=== PATIENT | female | born 1950 | race Caucasian/White ===

== ENCOUNTER 2017-06-04 00:02 | Emergency (ER) | payer BC ==
[~2017-06-04] VITALS: Ht 157.5 cm; Wt 60.6 kg
[~2017-06-04 00:02] MED LIST: CLL250 PO; CLTP PO; ESCI1TAB10 PO; FENT100D10 TD; INSU100I2 SQ; INSUINJ12 SC; PRLSR20 PO; TACR1CAP7 PO; ZOLE5INJ IV
[2017-06-04 00:09] VITALS: TEMP 37.6; Ht 157.5 cm; Wt 60.6 kg
[2017-06-04] MEDS ORDERED: MoRPHine SULFATE 10 MG/ML CARP/VIAL IV STA (00:09)
[2017-06-04] MEDS ORDERED: ONDANSETRON INJ 2 MG/ML 2 ML VIAL IV STA (00:09)
[2017-06-04] MEDS ORDERED: SODIUM CHLORIDE 0.9% 500ML 500 ML IV STA (00:09)
[2017-06-04] MEDS ORDERED: HYDROmorphone INJ 0.5 MG/0.5 ML SYR IV STA (00:14)
[2017-06-04] MEDS ORDERED: MoRPHine SULFATE 10 MG/ML CARP/VIAL IV PRN (00:15)
--- NOTE | 2017-06-04 00:27 | EMERGENCY ROOM VISIT NOTE ---
History Report prepared by Darling: Polina Gatica Under the Supervision of: Dr. Juan Francisco Nuñez M.D. First contact with patient: 00:05 Chief Complaint: FALL Stated Complaint: FALL/HIP PAIN History of Present Illness The patient is a 66 year old female who presents to the Emergency Room with complaints of an episode of a fall occurring prior to arrival. The patient states that she experiences these episodes where she feels like she is walking 90 miles an hour and then falls. She states this happened tonight when walking out of her bedroom. She states tonight she hurt her right hip. She currently rates her pain as a 10/10 in severity. The patient denies abdominal pain, dizziness, and lightheadedness. She notes she fractured her left hip recently. Source of History: patient Onset: prior to arrival Position: other (global) Symptom Intensity: 10/10 Timing: other (episode) Associated Symptoms: No abdominal pain Note: The patient complains of right hip pain. The patient denies dizziness and lightheadedness. Review of Systems See HPI for pertinent positives & negatives. A total of 10 systems reviewed and were otherwise negative. Past Medical & Surgical Medical Problems: (1) Chronic kidney disease stage 3 (2) Compression fracture of lumbar spine (3) Depression (4) DIAB KATHLEEN WO COMPL, TYPE II OR UNSPEC TYPE, NOT UNCNTRLD (5) Diabetes (6) Gastroparesis (7) Hyponatremia (8) Idiopathic osteoporosis (9) s/p cardiac catheterization (10) s/p cholecystectomy (11) s/p EGD (12) s/p hysterectomy (13) s/p liver transplantation (14) s/p lumbar vertebroplasties (15) Transplantation of liver Family History No pertinent family history Social History Smoking Status: Never Smoker Drug Use: none Housing Status: lives with family Current/Historical Medications Scheduled Calcium Carbonate-Cholecalcife (Calcium 600 + D 600-200 mg-Unit), 1 TAB PO BID Denosumab (Prolia), 1 ML INJ Q6MO Escitalopram Oxalate (Lexapro), 20 MG PO DAILY Fentanyl (Duragesic), 1 PATCH TOP [id number] Mycophenolate Mofetil (Cellcept), 2 CAP PO BID Omeprazole (Prilosec), 20 MG PO BID Potassium Chloride Microencaps (Potassium Chloride Cr), 20 MEQ PO BID Tacrolimus (Prograf), 1 MG PO Q12 Scheduled PRN Insulin Lispro (Human) (Humalog Kwikpen), 4 UNITS SQ BID PRN for sliding scale Oxycodone Ir (Roxicodone Ir), 5 MG PO Q12 PRN for Severe Pain Miscellaneous Medications Insulin Detemir (Levemir Flextouch), SQ Allergies Coded Allergies: Celecoxib (Verified Adverse Reaction, Mild, NAUSEA, VOMITING, 06/04/17) Codeine (Verified Adverse Reaction, Mild, ANXIETY, 06/04/17) Rofecoxib (Verified Adverse Reaction, Mild, LEGS GO NUMB, 06/04/17) Hydromorphone (Verified Adverse Reaction, Unknown, RESTLESS, INSOMNIA, ) Physical Exam Vital Signs Date Time Temp Pulse Resp B/P (MAP) Pulse Ox O2 Delivery O2 Flow Rate FiO2 06/04/17 03:32 121 24 95 06/04/17 03:27 122 25 96 06/04/17 03:16 150/84 06/04/17 02:57 120 19 97 06/04/17 02:42 112 18 100 06/04/17 02:30 151/84 06/04/17 02:27 107 20 98 06/04/17 02:25 Nasal Cannula 2.0 06/04/17 02:22 109 17 92 06/04/17 02:07 105 20 91 06/04/17 02:00 138/81 06/04/17 01:52 101 21 91 06/04/17 01:37 101 15 94 06/04/17 01:33 154/82 06/04/17 01:17 101 14 93 06/04/17 01:14 136/76 06/04/17 00:32 101 21 95 06/04/17 00:31 135/81 06/04/17 00:17 94 15 98 Room Air 06/04/17 00:12 95 06/04/17 00:09 37.6 95 18 119/84 97 Room Air 06/04/17 00:08 119/84 Physical Exam GENERAL: Patient is a healthy-appearing well-nourished HEAD: Normocephalic atraumatic EYES: Ocular movements intact pupils equal and react to light OROPHARYNX mucous membranes are moist no exudates present no erythema or edema present NECK: Supple no nuchal rigidity CHEST: Good equal expansion LUNGS: Clear and equal to auscultation CARDIAC: Normal S1 and S2 ABDOMEN: Soft nontender no guarding BACK: No CVA tenderness EXTREMITIES: No pain upon palpation normal muscle strength in all groups no clubbing cyanosis or edema. Right leg is shortened and rotated inward. NEURO: Patient is following commands and answering questions appropriately. Alert and oriented x3 Cranial Nerves 2-12 grossly intact Medical Decision & Procedures ER Provider Diagnostic Interpretation: A 1 view of the chest was observed by me shows no evidence of pneumonia congestion and pneumothorax or acute fractures A two-view of the pelvis was interpreted by me and is concerning for multiple pelvic fractures on the right along with what appears to be a right femoral neck fracture A two-view of the right femur was interpreted by me and is again concerning for a right femoral neck fracture. CT the pelvis shows an irregularly right femoral neck fracture. Fracture the right acetabulum and superior inferior pubic rami. Irregularity of the right sacrum adjacent to the S1 joint probably fracture. There is associated soft tissue swelling and probable hemorrhage along the right pelvic sidewall. No evidence of hip dislocation. Left hip arthroplasty and L4 and L5 vertebral plasty. Card catheter in the bladder. Stool-filled colon. CERVICAL SPINE CT CT DOSE: HISTORY: Pt c/o fall TECHNIQUE: Multiaxial CT images of the cervical spine were performed and reformatted in the sagittal and coronal plane without the use of contrast. A dose lowering technique was utilized adhering to the principles of ALARA. COMPARISON: None. FINDINGS: No fractures. No subluxation. Prevertebral soft tissues and the C1-C2 interval are intact. No pneumothorax. IMPRESSION: No fractures within the cervical spine. Electronically signed by: Laurent Modi M.D. 06/04/2017 7:08 AM Dictated Date/Time: 06/04/2017 7:06 AM (CHEST) THORAX WITHOUT CLINICAL HISTORY: 66 years-old Female presenting with Pt c/o fall. TECHNIQUE: Multidetector CT imaging of the chest was performed without the use of intravenous contrast. IV contrast: None. A dose lowering technique was used consistent with the principles of ALARA (as low as reasonably achievable). COMPARISON: 02/06/2013. CT DOSE (mGy.cm): The estimated cumulative dose is 2410.[address] spine. 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 On soft tissue windows, normal thyroid and thoracic inlet. No axillary, supraclavicular, hilar, or mediastinal lymphadenopathy. Atherosclerosis of aortic arch. Normal heart size. Aortic valve and coronary artery calcification. No pericardial or pleural effusion. Surgical material in the region of the intrahepatic IVC as well as overlying right upper quadrant abdominal surgical incision may suggest changes of prior liver transplant. The spleen is enlarged. Splenic arterial atherosclerosis. Well-defined hypodensity in the right kidney indeterminate but likely simple cyst. On lung windows, curvilinear hyperdensity in the lingula along the course of a subsegmental pulmonary artery (series 8 image 143) is new from prior exam and indeterminate. Minimal dependent changes likely atelectasis. No other focal infiltrate. Airways patent. On bone windows, vertebroplasty of L1. Compression deformities of T11, new from prior exam. Stable compression deformity of T12. Possible old fractures of several lower right posterior lateral ribs. Osteopenia. IMPRESSION: 1. Curvilinear radiodensity in the lingula appears to be within a subsegmental pulmonary artery and is indeterminate in etiology. Given that kyphoplasty changes of L1 were present on prior exam when this finding was not apparent suggests against embolization of kyphoplasty material. 2. No convincing evidence of acute intrathoracic pathology. 3. Compression deformities of lower thoracic vertebral bodies. Please see separately dictated CT of the thoracic spine for additional findings. 4. Postsurgical changes suggestive of a liver transplant. 5. Splenomegaly. Electronically signed by: Rahul Casper M.D. 06/04/2017 7:45 AM Dictated Date/Time: 06/04/2017 7:[address] HEAD WITHOUT CONTRAST (CT) CLINICAL HISTORY: Head trauma. Head pain. COMPARISON STUDY: 07/28/2008 TECHNIQUE: Axial CT of the brain is performed from the vertex to the skull base. IV contrast was not administered for this examination. A dose lowering technique was utilized adhering to the principles of ALARA. CT DOSE: FINDINGS: No intra or extra-axial mass lesions are visualized. There is no CT evidence of acute cortical infarction. There is no evidence of midline shift. There is no acute hemorrhage. No calvarial fractures are visualized. There are patchy white matter hypodensities likely on a small vessel basis. There is no evidence of pathologic ventricular dilatation. There is no evidence of acute sinusitis IMPRESSION: No acute intracranial findings Electronically signed by: David Gottlieb M.D. 06/04/2017 6:32 AM Dictated Date/Time: 06/04/2017 6:[address] DOSE: HISTORY: Low back pain. Pt c/o fall TECHNIQUE: Multiaxial CT images of the lumbar spine were performed and reformatted in the sagittal and coronal plane without the use of contrast. A dose lowering technique was utilized adhering to the principles of ALARA. COMPARISON: Lumbar spine CT 07/21/2014. FINDINGS: Multiple old compression deformity with vertebroplasty at L1, L3, L4, and L5. These remain unchanged. No acute fracture or subluxation within the lumbar spine. Nondisplaced fracture within the right sacral ala with a small amount of adjacent presacral hemorrhage. IMPRESSION: 1. No acute fracture or subluxation within the lumbar spine. Multiple old compression deformities with vertebroplasty are again noted. 2. An acute nondisplaced fracture within the right sacral ala with a small amount of adjacent presacral hemorrhage. Electronically signed by: Laurent Modi M.D. 06/04/2017 7:13 AM Dictated Date/Time: 06/04/2017 7:08 AM THORACIC SPINE WITHOUT CLINICAL HISTORY: 66 years-old Female presenting with Pt c/o fall. TECHNIQUE: Multidetector CT of the thoracic spine was performed without the use of intravenous contrast. IV contrast: None. A dose lowering technique was used consistent with the principles of ALARA (as low as reasonably achievable). COMPARISON: CTA chest from 02/06/2013. CT DOSE (mGy.cm): The estimated cumulative dose is 2410.68 mGy.cm. 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 Slight the vertebral scoliotic curvature of the lower thoracic spine. Exaggerated thoracic kyphosis centered in the thoracolumbar junction secondary to multiple compression deformities. Evidence of L1 compression deformity with vertebroplasty, unchanged from prior exam. The T11 vertebral body demonstrates significant anterior vertebral body height loss of nearly 50% relative to the posterior vertebral body height. This is new from prior exam. Less severe anterior vertebral body height loss of T12 is noted with the anterior height measuring 12 mm versus the posterior height measuring 21 mm. This is unchanged from prior exam. Minimal retropulsion of the superior aspect of the T11 and T12 vertebral bodies noted not significantly effacing the spinal canal. Subtle anterior vertebral body height loss also noted at T6, unchanged since prior exam. Remainder of the vertebral bodies demonstrate normal height. Osteopenia is present with a lower thoracic vertebral body with a density measuring 87 HU. No subluxation. Mild osseous neural foraminal narrowing noted on the right at T11-12. No other osseous neural foraminal narrowing is noted. Subtle sclerosis across the posterior lateral aspects of the right eighth through 10th ribs may suggest old fracture. No displaced acute fracture is evident. Visualized portion of the lungs are clear. No pericardial or pleural effusion. Aortic valve and coronary artery calcification. Surgical material in the region of the intrahepatic inferior vena cava could suggest liver transplant. The spleen may be enlarged but is incompletely visualized. IMPRESSION: 1. Interval development of compression fracture of T11, new since 2012. Correlate for point tenderness to assess for acute fracture. 2. Persistent anterior vertebral body height loss, consistent with compression deformity of T12 and vertebroplasty changes of L1. 3. Osteopenia. 4. Mild osseous neural foraminal narrowing on the right at T11-12. 5. No significant osseous spinal canal narrowing. Electronically signed by: Rahul Casper M.D. 06/04/2017 7:39 AM Dictated Date/Time: 06/04/2017 7:28 AM Laboratory Results 06/04/17 00:31 Red Blood Count 3.67, Mean Corpuscular Volume 84.2, Mean Corpuscular Hemoglobin 29.2, Mean Corpuscular Hemoglobin Concent 34.6, Mean Platelet Volume 10.8, Neutrophils (%) (Auto) 85.0, Lymphocytes (%) (Auto) 9.9, Monocytes (%) (Auto) 4.3, Eosinophils (%) (Auto) 0.2, Basophils (%) (Auto) 0.0, Neutrophils # (Auto) 4.20, Lymphocytes # (Auto) 0.49, Monocytes # (Auto) 0.21, Eosinophils # (Auto) 0.01, Basophils # (Auto) 0.00 06/04/17 00:31 Test 06/04/17 00:31 06/04/17 00:45 White Blood Count 4.94 K/uL (4.8-10.8) Red Blood Count 3.67 M/uL (4.2-5.4) Hemoglobin 10.7 g/dL (12.0-16.0) Hematocrit 30.9 % (37-47) Mean Corpuscular Volume 84.2 fL (80-100) Mean Corpuscular Hemoglobin 29.2 pg (25-34) Mean Corpuscular Hemoglobin Concent 34.6 g/dl (32-36) Platelet Count 88 K/uL (130-400) Mean Platelet Volume 10.8 fL (7.4-10.4) Neutrophils (%) (Auto) 85.0 % Lymphocytes (%) (Auto) 9.9 % Monocytes (%) (Auto) 4.3 % Eosinophils (%) (Auto) 0.2 % Basophils (%) (Auto) 0.0 % Neutrophils # (Auto) 4.20 K/uL (1.4-6.5) Lymphocytes # (Auto) 0.49 K/uL (1.2-3.4) Monocytes # (Auto) 0.21 K/uL (0.11-0.59) Eosinophils # (Auto) 0.01 K/uL (0-0.5) Basophils # (Auto) 0.00 K/uL (0-0.2) RDW Standard Deviation 40.8 fL (36.4-46.3) RDW Coefficient of Variation 13.4 % (11.5-14.5) Immature Granulocyte % (Auto) 0.6 % Immature Granulocyte # (Auto) 0.03 K/uL (0.00-0.02) Platelet Estimate DECREASED Red Blood Cell Morphology Unremarkable Prothrombin Time 11.5 SECONDS (9.0-12.0) Prothromb Time International Ratio 1.1 (0.9-1.1) Activated Partial Thromboplast Time 27.9 SECONDS (21.0-31.0) Partial Thromboplastin Ratio 1.1 Anion Gap 8.0 mmol/L (3-11) Est Creatinine Clear Calc Drug Dose 48.8 ml/min Estimated GFR () 70.9 Estimated GFR (Non- 61.2 BUN/Creatinine Ratio 13.9 (10-20) Calcium Level 7.3 mg/dl (8.5-10.1) Urine Color DK YELLOW Urine Appearance CLEAR (CLEAR) Urine pH 5.5 (4.5-7.5) Urine Specific [place] 1.016 (1.000-1.030) Urine Protein NEG (NEG) Urine Glucose (UA) TRACE (NEG) Urine Ketones NEG (NEG) Urine Occult Blood 1+ (NEG) Urine Nitrite NEG (NEG) Urine Bilirubin NEG (NEG) Urine Urobilinogen NEG (NEG) Urine Leukocyte Esterase SMALL (NEG) Urine WBC (Auto) 1-5 /hpf (0-5) Urine RBC (Auto) 0-4 /hpf (0-4) Urine Hyaline Casts (Auto) 1-5 /lpf (0-5) Urine Epithelial Cells (Auto) 10-20 /lpf (0-5) Urine Bacteria (Auto) NEG (NEG) Labs reviewed by ED physician. Medications Administered Medications (Trade) Dose Ordered Sig/Sandra Route Start Time Stop Time Status Last Admin Dose Admin Ondansetron HCl (Zofran Inj) 4 mg NOW STAT IV 06/04/17 00:09 06/04/17 00:13 DC 06/04/17 00:23 4 MG Sodium Chloride 500 ml @ 999 mls/hr Q31M STAT IV 06/04/17 00:09 06/04/17 00:39 DC 06/04/17 00:16 999 MLS/HR Hydromorphone HCl (Dilaudid Inj) 0.5 mg NOW STAT IV 06/04/17 00:14 06/04/17 00:16 DC 06/04/17 00:26 0.5 MG Hydromorphone HCl (Dilaudid Inj) 0.5 mg Q20M PRN IV 06/04/17 00:15 06/04/17 04:28 DC 06/04/17 03:24 0.5 MG Metoclopramide HCl (Reglan Inj) 10 mg NOW STAT IV 06/04/17 00:41 06/04/17 00:42 DC 06/04/17 00:43 10 MG ED Course 0006: Past medical records reviewed. The patient was evaluated in room A10. A complete history and physical examination was performed. 0009: Ordered NSS 500 ml @ 999 mls/hr IV, Zofran Inj 4 mg IV, Morphine Sulfate 6 mg IV. 0014: Ordered Dilaudid Inj 0.5 mg IV. 0015: Ordered Dilaudid Inj 0.5 mg PRN IV Severe Pain (pain scale 7-10), Morphine Sulfate 6 mg PRN IV Anxiety/Agitation. Medical Decision Etiologies such as fracture, dislocation, intra-abdominal, pneumothorax, intrathoracic , intracranial, neurologic, as well as other traumatic pathologies were entertained. This is a 66-year-old female with a history of liver transplant who presents to the emergency department with right hip pain after a fall at home. An IV was established, the patient was given Dilaudid multiple doses along with Zofran. The patient was sent for x-rays as above. I was concerned with the number fractures that appear to be present on the pelvic x-ray that the patient should have a CT of the pelvis. Based on this finding including the acetabular fracture felt that the patient should be transferred to a trauma center. The patient and family wish to go to [place] however based on the patient's insurance it was recommended that the patient be transferred to [place]. I discussed this with the patient and family who then agreed to go to [place]. I discussed the case with the trauma surgeon at [place] who asked that the patient be vee scanned. The patient will be transferred via [facility]. Head Trauma GCS Score: 15 Medication Reconcilliation Current Medication List: was personally reviewed by me Blood Pressure Screening Patient's blood pressure: Elevated blood pressure Impression Primary Impression: Fall Additional Impressions: Right acetabular fracture Right femoral fracture Pelvic fracture Critical Care I have personally spent greater than 90 minutes of critical care time in the direct management of this patient. This includes bedside care, interpretation of diagnostic studies, and testing, discussion with consultants, patient, and family members, and other required patient management activities. This 90 minutes is in excess of all separately billable procedures. Scribe Attestation The scribe's documentation has been prepared under my direction and personally reviewed by me in its entirety. I confirm that the note above accurately reflects all work, treatment, procedures, and medical decision making performed by me. Departure Information Dispostion Transfer Acute Care Facility Referrals Ivette Ragland M.D. (PCP) Patient Instructions My [facility] Problem Qualifiers Primary Impression: Fall Encounter type: initial encounter Qualified Codes: W19.XXXA - Unspecified fall, initial encounter Additional Impressions: Right acetabular fracture Encounter type: initial encounter Sublocation of acetabulum: unspecified portion of acetabulum Fracture type: closed Fracture alignment: nondisplaced Qualified Codes: S32.401A - Unspecified fracture of right acetabulum, initial encounter for closed fracture Right femoral fracture Encounter type: initial encounter Femur location: neck Fracture type: closed Qualified Codes: S72.001A - Fracture of unspecified part of neck of right femur, initial encounter for closed fracture Pelvic fracture Encounter type: initial encounter Pelvic bone location: unspecified part of pelvis Fracture type: closed Fracture alignment: nondisplaced Qualified Codes: S32.9XXA - Fracture of unspecified parts of lumbosacral spine and pelvis , initial encounter for closed fracture
[2017-06-04] MEDS ORDERED: METOCLOPRAMIDE HCL INJ 5 MG/ML 2 ML VIAL ONE (00:38)
[2017-06-04] MEDS ORDERED: METOCLOPRAMIDE HCL INJ 5 MG/ML 2 ML VIAL IV STA (00:41)
[2017-06-04 00:56] LABS: INR 1.1 (0.9-1.1); PARTIAL THROMBOPLASTIN RATIO 1.1; PROTHROMBIN TIME (PATIENT) 11.5 SECONDS (9.0-12.0)
[2017-06-04 01:00] LABS: URINE APPEARANCE CLEAR (CLEAR); URINE BILIRUBIN NEG (NEG); URINE COLOR DK YELLOW; URINE NITRITE NEG (NEG); URINE PH 5.5 (4.5-7.5); URINE SPECIFIC GRAVITY 1.016 (1.000-1.030); UROBILINOGEN NEG (NEG); ZZURINE CULT IF INDIC CATH NO
[2017-06-04 01:01] LABS: BUN/CREATININE RATIO 13.9 (10-20); CALCIUM 7.3 mg/dl (8.5-10.1); CREATININE 0.96 mg/dl (0.60-1.20); POTASSIUM 3.8 mmol/L (3.5-5.1)
[2017-06-04] MEDS: HYDROmorphone INJ 0.5 MG/0.5 ML SYR IV PRN ×5 (01:15→03:24)
[2017-06-04] MEDS ORDERED: FENT100D10 TOP (01:15)
[2017-06-04] MEDS ORDERED: FNTTP50 TD (01:15)
[2017-06-04] MEDS ORDERED: TACR1CAP PO (01:15)
[2017-06-04] MEDS ORDERED: MYCO250C26 PO (01:17)
[2017-06-04 01:18] LABS: COMPLETE YES; EOS % 0.2 %; HEMATOCRIT 30.9 % (37-47); IG% 0.6 %; LYMPH % 9.9 %; LYMPH ABS # 0.49 K/uL (1.2-3.4); MEAN CELL VOLUME 84.2 fL (80-100); MEAN CORPUSCULAR HEMOGLOBIN 29.2 pg (25-34); MEAN CORPUSCULAR HGB CONC 34.6 g/dl (32-36); MEAN PLATELET VOLUME 10.8 fL (7.4-10.4); MONO % 4.3 %; PLATELET COUNT 88 K/uL (130-400); PLT ESTIMATE DECREASED; RED BLOOD COUNT 3.67 M/uL (4.2-5.4); WHITE BLOOD COUNT 4.94 K/uL (4.8-10.8)
[2017-06-04] MEDS ORDERED: DENO60SO INJ (01:18)
[2017-06-04 01:19] LABS: MANUAL MICROSCOPIC REQUIRED? NO; REVIEW REQ? NO
[2017-06-04] MEDS ORDERED: CALC-452 PO (01:19)
[2017-06-04] MEDS ORDERED: OXYC1TAB3 PO (01:20)
[2017-06-04] MEDS ORDERED: POTA20TA11 PO (01:20)
[2017-06-04] MEDS ORDERED: INSU100I2 SQ (01:21)
[2017-06-04] MEDS ORDERED: LVMIPEN SQ (01:22)
[2017-06-04 03:16] VITALS: BP 150/84
[2017-06-04 03:32] VITALS: PULSE 121; O2SAT 95
--- NOTE | 2017-06-04 06:33 | DIAGNOSTIC IMAGING REPORT ---
CT HEAD WITHOUT CONTRAST (CT) CLINICAL HISTORY: Head trauma. Head pain. COMPARISON STUDY: 07/28/2008 TECHNIQUE: Axial CT of the brain is performed from the vertex to the skull base. IV contrast was not administered for this examination. A dose lowering technique was utilized adhering to the principles of ALARA. CT DOSE: FINDINGS: No intra or extra-axial mass lesions are visualized. There is no CT evidence of acute cortical infarction. There is no evidence of midline shift. There is no acute hemorrhage. No calvarial fractures are visualized. There are patchy white matter hypodensities likely on a small vessel basis. There is no evidence of pathologic ventricular dilatation. There is no evidence of acute sinusitis IMPRESSION: No acute intracranial findings Electronically signed by: David Gottlieb M.D. 06/04/2017 6:32 AM Dictated Date/Time: 06/04/2017 6:31 AM
--- NOTE | 2017-06-04 06:42 | DIAGNOSTIC IMAGING REPORT ---
RIGHT FEMUR 4 VIEWS ROUTINE CLINICAL HISTORY: Right hip and leg pain. Trauma. COMPARISON: None. DISCUSSION: There is a subcapital right hip fracture. There is an age-indeterminate fracture the right superior pubic ramus/acetabulum. There is no dislocation. No additional fractures are evident. IMPRESSION: 1. Acute subcapital right hip fracture 2. Age-indeterminate fracture the right superior pubic ramus/acetabulum Electronically signed by: David Gottlieb M.D. 06/04/2017 6:41 AM Dictated Date/Time: 06/04/2017 6:38 AM
--- NOTE | 2017-06-04 06:45 | DIAGNOSTIC IMAGING REPORT ---
AP PELVIS 3 VIEWS CLINICAL HISTORY: Right hip pain status post trauma COMPARISON STUDY: No previous studies for comparison. FINDINGS: There is acute fracture the right superior pubic ramus/acetabulum. There is acute fracture the right inferior pubic ramus. There is an acute subcapital right hip fracture. There is a total left hip prosthesis. There is no dislocation. There is evidence for prior vertebroplasty's at the L3-L4 and L5 levels. IMPRESSION: 1. Acute subcapital right hip fracture 2. Right ischio pubic ring fracture with possible extension to the right acetabulum Electronically signed by: David Gottlieb M.D. 06/04/2017 6:44 AM Dictated Date/Time: 06/04/2017 6:42 AM
--- NOTE | 2017-06-04 06:46 | DIAGNOSTIC IMAGING REPORT ---
CHEST ONE VIEW PORTABLE CLINICAL HISTORY: Trauma. Right hip pain. COMPARISON STUDY: 09/08/2013 FINDINGS: The cardiac and mediastinal contours are normal. There is no evidence of focal pulmonary consolidation. There is no evidence of failure. No pleural effusions are visualized.[ The study is performed in a supine fashion. No pneumothorax is visualized on the supine study. Surgical clips are visualized in the right upper abdomen. IMPRESSION: Portable supine study. No acute findings. Electronically signed by: David Gottlieb M.D. 06/04/2017 6:45 AM Dictated Date/Time: 06/04/2017 6:44 AM
--- NOTE | 2017-06-04 07:09 | DIAGNOSTIC IMAGING REPORT ---
CERVICAL SPINE CT CT DOSE: HISTORY: Pt c/o fall TECHNIQUE: Multiaxial CT images of the cervical spine were performed and reformatted in the sagittal and coronal plane without the use of contrast. A dose lowering technique was utilized adhering to the principles of ALARA. COMPARISON: None. FINDINGS: No fractures. No subluxation. Prevertebral soft tissues and the C1-C2 interval are intact. No pneumothorax. IMPRESSION: No fractures within the cervical spine. Electronically signed by: Laurent Modi M.D. 06/04/2017 7:08 AM Dictated Date/Time: 06/04/2017 7:06 AM
--- NOTE | 2017-06-04 07:15 | DIAGNOSTIC IMAGING REPORT ---
LUMBAR SPINE CT CT DOSE: HISTORY: Low back pain. Pt c/o fall TECHNIQUE: Multiaxial CT images of the lumbar spine were performed and reformatted in the sagittal and coronal plane without the use of contrast. A dose lowering technique was utilized adhering to the principles of ALARA. COMPARISON: Lumbar spine CT 07/21/2014. FINDINGS: Multiple old compression deformity with vertebroplasty at L1, L3, L4, and L5. These remain unchanged. No acute fracture or subluxation within the lumbar spine. Nondisplaced fracture within the right sacral ala with a small amount of adjacent presacral hemorrhage. IMPRESSION: 1. No acute fracture or subluxation within the lumbar spine. Multiple old compression deformities with vertebroplasty are again noted. 2. An acute nondisplaced fracture within the right sacral ala with a small amount of adjacent presacral hemorrhage. Electronically signed by: Laurent Modi M.D. 06/04/2017 7:13 AM Dictated Date/Time: 06/04/2017 7:08 AM
--- NOTE | 2017-06-04 07:21 | DIAGNOSTIC IMAGING REPORT ---
PELVIS CT CT DOSE: 447.86 mGy.cm HISTORY: Fall. Pt c/o Rt hip pain TECHNIQUE: Multiaxial CT images of the pelvis were performed and reformatted in the sagittal and coronal plane without the use of contrast. A dose lowering technique was utilized adhering to the principles of ALARA. COMPARISON: None. FINDINGS: Old compression fractures at L4 and L5 with associated vertebroplasty. Nondisplaced fracture within the right sacral with a small amount of right presacral/right pelvic sidewall hemorrhage. Angular right femoral neck fracture. No dislocation. Right superior and inferior pubic rami fractures. There is a left hip prosthesis. Card catheter within the bladder. Moderate stool within the colon. The right superior pubic ramus fracture may extend into the anterior column of the right acetabulum. IMPRESSION: 1. Fractures involving the right femoral neck, right pubic ring, anterior column of the right acetabulum, and right sacrum. 2. Small amount of right presacral/pelvic sidewall hemorrhage. Electronically signed by: Laurent Modi M.D. 06/04/2017 7:20 AM Dictated Date/Time: 06/04/2017 7:16 AM
--- NOTE | 2017-06-04 07:41 | DIAGNOSTIC IMAGING REPORT ---
THORACIC SPINE WITHOUT CLINICAL HISTORY: 66 years-old Female presenting with Pt c/o fall. TECHNIQUE: Multidetector CT of the thoracic spine was performed without the use of intravenous contrast. IV contrast: None. A dose lowering technique was used consistent with the principles of ALARA (as low as reasonably achievable). COMPARISON: CTA chest from 02/06/2013. CT DOSE (mGy.cm): The estimated cumulative dose is 2410.68 mGy.cm. 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 Slight the vertebral scoliotic curvature of the lower thoracic spine. Exaggerated thoracic kyphosis centered in the thoracolumbar junction secondary to multiple compression deformities. Evidence of L1 compression deformity with vertebroplasty, unchanged from prior exam. The T11 vertebral body demonstrates significant anterior vertebral body height loss of nearly 50% relative to the posterior vertebral body height. This is new from prior exam. Less severe anterior vertebral body height loss of T12 is noted with the anterior height measuring 12 mm versus the posterior height measuring 21 mm. This is unchanged from prior exam. Minimal retropulsion of the superior aspect of the T11 and T12 vertebral bodies noted not significantly effacing the spinal canal. Subtle anterior vertebral body height loss also noted at T6, unchanged since prior exam. Remainder of the vertebral bodies demonstrate normal height. Osteopenia is present with a lower thoracic vertebral body with a density measuring 87 HU. No subluxation. Mild osseous neural foraminal narrowing noted on the right at T11-12. No other osseous neural foraminal narrowing is noted. Subtle sclerosis across the posterior lateral aspects of the right eighth through 10th ribs may suggest old fracture. No displaced acute fracture is evident. Visualized portion of the lungs are clear. No pericardial or pleural effusion. Aortic valve and coronary artery calcification. Surgical material in the region of the intrahepatic inferior vena cava could suggest liver transplant. The spleen may be enlarged but is incompletely visualized. IMPRESSION: 1. Interval development of compression fracture of T11, new since 2012. Correlate for point tenderness to assess for acute fracture. 2. Persistent anterior vertebral body height loss, consistent with compression deformity of T12 and vertebroplasty changes of L1. 3. Osteopenia. 4. Mild osseous neural foraminal narrowing on the right at T11-12. 5. No significant osseous spinal canal narrowing. Electronically signed by: Rahul Casper M.D. 06/04/2017 7:39 AM Dictated Date/Time: 06/04/2017 7:28 AM
--- NOTE | 2017-06-04 07:46 | DIAGNOSTIC IMAGING REPORT ---
(CHEST) THORAX WITHOUT CLINICAL HISTORY: 66 years-old Female presenting with Pt c/o fall. TECHNIQUE: Multidetector CT imaging of the chest was performed without the use of intravenous contrast. IV contrast: None. A dose lowering technique was used consistent with the principles of ALARA (as low as reasonably achievable). COMPARISON: 02/06/2013. CT DOSE (mGy.cm): The estimated cumulative dose is 2410.[address] spine. 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 On soft tissue windows, normal thyroid and thoracic inlet. No axillary, supraclavicular, hilar, or mediastinal lymphadenopathy. Atherosclerosis of aortic arch. Normal heart size. Aortic valve and coronary artery calcification. No pericardial or pleural effusion. Surgical material in the region of the intrahepatic IVC as well as overlying right upper quadrant abdominal surgical incision may suggest changes of prior liver transplant. The spleen is enlarged. Splenic arterial atherosclerosis. Well-defined hypodensity in the right kidney indeterminate but likely simple cyst. On lung windows, curvilinear hyperdensity in the lingula along the course of a subsegmental pulmonary artery (series 8 image 143) is new from prior exam and indeterminate. Minimal dependent changes likely atelectasis. No other focal infiltrate. Airways patent. On bone windows, vertebroplasty of L1. Compression deformities of T11, new from prior exam. Stable compression deformity of T12. Possible old fractures of several lower right posterior lateral ribs. Osteopenia. IMPRESSION: 1. Curvilinear radiodensity in the lingula appears to be within a subsegmental pulmonary artery and is indeterminate in etiology. Given that kyphoplasty changes of L1 were present on prior exam when this finding was not apparent suggests against embolization of kyphoplasty material. 2. No convincing evidence of acute intrathoracic pathology. 3. Compression deformities of lower thoracic vertebral bodies. Please see separately dictated CT of the thoracic spine for additional findings. 4. Postsurgical changes suggestive of a liver transplant. 5. Splenomegaly. Electronically signed by: Rahul Casper M.D. 06/04/2017 7:45 AM Dictated Date/Time: 06/04/2017 7:39 AM
== END 2017-06-04 03:52 | disposition short-term general hospital (02) ==
LOC: EDBD 00:02 → C.EDA 00:03
DX: S32.401A Unspecified fracture of right acetabulum, initial encounter for closed fracture (principal); S72.91XA Unspecified fracture of right femur, initial encounter for closed fracture; W19.XXXA Unspecified fall, initial encounter; Y92.019 Unspecified place in single-family (private) house as the place of occurrence of the external cause; N18.3 Chronic kidney disease, stage 3 (moderate); E11.9 Type 2 diabetes mellitus without complications; K31.84 Gastroparesis; M81.8 Other osteoporosis without current pathological fracture; Z87.81 Personal history of (healed) traumatic fracture; Z90.710 Acquired absence of both cervix and uterus; Z90.49 Acquired absence of other specified parts of digestive tract; Z94.4 Liver transplant status; Z79.899 Other long term (current) drug therapy; Z88.5 Allergy status to narcotic agent; Z88.8 Allergy status to other drugs, medicaments and biological substances

== ENCOUNTER 2021-08-22 16:12 | Inpatient (IN) ==
--- NOTE | 2021-08-22 17:06 | XRay Report ---
XR chest 1V portable CLINICAL HISTORY: fall. Pain COMPARISON STUDY: 06/04/2017 TECHNIQUE: 1 view of the chest FINDINGS: Single frontal view of the chest demonstrates the cardiomediastinal silhouette to be within normal li mits. The lungs are clear of alveolar opacities. There is no evidence for pleural effusion. There is no evidence for vascular congestion. There is no acute osseous pathology. IMPRESSION: No acute cardiopulmonary disease. ACT 112: Negative or not required by law. Electronically signed by: Jovanni Perales M.D. 08/22/2021 5:05 PM
--- NOTE | 2021-08-22 17:10 | XRay Report ---
XR shoulder LT min 2V routine, XR humerus LT 2V CLINICAL HISTORY: fall. Left shoulder and humerus pain COMPARISON STUDY: No previous studies for comparison. TECHNIQUE: 2 left shoulder and 2 left humerus views FINDINGS: Bones: There is a transverse, displaced fracture through the anatomic neck of the humerus. Humeral sh aft is medially and anteriorly displaced in relation to the humeral head. There may also be a second vertically oriented fracture through the bases of the tuberosities of the humerus. The distal humeral shaft is intact. There is no lytic or blastic lesion. Joints: Humeral head does maintain its anatomic position within the glenoid fossa. The elbow joint sp srini is maintained. Soft tissues: There is no focal soft tissue abnormality. There is no radiopaque foreign body. IMPRESSION: 1. Displaced fracture through the anatomic neck of the humerus. 2. There also appears to be a second vertically oriented fracture through the base of the tuberositie s of the humeral head. ACT 112: Negative or not required by law. Electronically signed by: Jovanni Perales M.D. 08/22/2021 5:09 PM
--- NOTE | 2021-08-22 17:12 | XRay Report ---
XR pelvis 1-2V routine CLINICAL HISTORY: fall. Pain. COMPARISON STUDY: 06/04/2017 TECHNIQUE: [A single AP radiograph was obtained. FINDINGS: There is no evidence for an acute fracture. Old, healed fractures of the superior and inferior ischia l pubic rami on the right are seen. The patient is status post bilateral hip replacement on the curre nt study. The prosthetic components are in anatomic alignment. The SI joints are intact bilaterally. The remaining visualized bones of the pelvis are intact. The patient is status post vertebroplasty of the lower lumbar spine. No focal soft tissue abnormalities identified. IMPRESSION: No acute abnormality. Stable bilateral total hip replacements. ACT 112: Negative or not required by law. Electronically signed by: Jovanni Perales M.D. 08/22/2021 5:10 PM
--- NOTE | 2021-08-22 17:20 | CT Scan Report ---
CT head/brain wo con CLINICAL HISTORY: fall with pain COMPARISON STUDY: 06/04/2017 TECHNIQUE: Standard CT of the Brain was performed without IV contrast. A dose lowering technique was utilized adhering to the principles of ALARA. FINDINGS: Extraaxial space: There is no evidence for subdural hematoma. There are no extra-axial fluid collecti ons. Ventricles and cisterns: The ventricles are mildly to moderately dilated bilaterally. There is no ev idence for midline shift or mass effect. Parenchyma: There is no subarachnoid or intraparenchymal hemorrhage. There is no evidence for an acu te infarct or cerebral edema. There is mild cerebral cortical atrophy and decreased attenuation in th e periventricular white matter representing remote small vessel disease. There are no gross mass lesi ons. Osseous structures: There is no evidence for an acute fracture. The visualized paranasal sinuses are clear. The mastoid air cells are clear bilaterally. Soft tissues: There is no evidence for focal soft tissue swelling. IMPRESSION: No acute intracerebral pathology. Cerebral cortical atrophy and remote small vessel disea se are seen. ACT 112: Negative or not required by law. Electronically signed by: Jovanni Perales M.D. 08/22/2021 5:18 PM
[2021-08-22] MEDS ORDERED: MoRPHine SULFATE 4 MG/ML 1 ML CARP\\VIAL IV STA (17:21)
--- NOTE | 2021-08-22 17:22 | CT Scan Report ---
CT cervical spine wo con CLINICAL HISTORY: fall with neck pain COMPARISON STUDY: 06/04/2017 CT DOSE: 922.59 mGy.cm TECHNIQUE: Standard CT of the Cervical Spine was performed without IV contrast. A dose lowering te chnique was utilized adhering to the principles of ALARA. FINDINGS: Bones: Bones are osteopenic. There is no evidence for an acute fracture or malalignment. The heights of the vertebral bodies are maintained. The vertebral bodies are in anatomic alignment. The odontoid is intact and the atlantoaxial articulation is within normal limits. Disc spaces:There is mild disc space narrowing at C5-6. Apophyseal joints:There is degenerative apophyseal joint disease seen bilaterally. Soft tissues:The prevertebral soft tissues are within normal limits. IMPRESSION: Osteopenia with no acute abnormality. Degenerative disc and degenerative joint disease. ACT 112: Negative or not required by law. Electronically signed by: Jovanni Perales M.D. 08/22/2021 5:21 PM
--- NOTE | 2021-08-22 17:35 | Emergency Department Note ---
History of Present Illness General Chief complaint: Fall Time Seen by Provider: 08/22/21 16:37 History of Present Illness Provider complaint: Fall Onset (ago): hour(s) (1.5) Location: chest, upper extremity and left Radiation: non-radiation Severity: moderate Maximum Pain Intensity: 7 Current Pain Intensity: 7 Quality: + stabbing and + sharp Relieved By: + immobilization Exacerbated By: + movement Associated symptoms: no cough, no headaches, no nausea/vomiting or no shortness of breath 30-year-old female presents emergency department status post fall. Patient states approximately 90 minutes ago she tried to get up to walk to the restroom without her walker and she fell forward landing on her left arm. Patient reporting pain in her left shoulder and chest. She denies hitting her head. She denies any blood thinners denies any abdominal pain or difficulty ambulating. Home Medications Medication Instructions Recorded Confirmed Type duloxetine 60 mg capsule,delayed 60 mg PO DAILY 08/22/21 08/22/21 History release insulin detemir U-100 100 unit/mL 13 unit SUBCUT Q12 08/22/21 08/22/21 History (3 mL) subcutaneous pen (Levemir FlexTouch U-100 Insulin) insulin lispro 100 unit/mL 0 unit SUBCUT AMPM 08/22/21 08/22/21 History subcutaneous pen (Humalog KwikPen (U-100) Insulin) mycophenolate mofetil 250 mg 500 mg PO BID 08/22/21 08/22/21 History capsule omeprazole 20 mg capsule,delayed 20 mg PO DAILY 08/22/21 08/22/21 History release tacrolimus 1 mg capsule, 1 mg PO Q12 08/22/21 08/22/21 History immediate-release Allergies Allergy/AdvReac Type Severity Reaction Status Date / Time celecoxib AdvReac Mild NAUSEA, Verified 08/22/21 16:46 VOMITING codeine AdvReac Mild ANXIETY Verified 08/22/21 16:46 rofecoxib AdvReac Mild LEGS GO Verified 08/22/21 16:46 NUMB hydromorphone AdvReac Unknown RESTLESS, Verified 08/22/21 16:46 INSOMNIA Past Med/Surg History Medical History (Updated 08/22/21 @ 19:00 by Daniel Retana) CKD (chronic kidney disease) Diabetes Surgical History (Updated 08/22/21 @ 18:46 by Daniel Retana) Liver transplanted Family History (Updated 08/22/21 @ 18:47 by Daniel Retana) Other Diabetes Social History Smoking Status: Never smoker Feels Safe at Home: Yes Review of Systems A total of 10 systems reviewed and were otherwise negative Physical Exam Vital Signs Vital Signs - 24 hr 08/22/21 16:17 08/22/21 18:20 Temperature 36.5 C Temperature Source Oral Pulse Rate 98 H Pulse Rate [Right Finger] 88 Respiratory Rate 18 18 Blood Pressure 126/65 Blood Pressure [Right Arm] 126/72 Blood Pressure Mean 85 Blood Pressure Mean [Right Arm] 90 Pulse Oximetry 99 96 Oxygen Delivery Method Room Air Room Air Sepsis Recent Fever Within 48 Hours No Sepsis New/Unexplained Change in Mental Status No Sepsis Action Taken by Nursing No Action Required Physical Exam HENT: Exam performed. -Head: Normocephalic and atraumatic. -Right Ear: External ear normal. No mastoid tenderness. -Left Ear: External ear normal. No mastoid tenderness. -Mouth/Throat: The oropharynx is clear and moist. No trismus in the jaw. No dental abscesses or uvula swelling. No oropharyngeal exudate or tonsillar abscesses. EYES: Conjunctivae and EOM are normal. Pupils are equal, round, and reactive to light. Right eye exhibits no discharge. Left eye exhibits no discharge. No scleral icterus. NECK: Normal range of motion. Neck supple. No JVD present. No spinous process tenderness present. CV: Normal rate, regular rhythm, normal heart sounds and intact distal pulses. There is no peripheral edema. Palpable radial pulses bue. PULM/CHEST: Effort normal and breath sounds normal. No respiratory distress. No stridor. She has no wheezes. She has no rales. -Chest Wall: Hematoma over the left clavicle pain on palpation of the left clavicle. ABD: The abdomen is soft and non tender NEURO: She is alert and oriented to person, place, and time. GCS eye subscore is 4. GCS verbal subscore is 5. GCS motor subscore is 6. Cerebellar tests wnl. PSYCH: She has a normal mood and affect. Behavior is normal. Judgment and thought content normal. Course Course 1637: The patient was evaluated in room B11. A complete history and physical exam was performed Cardiac monitoring: An order was placed for continuous cardiac monitoring. The monitor shows a rate of 90 with sinus rhythm 173: Patient has a humerus fracture. Patient states she has no orthopedist that she follows up with regularly. Discussed with on-call orthopedics Dr. Barlow who states to order CT scan of the shoulder. I did discuss my concerns with him about the patient being discharged home and be unable to ambulate given that she is supposed to use walker and now her arm is broken. He states that if we can control her pain she can follow-up with him outpatient otherwise the pain is unable to control there is is concerned about her safety at home the patient can be admitted to medicine he will be on consult. 1853: CT confirms humerus fracture. Multiple attempts have been made to contact the family that is listed as the patient's primary contact at her request to see if they can come and help her get home and take care of her at home. We have been unable to touch base with the family. Patient required increased analgesia we will [facility] and for orthopedic evaluation tomorrow. Administered Medications Promethazine HCl 6.25 mg/ (Sodium Chloride) 50.25 mls @ 201 mls/hr IV Q6H PRN PRN Reason: Nausea And Vomiting Stop: 09/21/21 22:30 Last Infusion: 08/22/21 23:14 Dose: 0 mls/hr Documented by: [id number] Admin: 08/22/21 22:57 Dose: 201 mls/hr Documented by: [id number] Sodium Chloride (Nss 1000ml) 1,000 mls @ 80 mls/hr IV .[id number] ALYSSA Stop: 09/22/21 00:00 Last Admin: 08/22/21 23:23 Dose: 80 mls/hr Documented by: [id number] Mycophenolate Mofetil (Mycophenolate Mofetil 250 Mg Cap) 500 mg PO BID ALYSSA Stop: 09/21/21 22:59 Last Admin: 08/22/21 22:58 Dose: 500 mg Documented by: [id number] Tacrolimus (Tacrolimus 1 Mg Cap) 1 mg PO Q12 ALYSSA Stop: 09/21/21 22:59 Last Admin: 08/22/21 22:57 Dose: 1 mg Documented by: [id number] Discontinued Medications Sodium Chloride (Nss 1000ml) 1,000 mls @ 500 mls/hr IV .Q2H ONE Stop: 08/22/21 21:15 Last Infusion: 08/22/21 22:33 Dose: 0 mls/hr Documented by: [id number] Admin: 08/22/21 19:36 Dose: 500 mls/hr Documented by: [id number] Insulin Glargine (Insulin Glargine Solostar 100 Units/Ml 3 Ml Pen) 20 units SC NOW STA Stop: 08/22/21 19:43 Last Admin: 08/22/21 20:50 Dose: 20 units Documented by: [id number] Cosigned by: [id number] Morphine Sulfate (Morphine Sulfate 4 Mg/Ml 1 Ml Carp\Vial) 2 mg IV NOW STA Stop: 08/22/21 17:22 Last Admin: 08/22/21 17:57 Dose: 2 mg Documented by: [id number] Morphine Sulfate (Morphine Sulfate 2 Mg/Ml Carp) 2 mg IV NOW STA Stop: 08/22/21 18:22 Last Admin: 08/22/21 18:40 Dose: 2 mg Documented by: [id number] Morphine Sulfate (Morphine Sulfate 2 Mg/Ml Carp) 2 mg IV NOW STA Stop: 08/22/21 18:59 Last Admin: 08/22/21 19:36 Dose: 2 mg Documented by: [id number] Medical Decision Making Laboratory Data Result diagrams: 08/22/21 17:50 08/22/21 17:50 Lab Results 08/22/21 08/22/21 08/22/21 Range/Units 17:50 17:50 17:50 WBC 6.90 (4.8-10.8) K/uL RBC 4.17 L (4.2-5.4) M/uL Hgb 12.1 (12.0-16.0) g/dL Hct 36.2 L (37-47) % MCV 86.8 (80-100) fL MCH 29.0 (25-34) pg MCHC 33.4 (32-36) g/dL RDW Std Deviation 44.8 (36.4-46.3) fL RDW Coeff of Francisco 14.3 (11.5-14.5) % Plt Count 141 (130-400) K/uL MPV 10.3 (7.4-10.4) fL Immature Gran % (Auto) 0.6 % Neut % (Auto) 86.7 % Lymph % (Auto) 8.0 % [place] % (Auto) 4.5 % Eos % (Auto) 0.1 % Baso % (Auto) 0.1 % Neut # (Auto) 5.98 (1.4-6.5) K/uL Lymph # (Auto) 0.55 L (1.2-3.4) K/uL [place] # (Auto) 0.31 (0.11-0.59) K/uL Eos # (Auto) 0.01 (0-0.5) K/uL Baso # (Auto) 0.01 (0-0.2) K/uL Immature Gran # (Auto) 0.04 H (0.00-0.02) K/uL PT 10.3 (9.0-12.0) Seconds INR 1.0 (0.9-1.1) APTT 21.8 (21.0-31.0) Seconds PTT Ratio 0.8 Sodium 135 L (136-145) mmol/L Potassium 4.5 (3.5-5.1) mmol/L Chloride 101 (98-107) mmol/L Carbon Dioxide 24 (21-32) mmol/L Anion Gap 9.0 (3-11) BUN 18 (7-18) mg/dl Creatinine 1.21 H (0.6-1.2) mg/dl Est Cr Clr Drug Dosing Not Reportable Est GFR ( Amer) 52.1 ml/min Est GFR (Non-Af Amer) 45.0 ml/min BUN/Creatinine Ratio 15.2 (10-20) Glucose 415 H* (70-99) mg/dl Calcium 8.4 L (8.5-10.1) mg/dl Magnesium (1.8-2.4) mg/dl Total Bilirubin (0.2-1) mg/dl Direct Bilirubin (0-0.2) mg/dl AST (15-37) U/L ALT (12-78) U/L Alkaline Phosphatase (45-117) U/L Total Protein (6.4-8.2) gm/dl Albumin (3.4-5.0) gm/dl Beta-Hydroxybutyric Acd 3.17 H (0.2-2.81) mg/dl SARS-CoV-2, RNA, NAAT (NEGATIVE) 08/22/21 08/22/21 Range/Units 17:50 18:38 WBC (4.8-10.8) K/uL RBC (4.2-5.4) M/uL Hgb (12.0-16.0) g/dL Hct (37-47) % MCV (80-100) fL MCH (25-34) pg MCHC (32-36) g/dL RDW Std Deviation (36.4-46.3) fL RDW Coeff of Francisco (11.5-14.5) % Plt Count (130-400) K/uL MPV (7.4-10.4) fL Immature Gran % (Auto) % Neut % (Auto) % Lymph % (Auto) % [place] % (Auto) % Eos % (Auto) % Baso % (Auto) % Neut # (Auto) (1.4-6.5) K/uL Lymph # (Auto) (1.2-3.4) K/uL [place] # (Auto) (0.11-0.59) K/uL Eos # (Auto) (0-0.5) K/uL Baso # (Auto) (0-0.2) K/uL Immature Gran # (Auto) (0.00-0.02) K/uL PT (9.0-12.0) Seconds INR (0.9-1.1) APTT (21.0-31.0) Seconds PTT Ratio Sodium (136-145) mmol/L Potassium (3.5-5.1) mmol/L Chloride (98-107) mmol/L Carbon Dioxide (21-32) mmol/L Anion Gap (3-11) BUN (7-18) mg/dl Creatinine (0.6-1.2) mg/dl Est Cr Clr Drug Dosing Est GFR ( Amer) ml/min Est GFR (Non-Af Amer) ml/min BUN/Creatinine Ratio (10-20) Glucose (70-99) mg/dl Calcium (8.5-10.1) mg/dl Magnesium 1.8 (1.8-2.4) mg/dl Total Bilirubin 1.2 H (0.2-1) mg/dl Direct Bilirubin 0.3 H (0-0.2) mg/dl AST 15 (15-37) U/L ALT 17 (12-78) U/L Alkaline Phosphatase 76 (45-117) U/L Total Protein 6.8 (6.4-8.2) gm/dl Albumin 3.4 (3.4-5.0) gm/dl Beta-Hydroxybutyric Acd (0.2-2.81) mg/dl SARS-CoV-2, RNA, NAAT NEGATIVE (NEGATIVE) Imaging Data Radiologist's Impression: Cervical Spine CT 08/22/21 16:45 CT cervical spine wo con CLINICAL HISTORY: fall with neck pain COMPARISON STUDY: 06/04/2017 CT DOSE: 922.59 mGy.cm TECHNIQUE: Standard CT of the Cervical Spine was performed without IV contrast. A dose lowering technique was utilized adhering to the principles of ALARA. FINDINGS: Bones: Bones are osteopenic. There is no evidence for an acute fracture or malalignment. The heights of the vertebral bodies are maintained. The vertebral bodies are in anatomic alignment. The odontoid is intact and the atlantoaxial articulation is within normal limits. Disc spaces:There is mild disc space narrowing at C5-6. Apophyseal joints:There is degenerative apophyseal joint disease seen bilat erally. Soft tissues:The prevertebral soft tissues are within normal limits. IMPRESSION: Osteopenia with no acute abnormality. Degenerative disc and degenerative joint disease. ACT 112: Negative or not required by law. Electronically signed by: Jovanni Perales M.D. 08/22/2021 5:21 PM Chest X-Ray 08/22/21 16:45 XR chest 1V portable CLINICAL HISTORY: fall. Pain COMPARISON STUDY: 06/04/2017 TECHNIQUE: 1 view of the chest FINDINGS: Single frontal view of the chest demonstrates the cardiomediastinal silhouette to be within normal limits. The lungs are clear of alveolar opacities. There is no evidence for pleural effusion. There is no evidence for vascular congestion. There is no acute osseous pathology. IMPRESSION: No acute cardiopulmonary disease. ACT 112: Negative or not required by law. Electronically signed by: Jovanni Perales M.D. 08/22/2021 5:[address] 08/22/21 16:45 CT head/brain wo con CLINICAL HISTORY: fall with pain COMPARISON STUDY: 06/04/2017 TECHNIQUE: Standard CT of the Brain was performed without IV contrast. A dose lowering technique was utilized adhering to the principles of ALARA. FINDINGS: Extraaxial space: There is no evidence for subdural hematoma. There are no extra-axial fluid collections. Ventricles and cisterns: The ventricles are mildly to moderately dilated bilaterally. There is no evidence for midline shift or mass effect. Parenchyma: There is no subarachnoid or intraparenchymal hemorrhage. There is no evidence for an acute infarct or cerebral edema. There is mild cerebral cortical atrophy and decreased attenuation in the periventricular white matter representing remote small vessel disease. There are no gross mass lesions. Osseous structures: There is no evidence for an acute fracture. The visualized paranasal sinuses are clear. The mastoid air cells are clear bilaterally. Soft tissues: There is no evidence for focal soft tissue swelling. IMPRESSION: No acute intracerebral pathology. Cerebral cortical atrophy and remote small vessel disease are seen. ACT 112: Negative or not required by law. Electronically signed by: Jovanni Perales M.D. 08/22/2021 5:18 PM Humerus X-Ray 08/22/21 16:46 XR shoulder LT min 2V routine, XR humerus LT 2V CLINICAL HISTORY: fall. Left shoulder and humerus pain COMPARISON STUDY: No previous studies for comparison. TECHNIQUE: 2 left shoulder and 2 left humerus views FINDINGS: Bones: There is a transverse, displaced fracture through the anatomic neck of the humerus. Humeral shaft is medially and anteriorly displaced in relation to the humeral head. There may also be a second vertically oriented fracture through the bases of the tuberosities of the humerus. The distal humeral shaft is intact. There is no lytic or blastic lesion. Joints: Humeral head does maintain its anatomic position within the glenoid fossa. The elbow joint space is maintained. Soft tissues: There is no focal soft tissue abnormality. There is no radiopaque foreign body. IMPRESSION: 1. Displaced fracture through the anatomic neck of the humerus. 2. There also appears to be a second vertically oriented fracture through the base of the tuberosities of the humeral head. ACT 112: Negative or not required by law. Electronically signed by: Jovanni Perales M.D. 08/22/2021 5:09 PM Pelvis X-Ray 08/22/21 16:46 XR pelvis 1-2V routine CLINICAL HISTORY: fall. Pain. COMPARISON STUDY: 06/04/2017 TECHNIQUE: [A single AP radiograph was obtained. FINDINGS: There is no evidence for an acute fracture. Old, healed fractures of the superior and inferior ischial pubic rami on the right are seen. The patient is status post bilateral hip replacement on the current study. The prosthetic components are in anatomic alignment. The SI joints are intact bilaterally. The remaining visualized bones of the pelvis are intact. The patient is status post vertebroplasty of the lower lumbar spine. No focal soft tissue abnormalities identified. IMPRESSION: No acute abnormality. Stable bilateral total hip replacements. ACT 112: Negative or not required by law. Electronically signed by: Jovanni Perales M.D. 08/22/2021 5:10 PM Shoulder X-Ray 08/22/21 16:46 XR shoulder LT min 2V routine, XR humerus LT 2V CLINICAL HISTORY: fall. Left shoulder and humerus pain COMPARISON STUDY: No previous studies for comparison. TECHNIQUE: 2 left shoulder and 2 left humerus views FINDINGS: Bones: There is a transverse, displaced fracture through the anatomic neck of the humerus. Humeral shaft is medially and anteriorly displaced in relation to the humeral head. There may also be a second vertically oriented fracture through the bases of the tuberosities of the humerus. The distal humeral shaft is intact. There is no lytic or blastic lesion. Joints: Humeral head does maintain its anatomic position within the glenoid fossa. The elbow joint space is maintained. Soft tissues: There is no focal soft tissue abnormality. There is no radiopaque foreign body. IMPRESSION: 1. Displaced fracture through the anatomic neck of the humerus. 2. There also appears to be a second vertically oriented fracture through the base of the tuberosities of the humeral head. ACT 112: Negative or not required by law. Electronically signed by: Jovanni Perales M.D. 08/22/2021 5:[address] 08/22/21 17:39 CT shoulder LT wo con CLINICAL HISTORY: Status post fall with shoulder fracture. CT to further evaluate COMPARISON STUDY: Standard radiographs from 08/22/2021 CT DOSE: 397.72 mGy.cm TECHNIQUE: Standard CT of the is performed without IV contrast. Multiplanar reconstruction is performed. A dose lowering technique was utilized adhering to the principles of ALARA. FINDINGS: Bones: As seen radiographically, there is displaced fracture of the anatomic neck of the humerus with the humeral shaft intramedullary displaced wrist humeral head. A second vertically oriented fracture through the base of the tuberosities of the humeral head is also again seen. There are no lytic or blastic lesions. Joints: The humeral head maintains its anatomic position within the glenoid fossa. Soft tissues: There is soft tissue swelling surrounding the shoulder joint. There are no focal fluid collections. IMPRESSION: CT confirms a displaced fracture of the humeral neck and vertically oriented fracture through the tuberosities of the humeral head. ACT 112: Negative or not required by law. Electronically signed by: Jovanni Perales M.D. 08/22/2021 6:42 PM [facility] Narrative 1637: The patient was evaluated in room B11. A complete history and physical exam was performed Cardiac monitoring: An order was placed for continuous cardiac monitoring. The monitor shows a rate of 90 with sinus rhythm 1737: Patient has a humerus fracture. Patient states she has no orthopedist that she follows up with regularly. Discussed with on-call orthopedics Dr. Barlow who states to order CT scan of the shoulder. I did discuss my concerns with him about the patient being discharged home and be unable to ambulate given that she is supposed to use walker and now her arm is broken. He states that if we can control her pain she can follow-up with him outpatient otherwise the pain is unable to control there is is concerned about her safety at home the patient can be admitted to medicine he will be on consult. 1854: CT confirms humerus fracture. Multiple attempts have been made to contact the family that is listed as the patient's primary contact at her request to see if they can come and help her get home and take care of her at home. We have been unable to touch base with the family. Patient required increased analgesia we will plan [facility] for [facility] and for orthopedic evaluation tomorrow. Impression & Plan Fracture, humerus Discharge Plan Visit Data Chief Complaint: Fall ED Provider: Daniel Retana Discharge Problem: Fracture, humerus Patient Disposition: Admitted As Inpatient Discharge Instructions Interventions: ED Discharge Assessment Last Done: 08/22/21 21:58 Discharge Problem: Fracture, humerus Qualifiers: Encounter type: initial encounter Humerus Location: surgical neck Fracture type: closed Fracture morphology: unspecified fracture morphology Fracture alignment: nondisplaced Laterality: left Qualified Code(s): S42.215A - Unspecified nondisplaced fracture of surgical neck of left humerus, initial encounter for closed fracture
[2021-08-22 18:03] LABS: Basophils # (auto) 0.01 K/uL (0-0.2); Basophils % (auto) 0.1 %; Eosinophils # (auto) 0.01 K/uL (0-0.5); Eosinophils % (auto) 0.1 %; Hematocrit (blood only) 36.2 % (37-47); Hemoglobin 12.1 g/dL (12.0-16.0); Immature Granulocytes # (auto) 0.04 K/uL (0.00-0.02); Immature Granulocytes % (auto) 0.6 %; Lymphocytes # (auto) 0.55 K/uL (1.2-3.4); Mean Corpuscular Hgb Conc 33.4 g/dL (32-36); Mean Corpuscular Volume 86.8 fL (80-100); Mean Platelet Volume 10.3 fL (7.4-10.4); Monocytes # (auto) 0.31 K/uL (0.11-0.59); Monocytes % (auto) 4.5 %; Neutrophils # (auto) 5.98 K/uL (1.4-6.5); Neutrophils % (auto) 86.7 %; Platelet Count 141 K/uL (130-400); RDW Coefficient of Variation 14.3 % (11.5-14.5); RDW Standard Deviation 44.8 fL (36.4-46.3); Red Blood Count 4.17 M/uL (4.2-5.4)
[2021-08-22 18:19] LABS: Partial Thromboplastin Ratio 0.8; Partial Thromboplastin Time 21.8 Seconds (21.0-31.0); Prothrombin Time 10.3 Seconds (9.0-12.0)
[2021-08-22] MEDS ORDERED: MoRPHine SULFATE 2 MG/ML CARP IV STA ×2 (18:21→18:58)
--- NOTE | 2021-08-22 18:44 | CT Scan Report ---
CT shoulder LT wo con CLINICAL HISTORY: Status post fall with shoulder fracture. CT to further evaluate COMPARISON STUDY: Standard radiographs from 08/22/2021 CT DOSE: 397.72 mGy.cm TECHNIQUE: Standard CT of the is performed without IV contrast. Multiplanar reconstruction is perform ed. A dose lowering technique was utilized adhering to the principles of ALARA. FINDINGS: Bones: As seen radiographically, there is displaced fracture of the anatomic neck of the humerus with the humeral shaft intramedullary displaced wrist humeral head. A second vertically oriented fracture through the base of the tuberosities of the humeral head is also again seen. There are no lytic or b lastic lesions. Joints: The humeral head maintains its anatomic position within the glenoid fossa. Soft tissues: There is soft tissue swelling surrounding the shoulder joint. There are no focal fluid collections. IMPRESSION: CT confirms a displaced fracture of the humeral neck and vertically oriented fracture thr ough the tuberosities of the humeral head. ACT 112: Negative or not required by law. Electronically signed by: Jovanni Perales M.D. 08/22/2021 6:42 PM
[2021-08-22 18:45] LABS: BUN Creatinine Ratio 15.2 (10-20); Blood Urea Nitrogen 18 mg/dl (7-18); Calcium 8.4 mg/dl (8.5-10.1); Carbon Dioxide 24 mmol/L (21-32); Chloride 101 mmol/L (98-107); Est GFR (African American) 52.1 ml/min; Glucose 415 mg/dl (70-99); Potassium 4.5 mmol/L (3.5-5.1); Sodium 135 mmol/L (136-145)
[2021-08-22 19:13] LABS: Beta-Hydroxybutyrate 3.17 mg/dl (0.2-2.81)
[2021-08-22] MEDS ORDERED: SODIUM CHLORIDE 0.9% 1000ML 1,000 ML IV ONE (19:16)
[2021-08-22] MEDS ORDERED: INSULIN GLARGINE SOLOSTAR 100 UNITS/ML 3 ML PEN SC STA (19:42)
--- NOTE | 2021-08-22 19:45 | History & Physical Report ---
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 Barlow. Possible surgery in a.m.) Revised Cardiac Risk Index (RCRI): 1. High-risk type of surgery (examples include vascular and any open intraperitoneal or intrathoracic procedures). No 2. History of ischemic heart disease (history of myocardial infarction or positive exercise test, current compliant of chest pain considered to be secondary to myocardial ischemia, use of nitrate therapy, or ECG with pathological Q waves; do not count prior coronary revascularization procedure unless one of the other criteria for ischemic heart disease is present). No 3. History of heart failure. No 4. History of cerebrovascular disease. No 5. Diabetes mellitus requiring treatment with insulin.Yes 6. Preoperative serum creatinine >2.0. No Pt has revised cardiac index score of 1 point. (Class II Risk.) 6 % 30-day risk of , SC, or cardiac arrest Acceptable risk for cardiac complications resulting from prospective procedure. Baseline UA, monitor creatinine response to IVF Basal insulin adjusted for n.p.o. status, ISS BG goal 1 10-1 40, update hemoglobin A1c DVT prophylaxis with SCDs Re: Possible surgery Recommend pharmacologic anticoagulation with heparin 5000 units subcutaneous every 8 hours once bleeding risk is deemed to be minimal and negligible pending Orthopedics evaluation. Full code Patient daughter requesting updates from providers. Ms. Pauline Foreman, contact #[phone]. Text document was generated using [employer] voice recognition software. It may contain grammatical or spelling errors. Kindly contact undersigned for clarification of any documentation item in question. History of Present Illness Chief Complaint: Fall, left shoulder pain Primary Care Provider: Ivette Ragland MD History obtained from patient, family, and records. 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 Patient tried to walk to the bathroom at her home today without her walker. Patient fell forward landing on her left arm. Achy left shoulder pain going to the chest. No head trauma. Denies syncope, S OB. Patient brought to the ER for evaluation. MEDICAL HISTORY: As above. SURGICAL HISTORY: back surgery, Hip surgery, Liver transplantation, Hysterectomy, bone biopsy, cholecystectomy FAMILY HISTORY : DM, uterine cancer PERSONAL SOCIAL HISTORY: Nonsmoker. No EtOH intake, lives with daughter, d isabled Allergies Allergy/AdvReac Type Severity Reaction Status Date / Time celecoxib AdvReac Mild NAUSEA, Verified 08/22/21 16:46 VOMITING codeine AdvReac Mild ANXIETY Verified 08/22/21 16:46 rofecoxib AdvReac Mild LEGS GO Verified 08/22/21 16:46 NUMB hydromorphone AdvReac Unknown RESTLESS, Verified 08/22/21 16:46 INSOMNIA Home Medications Medication Instructions Recorded Confirmed Type duloxetine 60 mg capsule,delayed 60 mg PO DAILY 08/22/21 08/22/21 History release insulin detemir U-100 100 unit/mL 13 unit SUBCUT Q12 08/22/21 08/22/21 History (3 mL) subcutaneous pen (Levemir FlexTouch U-100 Insulin) insulin lispro 100 unit/mL 0 unit SUBCUT AMPM 08/22/21 08/22/21 History subcutaneous pen (Humalog KwikPen (U-100) Insulin) mycophenolate mofetil 250 mg 500 mg PO BID 08/22/21 08/22/21 History capsule omeprazole 20 mg capsule,delayed 20 mg PO DAILY 08/22/21 08/22/21 History release tacrolimus 1 mg capsule, 1 mg PO Q12 08/22/21 08/22/21 History immediate-release Past Med/Surg History Medical History (Updated 08/22/21 @ 19:00 by Daniel Retana) CKD (chronic kidney disease) Diabetes Surgical History (Updated 08/22/21 @ 18:46 by Daniel Retana) Liver transplanted Family History (Updated 08/22/21 @ 18:47 by Daniel Retana) Other Diabetes Social History Smoking Status: Never smoker Second Hand Exposure: No; Do You Dip or Chew Tobacco: No; Tobacco Cessation Education Requested by Patient: No Hx Alcohol Use: No Hx Substance Use: No Preferred Language: [place] Communication Ability: Effective Barback Required: No Beliefs That Will Affect Care: None Current Living Situation: Family Current Living Situation Comment: Lives with Daughter Ariella according to patient report. Other Information That Helps Us Care for You: No Feels Safe at Home: Yes Safety Concerns: Feels Safe At This Time Assistive Devices: Denture - Upper, Denture - Lower and Glasses Review of Systems Review of Systems: As per HPI, all 10 systems reviewed, all other ROS negative Physical Exam Physical Exam: GENERAL: Slightly uncomfortable, no respiratory distress SKIN: Normal color, warm HEENT: [place] palpebral conjunctivae, no ptosis, dry buccal mucosa NECK : Supple, no tenderness CHEST : CTA, no tenderness HEART : RRR, no obvious murmurs ABDOMEN: Some distention, nontender EXTREMITIES : No LE swelling/tenderness, sling over left upper extremity NEUROLOGIC : Coherent, no facial asymmetry, no other gross focality Results & Data Results & Data ([facility]) Vital Signs (Past 12 Hours) Vital Signs Temp Pulse Pulse Resp BP BP Pulse Ox 08/22/21 18:20 88 18 126/72 96 08/22/21 16:17 36.5 C 98 H 18 126/65 99 Laboratory Results Laboratory Results WBC 6.90 K/uL (4.8-10.8) 08/22/21 17:50 RBC 4.17 M/uL (4.2-5.4) L 08/22/21 17:50 Hgb 12.1 g/dL (12.0-16.0) 08/22/21 17:50 Hct 36.2 % (37-47) L 08/22/21 17:50 MCV 86.8 fL (80-100) 08/22/21 17:50 MCH 29.0 pg (25-34) 08/22/21 17:50 MCHC 33.4 g/dL (32-36) 08/22/21 17:50 RDW Std Deviation 44.8 fL (36.4-46.3) 08/22/21 17:50 RDW Coeff of [place] 14.3 % (11.5-14.5) 08/22/21 17:50 Plt Count 141 K/uL (130-400) 08/22/21 17:50 MPV 10.3 fL (7.4-10.4) 08/22/21 17:50 Immature Gran % (Auto) 0.6 % 08/22/21 17:50 Neut % (Auto) 86.7 % 08/22/21 17:50 Lymph % (Auto) 8.0 % 08/22/21 17:50 [place] % (Auto) 4.5 % 08/22/21 17:50 Eos % (Auto) 0.1 % 08/22/21 17:50 Baso % (Auto) 0.1 % 08/22/21 17:50 Neut # (Auto) 5.98 K/uL (1.4-6.5) 08/22/21 17:50 Lymph # (Auto) 0.55 K/uL (1.2-3.4) L 08/22/21 17:50 [place] # (Auto) 0.31 K/uL (0.11-0.59) 08/22/21 17:50 Eos # (Auto) 0.01 K/uL (0-0.5) 08/22/21 17:50 Baso # (Auto) 0.01 K/uL (0-0.2) 08/22/21 17:50 Immature Gran # (Auto) 0.04 K/uL (0.00-0.02) H 08/22/21 17:50 PT 10.3 Seconds (9.0-12.0) 08/22/21 17:50 INR 1.0 (0.9-1.1) 08/22/21 17:50 APTT 21.8 Seconds (21.0-31.0) 08/22/21 17:50 PTT Ratio 0.8 08/22/21 17:50 Sodium 135 mmol/L (136-145) L 08/22/21 17:50 Potassium 4.5 mmol/L (3.5-5.1) 08/22/21 17:50 Chloride 101 mmol/L (98-107) 08/22/21 17:50 Carbon Dioxide 24 mmol/L (21-32) 08/22/21 17:50 Anion Gap 9.0 (3-11) 08/22/21 17:50 BUN 18 mg/dl (7-18) 08/22/21 17:50 Creatinine 1.21 mg/dl (0.6-1.2) H 08/22/21 17:50 Est Cr Clr Drug Dosing Not Reportable 08/22/21 17:50 Est GFR ( Amer) 52.1 ml/min 08/22/21 17:50 Est GFR (Non-Af Amer) 45.0 ml/min 08/22/21 17:50 BUN/Creatinine Ratio 15.2 (10-20) 08/22/21 17:50 Glucose 415 mg/dl (70-99) H* 08/22/21 17:50 Calcium 8.4 mg/dl (8.5-10.1) L 08/22/21 17:50 Beta-Hydroxybutyric Acd 3.17 mg/dl (0.2-2.81) H 08/22/21 17:50 SARS-CoV-2, RNA, NAAT NEGATIVE (NEGATIVE) 08/22/21 18:[address] 08/22/21 16:45 CT cervical spine wo con CLINICAL HISTORY: fall with neck pain COMPARISON STUDY: 06/04/2017 CT DOSE: 922.59 mGy.cm TECHNIQUE: Standard CT of the Cervical Spine was performed without IV contrast. A dose lowering technique was utilized adhering to the principles of ALARA. FINDINGS: Bones: Bones are osteopenic. There is no evidence for an acute fracture or malalignment. The heights of the vertebral bodies are maintained. The vertebral bodies are in anatomic alignment. The odontoid is intact and the atlantoaxial articulation is within normal limits. Disc spaces:There is mild disc space narrowing at C5-6. Apophyseal joints:There is degenerative apophyseal joint disease seen bilaterally. Soft tissues:The prevertebral soft tissues are within normal limits. IMPRESSION: Osteopenia with no acute abnormality. Degenerative disc and degenerative joint disease. ACT 112: Negative or not required by law. Electronically signed by: Jovanni Perales M.D. 08/22/2021 5:21 PM Chest X-Ray 08/22/21 16:45 XR chest 1V portable CLINICAL HISTORY: fall. Pain COMPARISON STUDY: 06/04/2017 TECHNIQUE: 1 view of the chest FINDINGS: Single frontal view of the chest demonstrates the cardiomediastinal silhouette to be within normal limits. The lungs are clear of alveolar opacities. There is no evidence for pleural effusion. There is no evidence for vascular congestion. There is no acute osseous pathology. IMPRESSION: No acute cardiopulmonary disease. ACT 112: Negative or not required by law. Electronically signed by: Jovanni Preales M.D. 08/22/2021 5:[address] 08/22/21 16:45 CT head/brain wo con CLINICAL HISTORY: fall with pain COMPARISON STUDY: 06/04/2017 TECHNIQUE: Standard CT of the Brain was performed without IV contrast. A dose lowering technique was utilized adhering to the principles of ALARA. FINDINGS: Extraaxial space: There is no evidence for subdural hematoma. There are no extra-axial fluid collections. Ventricles and cisterns: The ventricles are mildly to moderately dilated bilaterally. There is no evidence for midline shift or mass effect. Parenchyma: There is no subarachnoid or intraparenchymal hemorrhage. There is no evidence for an acute infarct or cerebral edema. There is mild cerebral cortical atrophy and decreased attenuation in the periventricular white matter representing remote small vessel disease. There are no gross mass lesions. Osseous structures: There is no evidence for an acute fracture. The visualized paranasal sinuses are clear. The mastoid air cells are clear bilaterally. Soft tissues: There is no evidence for focal soft tissue swelling. IMPRESSION: No acute intracerebral pathology. Cerebral cortical atrophy and remote small vessel disease are seen. ACT 112: Negative or not required by law. Electronically signed by: Jovanni Perales M.D. 08/22/2021 5:18 PM Humerus X-Ray 08/22/21 16:46 XR shoulder LT min 2V routine, XR humerus LT 2V CLINICAL HISTORY: fall. Left shoulder and humerus pain COMPARISON STUDY: No previous studies for comparison. TECHNIQUE: 2 left shoulder and 2 left humerus views FINDINGS: Bones: There is a transverse, displaced fracture through the anatomic neck of the humerus. Humeral shaft is medially and anteriorly displaced in relation to the humeral head. There may also be a second vertically oriented fracture through the bases of the tuberosities of the humerus. The distal humeral shaft is intact. There is no lytic or blastic lesion. Joints: Humeral head does maintain its anatomic position within the glenoid fossa. The elbow joint space is maintained. Soft tissues: There is no focal soft tissue abnormality. There is no radiopaque foreign body. IMPRESSION: 1. Displaced fracture through the anatomic neck of the humerus. 2. There also appears to be a second vertically oriented fracture through the base of the tuberosities of the humeral head. ACT 112: Negative or not required by law. Electronically signed by: Jovanni Perales M.D. 08/22/2021 5:09 PM Pelvis X-Ray 08/22/21 16:46 XR pelvis 1-2V routine CLINICAL HISTORY: fall. Pain. COMPARISON STUDY: 06/04/2017 TECHNIQUE: [A single AP radiograph was obtained. FINDINGS: There is no evidence for an acute fracture. Old, healed fractures of the superior and inferior ischial pubic rami on the right are seen. The patient is status post bilateral hip replacement on the current study. The prosthetic components are in anatomic alignment. The SI joints are intact bilaterally. The remaining visualized bones of the pelvis are intact. The patient is status post vertebroplasty of the lower lumbar spine. No focal soft tissue abnormalities identified. IMPRESSION: No acute abnormality. Stable bilateral total hip replacements. ACT 112: Negative or not required by law. Electronically signed by: Jovanni Perales M.D. 08/22/2021 5:10 PM Shoulder X-Ray 08/22/21 16:46 XR shoulder LT min 2V routine, XR humerus LT 2V CLINICAL HISTORY: fall. Left shoulder and humerus pain COMPARISON STUDY: No previous studies for comparison. TECHNIQUE: 2 left shoulder and 2 left humerus views FINDINGS: Bones: There is a transverse, displaced fracture through the anatomic neck of the humerus. Humeral shaft is medially and anteriorly displaced in relation to the humeral head. There may also be a second vertically oriented fracture through the bases of the tuberosities of the humerus. The distal humeral shaft is intact. There is no lytic or blastic lesion. Joints: Humeral head does maintain its anatomic position within the glenoid fossa. The elbow joint space is maintained. Soft tissues: There is no focal soft tissue abnormality. There is no radiopaque foreign body. IMPRESSION: 1. Displaced fracture through the anatomic neck of the humerus. 2. There also appears to be a second vertically oriented fracture through the base of the tuberosities of the humeral head. ACT 112: Negative or not required by law. Electronically signed by: Jovanni Perales M.D. 08/22/2021 5:[address] 08/22/21 17:39 CT shoulder LT wo con CLINICAL HISTORY: Status post fall with shoulder fracture. CT to further evaluate COMPARISON STUDY: Standard radiographs from 08/22/2021 CT DOSE: 397.72 mGy.cm TECHNIQUE: Standard CT of the is performed without IV contrast. Multiplanar reconstruction is performed. A dose lowering technique was utilized adhering to the principles of ALARA. FINDINGS: Bones: As seen radiographically, there is displaced fracture of the anatomic neck of the humerus with the humeral shaft intramedullary displaced wrist humeral head. A second vertically oriented fracture through the base of the tuberosities of the humeral head is also again seen. There are no lytic or blastic lesions. Joints: The humeral head maintains its anatomic position within the glenoid fossa. Soft tissues: There is soft tissue swelling surrounding the shoulder joint. There are no focal fluid collections. IMPRESSION: CT confirms a displaced fracture of the humeral neck and vertically oriented fracture through the tuberosities of the humeral head. ACT 112: Negative or not required by law. Electronically signed by: Jovanni Perales M.D. 08/22/2021 6:42 PM Diagnostic Findings EKG pending (1) Fracture, humerus Encounter type: initial encounter Fracture alignment: nondisplaced Fracture morphology: unspecified fracture morphology Fracture type: closed Humerus Location: surgical neck Laterality: left Qualified Code(s): S42.215A - Unspecified nondisplaced fracture of surgical neck of left humerus, initial encounter for closed fracture
[2021-08-22 19:54] LABS: Albumin Level 3.4 gm/dl (3.4-5.0); Bilirubin Direct 0.3 mg/dl (0-0.2); Bilirubin,Total 1.2 mg/dl (0.2-1); Magnesium 1.8 mg/dl (1.8-2.4); Total Protein 6.8 gm/dl (6.4-8.2)
[2021-08-22] MEDS ORDERED: INSULIN ASPART 100 UNITS/ML 3 ML PEN SC SCH ×2 (21:46→23:15)
[2021-08-22] MEDS ORDERED: ACETAMINOPHEN 325 MG TAB PO PRN (22:31)
[2021-08-22] MEDS ORDERED: GLUCAGON FOR INJ 1 MG VIAL SQ PRN ×2 (22:31→23:12)
[2021-08-22] MEDS ORDERED: PROMETHAZINE HCL 6.25 MG in SODIUM CHLORIDE 0.9% 50 ML IV PRN (22:31)
[2021-08-22] MEDS ORDERED: DEXTROSE 50% 50 ML SYRINGE IV PRN ×2 (22:31→23:12)
[2021-08-22] MEDS ORDERED: GLUCOSE 10 TABS/TUBE PO PRN ×2 (22:31→23:12)
[2021-08-22] MEDS ORDERED: GLUCOSE 40% GEL 15 GM TUBE PO PRN ×2 (22:31→23:12)
[2021-08-22] MEDS ORDERED: MoRPHine SULFATE 4 MG/ML 1 ML CARP\\VIAL IV PRN (22:31)
[2021-08-22] MEDS: TACROLIMUS 1 MG CAP PO SCH (22:57)
[2021-08-22] MEDS: MYCOPHENOLATE MOFETIL 250 MG CAP PO SCH (22:58)
[2021-08-22] MEDS ORDERED: CARBOHYDRATES FOR HYPOGLYCEMIA PO PRN (23:12)
[2021-08-22] MEDS: SODIUM CHLORIDE 0.9% 1000ML 1,000 ML IV SCH (23:23)
[2021-08-23] MEDS ORDERED: ACETAMINOPHEN 325 MG TAB PO PRN (00:53)
[2021-08-23] MEDS ORDERED: INSULIN GLARGINE SOLOSTAR 100 UNITS/ML 3 ML PEN SC STA (03:57)
[2021-08-23] MEDS: INSULIN ASPART 100 UNITS/ML 3 ML PEN SC SCH ×5 (04:45→20:36)
[2021-08-23] MEDS: traMADol HCL 50 MG TABLET PO PRN ×3 (05:01→17:08)
[2021-08-23 05:10] LABS: Appearance Urine Cloudy (Clear); Bacteria Urine Automated 4+ (Negative); Bilirubin Urine Negative (Negative); Blood Urine 1+ (Negative); Color Urine Dark Yellow; Epithelial Cell Urine Auto >30 /lpf (0-5); Glucose Urine UA 3+ (Negative); Ketones Urine Trace (Negative); Leukocyte Esterase Urine 1+ (Negative); Nitrite Urine Positive (Negative); Protein Urine Trace (Negative); RBC Urine Automated 0-4 /hpf (0-4); Specific Gravity Urine 1.031 (1.000-1.030); Urobilinogen Urine Negative (Negative); WBC Urine Automated >30 /hpf (0-5)
[2021-08-23 05:53] LABS: Basophils # (auto) 0.01 K/uL (0-0.2); Basophils % (auto) 0.1 %; Eosinophils # (auto) 0.01 K/uL (0-0.5); Eosinophils % (auto) 0.1 %; Hemoglobin 11.1 g/dL (12.0-16.0); Immature Granulocytes # (auto) 0.03 K/uL (0.00-0.02); Immature Granulocytes % (auto) 0.4 %; Lymphocytes # (auto) 0.71 K/uL (1.2-3.4); Lymphocytes % (auto) 9.6 %; Mean Corpuscular Hemoglobin 29.1 pg (25-34); Mean Corpuscular Hgb Conc 33.6 g/dL (32-36); Mean Corpuscular Volume 86.4 fL (80-100); Mean Platelet Volume 10.6 fL (7.4-10.4); Monocytes # (auto) 0.41 K/uL (0.11-0.59); Monocytes % (auto) 5.5 %; Neutrophils # (auto) 6.26 K/uL (1.4-6.5); Neutrophils % (auto) 84.3 %; Platelet Count 184 K/uL (130-400); RDW Coefficient of Variation 14.5 % (11.5-14.5); RDW Standard Deviation 44.8 fL (36.4-46.3); Red Blood Count 3.82 M/uL (4.2-5.4); White Blood Count 7.43 K/uL (4.8-10.8)
[2021-08-23] MEDS ORDERED: INSULIN ASPART 100 UNITS/ML 3 ML PEN SC SCH (06:00)
[2021-08-23 06:33] LABS: BUN Creatinine Ratio 20.5 (10-20); Calcium 8.6 mg/dl (8.5-10.1); Creatinine Clr Calc Pharmacy 36.2 ml/min; Est GFR (African American) 53.7 ml/min; Est GFR (Non-African American) 46.4 ml/min; Potassium 4.5 mmol/L (3.5-5.1)
[2021-08-23 07:18] LABS: Beta-Hydroxybutyrate 0.76 mg/dl (0.2-2.81)
[2021-08-23 07:29] LABS: Estimated Average Glucose 103 mg/dl; Hemoglobin A1C 5.2 % (4.5-5.6)
[2021-08-23] MEDS: MYCOPHENOLATE MOFETIL 250 MG CAP PO SCH ×2 (07:42→20:38)
[2021-08-23] MEDS: PANTOprazole 40 MG TAB PO SCH (07:42)
[2021-08-23] MEDS: TACROLIMUS 1 MG CAP PO SCH ×2 (07:43→20:38)
[2021-08-23] MEDS: DULoxetine HCL 60 MG CAP PO SCH ×2 (07:45→11:39)
[2021-08-23] MEDS ORDERED: PHARMACY GLYCEMIC MGMT CONSULT PRN (08:34)
[2021-08-23] MEDS ORDERED: INSULIN HUMAN REGULAR PER UNIT 5 UNITS in SYRINGE 4.95 ML IV ONE (09:00)
[2021-08-23] MEDS: cefTRIAXone SODIUM 1,000 MG in DEXTROSE 5% 50 ML IV SCH (09:14)
--- NOTE | 2021-08-23 11:10 | Orthopedic Consultation ---
Date of Consultation August 23, 2021 Assessment & Plan (1) Closed fracture of left proximal humerus: She has a moderately comminuted and moderately displaced left proximal humerus fracture in the setting of severe osteoporosis, minimal baseline activity, and a high risk surgical candidate on immunosuppressive medications after a liver transplant. We discussed nonoperative versus surgical treatment for this fracture. Surgical treatment would involve a reverse total shoulder arthroplasty. I think this would be a very big surgery for her. With her activity level and other medical issues, I would recommend nonoperative treatment for now. I think she will regain acceptable, although not normal, shoulder function after the fracture heals. I advised her that we could always do a shoulder replacement surgery later on an elective basis if she is unhappy with her functional outcome. She voiced understanding and agreement with this plan. For now, we will keep her in the sling. She may remove the sling 5-6 times daily for elbow range of motion exercises. She may do some very gentle pendulum exercises for the shoulder, but no active or passive abduction. She may not weight-bear on this left arm. She may be discharged when stable from a medical perspective. Follow-up with Dr. Valdez in orthopedic surgery clinic in 1 week. Please call [facility] [place] at [phone] to make an appointment. Orthopedics will sign off at this point. Please call with qu estions. History of Present Illness Reason for Consultation: Left shoulder injury Attending Physician: Adelita Messina MD History of Present Illness Ms. Rios is a 70-year-old female who injured her left shoulder during a ground-level fall at home. She normally uses a walker for ambulation due to balance issues. She was not using her walker at the time, but was trying to get to it when she lost her balance and fell onto her left side. She denies other significant extremity injury other than the left shoulder. She was able to get up and walk after the fall. She states that overall she is minimally active. She does not do any type of heavy activity. She normally just watches TV all day. She lives with her daughter. She reports that she has been diagnosed with osteoporosis in the past, but currently is not on any treatment for this; she says she was on medication but stopped it several years ago. Of note, she also has renal failure had a liver transplantation for fatty liver disease, and is on immun osuppressive medications for this. Allergies Allergy/AdvReac Type Severity Reaction Status Date / Time celecoxib AdvReac Mild NAUSEA, Verified 08/22/21 16:46 VOMITING codeine AdvReac Mild ANXIETY Verified 08/22/21 16:46 rofecoxib AdvReac Mild LEGS GO Verified 08/22/21 16:46 NUMB hydromorphone AdvReac Unknown RESTLESS, Verified 08/22/21 16:46 INSOMNIA Home Medications Medication Instructions Recorded Confirmed Type duloxetine 60 mg capsule,delayed 60 mg PO DAILY 08/22/21 08/22/21 History release insulin detemir U-100 100 unit/mL 13 unit SUBCUT Q12 08/22/21 08/22/21 History (3 mL) subcutaneous pen (Levemir FlexTouch U-100 Insulin) insulin lispro 100 unit/mL 0 unit SUBCUT AMPM 08/22/21 08/22/21 History subcutaneous pen (Humalog KwikPen (U-100) Insulin) mycophenolate mofetil 250 mg 500 mg PO BID 08/22/21 08/22/21 History capsule omeprazole 20 mg capsule,delayed 20 mg PO DAILY 08/22/21 08/22/21 History release tacrolimus 1 mg capsule, 1 mg PO Q12 08/22/21 08/22/21 History immediate-release Patient History Medical History (Updated 08/23/21 @ 11:16 by Mirza Valdez M.D.) CKD (chronic kidney disease) Diabetes Surgical History (Updated 08/22/21 @ 18:46 by Daniel Retana) Liver transplanted Family History (Updated 08/22/21 @ 18:47 by Daniel Retana) Other Diabetes Social History Smoking Status: Never smoker Second Hand Exposure: No; Do You Dip or Chew Tobacco: No; Tobacco Cessation Education Requested by Patient: No Hx Alcohol Use: No Hx Substance Use: No Preferred Language: Yi Communication Ability: Effective Dial Lathe Operator Required: No Beliefs That Will Affect Care: None Current Living Situation: Family Current Living Situation Comment: Lives with Daughter Ariella according to patient report. Other Information That Helps Us Care for You: No Feels Safe at Home: Yes Safety Concerns: Feels Safe At This Time Assistive Devices: Denture - Upper, Denture - Lower and Glasses Physical Exam Physical Exam: Examination of the left shoulder reveals no gross deformity. She has mild to moderate diffuse swelling and ecchymosis. Motor and sensory function is intact in the median, ulnar, radial, and axillary nerve distribut ions. Results & Data ([facility]) Vital Signs (Past 12 Hours) Vital Signs Temp Pulse Resp BP Pulse Ox 08/23/21 07:25 36.6 C 101 H 20 126/83 96 Diagnostic Findings X-rays and CT scan of the left shoulder reviewed. They show a moderately comminuted and moderately displaced proximal humerus fracture. Severe osteoporosis is noted. No obvious head splitting fracture.
[2021-08-23] MEDS: SODIUM CHLORIDE 0.9% 1000ML 1,000 ML IV SCH ×2 (11:29→23:38)
--- NOTE | 2021-08-23 11:32 | Pharmacy Report ---
Pharmacy Glycemic Short Note 2 - Date of Service August 23, 2021 - Glycemic Short BSG Results (Last 24 hours): 08/22/21 08/22/21 08/22/21 17:50 23:01 23:03 Glucose 415 H* POC Glucose 375 H* 379 H* 08/23/21 08/23/21 08/23/21 03:38 03:42 05:23 Glucose 355 H* POC Glucose 379 H* 355 H* 08/23/21 08/23/21 06:07 08:57 Glucose POC Glucose 304 H* 189 H OUTPATIENT ANTIDIABETIC REGIMEN: * Levemir 13 units SQ BID * Humalog sliding scale for BSG > 200mg/dl ASSESSMENT: * 70 year old admitted with left humeral fracture, type 2 diabetic on insulins as above, A1c 5.2%, possible hypoglycemia at home? * Patient hyperglycemic over past 12 hours, patient has had 40 units of Lantus and 27 units of correctional Novolog, blood sugar improving from 379 -- > 187mg/dl * Will hold Lantus at this time and resume tomorrow, give tonight only for BSG > 180mg/dl * Tighten CF/CR after ensuring lunch BSG at goal * Patient currently NPO, ortho eval states non-operative treatment at this time, likely resume diet soon PLAN FOR INPATIENT GLYCEMIC CONTROL: * Basal insulin * Lantus 20 units SQ BID last night and this morning, holding now until tomorrow AM, unless BSG > 180 * Lantus 20 units HS for BSG > 180mg/dl x 1 * Bolus insulin * NovoLog per scale ACHS or Q6hrs while NPO * Goal Range: Low 110 mg/dL - High 140 mg/dL * Correction Factor: 20 mg/dL/unit * Nutritional / Prandial insulin per carb ratio of 1 unit per 8 grams CHO consumed PLAN FOR DISCHARGE: * to be determined
[2021-08-23] MEDS ORDERED: Nursing to Pharmacy Communication SCH (13:30)
--- NOTE | 2021-08-23 13:37 | Hospitalist Progress Note ---
Date of Service August 23, 2021 Assessment & Plan (1) Fracture, humerus: Plan: Left humeral fracture Secondary to to mechanical fall CT confirms a displaced fracture of the humeral neck and vertically oriented fracture through the tuberosities of the humeral head Ortho evaluated today - feel that nonoperative treatment is preferable due to comorbidities. Surgical treatment would involve a reverse total shoulder arthroplasty and can be considered later on if patient unhappy with functional outcome Left arm non weight bearing at this time. Follow up with Dr. Valdez in ortho clinic in 1 week. Please call [facility] [place] at [phone] to make an appointment. UTI UA abnormal, started on empiric rocephin. Follow urine culture DM2 insulin requiring BSG markedly elevated in 300s this morning Recent hemoglobin A1c of 5.29 October 2020 Glycemic mgmt consulted for IP mgmt CKD Renal function at baseline. 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 Messina. Please see addendum. Patient daughter requesting updates from providers. Ms. Pauline Foreman, contact #[phone]. Admission and Anticipated Discharge Date Admission Date: August 22, 2021 Supervising Physician Co-Signing Physician Notes Pt was seen an examined for follow up. Agree with Galilea GOMEZ exam assessment and plan. Continue to have left shoulder pain. Denies any chest pain, palpitation, dizziness, shortness of breath. CT showed displaced fracture of the humeral neck and vertically oriented fracture through the tuberosities of the humeral head. Ortho on board- no surgical intervention. Continue conservative management. Continue to wear the sling Follow-up with Ortho clinic in 1 week. MD Siddharth Subjective Patient seen and examined in 387-2. Feeling better today. Minimal pain in L arm. Interested in repositioning in bed. No fever, chills, CP, SOB, N/V/D, abdominal pain or dysuria. Review of Systems Review of Systems: At least ten systems reviewed and negative except as noted in the HPI. Physical Exam Physical Exam: Gen: WD/WN, NAD, lying in bed, A&Ox3 HEENT: Normocephalic, atraumatic, conjunctivae moist, sclerae anicteric, mucous membranes moist Lung: Clear to Auscultation bilaterally, no wheezes/rales/rhonchi Heart: Regular rate, regular rhythm, no murmurs, rubs, or gallops Abdomen: Soft, NT, ND +BS x 4 Extremities: L arm in sling, surrounding ecchymosis, mild edema Skin: Warm, no rash Results & Data Results & Data ([facility]) Vital Signs (Past 12 Hours) Vital Signs Temp Pulse Resp BP Pulse Ox 08/23/21 07:25 36.6 C 101 H 20 126/83 96 Laboratory Results Short CBC 08/22/21 08/23/21 Range/Units 17:50 05:23 WBC 6.90 7.43 (4.8-10.8) K/uL Hgb 12.1 11.1 L (12.0-16.0) g/dL Hct 36.2 L 33.0 L (37-47) % Plt Count 141 184 (130-400) K/uL BMP 08/22/21 08/23/21 17:50 05:23 Sodium 135 L 135 L Potassium 4.5 4.5 Chloride 101 104 Carbon Dioxide 24 26 BUN 18 24 H Creatinine 1.21 H 1.18 Glucose 415 H* 355 H* Calcium 8.4 L 8.6 Liver Function 08/22/21 Range/Units 17:50 Total Bilirubin 1.2 H (0.2-1) mg/dl Direct Bilirubin 0.3 H (0-0.2) mg/dl AST 15 (15-37) U/L ALT 17 (12-78) U/L Alkaline Phosphatase 76 (45-117) U/L Albumin 3.4 (3.4-5.0) gm/dl Urine 08/23/21 Range/Units 04:56 Urine Color Dark Yellow Urine Appearance Cloudy A (Clear) Urine pH 5.0 (4.5-7.5) Ur Specific [place] 1.031 H (1.000-1.030) Urine Protein Trace H (Negative) Urine Glucose (UA) 3+ H (Negative) Diagnostic Findings Cervical Spine CT 08/22/21 16:45 CT cervical spine wo con CLINICAL HISTORY: fall with neck pain COMPARISON STUDY: 06/04/2017 CT DOSE: 922.59 mGy.cm TECHNIQUE: Standard CT of the Cervical Spine was performed without IV contrast. A dose lowering technique was utilized adhering to the principles of ALARA. FINDINGS: Bones: Bones are osteopenic. There is no evidence for an acute fracture or malalignment. The heights of the vertebral bodies are maintained. The vertebral bodies are in anatomic alignment. The odontoid is intact and the atlantoaxial articulation is within normal limits. Disc spaces:There is mild disc space narrowing at C5-6. Apophyseal joints:There is degenerative apophyseal joint disease seen bilaterally. Soft tissues:The prevertebral soft tissues are within normal limits. IMPRESSION: Osteopenia with no acute abnormality. Degenerative disc and degenerative joint disease. ACT 112: Negative or not required by law. Electronically signed by: Jovanni Perales M.D. 08/22/2021 5:21 PM Chest X-Ray 08/22/21 16:45 XR chest 1V portable CLINICAL HISTORY: fall. Pain COMPARISON STUDY: 06/04/2017 TECHNIQUE: 1 view of the chest FINDINGS: Single frontal view of the chest demonstrates the cardiomediastinal silhouette to be within normal limits. The lungs are clear of alveolar opacities. There is no evidence for pleural effusion. There is no evidence for vascular congestion. There is no acute osseous pathology. IMPRESSION: No acute cardiopulmonary disease. ACT 112: Negative or not required by law. Electronically signed by: Jovanni Perales M.D. 08/22/2021 5:[address] 08/22/21 16:45 CT head/brain wo con CLINICAL HISTORY: fall with pain COMPARISON STUDY: 06/04/2017 TECHNIQUE: Standard CT of the Brain was performed without IV contrast. A dose lowering technique was utilized adhering to the principles of ALARA. FINDINGS: Extraaxial space: There is no evidence for subdural hematoma. There are no extra-axial fluid collections. Ventricles and cisterns: The ventricles are mildly to moderately dilated bilaterally. There is no evidence for midline shift or mass effect. Parenchyma: There is no subarachnoid or intraparenchymal hemorrhage. There is no evidence for an acute infarct or cerebral edema. There is mild cerebral cortical atrophy and decreased attenuation in the periventricular white matter representing remote small vessel disease. There are no gross mass lesions. Osseous structures: There is no evidence for an acute fracture. The visualized paranasal sinuses are clear. The mastoid air cells are clear bilaterally. Soft tissues: There is no evidence for focal soft tissue swelling. IMPRESSION: No acute intracerebral pathology. Cerebral cortical atrophy and remote small vessel disease are seen. ACT 112: Negative or not required by law. Electronically signed by: Jovanni Perales M.D. 08/22/2021 5:18 PM Humerus X-Ray 08/22/21 16:46 XR shoulder LT min 2V routine, XR humerus LT 2V CLINICAL HISTORY: fall. Left shoulder and humerus pain COMPARISON STUDY: No previous studies for comparison. TECHNIQUE: 2 left shoulder and 2 left humerus views FINDINGS: Bones: There is a transverse, displaced fracture through the anatomic neck of the humerus. Humeral shaft is medially and anteriorly displaced in relation to the humeral head. There may also be a second vertically oriented fracture through the bases of the tuberosities of the humerus. The distal humeral shaft is intact. There is no lytic or blastic lesion. Joints: Humeral head does maintain its anatomic position within the glenoid fossa. The elbow joint space is maintained. Soft tissues: There is no focal soft tissue abnormality. There is no radiopaque foreign body. IMPRESSION: 1. Displaced fracture through the anatomic neck of the humerus. 2. There also appears to be a second vertically oriented fracture through the base of the tuberosities of the humeral head. ACT 112: Negative or not required by law. Electronically signed by: Jovanni Perales M.D. 08/22/2021 5:09 PM Pelvis X-Ray 08/22/21 16:46 XR pelvis 1-2V routine CLINICAL HISTORY: fall. Pain. COMPARISON STUDY: 06/04/2017 TECHNIQUE: [A single AP radiograph was obtained. FINDINGS: There is no evidence for an acute fracture. Old, healed fractures of the superior and inferior ischial pubic rami on the right are seen. The patient is status post bilateral hip replacement on the current study. The prosthetic components are in anatomic alignment. The SI joints are intact bilaterally. The remaining visualized bones of the pelvis are intact. The patient is status post vertebroplasty of the lower lumbar spine. No focal soft tissue abnormalities identified. IMPRESSION: No acute abnormality. Stable bilateral total hip replacements. ACT 112: Negative or not required by law. Electronically signed by: Jovanni Perales M.D. 08/22/2021 5:10 PM Shoulder X-Ray 08/22/21 16:46 XR shoulder LT min 2V routine, XR humerus LT 2V CLINICAL HISTORY: fall. Left shoulder and humerus pain COMPARISON STUDY: No previous studies for comparison. TECHNIQUE: 2 left shoulder and 2 left humerus views FINDINGS: Bones: There is a transverse, displaced fracture through the anatomic neck of the humerus. Humeral shaft is medially and anteriorly displaced in relation to the humeral head. There may also be a second vertically oriented fracture thro ugh the bases of the tuberosities of the humerus. The distal humeral shaft is intact. There is no lytic or blastic lesion. Joints: Humeral head does maintain its anatomic position within the glenoid fossa. The elbow joint space is maintained. Soft tissues: There is no focal soft tissue abnormality. There is no radiopaque foreign body. IMPRESSION: 1. Displaced fracture through the anatomic neck of the humerus. 2. There also appears to be a second vertically oriented fracture through the base of the tuberosities of the humeral head. ACT 112: Negative or not required by law. Electronically signed by: Jovanni Perales M.D. 08/22/2021 5:[address] 08/22/21 17:39 CT shoulder LT wo con CLINICAL HISTORY: Status post fall with shoulder fracture. CT to further evaluate COMPARISON STUDY: Standard radiographs from 08/22/2021 CT DOSE: 397.72 mGy.cm TECHNIQUE: Standard CT of the is performed without IV contrast. Multiplanar reconstruction is performed. A dose lowering technique was utilized adhering to the principles of ALARA. FINDINGS: Bones: As seen radiographically, there is displaced fracture of the anatomic neck of the humerus with the humeral shaft intramedullary displaced wrist humeral head. A second vertically oriented fracture through the base of the tuberosities of the humeral head is also again seen. There are no lytic or blastic lesions. Joints: The humeral head maintains its anatomic position within the glenoid fossa. Soft tissues: There is soft tissue swelling surrounding the shoulder joint. There are no focal fluid collections. IMPRESSION: CT confirms a displaced fracture of the humeral neck and vertically oriented fracture through the tuberosities of the humeral head. ACT 112: Negative or not required by law. Electronically signed by: Jovanni Perales M.D. 08/22/2021 6:42 PM (1) Fracture, humerus Encounter type: initial encounter Fracture alignment: nondisplaced Fracture morphology: unspecified fracture morphology Fracture type: closed Humerus Location: surgical neck Laterality: left Qualified Code(s): S42.215A - Unspecified nondisplaced fracture of surgical neck of left humerus, initial encounter for closed fracture
--- NOTE | 2021-08-23 14:27 | Electrocardiogram Report ---
Test Reason : Blood Pressure : / mmHG Vent. Rate : 102 BPM Atrial Rate : 102 BPM P-R Int : 140 ms QRS Dur : 070 ms QT Int : 364 ms P-R-T Axes : 020 010 052 degrees QTc Int : 474 ms Sinus tachycardia Low voltage QRS Borderline ECG When compared with ECG of 04-JUN-2017 00:25, QRS duration has decreased Nonspecific T wave abnormality no longer evident in Anterolateral leads Confirmed by Darvin Combs ([id number]) on 08/23/2021 2:26:47 PM Referred By: REFERRED SELF Confirmed By:Michael Combs
[2021-08-23] MEDS ORDERED: traMADol HCL 50 MG TABLET PO PRN (18:48)
[2021-08-23] MEDS: ACETAMINOPHEN 325 MG TAB PO SCH (19:26)
[2021-08-23] MEDS: HEPARIN SOD 5,000 UNIT/0.5 ML VIAL SQ SCH (20:37)
[2021-08-23] MEDS ORDERED: INSULIN GLARGINE SOLOSTAR 100 UNITS/ML 3 ML PEN SC ONE (21:00)
[2021-08-23] MEDS ORDERED: INSULIN GLARGINE SOLOSTAR 100 UNITS/ML 3 ML PEN SC SCH ×2 (21:00)
[2021-08-24] MEDS: ACETAMINOPHEN 325 MG TAB PO SCH ×4 (01:08→18:11)
[2021-08-24] MEDS: CARBOHYDRATES FOR HYPOGLYCEMIA PO PRN ×3 (01:39→02:18)
[2021-08-24] MEDS ORDERED: INSULIN ASPART 100 UNITS/ML 3 ML PEN SC ONE (02:00)
[2021-08-24 06:38] LABS: BUN Creatinine Ratio 22.8 (10-20); Calcium 8.2 mg/dl (8.5-10.1); Creatinine Clr Calc Pharmacy 44.9 ml/min; Est GFR (African American) 69.8 ml/min; Est GFR (Non-African American) 60.3 ml/min; Potassium 4.2 mmol/L (3.5-5.1)
[2021-08-24 06:50] LABS: Hematocrit (blood only) 23.7 % (37-47); Mean Corpuscular Hemoglobin 29.2 pg (25-34); Mean Corpuscular Hgb Conc 33.8 g/dL (32-36); Mean Corpuscular Volume 86.5 fL (80-100); Mean Platelet Volume 9.9 fL (7.4-10.4); Platelet Count 149 K/uL (130-400); RDW Coefficient of Variation 15.1 % (11.5-14.5); RDW Standard Deviation 46.9 fL (36.4-46.3); Red Blood Count 2.74 M/uL (4.2-5.4); White Blood Count 7.08 K/uL (4.8-10.8)
[2021-08-24] MEDS: cefTRIAXone SODIUM 1,000 MG in DEXTROSE 5% 50 ML IV SCH (08:39)
[2021-08-24] MEDS: MYCOPHENOLATE MOFETIL 250 MG CAP PO SCH ×2 (08:40→21:41)
[2021-08-24] MEDS: HEPARIN SOD 5,000 UNIT/0.5 ML VIAL SQ SCH (08:40)
[2021-08-24] MEDS: PANTOprazole 40 MG TAB PO SCH (08:40)
[2021-08-24] MEDS: DULoxetine HCL 60 MG CAP PO SCH (08:41)
[2021-08-24] MEDS: TACROLIMUS 1 MG CAP PO SCH ×2 (08:41→21:42)
[2021-08-24] MEDS: INSULIN ASPART 100 UNITS/ML 3 ML PEN SC SCH ×4 (10:07→21:45)
[2021-08-24] MEDS: SODIUM CHLORIDE 0.9% 1000ML 1,000 ML IV SCH (14:40)
--- NOTE | 2021-08-24 14:43 | Hospitalist Progress Note ---
Date of Service August 24, 2021 Assessment & Plan (1) Fracture, humerus: Plan: Left humeral fracture Secondary to to mechanical fall CT confirms a displaced fracture of the humeral neck and vertically oriented fracture through the tuberosities of the humeral head Ortho evaluated today - feel that nonoperative treatment is preferable due to comorbidities. Surgical treatment would involve a reverse total shoulder arthroplasty and can be considered later on Left arm non weight bearing at this time. Follow up with Dr. Valdez in ortho clinic in 1 week. Please call [facility] [place] at [phone] to make an appointment PT and OT evaluated - recommending inpatient rehab/SNF at time of discharge Acute delirium In hospital setting, likely 2/2 narcotics mentation change since yesterday after receiving IV morphine, tramadol Will add lidocaine patch, schedule tylenol. PRN toradol x 1. Discontinued morphine and tramadol for now No evidence of infection, CT head on admission wnl. Reorient when possible, monitor closely R side pain In setting of fall. Will obtain Rib XR Anemia Hgb decreased from 11 to 8 since yesterday. Likely in part dilutional with fluids No overt evidence of bleeding or evidence on diagnostic testing at time of admission. Will repeat UA, obtain CT abd/pelvis, hold SQ heparin Abnormal UA UA abnormal, started on empiric rocephin. Urine culture with mixed hung - will discontinue abx DM2 insulin requiring BSG markedly elevated in 300s this morning Recent hemoglobin A1c of 5.29 October 2020 Glycemic mgmt consulted for IP mgmt CKD Renal function at baseline. 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 Messina. Please see addendum. Patient daughter requesting updates from providers. Ms. Pauline Foreman, contact #[phone]. Admission and Anticipated Discharge Date Admission Date: August 22, 2021 Supervising Physician Co-Signing Physician Notes Pt was seen an examined for follow up. Agree with Galilea GOMEZ exam assessment and plan. Continue to have left shoulder pain. Denies any chest pain, palpitation, dizziness, shortness of breath. CT showed displaced fracture of the humeral neck and vertically oriented fracture through the tuberosities of the humeral head. Ortho on board- no surgical intervention. Continue conservative management. Continue to wear the sling in L arm. Follow-up with Ortho clinic in 1 week. MD Siddharth Subjective Patient seen and examined in 387-2. Confused and agitated today, thinking she is in arm chair at home. Pain in LUE and R side, worse with movement. Oriented to self and time, not to place. No fever, chills, CP, SOB, N/V/D, dysuria. Feels uncomfortable but refusing to be repositioned in bed. Review of Systems Review of Systems: At least ten systems reviewed and negative except as noted in the HPI. Physical Exam Physical Exam: Gen: WD/WN, NAD, lying in bed, disoriented to place, agitated HEENT: Normocephalic, atraumatic, conjunctivae moist, sclerae anicteric, mucous membranes moist Lung: Clear to Auscultation bilaterally, no wheezes/rales/rhonchi Heart: Regular rate, regular rhythm, no murmurs, rubs, or gallops Abdomen: Soft, NT, ND +BS x 4 Extremities: L arm in sling, surrounding ecchymosis, mild edema. TTP lateral R ribs Skin: Warm, no rash Results & Data Results & Data ([facility]) Vital Signs (Past 12 Hours) Vital Signs Temp Pulse Resp BP Pulse Ox 08/24/21 08:12 37 C 101 H 16 127/75 99 Laboratory Results Short CBC 08/24/21 Range/Units 05:37 WBC 7.08 (4.8-10.8) K/uL Hgb 8.0 L D (12.0-16.0) g/dL Hct 23.7 L (37-47) % Plt Count 149 (130-400) K/uL BMP 08/24/21 05:37 Sodium 133 L Potassium 4.2 Chloride 105 Carbon Dioxide 23 BUN 22 H Creatinine 0.95 Glucose 122 H Calcium 8.2 L Diagnostic Findings Cervical Spine CT 08/22/21 16:45 CT cervical spine wo con CLINICAL HISTORY: fall with neck pain COMPARISON STUDY: 06/04/2017 CT DOSE: 922.59 mGy.cm TECHNIQUE: Standard CT of the Cervical Spine was performed without IV contrast. A dose lowering technique was utilized adhering to the principles of ALARA. FINDINGS: Bones: Bones are osteopenic. There is no evidence for an acute fracture or malalignment. The heights of the vertebral bodies are maintained. The vertebral bodies are in anatomic alignment. The odontoid is intact and the atlantoaxial articulation is within normal limits. Disc spaces:There is mild disc space narrowing at C5-6. Apophyseal joints:There is degenerative apophyseal joint disease seen b ilaterally. Soft tissues:The prevertebral soft tissues are within normal limits. IMPRESSION: Osteopenia with no acute abnormality. Degenerative disc and degenerative joint disease. ACT 112: Negative or not required by law. Electronically signed by: Jovanni Perales M.D. 08/22/2021 5:21 PM Chest X-Ray 08/22/21 16:45 XR chest 1V portable CLINICAL HISTORY: fall. Pain COMPARISON STUDY: 06/04/2017 TECHNIQUE: 1 view of the chest FINDINGS: Single frontal view of the chest demonstrates the cardiomediastinal silhouette to be within normal limits. The lungs are clear of alveolar opacities. There is no evidence for pleural effusion. There is no evidence for vascular congestion. There is no acute osseous pathology. IMPRESSION: No acute cardiopulmonary disease. ACT 112: Negative or not required by law. Electronically signed by: Jovanni Perales M.D. 08/22/2021 5:[address] 08/22/21 16:45 CT head/brain wo con CLINICAL HISTORY: fall with pain COMPARISON STUDY: 06/04/2017 TECHNIQUE: Standard CT of the Brain was performed without IV contrast. A dose lowering technique was utilized adhering to the principles of ALARA. FINDINGS: Extraaxial space: There is no evidence for subdural hematoma. There are no extra-axial fluid collections. Ventricles and cisterns: The ventricles are mildly to moderately dilated bilaterally. There is no evidence for midline shift or mass effect. Parenchyma: There is no subarachnoid or intraparenchymal hemorrhage. There is no evidence for an acute infarct or cerebral edema. There is mild cerebral cortical atrophy and decreased attenuation in the periventricular white matter representing remote small vessel disease. There are no gross mass lesions. Osseous structures: There is no evidence for an acute fracture. The visualized paranasal sinuses are clear. The mastoid air cells are clear bilaterally. Soft tissues: There is no evidence for focal soft tissue swelling. IMPRESSION: No acute intracerebral pathology. Cerebral cortical atrophy and remote small vessel disease are seen. ACT 112: Negative or not required by law. Electronically signed by: Jovanni Perales M.D. 08/22/2021 5:18 PM Humerus X-Ray 08/22/21 16:46 XR shoulder LT min 2V routine, XR humerus LT 2V CLINICAL HISTORY: fall. Left shoulder and humerus pain COMPARISON STUDY: No previous studies for comparison. TECHNIQUE: 2 left shoulder and 2 left humerus views FINDINGS: Bones: There is a transverse, displaced fracture through the anatomic neck of the humerus. Humeral shaft is medially and anteriorly displaced in relation to the humeral head. There may also be a second vertically oriented fracture through the bases of the tuberosities of the humerus. The distal humeral shaft is intact. There is no lytic or blastic lesion. Joints: Humeral head does maintain its anatomic position within the glenoid fossa. The elbow joint space is maintained. Soft tissues: There is no focal soft tissue abnormality. There is no radiopaque foreign body. IMPRESSION: 1. Displaced fracture through the anatomic neck of the humerus. 2. There also appears to be a second vertically oriented fracture through the base of the tuberosities of the humeral head. ACT 112: Negative or not required by law. Electronically signed by: Jovanni Perales M.D. 08/22/2021 5:09 PM Pelvis X-Ray 08/22/21 16:46 XR pelvis 1-2V routine CLINICAL HISTORY: fall. Pain. COMPARISON STUDY: 06/04/2017 TECHNIQUE: [A single AP radiograph was obtained. FINDINGS: There is no evidence for an acute fracture. Old, healed fractures of the superior and inferior ischial pubic rami on the right are seen. The patient is status post bilateral hip replacement on the current study. The prosthetic components are in anatomic alignment. The SI joints are intact bilaterally. The remaining visualized bones of the pelvis are intact. The patient is status post vertebroplasty of the lower lumbar spine. No focal soft tissue abnormalities identified. IMPRESSION: No acute abnormality. Stable bilateral total hip replacements. ACT 112: Negative or not required by law. Electronically signed by: Jovanni Perales M.D. 08/22/2021 5:10 PM Shoulder X-Ray 08/22/21 16:46 XR shoulder LT min 2V routine, XR humerus LT 2V CLINICAL HISTORY: fall. Left shoulder and humerus pain COMPARISON STUDY: No previous studies for comparison. TECHNIQUE: 2 left shoulder and 2 left humerus views FINDINGS: Bones: There is a transverse, displaced fracture through the anatomic neck of the humerus. Humeral shaft is medially and anteriorly displaced in relation to the humeral head. There may also be a second vertically oriented fracture through the bases of the tuberosities of the humerus. The distal humeral shaft is intact. There is no lytic or blastic lesion. Joints: Humeral head does maintain its anatomic position within the glenoid fossa. The elbow joint space is maintained. Soft tissues: There is no focal soft tissue abnormality. There is no radiopaque foreign body. IMPRESSION: 1. Displaced fracture through the anatomic neck of the humerus. 2. There also appears to be a second vertically oriented fracture through the base of the tuberosities of the humeral head. ACT 112: Negative or not required by law. Electronically signed by: Jovanni Perales M.D. 08/22/2021 5:[address] 08/22/21 17:39 CT shoulder LT wo con CLINICAL HISTORY: Status post fall with shoulder fracture. CT to further evaluate COMPARISON STUDY: Standard radiographs from 08/22/2021 CT DOSE: 397.72 mGy.cm TECHNIQUE: Standard CT of the is performed without IV contrast. Multiplanar reconstruction is performed. A dose lowering technique was utilized adhering to the principles of ALARA. FINDINGS: Bones: As seen radiographically, there is displaced fracture of the anatomic neck of the humerus with the humeral shaft intramedullary displaced wrist humeral head. A second vertically oriented fracture through the base of the tuberosities of the humeral head is also again seen. There are no lytic or blastic lesions. Joints: The humeral head maintains its anatomic position within the glenoid fossa. Soft tissues: There is soft tissue swelling surrounding the shoulder joint. There are no focal fluid collections. IMPRESSION: CT confirms a displaced fracture of the humeral neck and vertically oriented fracture through the tuberosities of the humeral head. ACT 112: Negative or not required by law. Electronically signed by: Jovanni Perales M.D. 08/22/2021 6:42 PM (1) Fracture, humerus Encounter type: initial encounter Fracture alignment: nondisplaced Fracture morphology: unspecified fracture morphology Fracture type: closed Humerus Location: surgical neck Laterality: left Qualified Code(s): S42.215A - Unspecified nondisplaced fracture of surgical neck of left humerus, initial encounter for closed fracture
--- NOTE | 2021-08-24 15:05 | Pharmacy Report ---
Pharmacy Glycemic Short Note 2 - Date of Service August 24, 2021 - Glycemic Short BSG Results (Last 24 hours): 08/23/21 08/23/21 08/24/21 17:19 20:35 01:37 Glucose POC Glucose 113 H 106 H 54 L* 08/24/21 08/24/21 08/24/21 01:39 01:56 01:58 Glucose POC Glucose 52 L* 50 L* 55 L* 08/24/21 08/24/21 08/24/21 02:13 02:32 05:37 Glucose 122 H POC Glucose 60 L* 86 08/24/21 08/24/21 08:40 13:03 Glucose POC Glucose 124 H 155 H OUTPATIENT ANTIDIABETIC REGIMEN: * Levemir 13 units SQ BID * Humalog sliding scale for BSG > 200mg/dl ASSESSMENT: 08/24 * Patient received total of 37 units of insulin yesterday, of which 20 units were basal. * BSGs trending down overnight last evening. Patient had got an additional 20 units the night prior. Home insulin regimen heavily basal weighted. Plan to split insulin more 50/50 split while inpatient * Will resume basal insulin this evening with scale 08/23 * 70 year old admitted with left humeral fracture, type 2 diabetic on insulins as above, A1c 5.2%, possible hypoglycemia at home? * Patient hyperglycemic over past 12 hours, patient has had 40 units of Lantus and 27 units of correctional Novolog, blood sugar improving from 379 -- > 187mg/dl * Will hold Lantus at this time and resume tomorrow, give tonight only for BSG > 180mg/dl * Tighten CF/CR after ensuring lunch BSG at goal * Patient currently NPO, ortho eval states non-operative treatment at this time, likely resume diet soon PLAN FOR INPATIENT GLYCEMIC CONTROL: * Basal insulin * Lantus 8-12 units HS * Bolus insulin * NovoLog per scale ACHS or Q6hrs while NPO * Goal Range: Low 110 mg/dL - High 140 mg/dL * Correction Factor: 35 mg/dL/unit * Nutritional / Prandial insulin per carb ratio of 1 unit per 12 grams CHO consumed PLAN FOR DISCHARGE: * to be determined
[2021-08-24] MEDS: LIDOCAINE 5% 1 PATCH TD SCH (18:10)
[2021-08-24 20:44] LABS: Hemoglobin 5.8 g/dL (12.0-16.0)
[2021-08-24] MEDS ORDERED: INSULIN GLARGINE SOLOSTAR 100 UNITS/ML 3 ML PEN SC ONE (21:00)
[2021-08-24] MEDS ORDERED: SODIUM CHLORIDE 0.9% 250 ML IV PRN (21:20)
[2021-08-24 21:29] LABS: Basophils # (auto) 0.02 K/uL (0-0.2); Basophils % (auto) 0.4 %; Eosinophils # (auto) 0.02 K/uL (0-0.5); Eosinophils % (auto) 0.4 %; Hematocrit (blood only) 21.7 % (37-47); Hemoglobin 7.4 g/dL (12.0-16.0); Lymphocytes % (auto) 14.1 %; Mean Corpuscular Hemoglobin 29.2 pg (25-34); Mean Corpuscular Hgb Conc 34.1 g/dL (32-36); Mean Corpuscular Volume 85.8 fL (80-100); Mean Platelet Volume 9.4 fL (7.4-10.4); Monocytes # (auto) 0.47 K/uL (0.11-0.59); Monocytes % (auto) 9.5 %; Neutrophils # (auto) 3.75 K/uL (1.4-6.5); Neutrophils % (auto) 75.6 %; Platelet Count 139 K/uL (130-400); RDW Coefficient of Variation 14.9 % (11.5-14.5); RDW Standard Deviation 46.1 fL (36.4-46.3); Red Blood Count 2.53 M/uL (4.2-5.4); White Blood Count 4.96 K/uL (4.8-10.8)
[2021-08-24 21:42] LABS: Prothrombin Time 10.3 Seconds (9.0-12.0)
[2021-08-24 21:51] LABS: Albumin Level 2.7 gm/dl (3.4-5.0); BUN Creatinine Ratio 17.4 (10-20); Calcium 8.1 mg/dl (8.5-10.1); Est GFR (African American) 75.6 ml/min; Est GFR (Non-African American) 65.2 ml/min; Magnesium 1.5 mg/dl (1.8-2.4); Potassium 4.2 mmol/L (3.5-5.1)
[2021-08-24 22:08] LABS: Albumin Globulin Ratio 0.9 (0.9-2); Bilirubin,Total 0.9 mg/dl (0.2-1); Thyroid Stimulating Hormone 2.6 uIu/ml (0.300-4.500); Total Protein 5.7 gm/dl (6.4-8.2)
[2021-08-24 22:12] LABS: RBC Morphology Unremarkable
[2021-08-24] MEDS: MAGNESIUM SULFATE / D5W 1 GM/100 ML BAG IV SCH (22:19)
[2021-08-25] MEDS: MAGNESIUM SULFATE / D5W 1 GM/100 ML BAG IV SCH (00:37)
[2021-08-25] MEDS ORDERED: OLANZAPINE 2.5 MG TAB PO STA (02:27)
[2021-08-25] MEDS ORDERED: OLANZapine 10 MG/2.1 ML SDV IM STA (02:32)
[2021-08-25] MEDS: ACETAMINOPHEN 325 MG TAB PO SCH ×4 (02:44→18:24)
--- NOTE | 2021-08-25 05:04 | Communication Note ---
Date of Service: August 25, 2021 Patient noted to be disoriented since yesterday. No abdominal pain complaints. Last BM was 6 days ago as per RN. CT HEAD: No acute intracranial hemorrhage, mass-effect, or midline shift. Age- related parenchymal volume loss. No skull fracture. Debris in the right external auditorycanal. Comparison made with 08/22/[address] ABDOMEN & PELVIS Without Contrast: Mild contiguous thickening of the descending and sigmoid colon and rectumwith fattystranding about the rectumsuggests an infectious or inflammatoryproctocolitis. Cecal bascule with mild dilation of the cecumup to approximately6.4 cm. Colonic diverticulosis. Mild splenomegaly. Right basilar atelectasis. Postsurgical changes of the liver. Multiple compression deformities of the thoracolumbar spine. Multiple vertebroplasties in the lumbar spine. AP Delirium Possible proctocolitis on CT initial read Constipation since admission Zyprexa as needed agitation Follow official CT abdomen pelvis read Clear liquids for now, IVF, bowel regimen, Zosyn Will relay to AM provider.
[2021-08-25] MEDS ORDERED: POLYETHYLENE (MIRALAX) 17 GM PACK PO STA (05:08)
[2021-08-25] MEDS ORDERED: POLYETHYLENE (MIRALAX) 17 GM PACK PO PRN (05:09)
[2021-08-25] MEDS ORDERED: PIPERACILL/TAZOBAC CONSULT ACTIVE PRN (05:09)
[2021-08-25] MEDS ORDERED: SODIUM CHLORIDE 0.9% 1000ML 1,000 ML IV ONE (05:11)
[2021-08-25] MEDS ORDERED: PIPERACILLIN/TAZOBACTAM 4.5 GM in DEXTROSE 5% 100 ML IV ONE (05:30)
[2021-08-25] MEDS: DOCUSATE SODIUM/SENNA 50/8.6MG TAB PO SCH (05:59)
[2021-08-25 06:06] LABS: Hematocrit (blood only) 22.3 % (37-47); Hemoglobin 7.7 g/dL (12.0-16.0); Mean Corpuscular Hemoglobin 29.5 pg (25-34); Mean Corpuscular Hgb Conc 34.5 g/dL (32-36); Mean Corpuscular Volume 85.4 fL (80-100); Mean Platelet Volume 9.7 fL (7.4-10.4); Platelet Count 135 K/uL (130-400); RDW Coefficient of Variation 14.8 % (11.5-14.5); RDW Standard Deviation 45.9 fL (36.4-46.3); Red Blood Count 2.61 M/uL (4.2-5.4); White Blood Count 4.29 K/uL (4.8-10.8)
[2021-08-25] MEDS ORDERED: SODIUM CHLORIDE 0.9% 1000ML 1,000 ML IV SCH (06:30)
[2021-08-25 06:43] LABS: BUN Creatinine Ratio 14.4 (10-20); Calcium 8.6 mg/dl (8.5-10.1); Creatinine Clr Calc Pharmacy 50.2 ml/min; Est GFR (African American) 79.9 ml/min; Est GFR (Non-African American) 68.9 ml/min; Potassium 3.8 mmol/L (3.5-5.1)
--- NOTE | 2021-08-25 09:13 | CT Scan Report ---
CT OF THE HEAD WITHOUT CONTRAST CLINICAL HISTORY: Altered mental status. COMPARISON STUDY: Head CT August 22, 2021. TECHNIQUE: Helical axial images of the head were obtained without IV contrast. Automated exposure con trol was utilized for the study. A dose lowering technique was utilized adhering to the principles o f ALARA. FINDINGS: No acute intracranial hemorrhage, midline shift or mass effect is present. Ventricular syst em is unremarkable. Basal cisterns are patent. There are no extra axial collections. There are no fin dings to suggest acute dural sinus thrombosis or acute territorial infarct. White matter hypodensitie s are unchanged and suggest small vessel disease. There is no acute calvarial fracture. There is no e vidence for sinusitis. IMPRESSION: No acute intracranial findings. No change in appearance of the brain. ACT 112: Negative or not required by law. Electronically signed by: El Salas M.D. 08/25/2021 9:11 AM
[2021-08-25] MEDS: LIDOCAINE 5% 1 PATCH TD SCH (09:27)
[2021-08-25] MEDS: TACROLIMUS 1 MG CAP PO SCH ×2 (09:28→22:28)
[2021-08-25] MEDS: MYCOPHENOLATE MOFETIL 250 MG CAP PO SCH ×2 (09:29→22:28)
[2021-08-25] MEDS: DULoxetine HCL 60 MG CAP PO SCH (09:29)
[2021-08-25] MEDS: PANTOprazole 40 MG TAB PO SCH (09:29)
--- NOTE | 2021-08-25 09:30 | CT Scan Report ---
CT OF THE ABDOMEN AND PELVIS WITHOUT CONTRAST CLINICAL HISTORY: fall, eval for bleeding, also R lateral ribs COMPARISON STUDY: CT of the abdomen March 10, 2009. CT of the abdomen and pelvis August 01, 2008. CT of the pelvis June 04, 2017.] PET/CT June 04, 2017. TECHNIQUE: Axial images of the abdomen and pelvis were obtained without IV contrast. Images were revi ewed in the axial, sagittal, and coronal planes. Automated exposure control was utilized for the kamari dy. A dose lowering technique was utilized adhering to the principles of ALARA. FINDINGS: There are trace bilateral pleural effusions. Evaluation of the abdomen and pelvis is subopt imal on this unenhanced examination. No pneumatosis, free air or portal venous gas is present. Transp lanted liver is suboptimally assessed on this unenhanced exam but appears unremarkable. Splenomegaly is noted. The cecum is moderately distended. There is no convincing evidence for a bowel obstruction. Large amount stool within the right colon is noted. There is colonic diverticulosis. Note is made of wall thickening at the rectosigmoid junction. There is adjacent pericolonic/presacral stranding. No abscess is present. There is no associated free air. No lymphadenopathy is present. Water attenuation right renal lesion measures 3.3 cm. This favors a cyst although suboptimally assessed on this unenha nced exam. There is no hydronephrosis. Several old right lower rib fractures are noted. Multilevel ve rtebral plasties are noted. Multiple lower thoracic and lumbar spine compression fractures are noted. The majority, if not all, these are likely old. The right sacral ala fracture is noted. There are no bilateral pubic ring fractures. Bilateral hip arthroplasties are partially imaged. No acute fracture s within the pelvis or hips are identified. IMPRESSION: 1. No acute traumatic findings within the abdomen or pelvis on unenhanced exam. 2. Wall thickening at the rectosigmoid junction with mild adjacent stranding. This suggests a nonspec ific proctocolitis. 3. Moderately distended cecum without convincing evidence for a bowel obstruction. Large amount stool within the right colon. ACT 112: Negative or not required by law. Electronically signed by: El Salas M.D. 08/25/2021 9:28 AM
[2021-08-25] MEDS: INSULIN GLARGINE SOLOSTAR 100 UNITS/ML 3 ML PEN SC SCH (09:32)
[2021-08-25] MEDS: INSULIN ASPART 100 UNITS/ML 3 ML PEN SC SCH ×4 (09:37→22:26)
[2021-08-25] MEDS: PIPERACILLIN/TAZOBACTAM 3.375 GM in DEXTROSE 5% 100 ML IV SCH ×2 (12:00→18:23)
[2021-08-25] MEDS ORDERED: INSULIN GLARGINE SOLOSTAR 100 UNITS/ML 3 ML PEN SC ONE (21:00)
[2021-08-25] MEDS ORDERED: INSULIN GLARGINE SOLOSTAR 100 UNITS/ML 3 ML PEN SC SCH (21:00)
--- NOTE | 2021-08-25 23:26 | Hospitalist Progress Note ---
Date of Service August 25, 2021 Assessment & Plan (1) Fracture, humerus: Plan: Left humeral fracture Secondary to to mechanical fall CT confirms a displaced fracture of the humeral neck and vertically oriented fracture through the tuberosities of the humeral head Ortho evaluated today - feel that nonoperative treatment is preferable due to comorbidities. Surgical treatment would involve a reverse total shoulder arthroplasty and can be considered later on Left arm non weight bearing at this time. Follow up with Dr. Valdez in ortho clinic in 1 week. Please call [facility] [place] at [phone] to make an appointment PT and OT evaluated - recommending inpatient rehab/SNF at time of discharge Acute delirium In hospital setting, likely 2/2 narcotics mentation change since yesterday after receiving IV morphine, tramadol Will add lidocaine patch, schedule tylenol. PRN toradol x 1. Discontinued morphine and tramadol for now No evidence of infection, CT head on admission wnl. Reorient when possible, monitor closely CT head showed no acute intracranial abnormality Clinically improved R side pain In setting of fall. CT abd/pelvis showed several old right lower rib fractures are noted. Multiple lower thoracic and lumbar spine compression fractures incentive spirometry Anemia Hgb decreased from 11 to 8 since yesterday. Likely in part dilutional with fluids CT abd pelvis showed no acute traumatic findings within the abdomen or pelvis on unenhanced exam. Hgb 7.7 today, continue cbc Abnormal UA Urine cx positive for more than 3 organisms (mostly contamination ) will d/c rocephin after 3rd dose DM2 insulin requiring BSG markedly elevated in 300s this morning Recent hemoglobin A1c of 5.29 October 2020 Pharmacy on [facility] for glycemic management CKD Renal function at baseline. 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 Ms. Pauline Foreman, contact #[phone]. Admission and Anticipated Discharge Date Admission Date: August 24, 2021 Subjective Pt was seen and examined for follow up of L shoulder pain Lying in bed with no acute distress Pt said that she continues to have L shoulder pain whenever moving her left arm Denies any chest pain, palpitation, dizziness and SOB Review of Systems Review of Systems: All systems reviewed & are unremarkable except as noted in Subjective Physical Exam Physical Exam: General- No acute distress Head- atraumatic Eyes- PERRL, EOMI, ENT- oropharynx clear Neck- supple, no JVD Lungs- clear to auscultation Heart- regular rhythm; no murmur Abdomen- normal bowel sounds, soft, nontender Extremities- no calf tenderness, +Left shoulder pain, L arm in sling, surrounding ecchymosis, mild edema. TTP lateral R ribs Neuro- alert, oriented x 3; PERRL, EOMI; no facial palsy; no dysarthria Skin- warm & dry Results & Data Results & Data ([facility]) Vital Signs (Past 12 Hours) Vital Signs Temp Pulse Resp BP Pulse Ox 08/25/21 23:00 36.9 C 88 18 144/79 H 99 08/25/21 15:32 36.5 C 117 H 18 94/62 L 95 (1) Fracture, humerus Encounter type: initial encounter Fracture alignment: nondisplaced Fracture morphology: unspecified fracture morphology Fracture type: closed Humerus Location: surgical neck Laterality: left Qualified Code(s): S42.215A - Unspecified nondisplaced fracture of surgical neck of left humerus, initial encounter for closed fracture
[2021-08-26] MEDS: PIPERACILLIN/TAZOBACTAM 3.375 GM in DEXTROSE 5% 100 ML IV SCH ×3 (02:26→18:04)
[2021-08-26] MEDS: ACETAMINOPHEN 325 MG TAB PO SCH ×5 (02:29→18:00)
[2021-08-26] MEDS: MYCOPHENOLATE MOFETIL 250 MG CAP PO SCH ×2 (08:22→21:08)
[2021-08-26] MEDS: PANTOprazole 40 MG TAB PO SCH (08:22)
[2021-08-26] MEDS: LIDOCAINE 5% 1 PATCH TD SCH (08:23)
[2021-08-26] MEDS: DULoxetine HCL 60 MG CAP PO SCH (08:24)
[2021-08-26] MEDS: TACROLIMUS 1 MG CAP PO SCH ×2 (08:24→21:09)
[2021-08-26] MEDS: DOCUSATE SODIUM/SENNA 50/8.6MG TAB PO SCH (08:24)
[2021-08-26] MEDS: INSULIN GLARGINE SOLOSTAR 100 UNITS/ML 3 ML PEN SC SCH (08:25)
[2021-08-26] MEDS: INSULIN ASPART 100 UNITS/ML 3 ML PEN SC SCH ×4 (10:09→21:10)
[2021-08-26 12:45] LABS: Hematocrit (blood only) 20.9 % (37-47); Mean Corpuscular Hemoglobin 28.7 pg (25-34); Mean Corpuscular Hgb Conc 33.5 g/dL (32-36); Mean Corpuscular Volume 85.7 fL (80-100); Mean Platelet Volume 9.2 fL (7.4-10.4); Platelet Count 134 K/uL (130-400); RDW Coefficient of Variation 14.7 % (11.5-14.5); RDW Standard Deviation 45.6 fL (36.4-46.3); Red Blood Count 2.44 M/uL (4.2-5.4); White Blood Count 3.28 K/uL (4.8-10.8)
[2021-08-26] MEDS ORDERED: SODIUM CHLORIDE 0.9% 250 ML IV PRN (12:52)
[2021-08-26 12:55] LABS: BUN Creatinine Ratio 11.2 (10-20); Calcium 8.4 mg/dl (8.5-10.1); Creatinine Clr Calc Pharmacy 46.4 ml/min; Est GFR (African American) 72.6 ml/min; Est GFR (Non-African American) 62.6 ml/min; Potassium 3.3 mmol/L (3.5-5.1)
[2021-08-26] MEDS ORDERED: INSULIN GLARGINE SOLOSTAR 100 UNITS/ML 3 ML PEN SC SCH (21:00)
[2021-08-26 21:47] LABS: Hematocrit (blood only) 26.7 % (37-47); Hemoglobin 9.2 g/dL (12.0-16.0)
[2021-08-26] MEDS ORDERED: ACETAMINOPHEN 1,000 MG/100 ML VIAL IV ONE (22:30)
--- NOTE | 2021-08-26 23:59 | Hospitalist Progress Note ---
Date of Service August 26, 2021 Assessment & Plan (1) Fracture, humerus: Plan: Left humeral fracture Secondary to to mechanical fall CT confirms a displaced fracture of the humeral neck and vertically oriented fracture through the tuberosities of the humeral head Ortho evaluated today - feel that nonoperative treatment is preferable due to comorbidities. Surgical treatment would involve a reverse total shoulder arthroplasty and can be considered later on Left arm non weight bearing at this time. Follow up with Dr. Valdez in ortho clinic in 1 week. Please call [facility] [place] at [phone] to make an appointment PT and OT evaluated - recommending inpatient rehab/SNF at time of discharge Acute delirium In hospital setting, likely 2/2 narcotics mentation change since yesterday after receiving IV morphine, tramadol Will add lidocaine patch, schedule tylenol. PRN toradol x 1. Discontinued morphine and tramadol for now No evidence of infection, CT head on admission wnl. Reorient when possible, monitor closely CT head showed no acute intracranial abnormality Clinically improved R side pain In setting of fall. CT abd/pelvis showed several old right lower rib fractures are noted. Multiple lower thoracic and lumbar spine compression fractures incentive spirometry Anemia Hgb decreased from 11 to 8 since yesterday. Likely in part dilutional with fluids CT abd pelvis showed no acute traumatic findings within the abdomen or pelvis on unenhanced exam. Hgb hemoglobin dropped to 7 today Type and cross and transfuse 1 unit PRBC today Continue monitor CBC Abnormal UA Urine cx positive for more than 3 organisms (mostly contamination ) will d/c rocephin after 3rd dose DM2 insulin requiring BSG markedly elevated in 300s this morning Recent hemoglobin A1c of 5.29 October 2020 Pharmacy on [place] for glycemic management CKD Renal function at baseline. 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 Ms. Pauline Foreman, contact #[phone]. Admission and Anticipated Discharge Date Admission Date: August 24, 2021 Subjective Pt was seen and examined for follow up of L shoulder pain Lying in bed with no acute distress Pt said that she continues to have pain in the left shoulder Denies any chest pain, palpitation, dizziness and SOB Review of Systems Review of Systems: All systems reviewed & are unremarkable except as noted in Subjective Physical Exam Physical Exam: General- No acute distress Head- atraumatic Eyes- PERRL, EOMI, ENT- oropharynx clear Neck- supple, no JVD Lungs- clear to auscultation Heart- regular rhythm; no murmur Abdomen- normal bowel sounds, soft, nontender Extremities- no calf tenderness, +Left shoulder pain, L arm in sling, surrounding ecchymosis, mild edema. TTP lateral R ribs Neuro- alert, oriented x 3; PERRL, EOMI; no facial palsy; no dysarthria Skin- warm & dry Results & Data Results & Data ([facility]) Vital Signs (Past 12 Hours) Vital Signs Temp Pulse Resp BP Pulse Ox 08/26/21 16:50 36.8 C 92 H 16 142/84 H 99 08/26/21 15:30 36.4 C L 90 16 134/83 99 08/26/21 15:00 88 14 128/68 100 08/26/21 14:30 36.3 C L 87 16 127/73 99 08/26/21 14:10 36.4 C L 86 18 125/78 96 08/26/21 13:52 36.5 C 92 H 18 122/74 98 (1) Fracture, humerus Encounter type: initial encounter Fracture alignment: nondisplaced Fracture morphology: unspecified fracture morphology Fracture type: closed Humerus Location: surgical neck Laterality: left Qualified Code(s): S42.215A - Unspecified nondisplaced fracture of surgical neck of left humerus, initial encounter for closed fracture
[2021-08-27] MEDS: ACETAMINOPHEN 325 MG TAB PO SCH ×5 (01:59→20:21)
[2021-08-27] MEDS ORDERED: POTASSIUM CHLORIDE CRTAB 20 MEQ TABCR PO STA (02:28)
[2021-08-27] MEDS: PIPERACILLIN/TAZOBACTAM 3.375 GM in DEXTROSE 5% 100 ML IV SCH ×2 (03:52→11:17)
[2021-08-27] MEDS: INSULIN ASPART 100 UNITS/ML 3 ML PEN SC SCH ×4 (08:18→21:09)
[2021-08-27] MEDS: TACROLIMUS 1 MG CAP PO SCH ×2 (08:21→20:21)
[2021-08-27] MEDS: MYCOPHENOLATE MOFETIL 250 MG CAP PO SCH ×2 (08:21→20:21)
[2021-08-27] MEDS: PANTOprazole 40 MG TAB PO SCH (08:22)
[2021-08-27] MEDS: DOCUSATE SODIUM/SENNA 50/8.6MG TAB PO SCH (08:22)
[2021-08-27] MEDS: LIDOCAINE 5% 1 PATCH TD SCH (08:22)
[2021-08-27] MEDS: DULoxetine HCL 60 MG CAP PO SCH (08:23)
[2021-08-27] MEDS: INSULIN GLARGINE SOLOSTAR 100 UNITS/ML 3 ML PEN SC SCH (08:24)
--- NOTE | 2021-08-27 09:46 | Pharmacy Report ---
Pharmacy Glycemic Short Note 2 - Date of Service August 27, 2021 - Glycemic Short BSG Results (Last 24 hours): 08/26/21 08/26/21 08/26/21 12:14 12:36 16:52 Glucose 83 POC Glucose 77 126 H 08/26/21 08/27/21 20:32 08:14 Glucose POC Glucose 115 H 108 H OUTPATIENT ANTIDIABETIC REGIMEN: * Levemir 13 units SQ BID * Humalog sliding scale for BSG > 200mg/dl ASSESSMENT: 08/27 * Patient's BSGs yesterday were 755-18-132-115 mg/dL. Fasting today is 108 mg/dL. * Patient received 16 units of insulin yesterday (15 units of basal and 1 unit of bolus). * Fasting continues to trend downwards by almost 100 points (260 --> 166 --> 108 mg/dL). Patient has no PO intake. * Hold this morning's dose. Scale Lantus for tonight with a 30 and 50% reduction based upon BSG. * Continue Novolog with higher goal range. 08/24 * Patient received total of 37 units of insulin yesterday, of which 20 units were basal. * BSGs trending down overnight last evening. Patient had got an additional 20 units the night prior. Home insulin regimen heavily basal weighted. Plan to split insulin more 50/50 split while inpatient * Will resume basal insulin this evening with scale 08/23 * 70 year old admitted with left humeral fracture, type 2 diabetic on insulins as above, A1c 5.2%, possible hypoglycemia at home? * Patient hyperglycemic over past 12 hours, patient has had 40 units of Lantus and 27 units of correctional Novolog, blood sugar improving from 379 -- > 187mg/dl * Will hold Lantus at this time and resume tomorrow, give tonight only for BSG > 180mg/dl * Tighten CF/CR after ensuring lunch BSG at goal * Patient currently NPO, ortho eval states non-operative treatment at this time, likely resume diet soon PLAN FOR INPATIENT GLYCEMIC CONTROL: * Basal insulin * Lantus 8-10 units SQ HS (hold if BSG < 150 mg/dL; 8 units if BSG 150-200 mg/dL; 10 units if BSG > 200 mg/dL) * Bolus insulin * NovoLog per scale ACHS or Q6hrs while NPO * Goal Range: Low 120 mg/dL - High 160 mg/dL * Correction Factor: 30 mg/dL/unit * Nutritional / Prandial insulin per carb ratio of 1 unit per 10 grams CHO consumed PLAN FOR DISCHARGE: * to be determined
[2021-08-27 11:47] LABS: Hematocrit (blood only) 29.9 % (37-47); Hemoglobin 10.2 g/dL (12.0-16.0); Mean Corpuscular Hemoglobin 30.3 pg (25-34); Mean Corpuscular Hgb Conc 34.1 g/dL (32-36); Mean Corpuscular Volume 88.7 fL (80-100); Mean Platelet Volume 9.6 fL (7.4-10.4); Platelet Count 165 K/uL (130-400); RDW Coefficient of Variation 15.5 % (11.5-14.5); RDW Standard Deviation 48.8 fL (36.4-46.3); Red Blood Count 3.37 M/uL (4.2-5.4); White Blood Count 5.07 K/uL (4.8-10.8)
--- NOTE | 2021-08-27 11:53 | Hospitalist Progress Note ---
Date of Service August 27, 2021 Assessment & Plan (1) Fracture, humerus: Plan: Left humeral fracture Secondary to to mechanical fall CT confirms a displaced fracture of the humeral neck and vertically oriented fracture through the tuberosities of the humeral head Ortho evaluated- feel that nonoperative treatment is preferable due to comorbidities. Surgical treatment would involve a reverse total shoulder arthroplasty and can be considered later on Left arm non weight bearing at this time. Follow up with Dr. Valdez in ortho clinic in 1 week. Please call [facility] at [phone] to make an appointment, will need follow up around 08/30 PT and OT evaluated - recommending inpatient rehab/SNF at time of discharge Acute delirium In hospital setting, likely 2/2 narcotics mentation change since yesterday after receiving IV morphine, tramadol Will add lidocaine patch, schedule tylenol. PRN toradol x 1. Discontinued morphine and tramadol for now No evidence of infection, CT head on admission wnl. Reorient when possible, monitor closely CT head showed no acute intracranial abnormality Clinically improved R side pain In setting of fall. CT abd/pelvis showed several old right lower rib fractures are noted. Multiple lower thoracic and lumbar spine compression fractures incentive spirometry, lidocaine patch Anemia Hgb decreased from 11 to 8 since yesterday. Likely in part dilutional with fluids CT abd pelvis showed no acute traumatic findings within the abdomen or pelvis on unenhanced exam. Hgb hemoglobin dropped to 7 12/5 s/p 1 unit prbc 12/5 hbg today 10.2 Continue monitor CBC no s/sx of bleeding Abnormal UA Urine cx positive for more than 3 organisms (mostly contamination ) will d/c rocephin after 3rd dose Proctocolitis 2 Large BM today, pt with constipation on senna S daily d/c antibiotic as no clinical evidence of infection no diarrhea or bloody stool, will monitor DM2 insulin requiring a1c 5.2, to tight of control given age and insulin concern for hypoglycemia at home Pharmacy on board for glycemic management CKD-3 Renal function at baseline. 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 Ms. Pauline Foreman, contact #[phone]. Admission and Anticipated Discharge Date Admission Date: August 24, 2021 Supervising Physician Co-Signing Physician Notes Pt was seen an examined for follow up. Agree with Kenna GMOEZ exam assessment and plan. Patient said left shoulder pain improved significantly. Denies any chest pain, palpitation, dizziness, shortness of breath. CT showed displaced fracture of the humeral neck and vertically oriented fracture through the tuberosities of the humeral head. Ortho on board- no surgical intervention. Continue conservative management. Continue to wear the sling in L arm. Family not interested for placement to rehab . follow-up with Ortho clinic in 1 week. Fall precaution. MD Siddharth Subjective Pt was seen and examined in room 387-2. Follow up L humeral fx, constipation, anemia. She is sitting up in bed w/o acute complaint. +L shoulder pain. Denies f/c/s, chest pain, sob, n/v/d. Per nurse she had 2 Large soft BM todays. Review of Systems Review of Systems: All systems reviewed & are unremarkable except as noted in HPI & below Physical Exam Physical Exam: Gen: Elderly, Petite, F, sitting up in bed, NAD, A&O x3 to basics HEENT: Normocephalic, atraumatic, conjunctivae moist, sclerae anicteric, mucous membranes moist. Lung: Clear to Auscultation bilaterally, no wheezes/rales/rhonchi Heart: Regular rate, regular rhythm, no murmurs, rubs, or gallops Abdomen: Soft, NT, ND +BS x 4 Extremities: No edema, + L should ecchymosis, sling in place, nvi distally Skin: Warm, no rash, negative turgor. Results & Data Results & Data ([facility]) Vital Signs (Past 12 Hours) Vital Signs Temp Pulse Resp BP Pulse Ox 08/27/21 07:10 36.9 C 87 18 137/78 100 08/27/21 00:21 36.9 C 93 H 14 136/82 100 Laboratory Results Short CBC 08/26/21 08/26/21 Range/Units 12:14 21:36 WBC 3.28 L (4.8-10.8) K/uL Hgb 7.0 L 9.2 L (12.0-16.0) g/dL Hct 20.9 L* 26.7 L (37-47) % Plt Count 134 (130-400) K/uL BMP 08/26/21 12:14 Sodium 142 Potassium 3.3 L Chloride 108 H Carbon Dioxide 27 BUN 10 Creatinine 0.92 Glucose 83 Calcium 8.4 L Medications Administered Current Inpatient Medications Acetaminophen (Acetaminophen 325 Mg Tab) 325 mg PO Q6H ALYSSA Stop: 09/22/21 18:59 Last Admin: 08/27/21 06:35 Dose: Not Given Documented by: Dextrose (Dextrose 50% 50 Ml Syringe) 25 - 50 ml IV UD PRN; Protocol PRN Reason: Hypoglycemia Protocol Stop: 09/21/21 22:30 Duloxetine HCl (Duloxetine Hcl 60 Mg Cap) 60 mg PO DAILY ALYSSA Stop: 09/22/21 08:59 Last Admin: 08/27/21 08:23 Dose: 60 mg Documented by: Glucagon (Glucagon For Inj 1 Mg Vial) 1 mg SQ UD PRN; Protocol PRN Reason: Hypoglycemia Protocol Stop: 09/21/21 22:30 Glucose (Glucose 10 Tabs/Tube) 4 - 8 tabs PO UD PRN; Protocol PRN Reason: Hypoglycemia Protocol Stop: 09/21/21 22:30 Glucose (Glucose 40% Gel 15 Gm Tube) 15 - 30 gm PO UD PRN; Protocol PRN Reason: Hypoglycemia Protocol Stop: 09/21/21 22:30 Heparin Sodium (Porcine) (Heparin Sod 5,000 Unit/0.5 Ml Vial) 5,000 units SQ Q12 ALYSSA Stop: 09/22/21 20:59 Last Admin: 08/24/21 08:40 Dose: 5,000 units Documented by: Promethazine HCl 6.25 mg/ (Sodium Chloride) 50.25 mls @ 201 mls/hr IV Q6H PRN PRN Reason: Nausea And Vomiting Stop: 09/21/21 22:30 Last Infusion: 08/22/21 23:14 Dose: Infused Documented by: Insulin Aspart (Insulin Aspart 100 Units/Ml 3 Ml Pen) 0 units SC ACHS ALYSSA Stop: 09/22/21 16:29 Last Admin: 08/27/21 08:18 Dose: Not Given Documented by: Insulin Glargine (Insulin Glargine Solostar 100 Units/Ml 3 Ml Pen) 0 units SC HS [facility]; Protocol Stop: 09/26/21 20:59 Lidocaine (Lidocaine 5% 1 Patch) 1 patch TD QAM [facility] Stop: 09/23/21 15:59 Last Admin: 08/27/21 08:22 Dose: 1 patch Documented by: Miscellaneous (Carbohydrates For Hypoglycemia ) 15 - 30 gm PO UD PRN PRN Reason: Hypoglycemia Protocol Stop: 09/21/21 22:30 Last Admin: 08/24/21 02:18 Dose: 15 gm Documented by: Miscellaneous (Remove Lidoderm Patch) 1 ea N/A DAILY@2100 [facility] Stop: 09/23/21 22:59 Last Admin: 08/26/21 21:10 Dose: 1 ea Documented by: Mashacellaneous Information (Pharmacy Glycemic Mgmt Consult) 1 ea N/A UD PRN PRN Reason: Consult Stop: 09/22/21 08:33 Morphine Sulfate (Morphine Sulfate 4 Mg/Ml 1 Ml Carp\Vial) 4 mg IV Q4H PRN PRN Reason: Pain Stop: 09/05/21 22:30 Last Admin: 08/23/21 00:33 Dose: 4 mg Documented by: Mycophenolate Mofetil (Mycophenolate Mofetil 250 Mg Cap) 500 mg PO BID [facility] Stop: 09/21/21 22:59 Last Admin: 08/27/21 08:21 Dose: 500 mg Documented by: Pantoprazole Sodium (Pantoprazole 40 Mg Tab) 40 mg PO DAILY [facility]; Protocol Stop: 09/22/21 08:59 Last Admin: 08/27/21 08:22 Dose: 40 mg Documented by: Polyethylene Glycol (Polyethylene (Miralax) 17 Gm Pack) 17 gm PO DAILY PRN PRN Reason: Constipation Stop: 09/24/21 05:08 Senna/Docusate Sodium (Docusate Sodium/Senna 50/8.6mg Tab) [facility] [place] Stop: 09/24/21 05:29 Last Admin: 08/27/21 08:22 Dose: 1 tab Documented by: Tacrolimus (Tacrolimus 1 Mg Cap) 1 mg PO Q12 [facility] Stop: 09/21/21 22:59 Last Admin: 08/27/21 08:21 Dose: 1 mg Documented by: Tramadol HCl (Tramadol Hcl 50 Mg Tablet) 25 mg PO Q4H PRN PRN Reason: Pain Stop: 09/21/21 22:30 (1) Fracture, humerus Encounter type: initial encounter Fracture alignment: nondisplaced Fracture morphology: unspecified fracture morphology Fracture type: closed Humerus Location: surgical neck Laterality: left Qualified Code(s): S42.215A - Unspecified nondisplaced fracture of surgical neck of left humerus, initial encounter for closed fracture
[2021-08-27 12:06] LABS: Calcium 8.7 mg/dl (8.5-10.1); Creatinine Clr Calc Pharmacy 41.8 ml/min; Est GFR (African American) 64.1 ml/min; Est GFR (Non-African American) 55.3 ml/min
[2021-08-27] MEDS: POTASSIUM CHLORIDE CRTAB 20 MEQ TABCR PO STA ×4 (14:05→14:13)
[2021-08-27] MEDS: POTASSIUM CHLORIDE / WTR 10 MEQ/100 ML PLCT IV SCH ×4 (15:33→22:20)
[2021-08-27] MEDS ORDERED: INSULIN GLARGINE SOLOSTAR 100 UNITS/ML 3 ML PEN SC SCH (21:00)
[2021-08-28] MEDS: ACETAMINOPHEN 325 MG TAB PO SCH ×3 (01:26→13:15)
[2021-08-28 06:16] LABS: Basophils # (auto) 0.01 K/uL (0-0.2); Basophils % (auto) 0.3 %; Eosinophils # (auto) 0.13 K/uL (0-0.5); Eosinophils % (auto) 3.4 %; Hematocrit (blood only) 28.6 % (37-47); Hemoglobin 9.5 g/dL (12.0-16.0); Immature Granulocytes # (auto) 0.02 K/uL (0.00-0.02); Immature Granulocytes % (auto) 0.5 %; Lymphocytes # (auto) 0.98 K/uL (1.2-3.4); Lymphocytes % (auto) 25.5 %; Mean Corpuscular Hemoglobin 29.8 pg (25-34); Mean Corpuscular Hgb Conc 33.2 g/dL (32-36); Mean Corpuscular Volume 89.7 fL (80-100); Mean Platelet Volume 10.5 fL (7.4-10.4); Monocytes # (auto) 0.44 K/uL (0.11-0.59); Monocytes % (auto) 11.5 %; Neutrophils # (auto) 2.26 K/uL (1.4-6.5); Neutrophils % (auto) 58.8 %; Platelet Count 129 K/uL (130-400); RDW Coefficient of Variation 15.8 % (11.5-14.5); RDW Standard Deviation 49.6 fL (36.4-46.3); Red Blood Count 3.19 M/uL (4.2-5.4); White Blood Count 3.84 K/uL (4.8-10.8)
[2021-08-28 07:28] LABS: BUN Creatinine Ratio 16.8 (10-20); Calcium 8.3 mg/dl (8.5-10.1); Creatinine Clr Calc Pharmacy 56.9 ml/min; Est GFR (African American) 92.9 ml/min; Est GFR (Non-African American) 80.2 ml/min
[2021-08-28] MEDS: LIDOCAINE 5% 1 PATCH TD SCH (08:55)
[2021-08-28] MEDS: PANTOprazole 40 MG TAB PO SCH (08:56)
[2021-08-28] MEDS: DOCUSATE SODIUM/SENNA 50/8.6MG TAB PO SCH ×2 (08:56→09:21)
[2021-08-28] MEDS: TACROLIMUS 1 MG CAP PO SCH (08:56)
[2021-08-28] MEDS: DULoxetine HCL 60 MG CAP PO SCH (08:56)
[2021-08-28] MEDS: MYCOPHENOLATE MOFETIL 250 MG CAP PO SCH (08:56)
[2021-08-28] MEDS: INSULIN ASPART 100 UNITS/ML 3 ML PEN SC SCH ×2 (08:57→13:12)
--- NOTE | 2021-08-28 09:25 | Discharge Summary ---
Date of Service August 28, 2021 Admission HPI Per Admitting Provider History obtained from patient, family, and records. 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 Patient tried to walk to the bathroom at her home today without her walker. Patient fell forward landing on her left arm. Achy left shoulder pain going to the chest. No head trauma. Denies syncope, S OB. Patient brought to the ER for evaluation. MEDICAL HISTORY: As above. SURGICAL HISTORY: back surgery, Hip surgery, Liver transplantation, Hysterectomy, bone biopsy, cholecystectomy FAMILY HISTORY : DM, uterine cancer PERSONAL SOCIAL HISTORY: Nonsmoker. No EtOH intake, lives with daughter, disabled Admission Exam Per Admitting Provider GENERAL: Slightly uncomfortable, no respiratory distress SKIN: Normal color, warm HEENT: [place] palpebral conjunctivae, no ptosis, dry buccal mucosa NECK : Supple, no tenderness CHEST : CTA, no tenderness HEART : RRR, no obvious murmurs ABDOMEN: Some distention, nontender EXTREMITIES : No LE swelling/tenderness, sling over left upper extremity NEUROLOGIC : Coherent, no facial asymmetry, no other gross focality Principal Diagnosis L Humeral Fx Old R lower rib fractures Thoracic and Lumbar spine compression fractures Acute Delirium Anemia s/p 1 unit PRBC Constipation T2DM with hyperglycemia Discharge Exam Gen: Elderly, Petite, F, sitting up in bed, NAD, A&O x3 pleasant HEENT: Normocephalic, atraumatic, conjunctivae moist, sclerae anicteric, mucous membranes moist. Lung: Clear to Auscultation bilaterally, no wheezes/rales/rhonchi Heart: Regular rate, regular rhythm, no murmurs, rubs, or gallops Abdomen: Soft, NT, ND +BS x 4 Extremities: No edema, + L shoulder ecchymosis, sling in place, nvi distally, L forearm and finger edema Skin: Warm, no rash, negative turgor. Discharge Data Allergies Allergy/AdvReac Type Severity Reaction Status Date / Time celecoxib AdvReac Mild NAUSEA, Verified 08/22/21 16:46 VOMITING codeine AdvReac Mild ANXIETY Verified 08/22/21 16:46 rofecoxib AdvReac Mild LEGS GO Verified 08/22/21 16:46 NUMB hydromorphone AdvReac Unknown RESTLESS, Verified 08/22/21 16:46 INSOMNIA Consultations 08/22/21 18:44 ED Decision to Admit Stat 08/22/21 19:52 Consult Orthopedic Surgery Routine (1) Closed fracture of left proximal humerus: She has a moderately comminuted and moderately displaced left proximal humerus fracture in the setting of severe osteoporosis, minimal baseline activity, and a high risk surgical candidate on immunosuppressive medications after a liver transplant. We discussed nonoperative versus surgical treatment for this fracture. Surgical treatment would involve a reverse total shoulder arthroplasty. I think this would be a very big surgery for her. With her activity level and other medical issues, I would recommend nonoperative treatment for now. I think she will regain acceptable, although not normal, shoulder function after the fracture heals. I advised her that we could always do a shoulder replacement surgery later on an elective basis if she is unhappy with her functional outcome. She voiced understanding and agreement with this plan. For now, we will keep her in the sling. She may remove the sling 5-6 times daily for elbow range of motion exercises. She may do some very gentle pendulum exercises for the shoulder, but no active or passive abduction. She may not weight-bear on this left arm. She may be discharged when stable from a medical perspective. Follow-up with Dr. Valdez in orthopedic surgery clinic in 1 week. Please call [facility] at [phone] to make an appointment. Orthopedics will sign off at this point. Please call with questions. Ordered Studies Cervical Spine CT 08/22/21 16:45 CT cervical spine wo con CLINICAL HISTORY: fall with neck pain COMPARISON STUDY: 06/04/2017 CT DOSE: 922.59 mGy.cm TECHNIQUE: Standard CT of the Cervical Spine was performed without IV contrast. A dose lowering technique was utilized adhering to the principles of ALARA. FINDINGS: Bones: Bones are osteopenic. There is no evidence for an acute fracture or malalignment. The heights of the vertebral bodies are maintained. The vertebral bodies are in anatomic alignment. The odontoid is intact and the atlantoaxial articulation is within normal limits. Disc spaces:There is mild disc space narrowing at C5-6. Apophyseal joints:There is degenerative apophyseal joint disease seen bilaterally. Soft tissues:The prevertebral soft tissues are within normal limits. IMPRESSION: Osteopenia with no acute abnormality. Degenerative disc and degenerative joint disease. ACT 112: Negative or not required by law. Electronically signed by: Jovanni Perales M.D. 08/22/2021 5:21 PM Chest X-Ray 08/22/21 16:45 XR chest 1V portable CLINICAL HISTORY: fall. Pain COMPARISON STUDY: 06/04/2017 TECHNIQUE: 1 view of the chest FINDINGS: Single frontal view of the chest demonstrates the cardiomediastinal silhouette to be within normal limits. The lungs are clear of alveolar opacities. There is no evidence for pleural effusion. There is no evidence for vascular congestion. There is no acute osseous pathology. IMPRESSION: No acute cardiopulmonary disease. ACT 112: Negative or not required by law. Electronically signed by: Jovanni Perales M.D. 08/22/2021 5:[address] 08/22/21 16:45 CT head/brain wo con CLINICAL HISTORY: fall with pain COMPARISON STUDY: 06/04/2017 TECHNIQUE: Standard CT of the Brain was performed without IV contrast. A dose lowering technique was utilized adhering to the principles of ALARA. FINDINGS: Extraaxial space: There is no evidence for subdural hematoma. There are no extra-axial fluid collections. Ventricles and cisterns: The ventricles are mildly to moderately dilated bilaterally. There is no evidence for midline shift or mass effect. Parenchyma: There is no subarachnoid or intraparenchymal hemorrhage. There is no evidence for an acute infarct or cerebral edema. There is mild cerebral cortical atrophy and decreased attenuation in the periventricular white matter representing remote small vessel disease. There are no gross mass lesions. Osseous structures: There is no evidence for an acute fracture. The visualized paranasal sinuses are clear. The mastoid air cells are clear bilaterally. Soft tissues: There is no evidence for focal soft tissue swelling. IMPRESSION: No acute intracerebral pathology. Cerebral cortical atrophy and remote small vessel disease are seen. ACT 112: Negative or not required by law. Electronically signed by: Jovanni Perales M.D. 08/22/2021 5:18 PM Humerus X-Ray 08/22/21 16:46 XR shoulder LT min 2V routine, XR humerus LT 2V CLINICAL HISTORY: fall. Left shoulder and humerus pain COMPARISON STUDY: No previous studies for comparison. TECHNIQUE: 2 left shoulder and 2 left humerus views FINDINGS: Bones: There is a transverse, displaced fracture through the anatomic neck of the humerus. Humeral shaft is medially and anteriorly displaced in relation to the humeral head. There may also be a second vertically oriented fracture through the bases of the tuberosities of the humerus. The distal humeral shaft is intact. There is no lytic or blastic lesion. Joints: Humeral head does maintain its anatomic position within the glenoid fossa. The elbow joint space is maintained. Soft tissues: There is no focal soft tissue abnormality. There is no radiopaque foreign body. IMPRESSION: 1. Displaced fracture through the anatomic neck of the humerus. 2. There also appears to be a second vertically oriented fracture through the base of the tuberosities of the humeral head. ACT 112: Negative or not required by law. Electronically signed by: Jovanni Perales M.D. 08/22/2021 5:09 PM Pelvis X-Ray 08/22/21 16:46 XR pelvis 1-2V routine CLINICAL HISTORY: fall. Pain. COMPARISON STUDY: 06/04/2017 TECHNIQUE: [A single AP radiograph was obtained. FINDINGS: There is no evidence for an acute fracture. Old, healed fractures of the superior and inferior ischial pubic rami on the right are seen. The patient is status post bilateral hip replacement on the current study. The prosthetic components are in anatomic alignment. The SI joints are intact bilaterally. The remaining visualized bones of the pelvis are intact. The patient is status post vertebroplasty of the lower lumbar spine. No focal soft tissue abnormalities identified. IMPRESSION: No acute abnormality. Stable bilateral total hip replacements. ACT 112: Negative or not required by law. Electronically signed by: Jovanni Perales M.D. 08/22/2021 5:10 PM Shoulder X-Ray 08/22/21 16:46 XR shoulder LT min 2V routine, XR humerus LT 2V CLINICAL HISTORY: fall. Left shoulder and humerus pain COMPARISON STUDY: No previous studies for comparison. TECHNIQUE: 2 left shoulder and 2 left humerus views FINDINGS: Bones: There is a transverse, displaced fracture through the anatomic neck of the humerus. Humeral shaft is medially and anteriorly displaced in relation to the humeral head. There may also be a second vertically oriented fracture through the bases of the tuberosities of the humerus. The distal humeral shaft is intact. There is no lytic or blastic lesion. Joints: Humeral head does maintain its anatomic position within the glenoid fossa. The elbow joint space is maintained. Soft tissues: There is no focal soft tissue abnormality. There is no radiopaque foreign body. IMPRESSION: 1. Displaced fracture through the anatomic neck of the humerus. 2. There also appears to be a second vertically oriented fracture through the base of the tuberosities of the humeral head. ACT 112: Negative or not required by law. Electronically signed by: Jovanni Perales M.D. 08/22/2021 5:[address] 08/22/21 17:39 CT shoulder LT wo con CLINICAL HISTORY: Status post fall with shoulder fracture. CT to further evaluate COMPARISON STUDY: Standard radiographs from 08/22/2021 CT DOSE: 397.72 mGy.cm TECHNIQUE: Standard CT of the is performed without IV contrast. Multiplanar reconstruction is performed. A dose lowering technique was utilized adhering to the principles of ALARA. FINDINGS: Bones: As seen radiographically, there is displaced fracture of the anatomic neck of the humerus with the humeral shaft intramedullary displaced wrist humeral head. A second vertically oriented fracture through the base of the tuberosities of the humeral head is also again seen. There are no lytic or blastic lesions. Joints: The humeral head maintains its anatomic position within the glenoid fossa. Soft tissues: There is soft tissue swelling surrounding the shoulder joint. There are no focal fluid collections. IMPRESSION: CT confirms a displaced fracture of the humeral neck and vertically oriented fracture through the tuberosities of the humeral head. ACT 112: Negative or not required by law. Electronically signed by: Jovanni Perales M.D. 08/22/2021 6:42 PM Abdomen/Pelvis CT 08/24/21 16:22 CT OF THE ABDOMEN AND PELVIS WITHOUT CONTRAST CLINICAL HISTORY: fall, eval for bleeding, also R lateral ribs COMPARISON STUDY: CT of the abdomen March 10, 2009. CT of the abdomen and pelvis August 01, 2008. CT of the pelvis June 04, 2017.] PET/CT June 04, 2017. TECHNIQUE: Axial images of the abdomen and pelvis were obtained without IV contrast. Images were reviewed in the axial, sagittal, and coronal planes. Automated exposure control was utilized for the study. A dose lowering technique was utilized adhering to the principles of ALARA. FINDINGS: There are trace bilateral pleural effusions. Evaluation of the abdomen and pelvis is suboptimal on this unenhanced examination. No pneumatosis, free air or portal venous gas is present. Transplanted liver is suboptimally assessed on this unenhanced exam but appears unremarkable. Splenomegaly is noted. The cecum is moderately distended. There is no convincing evidence for a bowel obstruction. Large amount stool within the right colon is noted. There is colonic diverticulosis. Note is made of wall thickening at the rectosigmoid junction. There is adjacent pericolonic/presacral stranding. No abscess is present. There is no associated free air. No lymphadenopathy is present. Water attenuation right renal lesion measures 3.3 cm. This favors a cyst although suboptimally assessed on this unenhanced exam. There is no hydronephrosis. Several old right lower rib fractures are noted. Multilevel vertebral plasties are noted. Multiple lower thoracic and lumbar spine compression fractures are noted. The majority, if not all, these are likely old. The right sacral ala fracture is noted. There are no bilateral pubic ring fractures. Bilateral hip arthroplasties are partially imaged. No acute fractures within the pelvis or hips are identified. IMPRESSION: 1. No acute traumatic findings within the abdomen or pelvis on unenhanced exam. 2. Wall thickening at the rectosigmoid junction with mild adjacent stranding. This suggests a nonspecific proctocolitis. 3. Moderately distended cecum without convincing evidence for a bowel obstruction. Large amount stool within the right colon. ACT 112: Negative or not required by law. Electronically signed by: El Salas M.D. 08/25/2021 9:[address] 08/24/21 21:25 CT OF THE HEAD WITHOUT CONTRAST CLINICAL HISTORY: Altered mental status. COMPARISON STUDY: Head CT August 22, 2021. TECHNIQUE: Helical axial images of the head were obtained without IV contrast. Automated exposure control was utilized for the study. A dose lowering technique was utilized adhering to the principles of ALARA. FINDINGS: No acute intracranial hemorrhage, midline shift or mass effect is present. Ventricular system is unremarkable. Basal cisterns are patent. There are no extra axial collections. There are no findings to suggest acute dural sinus thrombosis or acute territorial infarct. White matter hypodensities are unchanged and suggest small vessel disease. There is no acute calvarial fracture. There is no evidence for sinusitis. IMPRESSION: No acute intracranial findings. No change in appearance of the brain. ACT 112: Negative or not required by law. Electronically signed by: El Salas M.D. 08/25/2021 9:11 AM Diabetes Follow up A1C 5.2 Hospital Course (1) Fracture, humerus: This is a 70-year-old female who has significant past medical history of insulin-dependent T2DM, history of cirrhosis status post liver transplantation on chronic immunosuppressive therapy, CKD stage III who presented to ED on 08/22/2021 secondary to fall. She complained of left shoulder pain and was found to have a left displaced fracture of the humeral neck and vertically oriented fracture through the tuberosities of the humeral head. She was seen and evaluated by orthopedics and felt that her current fracture require nonoperative treatment due to comorbidities. Surgical treatment would involve a reverse total shoulder arthroplasty and can be considered later on. She was also incidentally found to have old right lower rib fractures and multiple lower thoracic and lumbar spine compression fractures. She is to be nonweightbearing of left upper extremity and wear sling at all times. During her hospitalization she did have acute blood loss anemia secondary to severe ecchymoses to left upper extremity. Her hemoglobin dropped to 7.2 and she did require transfusion of 1 unit PRBC. On day of discharge her hemoglobin was 9.5. Initially there was concern about possible UTI due to patient developing acute confusion. It was felt confusion was secondary to delirium due to narcotics. Infectious etiology was ruled out and urine culture was positive for more than 3 organisms likely consistent with contamination. She did receive 3 days of IV Rocephin. She was also started on IV Zosyn due to possible concern for proctocolitis. Patient was moving her bowels regularly without bloody diarrhea. Her IV Zosyn was discontinued as again there is no source of infection. On day of discharge her CBC did reveal a mild pancytopenia which was felt to be secondary to IV antibiotics. Patient did have episodes of hypokalemia which was repleted. Her A1c during hospitalization was 5.2 and her blood sugar was well controlled. Her blood sugar was almost too tightly controlled and is recommended to follow-up with PCP just to discuss current insulin regimen. On day of discharge patient was in good spirits, alert and oriented x3 and pain was well controlled with Tylenol. She remains in sling to left upper extremity and will be nonweightbearing. She will need to follow-up with orthopedics in 1 week. She is ambulating with a hemiwalker. Patient was seen and evaluated by PT who did recommend SNF at discharge; however patient and daughter declined. She will be discharged to home with home health services and follow-up with PCP. The chart was completed utilizing [employer] Speech voice recognition software. Grammatical errors, random word insertions, pronoun errors, and incomplete sentences are an occasional consequence of this system due to software limitations, ambient noise, and hardware issues. Any formal questions or concerns about the content, text, or information contained within the body of this dictation should be directly addressed to the provider for clarification. Total Time Total Time Spent Total Time Spent (In Minutes): 35 minutes Discharge Plan Discharge Items Patient Disposition: Home - Home Health Services Reason For Visit: L HUMERAL FX Discharge Diagnosis: L Humeral Fx Old R lower rib fractures Thoracic and Lumbar spine compression fractures Acute Delirium Anemia s/p 1 unit PRBC Constipation T2DM with hyperglycemia Activity: As commented below Activity Comment: Non weight bearing to L arm, Sling at all times Lifting: None Driving/Machine Use: No Driving until cleared by Orthopedics and PCP Weightbearing: Left non-weightbearing Weightbearing Comment: L arm non weight bearing Non-emergency contact: Primary Care Provider Call non-emergency contact if: you have any medication questions, your symptoms worsen, your pain is not controlled, your pain is worsening, your pain is unusual for you, your pain is concerning for you, you have a fever and your temperature is above 101 Follow-up/Referrals: Ivette Ragland MD [Primary Care Provider] - 08/30/21 2:20 pm (Date & Time 08/30/2021 2:20 PM Provider Ivette Ragland MD Department General [facility] ) Diet: Carb Consistent or DM2 Diet Texture: Easy to Chew Addtl Attending Provider Instructions: MEDICATION CHANGES: Continue your current home medication regimen Recommend Tylenol 500mg every 6 hours for pain You may use Over the Counter Lidoderm patch 4%, apply to area of pain and leave on for 12 hours; take off for 12 hours RECOMMENDATIONS FOR FOLLOW-UP: Please follow up with PCP as scheduled. Recommend a CBC & BMP in 3 days of discharge to monitor hemoglobin, potassium and kidney function. Please call [facility] [phone] arrange follow up regarding L shoulder in 1 week. Wear Sling to L shoulder at all times. You may remove the sling 5-6 times daily for elbow range of motion exercises. You may also do some very gentle pendulum exercises for the shoulder, but no active or passive abduction.This should be done with home health and physical therapy. Take all medications as prescribed. If pain is uncontrolled with Tylenol please discuss with PCP. You may use ICE to L shoulder every 4 hours as needed for pain. Recommend discussing insulin regimen with your PCP. Your A1C is 5.2 which is very good; however, I feel your blood sugar may be too tightly controlled and puts you at risk for low blood sugar. Continue PT/OT per home health. OTHER INSTRUCTIONS: Seek medical attention if you have: * temperature above 101 * chest pain or trouble breathing * abdominal pain, nausea, vomiting * diarrhea, dark stools or bloody stools * any unanswered questions or concerns Call 911 if symptoms are severe. Please take good care of yourself. It has been a pleasure taking care of you. Please take care of yourself. If you have any questions regarding your recent hospitalization please contact [facility] and request Arely Swainist @ [phone]. Kenna Marshall PA-C Pending Studies at Discharge: No Stand-Alone Forms: My [facility], Smoking Cessation Medications and DC Order Prescriptions: Continued mycophenolate mofetil 250 mg capsule 500 mg PO BID RF: 0 omeprazole 20 mg capsule,delayed release(DR/EC) 20 mg PO DAILY RF: 0 tacrolimus 1 mg capsule 1 mg PO Q12 RF: 0 duloxetine 60 mg capsule,delayed release(DR/EC) 60 mg PO DAILY RF: 0 insulin lispro [Humalog KwikPen Insulin] 100 unit/mL insulin pen 0 unit SUBCUT AMPM RF: 0 Levemir FlexTouch U-100 Insuln 100 unit/mL (3 mL) insulin pen 13 unit SUBCUT Q12 RF: 0 Discharge Orders: Discharge Order (Routine); Ordered 08/28/21 Ordered By: Kenna Garvin/Other Patient Handouts: ED Fracture, Upper Extremity Admission Data Admit Date/Time: 08/24/21 15:58 Attending Provider: Adelita Messina Admit Provider: Nate White Primary Care Provider: Ivette Ragland Other Providers: Nate White ; Will Barlow ; [facility] ; Kenna Marshall Other Interventions: Discharge Summary Assessment (RN) Last Done: 08/28/21 13:06 Home Health Attestation I certify that this patient is under my care and that I, or a physicians assistant produce manager working with me, had a face to-face encounter that meets the home health [id number] encounter requirements with this patient. The encounter with the patient was in whole, or in part, for the following medical condition, which is the primary reason for home health care (list medical condition): Left humeral fracture I certify that, based on my findings, the following services are medically necessary home health services: My clinical findings support the need for the above services because: OT Assess ADL Status and Restore Function w ADLs PT Assessment for Endurance / Balance / Strength PT Eval for Safety, Gait Training, Assistive Devices PT Gait and Balance Training, Strengthening and Safety Further, I certify that my clinical findings support that this patient is homebound (i.e. absences from home require considerable and taxing effort and are for medical reasons or adventist services or infrequently or of short duration when for other reasons) because: Supportive Aid - Walker Transportation Assistance/Unable to Leave Home Unassisted Certification for Home Health Services: Based on the above findings, I certify that this patient is confined to the home and needs intermittent shelter care, physical therapy and/or speech therapy or continues to need occupational therapy. The patient is under my care, and I have initiated the establishment of the plan of care. This patient will be followed by a physician who will periodically review the plan of care.
[2021-08-28] MEDS ORDERED: POTASSIUM CHLORIDE / WTR 10 MEQ/100 ML PLCT IV SCH (09:26)
[2021-08-28] MEDS ORDERED: POTASSIUM CHLORIDE CRTAB 20 MEQ TABCR PO STA (09:37)
--- NOTE | 2021-08-28 11:46 | Pharmacy Report ---
Pharmacy Glycemic Short Note 2 - Date of Service August 28, 2021 - Glycemic Short BSG Results (Last 24 hours): 08/27/21 08/27/21 08/27/21 11:30 12:29 17:05 Glucose 235 H POC Glucose 259 H 108 H 08/27/21 08/28/21 08/28/21 20:46 05:42 08:27 Glucose 67 L POC Glucose 151 H 72 OUTPATIENT ANTIDIABETIC REGIMEN: * Levemir 13 units SQ BID * Humalog sliding scale for BSG > 200mg/dl ASSESSMENT: 08/27 * Patient's BSGs yesterday were [phone] mg/dL. Fasting today is 72 mg/dL. * Patient received 15 units of insulin yesterday (8 units of basal and 7 unit of bolus). * Fasting continues to trend downwards (260 --> 166 --> 108 --> 72 mg/dL). Patient has no PO intake. * Hold Lantus * Loosen Novolog slightly. 08/27 * Patient's BSGs yesterday were [phone] mg/dL. Fasting today is 108 mg/dL. * Patient received 16 units of insulin yesterday (15 units of basal and 1 unit of bolus). * Fasting continues to trend downwards by almost 100 points (260 --> 166 --> 108 mg/dL). Patient has no PO intake. * Hold this morning's dose. Scale Lantus for tonight with a 30 and 50% reduction based upon BSG. * Continue Novolog with higher goal range. 08/24 * Patient received total of 37 units of insulin yesterday, of which 20 units were basal. * BSGs trending down overnight last evening. Patient had got an additional 20 units the night prior. Home insulin regimen heavily basal weighted. Plan to split insulin more 50/50 split while inpatient * Will resume basal insulin this evening with scale 08/23 * 70 year old admitted with left humeral fracture, type 2 diabetic on insulins as above, A1c 5.2%, possible hypoglycemia at home? * Patient hyperglycemic over past 12 hours, patient has had 40 units of Lantus and 27 units of correctional Novolog, blood sugar improving from 379 -- > 187mg/dl * Will hold Lantus at this time and resume tomorrow, give tonight only for BSG > 180mg/dl * Tighten CF/CR after ensuring lunch BSG at goal * Patient currently NPO, ortho eval states non-operative treatment at this time, likely resume diet soon PLAN FOR INPATIENT GLYCEMIC CONTROL: * Basal insulin * Lantus -- hold * Bolus insulin * NovoLog per scale ACHS or Q6hrs while NPO * Goal Range: Low 120 mg/dL - High 160 mg/dL * Correction Factor: 45 mg/dL/unit * Nutritional / Prandial insulin per carb ratio of 1 unit per 10 grams CHO consumed PLAN FOR DISCHARGE: * Patient's HbA1C indicates excellent control if not too tight control. * Recommend continuing regimen as long as patient does not have hypoglycemia at home. * If she does, it is reasonable to reduce home regimen by half and follow-up closely with provider.
== END 2021-08-28 14:58 | disposition home health service (06) | DRG 542 ==
LOC: ED 16:12 → 3N 16:12

== ENCOUNTER 2023-04-09 14:36 | Inpatient (IN) ==
--- NOTE | 2023-04-09 14:46 | Emergency Department Note ---
Impression & Plan Acute UTI, History of liver transplant, Confusion ED Provider Note Provider: Josh Krishnamurthy MD DATE OF SERVICE: 04/09/2023 CHIEF COMPLAINT: Abnormal labs HISTORY OF PRESENT ILLNESS: Patient is a 72-year-old female presenting here via ambulance from her home today reportedly for abnormal blood work. Patient states that home nursing came and got blood work this morning around 10 AM and she was called and told she had to come to the emergency department for abnormal blood work. Patient states that she is bedbound due to problems with her hips. Denies recent falls. Patient states that other than her hips hurting her she is feeling okay. States has been eating and drinking okay. Daughter later arrives and states that the patient has been a little bit off for the last several days. She thinks the patient has a UTI and was septic from UTI last April when she was in [place] requiring hospitalization. Has been trying to get home health and outpatient doctors order a straight cath urine as the patient cannot ambulate to the toilet and the patient is not in a position to be taken by the daughter to the doctor given her immobility issues. Given some ongoing confusion and that she has been using for Azo for several days without improvement came here for evaluation. Now on day 3 of Azo. PAST MEDICAL HISTORY: As noted above MEDICATIONS: Reviewed home medication list SOCIAL HISTORY: Resides at home with daughter PHYSICAL EXAM: GENERAL: alert and oriented in no acute distress on stretcher fatigued appearing but not a great historian Head: normocephalic and atraumatic EYES: No injection, discharge or icterus. PERRL, EOMI. NECK: Trachea midline. ENT: Mucous membranes pink and moist. LUNGS: Airway patent. No retractions. Breath sounds clear HEART: Regular rate and rhythm. No chest wall tenderness ABDOMEN: Soft and non-tender, without guarding or rebound. SKIN: Acyanotic, warm, dry, without rashes EXTREMITIES: Without swelling, tenderness or deformity NEUROLOGICAL: No focal deficits without facial droop or slurred speech. Moves arms freely. Minimal movement of the hips due to pain in the hips. Reports this has been chronic. EK bpm sinus tachycardia. No PVC or PAC. No acute ST segment elevation or press with a QTc of 443 CONTINUOUS CARDIAC MONITORING: was ordered and showed a heart rate of 100s -110s bpm in sinus tachycardia Patient's laboratory studies and imaging reviewed. Differential includes Infection, dehydration, metabolic abnormality, hypo/hyperglycemia, electrolyte disturbance, anemia, hypoxia, cardiac sources, intracerebral event, toxicologic, neurologic, as well as other pathologies. IMPRESSION/MEDICAL DECISION MAKING: Reports of some increased confusion and she is not quite herself. History of liver transplant. Afebrile. Concerns for UTI voiced by daughter. Given some mild fluid hydration and basic labs checked. Ammonia sent as well as lactate and blood cultures given her immune process status. Does not appear meningitic. CT head to be completed to exclude intercranial bleed but not having focal deficits. Unfortunately mainly bedbound due to bad hips by her report. Chest x-ray and EKG obtained. Reviewed epic medical records and notes over the last week regarding blood work and findings. Blood work today in the outpatient setting seems shows improvement of electrolytes but low general blood counts. Chest x-ray is reassuring. Not hypoxic here. Not hypotensive. Blood work urine with mild leukopenia and anemia. Normal platelet count. Lactate normal. Negative COVID. CT head reviewed and report without evidence of acute intracranial bleed. No significant acute renal dysfunction or severe electrolyte abnormality other than a low magnesium of 1.2. Supplementation ordered. Normal troponin. Ammonia within normal limits. UA somewhat contaminated by Azo, but significant white blood cells and will cover with cefepime given immunosuppression status. Discussed with patient and daughter. Will bring in the hospital further evaluation. DIAGNOSIS: Confusion, UTI, hypomagnesemia DISPOSITION: Hospitalist will evaluate Patient was agreeable with this plan. Past Med/Surg History Medical History (Updated 04/09/23 @ 17:10 by Josh Krishnamurthy M.D.) CKD (chronic kidney disease) Diabetes Surgical History (Updated 04/09/23 @ 17:10 by Josh Krishnamurthy M.D.) Liver transplanted Family History (Updated 08/22/21 @ 18:47 by Daniel Retana MD) Other Diabetes Social History Smoking Status: Never smoker Second Hand Exposure: No; Do You Dip or Chew Tobacco: No; Hx Alcohol Use: No Hx Substance Use: No Preferred Language: Urdu Communication Ability: Effective Cafe Helper Required: No Beliefs That Will Affect Care: None marital status: / Current Living Situation: Family Current Living Situation Comment: Lives with Daughter Ariella according to patient report. Feels Safe at Home: Yes Assistive Devices: Brace/Splint/Immobilizer Allergies Allergies Allergy/AdvReac Type Severity Reaction Status Date / Time celecoxib AdvReac Mild NAUSEA, Verified 04/09/23 16:15 VOMITING codeine AdvReac Mild ANXIETY Verified 04/09/23 16:15 rofecoxib AdvReac Mild LEGS GO Verified 04/09/23 16:15 NUMB hydromorphone AdvReac Unknown RESTLESS, Verified 04/09/23 16:15 INSOMNIA Home Meds Home Medications Medication Instructions Recorded Confirmed duloxetine 60 mg capsule,delayed 60 mg PO DAILY 08/22/21 04/09/23 release insulin detemir U-100 100 unit/mL 13 unit subcut Q12 08/22/21 04/09/23 (3 mL) subcutaneous pen (Levemir FlexTouch U-100 Insulin) insulin lispro 100 unit/mL 0 unit subcut AMPM 08/22/21 04/09/23 subcutaneous pen (Humalog KwikPen (U-100) Insulin) mycophenolate mofetil 250 mg 500 mg PO BID 08/22/21 04/09/23 capsule omeprazole 20 mg capsule,delayed 20 mg PO DAILY 08/22/21 04/09/23 release tacrolimus 1 mg capsule, 1 mg PO Q12 08/22/21 04/09/23 immediate-release acetaminophen 500 mg tablet 500 mg PO Q6H PRN Pain 04/09/23 04/09/23 (Tylenol Extra Strength) cyanocobalamin (vitamin B-12) 1,000 mcg PO DAILY 04/09/23 04/09/23 1,000 mcg tablet (Vitamin B-12) potassium chloride 20 mEq 20 meq PO AMHS 04/09/23 04/09/23 tablet,extended release(part/cryst) Results & Data (ED) Vital Signs Vital Signs - 24 hr 04/09/23 14:44 04/09/23 14:44 04/09/23 16:03 Temperature 36.6 C Temperature Source Oral Pulse Rate 104 H 104 H 103 H Respiratory Rate 20 20 Blood Pressure 163/90 H Blood Pressure Mean 114 Blood Pressure Position Lying Pulse Oximetry 96 96 Oxygen Delivery Method Room Air Room Air Sepsis Recent Fever Within 48 Hours No Sepsis New/Unexplained Change in Mental Status No Sepsis Action Taken by Nursing No Action Required 04/09/23 16:30 Temperature Temperature Source Pulse Rate 101 H Respiratory Rate 20 Blood Pressure 167/89 H Blood Pressure Mean 115 Blood Pressure Position Pulse Oximetry 95 Oxygen Delivery Method Room Air Sepsis Recent Fever Within 48 Hours Sepsis New/Unexplained Change in Mental Status Sepsis Action Taken by Nursing Laboratory Data 04/09/23 15:17 04/09/23 15:17 Lab Results 04/09/23 04/09/23 04/09/23 Range/Units 15:05 15:17 15:17 WBC 2.04 L (4.8-10.8) K/ul RBC 3.49 L (4.20-5.40) M/uL Hgb 10.2 L (12.0-16.0) g/dl Hct 30.9 L (37.0-47.0) % MCV 88.5 (80.0-100.0) fL MCH 29.2 (25.0-34.0) pg MCHC 33.0 (32.0-36.0) g/dL RDW Std Deviation 46.7 H (36.4-46.3) fL RDW Coeff of Francisco 14.6 H (11.5-14.5) % Plt Count 144 (130-400) K/uL MPV 10.2 (9.4-12.4) fL Immature Gran % (Auto) 0.0 % Neut % (Auto) 66.6 % Lymph % (Auto) 22.1 % [place] % (Auto) 8.8 % Eos % (Auto) 2.0 % Baso % (Auto) 0.5 % Neut # (Auto) 1.36 L (1.40-6.50) K/uL Lymph # (Auto) 0.45 L (1.2-3.4) K/uL [place] # (Auto) 0.18 (0.11-0.59) K/uL Eos # (Auto) 0.04 (0-0.50) K/uL Baso # (Auto) 0.01 (0-0.2) K/uL Immature Gran # (Auto) 0.00 L (0.01-0.20) K/uL PT 11.0 (9.0-12.0) Seconds INR 1.0 (0.9-1.1) Methemoglobin (0.0-1.5) % Sodium (136-145) mmol/L Potassium (3.5-5.1) mmol/L Chloride (98-107) mmol/L Carbon Dioxide (21-32) mmol/L Anion Gap (3-11) BUN (6-23) mg/dl Creatinine (0.6-1.2) mg/dl Est Cr Clr Drug Dosing ml/min Est GFR ( Amer) ml/min Est GFR (Non-Af Amer) ml/min BUN/Creatinine Ratio (10-20) Glucose (70-99(Fasting)) mg/dl Lactate (0.4-2.0) mmol/L Calcium (8.6-10.3) mg/dl Magnesium (1.7-2.4) mg/dl Total Bilirubin (0.2-1.0) mg/dl AST (13-39) U/L ALT (7-52) U/L Alkaline Phosphatase (34-104) U/L Ammonia (18-72) umol/L Troponin I High Sens (0-14) pg/ml Total Protein (6.0-8.3) gm/dl Albumin (3.4-5.0) gm/dl Globulin (2.5-4.0) gm/dl Albumin/Globulin Ratio (0.9-2) TSH (0.300-4.500) uIu/ml Urine Color Urine Appearance (Clear) Urine pH (4.5-7.5) Ur Specific [place] (1.000-1.030) Urine Protein (Negative) Urine Glucose (UA) (Negative) Urine Ketones (Negative) Urine Blood (Negative) Urine Nitrite (Negative) Urine Bilirubin (Negative) Urine Urobilinogen (Negative) Ur Leukocyte Esterase (Negative) Urine RBC (0-4) /hpf Urine WBC (0-5) /hpf Ur Epithelial Cells (0-5) /lpf Urine Bacteria (Negative) SARS-CoV-2, RNA, NAAT NEGATIVE (NEGATIVE) 04/09/23 04/09/23 04/09/23 Range/Units 15:17 15:17 15:17 WBC (4.8-10.8) K/ul RBC (4.20-5.40) M/uL Hgb (12.0-16.0) g/dl Hct (37.0-47.0) % MCV (80.0-100.0) fL MCH (25.0-34.0) pg MCHC (32.0-36.0) g/dL RDW Std Deviation (36.4-46.3) fL RDW Coeff of Francisco (11.5-14.5) % Plt Count (130-400) K/uL MPV (9.4-12.4) fL Immature Gran % (Auto) % Neut % (Auto) % Lymph % (Auto) % [place] % (Auto) % Eos % (Auto) % Baso % (Auto) % Neut # (Auto) (1.40-6.50) K/uL Lymph # (Auto) (1.2-3.4) K/uL [place] # (Auto) (0.11-0.59) K/uL Eos # (Auto) (0-0.50) K/uL Baso # (Auto) (0-0.2) K/uL Immature Gran # (Auto) (0.01-0.20) K/uL PT (9.0-12.0) Seconds INR (0.9-1.1) Methemoglobin (0.0-1.5) % Sodium 138 (136-145) mmol/L Potassium 4.5 (3.5-5.1) mmol/L Chloride 107 (98-107) mmol/L Carbon Dioxide 26 (21-32) mmol/L Anion Gap 5 (3-11) BUN 19 (6-23) mg/dl Creatinine 0.78 (0.6-1.2) mg/dl Est Cr Clr Drug Dosing 46.1 ml/min Est GFR ( Amer) 87.4 ml/min Est GFR (Non-Af Amer) 75.4 ml/min BUN/Creatinine Ratio 24.4 H (10-20) Glucose 200 H (70-99(Fasting)) mg/dl Lactate 0.9 (0.4-2.0) mmol/L Calcium 8.8 (8.6-10.3) mg/dl Magnesium 1.2 L (1.7-2.4) mg/dl Total Bilirubin 0.7 (0.2-1.0) mg/dl AST 12 L (13-39) U/L ALT 6 L (7-52) U/L Alkaline Phosphatase 50 (34-104) U/L Ammonia (18-72) umol/L Troponin I High Sens 4.4 (0-14) pg/ml Total Protein 5.9 L (6.0-8.3) gm/dl Albumin 3.6 (3.4-5.0) gm/dl Globulin 2.3 L (2.5-4.0) gm/dl Albumin/Globulin Ratio 1.6 (0.9-2) TSH 2.666 (0.300-4.500) uIu/ml Urine Color Urine Appearance (Clear) Urine pH (4.5-7.5) Ur Specific [place] (1.000-1.030) Urine Protein (Negative) Urine Glucose (UA) (Negative) Urine Ketones (Negative) Urine Blood (Negative) Urine Nitrite (Negative) Urine Bilirubin (Negative) Urine Urobilinogen (Negative) Ur Leukocyte Esterase (Negative) Urine RBC (0-4) /hpf Urine WBC (0-5) /hpf Ur Epithelial Cells (0-5) /lpf Urine Bacteria (Negative) SARS-CoV-2, RNA, NAAT (NEGATIVE) 04/09/23 04/09/23 04/09/23 Range/Units 16:00 16:30 16:30 WBC (4.8-10.8) K/ul RBC (4.20-5.40) M/uL Hgb (12.0-16.0) g/dl Hct (37.0-47.0) % MCV (80.0-100.0) fL MCH (25.0-34.0) pg MCHC (32.0-36.0) g/dL RDW Std Deviation (36.4-46.3) fL RDW Coeff of [place] (11.5-14.5) % Plt Count (130-400) K/uL MPV (9.4-12.4) fL Immature Gran % (Auto) % Neut % (Auto) % Lymph % (Auto) % [place] % (Auto) % Eos % (Auto) % Baso % (Auto) % Neut # (Auto) (1.40-6.50) K/uL Lymph # (Auto) (1.2-3.4) K/uL [place] # (Auto) (0.11-0.59) K/uL Eos # (Auto) (0-0.50) K/uL Baso # (Auto) (0-0.2) K/uL Immature Gran # (Auto) (0.01-0.20) K/uL PT (9.0-12.0) Seconds INR (0.9-1.1) Methemoglobin 4.4 H (0.0-1.5) % Sodium (136-145) mmol/L Potassium (3.5-5.1) mmol/L Chloride (98-107) mmol/L Carbon Dioxide (21-32) mmol/L Anion Gap (3-11) BUN (6-23) mg/dl Creatinine (0.6-1.2) mg/dl Est Cr Clr Drug Dosing ml/min Est GFR ( Amer) ml/min Est GFR (Non-Af Amer) ml/min BUN/Creatinine Ratio (10-20) Glucose (70-99(Fasting)) mg/dl Lactate (0.4-2.0) mmol/L Calcium (8.6-10.3) mg/dl Magnesium (1.7-2.4) mg/dl Total Bilirubin (0.2-1.0) mg/dl AST (13-39) U/L ALT (7-52) U/L Alkaline Phosphatase (34-104) U/L Ammonia 13.0 L (18-72) umol/L Troponin I High Sens (0-14) pg/ml Total Protein (6.0-8.3) gm/dl Albumin (3.4-5.0) gm/dl Globulin (2.5-4.0) gm/dl Albumin/Globulin Ratio (0.9-2) TSH (0.300-4.500) uIu/ml Urine Color [place] Urine Appearance Cloudy A (Clear) Urine pH (4.5-7.5) Ur Specific [place] 1.015 (1.000-1.030) Urine Protein (Negative) Urine Glucose (UA) (Negative) Urine Ketones (Negative) Urine Blood (Negative) Urine Nitrite (Negative) Urine Bilirubin (Negative) Urine Urobilinogen (Negative) Ur Leukocyte Esterase (Negative) Urine RBC 0-4 (0-4) /hpf Urine WBC >30 H (0-5) /hpf Ur Epithelial Cells 5-10 H (0-5) /lpf Urine Bacteria 3+ H (Negative) SARS-CoV-2, RNA, NAAT (NEGATIVE) Administered Medications Magnesium Sulfate/Dextrose (Magnesium Sulfate / D5w) 1 gm in 100 mls @ 200 mls/hr IV Q30M ALYSSA Stop: 04/09/23 17:29 Last Admin: 04/09/23 16:34 Dose: 200 mls/hr Documented By: MINDA Discontinued Medications Sodium Chloride (Nss 1000ml) 1,000 mls @ 999 mls/hr IV .Q1H1M ONE Stop: 04/09/23 16:25 Last Admin: 04/09/23 16:04 Dose: 999 mls/hr Documented By: MINDA Imaging Data Radiologist's Impression: Chest X-Ray 04/09/23 14:54 SINGLE VIEW CHEST CLINICAL HISTORY: Generalized weakness. Change in mental status. FINDINGS: An AP, portable, upright chest radiograph is compared to study dated 08/22/2021. The examination is degraded by portable technique, apical lordotic positioning, and patient rotation. The cardiomediastinal silhouette is unremarkable noting atherosclerotic calcification of the thoracic aorta. Chronic interstitial thickening is similar to previous. The lungs and pleural spaces are clear. No pneumothorax is seen. The skeletal structures are osteopenic. There is chronic deformity of the left proximal humerus. There are compression deformities with evidence of previous vertebroplasty in the upper lumbar spine. Surgical clips are seen in the upper abdomen. IMPRESSION: No active disease in the chest. ACT 112: Negative or not required by law. Electronically signed by: Maxx Zhou M.D. 04/09/2023 3:[address] 04/09/23 14:54 CT SCAN OF THE BRAIN WITHOUT IV CONTRAST CLINICAL HISTORY: Change in mental status. COMPARISON STUDY: CT of the brain dated 08/25/2021 TECHNIQUE: Unenhanced axial CT scan of the brain is performed from the vertex to the skull base. A dose lowering technique was utilized adhering to the principles of ALARA. CT DOSE: 625.80 mGy.cm FINDINGS: Brain parenchyma: There is age-related involutional change noting moderately advanced confluent subcortical and periventricular microangiopathic disease. There is no hemorrhage, mass effect, or evidence of acute territorial ischemia by CT criteria. Sharma-white matter differentiation is preserved. No extra-axial fluid collection is seen. Ventricles, sulci, cisterns: Prominent secondary to involutional change. Intracranial vasculature: There is atherosclerotic calcification of the cavernous carotid arteries. Calvarium: Unremarkable. Sinuses and mastoids: There is mild mucosal thickening within the left ethmoid sinuses. The remaining paranasal sinuses are clear. The mastoid air cells are well pneumatized. Cerumen is noted in the external auditory canals. Orbits: The bony orbits are grossly intact. There are bilateral ocular lens implants. IMPRESSION: There is no hemorrhage, mass effect, or evidence of acute territorial ischemia by CT criteria. ACT 112: Negative or not required by law. Electronically signed by: Maxx Zhou M.D. 04/09/2023 4:03 PM Discharge Plan Visit Data Chief Complaint: Abnormal Labs/Diagnostic Testing Stated Complaint: ABNORMAL LAB, REFERRED BY PCP ED Provider: Josh Krishnamurthy Discharge Problem: Acute UTI, History of liver transplant, Confusion Patient Disposition: Being Evaluated by Hospitalist Forms Stand Alone Forms: My [facility] Prescriptions Prescriptions: No Action mycophenolate mofetil 250 mg capsule 500 mg PO BID omeprazole 20 mg capsule,delayed release(DR/EC) 20 mg PO DAILY tacrolimus 1 mg capsule 1 mg PO Q12 duloxetine 60 mg capsule,delayed release(DR/EC) 60 mg PO DAILY insulin lispro [Humalog KwikPen Insulin] 100 unit/mL insulin pen 0 unit SUBCUT AMPM Rx Instructions: as directed per sliding scale Levemir FlexTouch U100 Insulin 100 unit/mL (3 mL) insulin pen 13 unit SUBCUT Q12 cyanocobalamin (vitamin B-12) [Vitamin B-12] 1,000 mcg Tablet 1,000 mcg PO DAILY acetaminophen [Tylenol Extra Strength] 500 mg Tablet 500 mg PO Q6H PRN (Reason: Pain) potassium chloride 20 mEq tablet,ER particles/crystals 20 meq PO AMHS Referrals Referrals: Ivette Ragland MD [Primary Care Provider] -
--- NOTE | 2023-04-09 15:18 | Electrocardiogram Report ---
Test Reason : Blood Pressure : / mmHG Vent. Rate : 101 BPM Atrial Rate : 101 BPM P-R Int : 148 ms QRS Dur : 072 ms QT Int : 342 ms P-R-T Axes : 046 011 072 degrees QTc Int : 443 ms Sinus tachycardia Low voltage QRS Borderline ECG When compared with ECG of 23-AUG-2021 07:38, No significant change was found Confirmed by Marc Caraballo ([id number]) on 04/09/2023 3:17:38 PM Referred By: Confirmed By:Marc Caraballo
[2023-04-09] MEDS ORDERED: SODIUM CHLORIDE 0.9% 1000ML 1,000 ML IV ONE (15:25)
--- NOTE | 2023-04-09 15:32 | XRay Report ---
SINGLE VIEW CHEST CLINICAL HISTORY: Generalized weakness. Change in mental status. FINDINGS: An AP, portable, upright chest radiograph is compared to study dated 08/22/2021. The examina tion is degraded by portable technique, apical lordotic positioning, and patient rotation. The cardio mediastinal silhouette is unremarkable noting atherosclerotic calcification of the thoracic aorta. Ch ronic interstitial thickening is similar to previous. The lungs and pleural spaces are clear. No pneu mothorax is seen. The skeletal structures are osteopenic. There is chronic deformity of the left prox imal humerus. There are compression deformities with evidence of previous vertebroplasty in the upper lumbar spine. Surgical clips are seen in the upper abdomen. IMPRESSION: No active disease in the chest. ACT 112: Negative or not required by law. Electronically signed by: Maxx Zhou M.D. 04/09/2023 3:31 PM
[2023-04-09 15:55] LABS: Basophils # (auto) 0.01 K/uL (0-0.2); Basophils % (auto) 0.5 %; Eosinophils # (auto) 0.04 K/uL (0-0.50); Hematocrit (blood only) 30.9 % (37.0-47.0); Hemoglobin 10.2 g/dl (12.0-16.0); Lymphocytes # (auto) 0.45 K/uL (1.2-3.4); Lymphocytes % (auto) 22.1 %; Mean Corpuscular Hemoglobin 29.2 pg (25.0-34.0); Mean Corpuscular Volume 88.5 fL (80.0-100.0); Mean Platelet Volume 10.2 fL (9.4-12.4); Monocytes # (auto) 0.18 K/uL (0.11-0.59); Monocytes % (auto) 8.8 %; Neutrophils # (auto) 1.36 K/uL (1.40-6.50); Neutrophils % (auto) 66.6 %; Platelet Count 144 K/uL (130-400); RDW Coefficient of Variation 14.6 % (11.5-14.5); RDW Standard Deviation 46.7 fL (36.4-46.3); Red Blood Count 3.49 M/uL (4.20-5.40); White Blood Count 2.04 K/ul (4.8-10.8)
--- NOTE | 2023-04-09 16:05 | CT Scan Report ---
CT SCAN OF THE BRAIN WITHOUT IV CONTRAST CLINICAL HISTORY: Change in mental status. COMPARISON STUDY: CT of the brain dated 08/25/2021 TECHNIQUE: Unenhanced axial CT scan of the brain is performed from the vertex to the skull base. A do se lowering technique was utilized adhering to the principles of ALARA. CT DOSE: 625.80 mGy.cm FINDINGS: Brain parenchyma: There is age-related involutional change noting moderately advanced confluent subco rtical and periventricular microangiopathic disease. There is no hemorrhage, mass effect, or evidence of acute territorial ischemia by CT criteria. Sharma-white matter differentiation is preserved. No ext ra-axial fluid collection is seen. Ventricles, sulci, cisterns: Prominent secondary to involutional change. Intracranial vasculature: There is atherosclerotic calcification of the cavernous carotid arteries. Calvarium: Unremarkable. Sinuses and mastoids: There is mild mucosal thickening within the left ethmoid sinuses. The remaining paranasal sinuses are clear. The mastoid air cells are well pneumatized. Cerumen is noted in the ext ernal auditory canals. Orbits: The bony orbits are grossly intact. There are bilateral ocular lens implants. IMPRESSION: There is no hemorrhage, mass effect, or evidence of acute territorial ischemia by CT [place]. ACT 112: Negative or not required by law. Electronically signed by: Maxx Zhou M.D. 04/09/2023 4:03 PM
[2023-04-09 16:10] LABS: Albumin Globulin Ratio 1.6 (0.9-2); Albumin Level 3.6 gm/dl (3.4-5.0); BUN Creatinine Ratio 24.4 (10-20); Bilirubin,Total 0.7 mg/dl (0.2-1.0); Calcium 8.8 mg/dl (8.6-10.3); Creatinine Clr Calc Pharmacy 46.1 ml/min; Est GFR (African American) 87.4 ml/min; Est GFR (Non-African American) 75.4 ml/min; Globulin 2.3 gm/dl (2.5-4.0); Magnesium 1.2 mg/dl (1.7-2.4); Potassium 4.5 mmol/L (3.5-5.1); Total Protein 5.9 gm/dl (6.0-8.3)
[2023-04-09 16:16] LABS: Troponin I High Sensitivity 4.4 pg/ml (0-14)
[2023-04-09] MEDS: MAGNESIUM SULFATE / D5W 1 GM/100 ML BAG IV SCH ×2 (16:34→17:27)
[2023-04-09 16:49] LABS: Color Urine Orange
[2023-04-09 16:50] LABS: Appearance Urine Cloudy (Clear); Specific Gravity Urine 1.015 (1.000-1.030)
[2023-04-09 16:55] LABS: WBC Urine >30 /hpf (0-5)
[2023-04-09 16:56] LABS: RBC Urine 0-4 /hpf (0-4)
[2023-04-09 16:57] LABS: Bacteria Urine 3+ (Negative)
[2023-04-09] MEDS ORDERED: cefTRIAXone SODIUM 2,000 MG/70 ML BAG IV STA (17:03)
--- NOTE | 2023-04-09 17:26 | History & Physical Report ---
Date of Service April 09, 2023 Assessment & Plan (1) Acute UTI: (2) Metabolic encephalopathy: Plan: Patient is 72-year-old female with PMH cirrhosis s/p liver transplant 2007, insulin-dependent DM II, dyslipidemia, anxiety, depression, chronic pancytopenia, hypokalemia presented to ER for increased confusion and dysuria x 3 days. In ER afebrile, vitals stable. WBC: 2.0 (baseline 1.8-3). Lactate: WNL, UA: >30 WBC, 3+bacteria, 5-10 epithelial Urine culture and blood culture pending In ER given Rocephin, 1L NSS Suspect metabolic encephalopathy secondary to UTI Continue Rocephin CBC in am Elevated methemoglobin: Patient on day 3 of OTC AZO (phenazopyridine) Methemoglobin: 4.4%. Patient does not have hypoxia, cyanosis, headache, increased lethargy. Spoke with poison control about methemoglobinemia and phenazopyridine toxicity and reports if methemoglobin >20% and patient symptomatic to treat with methylene blue No need to treat with methylene blue at this time. Will hold on any further phenazopyridine (3) Hypomagnesemia: Plan: Magnesium: 1.2 In ER given 2 g magnesium sulfate Magnesium lab in a.m. (4) Hypokalemia: Plan: History hypokalemia. Currently on oral potassium supplement K:4.5 Continue oral potassium, BMP in a.m. (5) Diabetes mellitus, type II: Plan: On insulin A1c: 4.6 on 03/26/2023 Daughter currently doing sliding scale with Levemir and patient receiving very small doses BS Basal insulin, NovoLog correction sliding scale only at this time (6) Cirrhosis: (7) History of liver transplant: Plan: History cirrhosis s/p liver transplant 2007 On tacrolimus, mycophenolate Not seen by transplant team or hepatology for years. Has appointment with Dr Hill in June (8) Pancytopenia: Plan: Chronic pancytopenia WBC: 2.0. Was 1.8 on 04/02/23 and 3.2 on 09/26/21 Hgb: 9.4, was 9.4 on 04/02/23, 9.5 on 09/26/21 Plt: 144, was 125 on 04/02/23 and 126 on 09/26/21 Monitor CBC (9) Anxiety and depression: Plan: Continue duloxetine DVT Prophylaxis Heparin SQ DNR/DNI as per discussion with pt Follows with Dr Ivette Ragland for routine care Pt was seen and care coordinated with Dr Landis. See addendum I spent a total of 82 minutes reviewing notes, outpatient records, labs, medication, coordinating, documenting and providing care for this patient excluding time spent in the performance of separately billed services. History of Present Illness Chief Complaint: Increased confusion, dysuria Primary Care Provider: Ivette Ragland MD Patient is 72-year-old female with PMH cirrhosis s/p liver transplant 2007, insulin-dependent DM II, dyslipidemia, anxiety, depression, chronic pancytopenia, hypokalemia presented to ER for increased confusion and dysuria x 3 days. History obtained from patient, patient's daughter and outpatient medical record. Daughter reports 3 days ago patient started with increased confusion. She reports in past when she has been having increasing confusion she has had a UTI. Patient reports dysuria. Daughter states started taking OTC AZO (phenazopyridine) and this is day 3 of taking. Reports patient is bedbound at baseline with chronic diffuse weakness. Does not ambulate, does not assist with transfers. Chronic incontinence of urine. Uses adult diaper. Daughter states that patient does not have any will to want to get stronger. Daughter provides all care for patient. Has to give patient sponge bath. Denies fever/chills, diaphoresis, N/V/D/C, CRONIN, dizziness, syncope, neck pain, CP, SOB, orthopnea, palpitations, cough, rhinorrhea, abdominal pain, paresthesias, extremity edema, rashes, hematuria. Outpatient chart reviewed: Labs from 04/02/2023: K: 2.8, Ca: 8.1. Patient was started on potassium supplement. Patient and daughter reports patient has been eating and drinking normally. Has not started any multivitamin, Tums or calcium supplement. Repeat outpatient labs today with potassium of 4.7 and calcium of 8.9. Allergies Allergy/AdvReac Type Severity Reaction Status Date / Time celecoxib AdvReac Mild NAUSEA, Verified 04/09/23 16:15 VOMITING codeine AdvReac Mild ANXIETY Verified 04/09/23 16:15 rofecoxib AdvReac Mild LEGS GO Verified 04/09/23 16:15 NUMB hydromorphone AdvReac Unknown RESTLESS, Verified 04/09/23 16:15 INSOMNIA Home Medications Medication Instructions Recorded Confirmed Type duloxetine 60 mg capsule,delayed 60 mg PO DAILY 08/22/21 04/09/23 History release insulin detemir U-100 100 unit/mL 0 - 11 unit subcut Q12 08/22/21 04/09/23 History (3 mL) subcutaneous pen (Levemir FlexTouch U-100 Insulin) mycophenolate mofetil 250 mg 500 mg PO BID 08/22/21 04/09/23 History capsule omeprazole 20 mg capsule,delayed 20 mg PO DAILY 08/22/21 04/09/23 History release tacrolimus 1 mg capsule, 1 mg PO Q12 08/22/21 04/09/23 History immediate-release acetaminophen 500 mg tablet 500 mg PO Q6H PRN Pain 04/09/23 04/09/23 History (Tylenol Extra Strength) potassium chloride 20 mEq 20 meq PO AMHS 04/09/23 04/09/23 History tablet,extended release(part/cryst) Past Med/Surg History Medical History Anxiety and depression Back pain Cirrhosis CKD (chronic kidney disease) Closed fracture of left proximal humerus Diabetes Diabetes mellitus, type II Hypokalemia Left hip pain (10/07/13) Pancytopenia Surgical History History of cholecystectomy History of hysterectomy History of liver transplant History of right hip hemiarthroplasty Liver transplanted Family History Other Cancer Diabetes Social History Smoking Status: Never smoker Second Hand Exposure: No; Do You Dip or Chew Tobacco: No; Hx Alcohol Use: No Hx Substance Use: No Preferred Language: [place]ian Communication Ability: Effective 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 Feels Safe at Home: Yes Assistive Devices: Brace/Splint/Immobilizer Review of Systems Review of Systems: All systems reviewed & are unremarkable except as noted in HPI & below Physical Exam Physical Exam: General: no acute distress, chronic ill appearing, thin elderly female Head: normocephalic, atraumatic Eyes: PERRL, EOM's intact, conjunctiva non-injected, anicteric ENT: normal inspection external ears, nose, mucous membranes moist Neck: supple, trachea midline Lungs: clear, no respiratory distress, no wheezing/rhonchi/rales CV: RRR, no murmur, no pretibial edema Abd: normal BS, soft, non-tender Ext: no cyanosis, no calf tenderness; +genu valgum Neuro: Alert to person, knows its summer and year is 2022, unsure of month or day. Knows in ER, unsure of what hospital, Diffuse weakness throughout, no other focal deficits noted, flat affect Skin: warm, dry Results & Data Results & Data Vital Signs (Past 12 Hours) Vital Signs Temp Pulse Resp BP Pulse Ox O2 Del Method 04/09/23 16:30 101 H 20 167/89 H 95 Room Air 04/09/23 16:03 103 H 04/09/23 14:44 104 H 20 96 Room Air 04/09/23 14:44 36.6 C 104 H 20 163/90 H 96 Room Air Laboratory Results Short CBC 04/09/23 Range/Units 15:17 WBC 2.04 L (4.8-10.8) K/ul Hgb 10.2 L (12.0-16.0) g/dl Hct 30.9 L (37.0-47.0) % Plt Count 144 (130-400) K/uL BMP 04/09/23 15:17 Sodium 138 Potassium 4.5 Chloride 107 Carbon Dioxide 26 BUN 19 Creatinine 0.78 Glucose 200 H Calcium 8.8 Liver Function 04/09/23 Range/Units 15:17 Total Bilirubin 0.7 (0.2-1.0) mg/dl AST 12 L (13-39) U/L ALT 6 L (7-52) U/L Alkaline Phosphatase 50 (34-104) U/L Albumin 3.6 (3.4-5.0) gm/dl Urine 04/09/23 Range/Units 16:00 Urine Color [place] Urine Appearance Cloudy A (Clear) Urine pH (4.5-7.5) Ur Specific [place] 1.015 (1.000-1.030) Urine Protein (Negative) Urine Glucose (UA) (Negative) Diagnostic Findings Chest X-Ray 04/09/23 14:54 SINGLE VIEW CHEST CLINICAL HISTORY: Generalized weakness. Change in mental status. FINDINGS: An AP, portable, upright chest radiograph is compared to study dated 08/22/2021. The examination is degraded by portable technique, apical lordotic positioning, and patient rotation. The cardiomediastinal silhouette is unremarkable noting atherosclerotic calcification of the thoracic aorta. Chronic interstitial thickening is similar to previous. The lungs and pleural spaces are clear. No pneumothorax is seen. The skeletal structures are osteopenic. There is chronic deformity of the left proximal humerus. There are compression deformities with evidence of previous vertebroplasty in the upper lumbar spine. Surgical clips are seen in the upper abdomen. IMPRESSION: No active disease in the chest. ACT 112: Negative or not required by law. Electronically signed by: Maxx Zhou M.D. 04/09/2023 3:[address] 04/09/23 14:54 CT SCAN OF THE BRAIN WITHOUT IV CONTRAST CLINICAL HISTORY: Change in mental status. COMPARISON STUDY: CT of the brain dated 08/25/2021 TECHNIQUE: Unenhanced axial CT scan of the brain is performed from the vertex to the skull base. A dose lowering technique was utilized adhering to the principles of ALARA. CT DOSE: 625.80 mGy.cm FINDINGS: Brain parenchyma: There is age-related involutional change noting moderately advanced confluent subcortical and periventricular microangiopathic disease. There is no hemorrhage, mass effect, or evidence of acute territorial ischemia by CT criteria. Sharma-white matter differentiation is preserved. No extra-axial fluid collection is seen. Ventricles, sulci, cisterns: Prominent secondary to involutional change. Intracranial vasculature: There is atherosclerotic calcification of the cavernous carotid arteries. Calvarium: Unremarkable. Sinuses and mastoids: There is mild mucosal thickening within the left ethmoid sinuses. The remaining paranasal sinuses are clear. The mastoid air cells are well pneumatized. Cerumen is noted in the external auditory canals. Orbits: The bony orbits are grossly intact. There are bilateral ocular lens implants. IMPRESSION: There is no hemorrhage, mass effect, or evidence of acute territorial ischemia by CT criteria. ACT 112: Negative or not required by law. Electronically signed by: Maxx Zhou M.D. 04/09/2023 4:03 PM Supervising Physician Co-Signing Physician Notes I have seen and examined the patient and have discussed the case with the provider above. I agree with the assessment and plan as stated. Patient is a 72-year-old female with cirrhosis status post liver transplant presenting with increased confusion and dysuria x1 week. She is currently clear and mentating normally. She is generally weak and reports ambulating with a walker at baseline. She is cared for by her daughter who lives with her. She feels better since being admitted and having initial treatment which includes Rocephin, magnesium and normal saline. Chest x-ray is normal and head CT reveals no acute changes. Agree with care plan including Rocephin pending clinical improvement and culture results. Avoid phenazopyridine for symptoms given elevated methemoglobin level. Repeat magnesium level in a.m. and consider stopping PPE or providing continual magnesium replacement on discharge as PPI may be contributing to this. Otherwise continue plan as mentioned above. DO Boby
[2023-04-09] MEDS ORDERED: GLUCAGON FOR INJ 1 MG VIAL SQ PRN (20:39)
[2023-04-09] MEDS ORDERED: POLYETHYLENE (MIRALAX) 17 GM PACK PO PRN (20:39)
[2023-04-09] MEDS ORDERED: DEXTROSE 50% 50 ML SYRINGE IV PRN (20:39)
[2023-04-09] MEDS ORDERED: CARBOHYDRATES FOR HYPOGLYCEMIA PO PRN (20:39)
[2023-04-09] MEDS ORDERED: ACETAMINOPHEN 325 MG TAB PO PRN (20:39)
[2023-04-09] MEDS ORDERED: GLUCOSE 40% GEL 15 GM TUBE PO PRN (20:39)
[2023-04-09] MEDS ORDERED: ONDANSETRON INJ 2 MG/ML 2 ML VIAL IV PRN (20:39)
[2023-04-09] MEDS ORDERED: GLUCOSE 10 TAB/TUBE PO PRN (20:39)
[2023-04-09] MEDS: HEPARIN SOD 5,000 UNIT/0.5 ML VIAL SQ SCH (22:41)
[2023-04-09] MEDS: MYCOPHENOLATE MOFETIL 250 MG CAP PO SCH ×2 (22:42→22:48)
[2023-04-09] MEDS: LANTUS PER UNIT CHARGE SQ SCH (22:42)
[2023-04-09] MEDS: INSULIN ASPART PER UNIT CHARGE SC SCH (22:42)
[2023-04-09] MEDS: TACROLIMUS 1 MG CAP PO SCH ×2 (22:43→22:50)
[2023-04-09] MEDS: POTASSIUM CHLORIDE CRTAB 20 MEQ TABCR PO SCH ×2 (22:43→22:50)
[2023-04-10 07:25] LABS: Basophils # (auto) 0.02 K/uL (0-0.2); Basophils % (auto) 0.9 %; Eosinophils # (auto) 0.05 K/uL (0-0.50); Eosinophils % (auto) 2.2 %; Hematocrit (blood only) 29.8 % (37.0-47.0); Hemoglobin 9.9 g/dl (12.0-16.0); Immature Granulocytes # (auto) 0.01 K/uL (0.01-0.20); Immature Granulocytes % (auto) 0.4 %; Lymphocytes # (auto) 0.78 K/uL (1.2-3.4); Lymphocytes % (auto) 34.4 %; Mean Corpuscular Hemoglobin 29.5 pg (25.0-34.0); Mean Corpuscular Hgb Conc 33.2 g/dL (32.0-36.0); Mean Corpuscular Volume 88.7 fL (80.0-100.0); Mean Platelet Volume 10.1 fL (9.4-12.4); Monocytes # (auto) 0.29 K/uL (0.11-0.59); Monocytes % (auto) 12.8 %; Neutrophils # (auto) 1.12 K/uL (1.40-6.50); Neutrophils % (auto) 49.3 %; Platelet Count 144 K/uL (130-400); RDW Coefficient of Variation 14.6 % (11.5-14.5); RDW Standard Deviation 46.5 fL (36.4-46.3); Red Blood Count 3.36 M/uL (4.20-5.40); White Blood Count 2.27 K/ul (4.8-10.8)
[2023-04-10 07:48] LABS: Albumin Globulin Ratio 1.5 (0.9-2); Albumin Level 3.3 gm/dl (3.4-5.0); BUN Creatinine Ratio 23.4 (10-20); Bilirubin,Total 0.6 mg/dl (0.2-1.0); Calcium 8.6 mg/dl (8.6-10.3); Creatinine Clr Calc Pharmacy 53.3 ml/min; Est GFR (African American) 102.6 ml/min; Est GFR (Non-African American) 88.5 ml/min; Globulin 2.2 gm/dl (2.5-4.0); Magnesium 1.6 mg/dl (1.7-2.4); Potassium 4.1 mmol/L (3.5-5.1); Total Protein 5.5 gm/dl (6.0-8.3)
[2023-04-10] MEDS: LANTUS PER UNIT CHARGE SQ SCH ×2 (07:55→22:20)
[2023-04-10] MEDS: INSULIN ASPART PER UNIT CHARGE SC SCH ×4 (07:57→22:20)
[2023-04-10] MEDS: HEPARIN SOD 5,000 UNIT/0.5 ML VIAL SQ SCH ×2 (08:34→22:20)
[2023-04-10] MEDS: POTASSIUM CHLORIDE CRTAB 20 MEQ TABCR PO SCH ×2 (08:34→22:20)
[2023-04-10] MEDS: DULoxetine HCL 60 MG CAP PO SCH (08:34)
[2023-04-10] MEDS: TACROLIMUS 1 MG CAP PO SCH ×2 (08:34→22:21)
[2023-04-10] MEDS: PANTOprazole 40 MG TAB PO SCH (08:34)
[2023-04-10] MEDS: MYCOPHENOLATE MOFETIL 250 MG CAP PO SCH ×2 (08:35→23:26)
[2023-04-10] MEDS ORDERED: MAGNESIUM OXIDE 400 MG TAB PO ONE (09:15)
[2023-04-10] MEDS ORDERED: cefTRIAXone SODIUM 2,000 MG in DEXTROSE 5% 50 ML IV SCH (16:00)
--- NOTE | 2023-04-10 19:27 | Hospitalist Progress Note ---
Date of Service April 10, 2023 Assessment & Plan (1) Hypomagnesemia: (2) Metabolic encephalopathy: (3) Hypokalemia: (4) Anxiety and depression: (5) Pancytopenia: (6) Cirrhosis: (7) History of liver transplant: (8) Diabetes mellitus, type II: (9) Acute UTI: Plan Patient is a 72yoF with PMH cirrhosis s/p liver transplant 2007, insulin- dependent DM II, HLD, anxiety/depression, chronic pancytopenia presenting with AMS in the setting of a complicated UTI. AMS/Complicated UTI UA with color interference from home medication Azo Urine cx growing 2 gram negative bacilli currently Blood Cx x 2 pending, NGTD Continue Rocephin, transition to PO based on sensitivities AAOx1, will discuss further with family to determine baseline Elevated methemoglobin Patient took 3 days of OTC AZO (phenazopyridine) Methemoglobin: 4.4%. Patient asymptomatic Per poison control re: methemoglobinemia and phenazopyridine toxicity - if methemoglobin >20% and patient symptomatic to treat with methylene blue Not needed at this time. Hold phenazopyridine Hypomagnesemia/Hypokalemia Replete as needed Diabetes mellitus, type II On insulin at home, A1c: 4.6 on 03/26/2023 ISS in hospital as well Cirrhosis/Hx of liver transplant History cirrhosis s/p liver transplant 2007 On tacrolimus, mycophenolate Not seen by transplant team or hepatology for years. Upcoming appointment with Dr Hill in June Pancytopenia Stable Anxiety and depression Continue duloxetine DVT Prophylaxis:Heparin SQ DNR/DNI Dispo: Home with Admission and Anticipated Discharge Date Admission Date: April 09, 2023 Subjective Pt seen this AM. AAOx1. States she was feeling better but was tired. Denied other acute concerns. Review of Systems Review of Systems: All systems reviewed & are unremarkable except as noted in Subjective Physical Exam Physical Exam: General: Alert, orientedx1. No acute distress, frail Psych: Appropriate mood and affect HEENT: NC/AT Chest: Nontender to palpation. CV: RRR Resp: Breath sounds clear bilaterally, no increased effort of breathing. Abdomen: Soft, slightly tender, nondistended. Extremities: No edema in lower extremities bilaterally. Results & Data Results & Data Vital Signs (Past 12 Hours) Vital Signs Temp Pulse Pulse Resp BP Pulse Ox O2 Del Method 04/10/23 15:32 36.7 C 101 H 18 136/80 95 Room Air 04/10/23 14:00 98 H 04/10/23 11:00 36.4 C L 105 H 18 130/81 95 Room Air 04/10/23 09:51 103 H 04/10/23 07:30 36.3 C L 83 18 147/79 H 95 Nasal Cannula 04/10/23 07:30 36.3 C L 83 18 147/79 H 95 Nasal Cannula 04/10/23 07:26 Room Air 04/10/23 06:00 84 O2 Flow Rate 04/10/23 15:32 04/10/23 14:00 04/10/23 11:00 04/10/23 09:51 04/10/23 07:30 2 04/10/23 07:30 2 04/10/23 07:26 04/10/23 06:00
[2023-04-11 07:51] LABS: Calcium 9.1 mg/dl (8.6-10.3); Creatinine Clr Calc Pharmacy 40.3 ml/min; Est GFR (African American) 79.9 ml/min
[2023-04-11] MEDS: INSULIN ASPART PER UNIT CHARGE SC SCH ×4 (08:42→22:25)
[2023-04-11] MEDS: DULoxetine HCL 60 MG CAP PO SCH (08:43)
[2023-04-11] MEDS: HEPARIN SOD 5,000 UNIT/0.5 ML VIAL SQ SCH ×2 (08:43→22:19)
[2023-04-11] MEDS: MYCOPHENOLATE MOFETIL 250 MG CAP PO SCH ×2 (08:43→22:19)
[2023-04-11] MEDS: POTASSIUM CHLORIDE CRTAB 20 MEQ TABCR PO SCH (08:44)
[2023-04-11] MEDS: PANTOprazole 40 MG TAB PO SCH (08:44)
[2023-04-11] MEDS: TACROLIMUS 1 MG CAP PO SCH ×2 (08:44→22:18)
[2023-04-11] MEDS: LANTUS PER UNIT CHARGE SQ SCH ×2 (08:58→22:28)
[2023-04-11 10:47] LABS: Magnesium 1.6 mg/dl (1.7-2.4)
[2023-04-11] MEDS: CEFDINIR 300 MG CAP PO SCH ×3 (11:20→22:19)
[2023-04-11] MEDS ORDERED: cefTRIAXone SODIUM 2,000 MG in DEXTROSE 5% 50 ML IV STA (11:50)
--- NOTE | 2023-04-11 13:58 | Hospitalist Progress Note ---
Date of Service April 11, 2023 Assessment & Plan (1) Hypomagnesemia: (2) Metabolic encephalopathy: (3) Hypokalemia: (4) Anxiety and depression: (5) Pancytopenia: (6) Cirrhosis: (7) History of liver transplant: (8) Diabetes mellitus, type II: (9) Acute UTI: Plan Patient is a 72yoF with PMH cirrhosis s/p liver transplant 2007, insulin- dependent DM II, HLD, anxiety/depression, chronic pancytopenia presenting with AMS in the setting of a complicated UTI. AMS/Complicated UTI UA with color interference from home medication Azo Urine cx growing pansensitive Klebsiella pneumoniae Blood Cx x 2 pending, NGTD Transitioned to PO cefdinir, however received messaging that pt was refusing oral meds. One dose of rocephin IV given. Discussed mental status with daughter, would like her back to baseline before discharge. States she can be reached on her cellphone at [phone] to be notified before pt is discharged. Elevated methemoglobin Patient took 3 days of OTC AZO (phenazopyridine) Methemoglobin: 4.4%. Patient asymptomatic Per poison control re: methemoglobinemia and phenazopyridine toxicity - if methemoglobin >20% and patient symptomatic to treat with methylene blue Not needed at this time. Hold phenazopyridine Hypomagnesemia/Hypokalemia Replete as needed Diabetes mellitus, type II On insulin at home, A1c: 4.6 on 03/26/2023 ISS in hospital as well Cirrhosis/Hx of liver transplant History cirrhosis s/p liver transplant 2007 On tacrolimus, mycophenolate Not seen by transplant team or hepatology for years. Upcoming appointment with Dr Hill in June Pancytopenia Stable Anxiety and depression Continue duloxetine DVT Prophylaxis:Heparin SQ DNR/DNI Dispo: Home with HH Admission and Anticipated Discharge Date Admission Date: April 09, 2023 Subjective Pt seen this AM. Per nursing, has been refusing oral meds, more delirious today. nursing requesting IV antibiotic Was sleeping when seen, went back to sleep after awakening to verbal stimuli. Review of Systems Review of Systems: Unobtainable due to cognitive status Physical Exam Physical Exam: General: No acute distress, frail Psych: could not be determined HEENT: NC/AT Chest: Nontender to palpation. CV: RRR Resp: Breath sounds clear bilaterally, no increased effort of breathing. Abdomen: Soft, nondistended. Extremities: No edema in lower extremities bilaterally. Results & Data Results & Data Vital Signs (Past 12 Hours) Vital Signs Temp Pulse Resp BP BP Pulse Ox O2 Del Method 04/11/23 10:43 36.8 C 90 20 147/71 H 95 Room Air 04/11/23 08:08 36.6 C 92 H 20 120/68 98 Room Air 04/11/23 04:15 Room Air
[2023-04-12 06:45] LABS: BUN Creatinine Ratio 17.4 (10-20); Calcium 9.1 mg/dl (8.6-10.3); Creatinine Clr Calc Pharmacy 39.2 ml/min; Est GFR (African American) 77.7 ml/min; Potassium 4.5 mmol/L (3.5-5.1)
[2023-04-12 07:19] LABS: Hematocrit (blood only) 29.8 % (37.0-47.0); Hemoglobin 9.8 g/dl (12.0-16.0); Mean Corpuscular Hemoglobin 29.1 pg (25.0-34.0); Mean Corpuscular Hgb Conc 32.9 g/dL (32.0-36.0); Mean Corpuscular Volume 88.4 fL (80.0-100.0); Mean Platelet Volume 10.3 fL (9.4-12.4); Platelet Count 140 K/uL (130-400); RDW Coefficient of Variation 14.6 % (11.5-14.5); RDW Standard Deviation 46.7 fL (36.4-46.3); Red Blood Count 3.37 M/uL (4.20-5.40); White Blood Count 2.32 K/ul (4.8-10.8)
[2023-04-12] MEDS: MYCOPHENOLATE MOFETIL 250 MG CAP PO SCH ×2 (08:29→21:48)
[2023-04-12] MEDS: TACROLIMUS 1 MG CAP PO SCH ×2 (08:29→21:48)
[2023-04-12] MEDS: CEFDINIR 300 MG CAP PO SCH ×2 (08:29→21:49)
[2023-04-12] MEDS: PANTOprazole 40 MG TAB PO SCH (08:30)
[2023-04-12] MEDS: LANTUS PER UNIT CHARGE SQ SCH ×2 (08:30→21:54)
[2023-04-12] MEDS: INSULIN ASPART PER UNIT CHARGE SC SCH ×4 (08:30→21:49)
[2023-04-12] MEDS: DULoxetine HCL 60 MG CAP PO SCH (08:30)
[2023-04-12] MEDS: HEPARIN SOD 5,000 UNIT/0.5 ML VIAL SQ SCH ×2 (08:30→21:49)
--- NOTE | 2023-04-12 09:01 | Hospitalist Progress Note ---
Date of Service April 12, 2023 Assessment & Plan (1) Hypomagnesemia: (2) Metabolic encephalopathy: (3) Hypokalemia: (4) Anxiety and depression: (5) Pancytopenia: (6) Cirrhosis: (7) History of liver transplant: (8) Diabetes mellitus, type II: (9) Acute UTI: Plan Patient is a 72yoF with PMH cirrhosis s/p liver transplant 2007, insulin- dependent DM II, HLD, anxiety/depression, chronic pancytopenia presenting with AMS in the setting of a complicated UTI. AMS/Complicated UTI UA with color interference from home medication Azo Urine cx growing pansensitive Klebsiella pneumoniae Blood Cx x 2 pending, NGTD Transitioned to PO cefdinir, however received messaging that pt was refusing oral meds. One dose of rocephin IV given. Discussed mental status with daughter, would like her back to baseline before discharge. States she can be reached on her cellphone at [phone] to be notified before pt is discharged. Tolerating cefdinir this am Elevated methemoglobin Patient took 3 days of OTC AZO (phenazopyridine) Methemoglobin: 4.4%. Patient asymptomatic Per poison control re: methemoglobinemia and phenazopyridine toxicity - if methemoglobin >20% and patient symptomatic to treat with methylene blue Not needed at this time. Hold phenazopyridine Hypomagnesemia/Hypokalemia Replete as needed Diabetes mellitus, type II On insulin at home, A1c: 4.6 on 03/26/2023 ISS in hospital as well Cirrhosis/Hx of liver transplant History cirrhosis s/p liver transplant 2007 On tacrolimus, mycophenolate Not seen by transplant team or hepatology for years. Upcoming appointment with Dr Hill in June Pancytopenia Stable Anxiety and depression Continue duloxetine DVT Prophylaxis:Heparin SQ DNR/DNI Dispo: Home with DO Alia Xiao Hospitalist Admission and Anticipated Discharge Date Admission Date: April 09, 2023 Subjective 72 yo F admitted with confusion 2/2 UTI She is generally weak and reports her foot was stuck in the bed this morning She appears less confused and doing better she reports tolerating PO Afebrile. Review of Systems Review of Systems: no issues Physical Exam Physical Exam: CONSTITUTIONAL: cachectic, vitals as above, generally well-appearing, NAD EYES: normal conjunctivae, no scleral icterus ENT: external ear and nose normal, MMM NECK: trachea midline RESPIRATORY: clear to auscultation bilaterally, no crackles, rales or wheezes, normal respiratory effort CARDIOVASCULAR: regular rate and rhythm, S1 and 2 heard without murmurs, gallops or rubs, no JVD, no peripheral edema CHEST: inspection of chest was normal GASTROINTESTINAL: soft, nontender, ND, no guarding MUSCULOSKELETAL: generalized weakness, head is normocephalic and atraumatic, NEUROLOGIC: CN 2-12 grossly intact, no sensory deficit, normal cognition, normal speech, no tremor PSYCHIATRIC: alert cooperative, oriented, answering questions appropriately. Euthymic mood, makes good eye contact, language grossly intact, recent and remote memory grossly intact. Results & Data Results & Data Vital Signs (Past 12 Hours) Vital Signs Temp Pulse Pulse Resp BP BP Pulse Ox 04/12/23 08:50 36.8 C 103 H 18 128/81 98 04/12/23 03:44 36.6 C 80 16 131/75 95 04/11/23 23:35 86 04/11/23 23:07 04/11/23 22:27 36.5 C 83 16 136/79 93 O2 Del Method 04/12/23 08:50 Room Air 04/12/23 03:44 Room Air 04/11/23 23:35 04/11/23 23:07 Room Air 04/11/23 22:27 Room Air Laboratory Results Short CBC 04/12/23 Range/Units 06:01 WBC 2.32 L (4.8-10.8) K/ul Hgb 9.8 L (12.0-16.0) g/dl Hct 29.8 L (37.0-47.0) % Plt Count 140 (130-400) K/uL BMP 04/12/23 06:01 Sodium 138 Potassium 4.5 Chloride 105 Carbon Dioxide 27 BUN 15 Creatinine 0.86 Glucose 71 Calcium 9.1 Medications Administered Current Inpatient Medications Acetaminophen (Acetaminophen 325 Mg Tab) 650 mg PO Q4H PRN PRN Reason: Pain or Fever Stop: 05/09/23 20:38 Cefdinir (Cefdinir 300 Mg Cap) 300 mg PO BID ALYSSA; Protocol Stop: 04/21/23 10:14 Last Admin: 04/12/23 08:29 Dose: 300 mg Dextrose (Dextrose 50% 50 Ml Syringe) 25 - 50 ml IV UD PRN; Protocol PRN Reason: Hypoglycemia Protocol Stop: 05/09/23 20:38 Duloxetine HCl (Duloxetine Hcl 60 Mg Cap) 60 mg PO DAILY ALYSSA Stop: 05/10/23 08:59 Last Admin: 04/12/23 08:30 Dose: 60 mg Glucagon (Glucagon For Inj 1 Mg Vial) 1 mg SQ UD PRN; Protocol PRN Reason: Hypoglycemia Protocol Stop: 05/09/23 20:38 Glucose (Glucose 10 Tab/Tube) 4 - 8 tab PO UD PRN; Protocol PRN Reason: Hypoglycemia Treatment Stop: 05/09/23 20:38 Glucose (Glucose 40% Gel 15 Gm Tube) 15 - 30 gm PO UD PRN; Protocol PRN Reason: Hypoglycemia Protocol Stop: 05/09/23 20:38 Heparin Sodium (Porcine) (Heparin Sod 5,000 Unit/0.5 Ml Vial) 5,000 units SQ Q12 ALYSSA Stop: 05/09/23 20:59 Last Admin: 04/12/23 08:30 Dose: 5,000 units Insulin Aspart (Insulin Aspart Per Unit Charge) 0 units SC ACHS ALYSSA Stop: 05/09/23 20:59 Last Admin: 04/12/23 08:30 Dose: Not Given Insulin Glargine (Lantus Per Unit Charge) 0 - 4 units SQ BID ALYSSA Stop: 05/09/23 20:59 Last Admin: 04/12/23 08:30 Dose: Not Given Miscellaneous (Carbohydrates For Hypoglycemia ) 15 - 30 gm PO UD PRN PRN Reason: Hypoglycemia Protocol Stop: 05/09/23 20:38 Mycophenolate Mofetil (Mycophenolate Mofetil 250 Mg Cap) 500 mg PO BID ALYSSA Stop: 05/09/23 20:59 Last Admin: 04/12/23 08:29 Dose: 500 mg Ondansetron HCl (Ondansetron Inj 2 Mg/Ml 2 Ml Vial) 4 mg IV Q6H PRN PRN Reason: Nausea Stop: 05/09/23 20:38 Last Admin: 04/11/23 02:49 Dose: 4 mg Pantoprazole Sodium (Pantoprazole 40 Mg Tab) 40 mg PO DAILY ALYSSA Stop: 05/10/23 08:59 Last Admin: 04/12/23 08:30 Dose: 40 mg Polyethylene Glycol (Polyethylene (Miralax) 17 Gm Pack) 17 gm PO DAILY PRN PRN Reason: Constipation Stop: 05/09/23 20:38 Tacrolimus (Tacrolimus 1 Mg Cap) 1 mg PO Q12 ALYSSA Stop: 05/09/23 20:59 Last Admin: 04/12/23 08:29 Dose: 1 mg
[2023-04-13 07:05] LABS: BUN Creatinine Ratio 30.8 (10-20); Calcium 8.9 mg/dl (8.6-10.3); Creatinine Clr Calc Pharmacy 34.9 ml/min; Est GFR (African American) 72.5 ml/min; Est GFR (Non-African American) 62.6 ml/min
--- NOTE | 2023-04-13 08:33 | Hospitalist Progress Note ---
Date of Service April 13, 2023 Assessment & Plan (1) Metabolic encephalopathy: (2) Acute UTI: (3) Immunosuppressed status: (4) Hypomagnesemia: (5) Hypokalemia: (6) Anxiety and depression: (7) Pancytopenia: (8) Cirrhosis: (9) History of liver transplant: (10) Diabetes mellitus, type II: Plan Patient is a 72yoF with PMH cirrhosis s/p liver transplant 2007, insulin- dependent DM II, HLD, anxiety/depression, chronic pancytopenia presenting with AMS in the setting of a complicated UTI. AMS/Delirium/Complicated UTI UA with color interference from home medication Azo Urine cx growing pansensitive Klebsiella pneumoniae Blood Cx x 2 pending, NGTD Transitioned to PO cefdinir, however received messaging that pt was refusing oral meds. One dose of rocephin IV given. Discussed mental status with daughter, would like her back to baseline before discharge. States she can be reached on her cellphone at [phone] to be notified before pt is discharged. 04/13: Tolerating cefdinir this am, however, she is somnolent and remains confused Suspect hospital delirium; RN notes patient was up all night and confused, likely contributing to her current somnolence. Patient also self removed her IV last night and is currently without an IV site. Poor PO intake today 2/2 somnolence and delirium. Will repeat UA today to ensure she is clearing infection, Hold Cellcept, cont tacrolimus, ABG/CXR/head CT now with hypersomnolence. IVF to support and avoid dehydration while not eating much. Nutrition consult. Elevated methemoglobin Patient took 3 days of OTC AZO (phenazopyridine) Methemoglobin: 4.4%. Patient asymptomatic Per poison control re: methemoglobinemia and phenazopyridine toxicity - if methemoglobin >20% and patient symptomatic to treat with methylene blue Not needed at this time. Hold phenazopyridine Hypomagnesemia/Hypokalemia Repleted but not rechecked. Ongoing PPI use likely contributing Rechecking today and will replete as needed. Diabetes mellitus, type II On insulin at home, A1c: 4.6 on 03/26/2023 She has not been eating but is not hypoglycemic Remains on insulin correction and has not required any this admission there is no carb coverage ordered, which we prefer to avoid to avoid hypoglycemia cont monitoring BSG. Getting some dextrose in solution now as noted above. Cirrhosis/Hx of liver transplant History cirrhosis s/p liver transplant 2007 On tacrolimus, mycophenolate-holding mycophenolate today in setting of infection with ongoing delirium. Not seen by transplant team or hepatology for years. Upcoming appointment with Dr Hill in June Pancytopenia chronic, Stable Anxiety and depression Continue duloxetine DVT Prophylaxis:Heparin SQ DNR/DNI Dispo: uncertain at this time. Continues on telemetry with delirium. Sarahy Landis DO [facility] Hospitalist Admission and Anticipated Discharge Date Admission Date: April 09, 2023 Subjective 72 yo F admitted with confusion 2/2 UTI evidently she was awake overnight and displayed more confusion this morning. currently she is somnolent with minimal to no intake or oral food today per nursing staff yesterday she was combative and confused reporting that she was in her 30s and living at home. she remains afebrile and hemodynamically stable Review of Systems Review of Systems: ROS could not be obtained as she is somnolent. Physical Exam Physical Exam: CONSTITUTIONAL: cachectic, vitals as above, generally somnolent. No hypoxia or increased respiratory effort. EYES: normal conjunctivae, no scleral icterus ENT: external ear and nose normal, MMM NECK: trachea midline RESPIRATORY: clear to auscultation bilaterally, no crackles, rales or wheezes, normal respiratory effort CARDIOVASCULAR: regular rate and rhythm, S1 and 2 heard without murmurs, gallops or rubs, no JVD, no peripheral edema CHEST: inspection of chest was normal GASTROINTESTINAL: soft, nontender, ND, no guarding MUSCULOSKELETAL: generalized weakness, head is normocephalic and atraumatic, NEUROLOGIC: CN 2-12 grossly intact, no sensory deficit, depressed cognition, normal speech, no tremor PSYCHIATRIC: somnolent and uncooperative. Results & Data Results & Data Vital Signs (Past 12 Hours) Vital Signs Temp Pulse Pulse Resp BP Pulse Ox O2 Del Method 04/13/23 03:49 36.8 C 100 H 18 122/75 95 Room Air 04/12/23 22:00 36.9 C 116 H 18 127/78 97 Room Air 04/12/23 23:25 100 H Laboratory Results [facility] 04/13/23 05:24 Sodium 137 Potassium 4.0 Chloride 103 Carbon Dioxide 27 BUN 28 H Creatinine 0.91 Glucose 167 H Calcium 8.9 Medications Administered Current Inpatient Medications Acetaminophen (Acetaminophen 325 Mg Tab) 650 mg PO Q4H PRN PRN Reason: Pain or Fever Stop: 05/09/23 20:38 Cefdinir (Cefdinir 300 Mg Cap) 300 mg PO BID ALYSSA; Protocol Stop: 04/21/23 10:14 Last Admin: 04/12/23 21:49 Dose: 300 mg Dextrose (Dextrose 50% 50 Ml Syringe) 25 - 50 ml IV UD PRN; Protocol PRN Reason: Hypoglycemia Protocol Stop: 05/09/23 20:38 Duloxetine HCl (Duloxetine Hcl 60 Mg Cap) 60 mg PO DAILY [facility] Stop: 05/10/23 08:59 Last Admin: 04/12/23 08:30 Dose: 60 mg Glucagon (Glucagon For Inj 1 Mg Vial) 1 mg SQ UD PRN; Protocol PRN Reason: Hypoglycemia Protocol Stop: 05/09/23 20:38 Glucose (Glucose 10 Tab/Tube) 4 - 8 tab PO UD PRN; Protocol PRN Reason: Hypoglycemia Treatment Stop: 05/09/23 20:38 Glucose (Glucose 40% Gel 15 Gm Tube) 15 - 30 gm PO UD PRN; Protocol PRN Reason: Hypoglycemia Protocol Stop: 05/09/23 20:38 Heparin Sodium (Porcine) (Heparin Sod 5,000 Unit/0.5 Ml Vial) 5,000 units SQ Q12 ALYSSA Stop: 05/09/23 20:59 Last Admin: 04/12/23 21:49 Dose: 5,000 units Insulin Aspart (Insulin Aspart Per Unit Charge) 0 units SC ACHS [facility] Stop: 05/09/23 20:59 Last Admin: 04/12/23 21:49 Dose: Not Given Insulin Glargine (Lantus Per Unit Charge) 0 - 4 units SQ BID [facility] Stop: 05/09/23 20:59 Last Admin: 04/12/23 21:54 Dose: 3 units Miscellaneous (Carbohydrates For Hypoglycemia ) 15 - 30 gm PO UD PRN PRN Reason: Hypoglycemia Protocol Stop: 05/09/23 20:38 Mycophenolate Mofetil (Mycophenolate Mofetil 250 Mg Cap) 500 mg PO BID [facility] Stop: 05/09/23 20:59 Last Admin: 04/12/23 21:48 Dose: 500 mg Ondansetron HCl (Ondansetron Inj 2 Mg/Ml 2 Ml Vial) 4 mg IV Q6H PRN PRN Reason: Nausea Stop: 05/09/23 20:38 Last Admin: 04/11/23 02:49 Dose: 4 mg Pantoprazole Sodium (Pantoprazole 40 Mg Tab) 40 mg PO DAILY ALYSSA Stop: 05/10/23 08:59 Last Admin: 04/12/23 08:30 Dose: 40 mg Polyethylene Glycol (Polyethylene (Miralax) 17 Gm Pack) 17 gm PO DAILY PRN PRN Reason: Constipation Stop: 05/09/23 20:38 Tacrolimus (Tacrolimus 1 Mg Cap) 1 mg PO Q12 ALYSSA Stop: 05/09/23 20:59 Last Admin: 04/12/23 21:48 Dose: 1 mg
[2023-04-13] MEDS: INSULIN ASPART PER UNIT CHARGE SC SCH ×4 (10:53→22:01)
[2023-04-13] MEDS: CEFDINIR 300 MG CAP PO SCH (11:48)
[2023-04-13] MEDS: MYCOPHENOLATE MOFETIL 250 MG CAP PO SCH (11:48)
[2023-04-13] MEDS: DULoxetine HCL 60 MG CAP PO SCH (11:49)
[2023-04-13] MEDS: PANTOprazole 40 MG TAB PO SCH (11:49)
[2023-04-13] MEDS: HEPARIN SOD 5,000 UNIT/0.5 ML VIAL SQ SCH ×2 (11:49→22:01)
[2023-04-13] MEDS: TACROLIMUS 1 MG CAP PO SCH ×2 (11:49→22:00)
[2023-04-13] MEDS: LANTUS PER UNIT CHARGE SQ SCH ×2 (11:50→22:01)
[2023-04-13 14:35] LABS: Allen Test Pos (Pos); HCO3 ABG 25 mmol/L (19-24); Oxygen Saturation ABG 99.4 % (90-95); PCO2 ABG 38 mmHg (35-46); PO2 ABG 150 mmHg (80-95); pH ABG 7.43 (7.35-7.45)
[2023-04-13] MEDS: D5W AND 1/2NSS 1,000 ML IV SCH (15:01)
--- NOTE | 2023-04-13 15:14 | XRay Report ---
XR chest 1V portable CLINICAL HISTORY: altered mental status, somnolence COMPARISON STUDY: Chest CT June 04, 2017. Chest radiograph April 09, 2023. FINDINGS: A vertebroplasty and an old, healed proximal left humeral fracture are incidentally noted. Lung volumes are mildly diminished, unchanged. Lungs are clear. There is no pneumothorax or pleural e ffusion. Cardiac size is normal. Mediastinal contours are normal. There is no evidence for pulmonary edema. IMPRESSION: No acute cardiopulmonary findings. ACT 112: Negative or not required by law. Electronically signed by: El Salas M.D. 04/13/2023 3:12 PM
[2023-04-13 15:15] LABS: Appearance Urine Cloudy (Clear); Bacteria Urine Automated Negative (Negative); Bilirubin Urine Negative (Negative); Blood Urine 1+ (Negative); Color Urine Dark Yellow; Epithelial Cell Urine Auto 20-30 /lpf (0-5); Glucose Urine UA Negative (Negative); Ketones Urine Negative (Negative); Leukocyte Esterase Urine 2+ (Negative); Nitrite Urine Positive (Negative); Protein Urine 2+ (Negative); Urobilinogen Urine Negative (Negative); WBC Urine Automated >30 /hpf (0-5)
[2023-04-13 15:17] LABS: Magnesium 1.8 mg/dl (1.7-2.4); Phosphorus 5.2 mg/dl (2.5-4.9)
--- NOTE | 2023-04-13 15:42 | CT Scan Report ---
CT OF THE HEAD WITHOUT CONTRAST CLINICAL HISTORY: altered mental status, somnolent. COMPARISON STUDY: Head CT April 09, 2023. CT DOSE: 547.75 mGy.cm TECHNIQUE: Helical axial images of the head were obtained without IV contrast. Automated exposure con trol was utilized for the study. A dose lowering technique was utilized adhering to the principles o f ALARA. FINDINGS: No acute intracranial hemorrhage, midline shift or mass effect is present. There is moderat e atrophy. The ventricular system is stable. White matter hypodensities are unchanged and favor small vessel disease. The basal cisterns are patent. No extra-axial collections are present. There are no findings to suggest acute dural sinus thrombosis or acute territorial infarct. No significant calvari al abnormalities are present. Visualized portions of the sinuses and mastoid air cells are clear. IMPRESSION: No acute intracranial findings. No change in appearance of the brain. ACT 112: Negative or not required by law. Electronically signed by: El Salas M.D. 04/13/2023 3:41 PM
[2023-04-13] MEDS: cefTRIAXone SODIUM 1,000 MG in DEXTROSE 5% AD-VAN 50 ML IV SCH (20:32)
[2023-04-14] MEDS: D5W AND 1/2NSS 1,000 ML IV SCH (03:14)
[2023-04-14 06:58] LABS: Hematocrit (blood only) 25.9 % (37.0-47.0); Hemoglobin 8.6 g/dl (12.0-16.0); Mean Corpuscular Hemoglobin 29.4 pg (25.0-34.0); Mean Corpuscular Hgb Conc 33.2 g/dL (32.0-36.0); Mean Corpuscular Volume 88.4 fL (80.0-100.0); Mean Platelet Volume 10.5 fL (9.4-12.4); Platelet Count 136 K/uL (130-400); RDW Coefficient of Variation 14.8 % (11.5-14.5); RDW Standard Deviation 47.2 fL (36.4-46.3); Red Blood Count 2.93 M/uL (4.20-5.40); White Blood Count 2.08 K/ul (4.8-10.8)
[2023-04-14 07:03] LABS: BUN Creatinine Ratio 36.9 (10-20); Calcium 8.4 mg/dl (8.6-10.3); Creatinine Clr Calc Pharmacy 39.7 ml/min; Est GFR (African American) 79.9 ml/min; Magnesium 1.6 mg/dl (1.7-2.4); Phosphorus 4.4 mg/dl (2.5-4.9); Potassium 3.9 mmol/L (3.5-5.1)
[2023-04-14] MEDS: HEPARIN SOD 5,000 UNIT/0.5 ML VIAL SQ SCH ×2 (08:05→20:15)
[2023-04-14] MEDS: TACROLIMUS 1 MG CAP PO SCH ×2 (08:05→20:16)
[2023-04-14] MEDS: DULoxetine HCL 60 MG CAP PO SCH (08:06)
[2023-04-14] MEDS: PANTOprazole 40 MG TAB PO SCH (08:06)
[2023-04-14] MEDS: LANTUS PER UNIT CHARGE SQ SCH ×2 (08:12→20:49)
[2023-04-14] MEDS: INSULIN ASPART PER UNIT CHARGE SC SCH ×4 (08:12→20:50)
[2023-04-14] MEDS ORDERED: MAGNESIUM SULFATE / D5W 1 GM/100 ML BAG IV ONE (16:46)
--- NOTE | 2023-04-14 16:53 | Hospitalist Progress Note ---
Date of Service April 14, 2023 Assessment & Plan (1) Metabolic encephalopathy: (2) Acute UTI: (3) Immunosuppressed status: (4) Hypomagnesemia: (5) Hypokalemia: (6) Anxiety and depression: (7) Pancytopenia: (8) Cirrhosis: (9) History of liver transplant: (10) Diabetes mellitus, type II: Plan Patient is a 72yoF with PMH cirrhosis s/p liver transplant 2007, insulin- dependent DM II, HLD, anxiety/depression, chronic pancytopenia presenting with AMS in the setting of a complicated UTI. AMS/Delirium/Complicated UTI UA with color interference from home medication Azo Urine cx growing pansensitive Klebsiella pneumoniae Blood Cx x 2 pending, NGTD was on PO cefdinir, however appears that pt refused po meds. Transitioned to rocephin. Prior provider, Discussed mental status with daughter, would like her back to baseline before discharge. States she can be reached on her cellphone at [phone] to be notified before pt is discharged. Suspect hospital delirium complicating her presentation. Awake and alert today, oriented to self. continues w/ poor po intake, exacerbated by hospital delirium on background of dementia. Hold Cellcept, cont tacrolimus, ABG/CXR/head CT 04/13 with hypersomnolence - no new acute findings. Consider IVF to support and avoid dehydration while not eating much. Nutrition consult. Appreciate recs. Elevated methemoglobin Patient took 3 days of OTC AZO (phenazopyridine) Methemoglobin: 4.4%. Patient asymptomatic Per poison control re: methemoglobinemia and phenazopyridine toxicity - if methemoglobin >20% and patient symptomatic to treat with methylene blue Not needed at this time. dc phenazopyridine Hypomagnesemia/Hypokalemia: Monitor replete as appropriate. Diabetes mellitus, type II On insulin at home, A1c: 4.6 on 03/26/2023 She has not been eating but is not hypoglycemic Remains on insulin correction and has not required any this admission there is no carb coverage ordered, which we prefer to avoid to avoid hypoglycemia cont monitoring BSG. Getting some dextrose in solution now as noted above. Cirrhosis/Hx of liver transplant History cirrhosis s/p liver transplant 2007 On tacrolimus, mycophenolate-holding mycophenolate in setting of infection with ongoing delirium. Not seen by transplant team or hepatology for years. Upcoming appointment with Dr Hill in June Pancytopenia: chronic, Stable Anxiety and depression: Continue duloxetine DVT Prophylaxis:Heparin SQ DNR/DNI Dispo: likely in next few days. Continues on telemetry with delirium. Admission and Anticipated Discharge Date Admission Date: April 09, 2023 Subjective Patient seen and examined at bedside as a follow-up of altered mental status secondary to complicated UTI. Patient was lying in bed, on room air, NAD, oriented to self, pleasantly confused, has fairly poor appetite per RN, no new acute events overnight per RN. Patient denies any pain, ROS not able due to cognition status. Physical Exam Physical Exam: CONSTITUTIONAL: cachectic, awake and alert. No hypoxia or increased respiratory effort. EYES: normal conjunctivae, no scleral icterus ENT: external ear and nose normal, MMM NECK: trachea midline RESPIRATORY: clear to auscultation bilaterally, no crackles, rales or wheezes, normal respiratory effort CARDIOVASCULAR: regular rate and rhythm, S1 and 2 heard without murmurs, gallops or rubs, no JVD, no peripheral edema CHEST: inspection of chest was normal GASTROINTESTINAL: soft, nontender, ND, no guarding MUSCULOSKELETAL: generalized weakness, head is normocephalic and atraumatic, NEUROLOGIC: CN 2-12 grossly intact, no sensory deficit, depressed cognition, normal speech, no tremor Results & Data Results & Data Vital Signs (Past 12 Hours) Vital Signs Temp Pulse Pulse Resp BP Pulse Ox O2 Del Method 04/14/23 15:53 106 H 04/14/23 10:45 36.7 C 91 H 18 117/71 98 Room Air 04/14/23 08:16 36.7 C 86 16 117/70 98 Room Air 04/14/23 07:21 87
[2023-04-14] MEDS: cefTRIAXone SODIUM 1,000 MG in DEXTROSE 5% AD-VAN 50 ML IV SCH (19:49)
[2023-04-15] MEDS: INSULIN ASPART PER UNIT CHARGE SC SCH ×4 (07:52→21:20)
[2023-04-15] MEDS: LANTUS PER UNIT CHARGE SQ SCH ×2 (07:53→21:20)
[2023-04-15] MEDS: HEPARIN SOD 5,000 UNIT/0.5 ML VIAL SQ SCH ×2 (07:53→19:55)
[2023-04-15] MEDS: PANTOprazole 40 MG TAB PO SCH (07:54)
[2023-04-15] MEDS: TACROLIMUS 1 MG CAP PO SCH ×2 (07:54→19:54)
[2023-04-15] MEDS: DULoxetine HCL 60 MG CAP PO SCH (07:54)
[2023-04-15 10:40] LABS: Hemoglobin 8.8 g/dl (12.0-16.0); Mean Corpuscular Hemoglobin 29.3 pg (25.0-34.0); Mean Corpuscular Hgb Conc 33.8 g/dL (32.0-36.0); Mean Corpuscular Volume 86.7 fL (80.0-100.0); Platelet Count 124 K/uL (130-400); RDW Coefficient of Variation 15.1 % (11.5-14.5); RDW Standard Deviation 47.2 fL (36.4-46.3); White Blood Count 2.08 K/ul (4.8-10.8)
[2023-04-15 11:06] LABS: Magnesium 1.9 mg/dl (1.7-2.4); Potassium 3.4 mmol/L (3.5-5.1)
[2023-04-15 11:12] LABS: BUN Creatinine Ratio 29.3 (10-20); Creatinine Clr Calc Pharmacy 44.8 ml/min; Est GFR (African American) 91.7 ml/min; Est GFR (Non-African American) 79.1 ml/min; Phosphorus 4.3 mg/dl (2.5-4.9)
[2023-04-15] MEDS ORDERED: POTASSIUM CHLORIDE CRTAB 20 MEQ TABCR PO STA (18:12)
--- NOTE | 2023-04-15 18:16 | Hospitalist Progress Note ---
Date of Service April 15, 2023 Assessment & Plan (1) Metabolic encephalopathy: (2) Acute UTI: (3) Immunosuppressed status: (4) Hypomagnesemia: (5) Hypokalemia: (6) Anxiety and depression: (7) Pancytopenia: (8) Cirrhosis: (9) History of liver transplant: (10) Diabetes mellitus, type II: Plan Patient is a 72yoF with PMH cirrhosis s/p liver transplant 2007, insulin- dependent DM II, HLD, anxiety/depression, chronic pancytopenia presenting with AMS in the setting of a complicated UTI. AMS/Delirium/Complicated UTI UA with color interference from home medication Azo Urine cx growing pansensitive Klebsiella pneumoniae Blood Cx x 2 pending, NGTD was on PO cefdinir, however appears that pt refused po meds. Transitioned to rocephin. Prior provider, Discussed mental status with daughter, would like her back to baseline before discharge. States she can be reached on her cellphone at [phone] to be notified before pt is discharged. Suspect hospital delirium complicating her presentation. Awake and alert today, oriented x2 continues w/ poor po intake, exacerbated by hospital delirium on background of dementia. Hold Cellcept, cont tacrolimus, ABG/CXR/head CT 04/13 with hypersomnolence - no new acute findings. Consider IVF to support and avoid dehydration while not eating much. Nutrition consult. Appreciate recs. Continue with Rocephin. Patient with improving appetite today. Elevated methemoglobin Patient took 3 days of OTC AZO (phenazopyridine) Methemoglobin: 4.4%. Patient asymptomatic Per poison control re: methemoglobinemia and phenazopyridine toxicity - if methemoglobin >20% and patient symptomatic to treat with methylene blue Not needed at this time. dc phenazopyridine Hypomagnesemia/Hypokalemia: Monitor replete as appropriate. Diabetes mellitus, type II On insulin at home, A1c: 4.6 on 03/26/2023 She has not been eating but is not hypoglycemic Remains on insulin correction and has not required any this admission there is no carb coverage ordered, which we prefer to avoid to avoid hypoglycemia cont monitoring BSG. Getting some dextrose in solution now as noted above. Cirrhosis/Hx of liver transplant History cirrhosis s/p liver transplant 2007 On tacrolimus, mycophenolate-holding mycophenolate in setting of infection with ongoing delirium. Not seen by transplant team or hepatology for years. Upcoming appointment with Dr Hill in June Pancytopenia: chronic, Stable Anxiety and depression: Continue duloxetine DVT Prophylaxis:Heparin SQ DNR/DNI Dispo: likely tomorrow. Continues on telemetry with delirium. Admission and Anticipated Discharge Date Admission Date: April 09, 2023 Subjective Patient seen and examined at bedside as a follow-up of altered mental status secondary to complicated UTI. Patient was lying in bed, on room air, NAD, oriented x 2 today, ate better today per RN, no new acute events overnight per RN. Patient denies any pain, no new complaints. Physical Exam Physical Exam: CONSTITUTIONAL: cachectic, awake and alert. No hypoxia or increased respiratory effort. EYES: normal conjunctivae, no scleral icterus ENT: external ear and nose normal, MMM NECK: trachea midline RESPIRATORY: clear to auscultation bilaterally, no crackles, rales or wheezes, normal respiratory effort CARDIOVASCULAR: regular rate and rhythm, S1 and 2 heard without murmurs, gallops or rubs, no JVD, no peripheral edema CHEST: inspection of chest was normal GASTROINTESTINAL: soft, nontender, ND, no guarding MUSCULOSKELETAL: generalized weakness, head is normocephalic and atraumatic, NEUROLOGIC: CN 2-12 grossly intact, no sensory deficit, depressed cognition, normal speech, no tremor Results & Data Results & Data Vital Signs (Past 12 Hours) Vital Signs Temp Pulse Pulse Resp BP Pulse Ox O2 Del Method 04/15/23 15:00 36.5 C 91 H 18 145/81 H 98 Room Air 04/15/23 15:00 90 04/15/23 07:50 Room Air 04/15/23 11:04 36.4 C L 83 18 131/74 97 Room Air 04/15/23 07:02 84
[2023-04-15] MEDS: cefTRIAXone SODIUM 1,000 MG in DEXTROSE 5% AD-VAN 50 ML IV SCH (18:35)
[2023-04-16 07:21] LABS: Hematocrit (blood only) 27.5 % (37.0-47.0); Mean Corpuscular Hemoglobin 29.5 pg (25.0-34.0); Mean Corpuscular Hgb Conc 32.7 g/dL (32.0-36.0); Mean Corpuscular Volume 90.2 fL (80.0-100.0); Mean Platelet Volume 10.3 fL (9.4-12.4); Platelet Count 126 K/uL (130-400); RDW Coefficient of Variation 15.1 % (11.5-14.5); RDW Standard Deviation 49.3 fL (36.4-46.3); Red Blood Count 3.05 M/uL (4.20-5.40); White Blood Count 1.87 K/ul (4.8-10.8)
[2023-04-16 07:52] LABS: BUN Creatinine Ratio 28.7 (10-20); Calcium 8.8 mg/dl (8.6-10.3); Creatinine Clr Calc Pharmacy 35.5 ml/min; Est GFR (African American) 69.8 ml/min; Est GFR (Non-African American) 60.2 ml/min; Magnesium 1.7 mg/dl (1.7-2.4); Potassium 4.4 mmol/L (3.5-5.1)
[2023-04-16] MEDS: LANTUS PER UNIT CHARGE SQ SCH (08:32)
[2023-04-16] MEDS: INSULIN ASPART PER UNIT CHARGE SC SCH ×2 (08:33→12:31)
[2023-04-16] MEDS: TACROLIMUS 1 MG CAP PO SCH (08:34)
[2023-04-16] MEDS: DULoxetine HCL 60 MG CAP PO SCH (08:34)
[2023-04-16] MEDS: PANTOprazole 40 MG TAB PO SCH (08:34)
[2023-04-16] MEDS: HEPARIN SOD 5,000 UNIT/0.5 ML VIAL SQ SCH (08:35)
--- NOTE | 2023-04-16 14:34 | Discharge Summary ---
Date of Service April 16, 2023 Admission HPI Per Admitting Provider Patient is 72-year-old female with PMH cirrhosis s/p liver transplant 2007, insulin-dependent DM II, dyslipidemia, anxiety, depression, chronic pancytopenia, hypokalemia presented to ER for increased confusion and dysuria x 3 days. History obtained from patient, patient's daughter and outpatient medical record. Daughter reports 3 days ago patient started with increased confusion. She reports in past when she has been having increasing confusion she has had a UTI. Patient reports dysuria. Daughter states started taking OTC AZO (phenazopyridine) and this is day 3 of taking. Reports patient is bedbound at baseline with chronic diffuse weakness. Does not ambulate, does not assist with transfers. Chronic incontinence of urine. Uses adult diaper. Daughter states that patient does not have any will to want to get stronger. Daughter provides all care for patient. Has to give patient sponge bath. Denies fever/chills, diaphoresis, N/V/D/C, CRONIN, dizziness, syncope, neck pain, CP, SOB, orthopnea, palpitations, cough, rhinorrhea, abdominal pain, paresthesias, extremity edema, rashes, hematuria. Outpatient chart reviewed: Labs from 04/02/2023: K: 2.8, Ca: 8.1. Patient was started on potassium supplement. Patient and daughter reports patient has been eating and drinking normally. Has not started any multivitamin, Tums or calcium supplement. Repeat outpatient labs today with potassium of 4.7 and calcium of 8.9. Admission Exam Per Admitting Provider General: no acute distress, chronic ill appearing, thin elderly female Head: normocephalic, atraumatic Eyes: PERRL, EOM's intact, conjunctiva non-injected, anicteric ENT: normal inspection external ears, nose, mucous membranes moist Neck: supple, trachea midline Lungs: clear, no respiratory distress, no wheezing/rhonchi/rales CV: RRR, no murmur, no pretibial edema Abd: normal BS, soft, non-tender Ext: no cyanosis, no calf tenderness; +genu valgum Neuro: Alert to person, knows its summer and year is 2022, unsure of month or day. Knows in ER, unsure of what hospital, Diffuse weakness throughout, no other focal deficits noted, flat affect Skin: warm, dry Principal Diagnosis AMS/delirium/complicated UTI Elevated methemoglobin Discharge Exam CONSTITUTIONAL: cachectic, awake and alert. No hypoxia or increased respiratory effort. EYES: normal conjunctivae, no scleral icterus ENT: external ear and nose normal, MMM NECK: trachea midline RESPIRATORY: clear to auscultation bilaterally, no crackles, rales or wheezes, normal respiratory effort CARDIOVASCULAR: regular rate and rhythm, S1 and 2 heard without murmurs, gallops or rubs, no JVD, no peripheral edema CHEST: inspection of chest was normal GASTROINTESTINAL: soft, nontender, ND, no guarding MUSCULOSKELETAL: generalized weakness, head is normocephalic and atraumatic, NEUROLOGIC: CN 2-12 grossly intact, no sensory deficit, depressed cognition, normal speech, no tremor Discharge Data Allergies Allergy/AdvReac Type Severity Reaction Status Date / Time celecoxib AdvReac Mild NAUSEA, Verified 04/09/23 16:15 VOMITING codeine AdvReac Mild ANXIETY Verified 04/09/23 16:15 rofecoxib AdvReac Mild LEGS GO Verified 04/09/23 16:15 NUMB hydromorphone AdvReac Unknown RESTLESS, Verified 04/09/23 16:15 INSOMNIA Consultations 04/09/23 17:17 ED Decision to Admit Stat Ordered Studies 04/09/23 14:54 CT head/brain wo con Stat 04/13/23 14:[address] [CT head/brain wo con] Urgent Hospital Course (1) Metabolic encephalopathy: (2) Acute UTI: (3) Immunosuppressed status: (4) Hypomagnesemia: (5) Hypokalemia: (6) Anxiety and depression: (7) Pancytopenia: (8) Cirrhosis: (9) History of liver transplant: (10) Diabetes mellitus, type II: Plan Patient is a 72yoF with PMH cirrhosis s/p liver transplant 2007, insulin- dependent DM II, HLD, anxiety/depression, chronic pancytopenia presenting with AMS in the setting of a complicated UTI. She was managed for the following: AMS/Delirium/Complicated UTI UA with color interference from home medication Azo Urine cx growing pansensitive Klebsiella pneumoniae Blood Cx x 2 pending, NGTD was on PO cefdinir, however appears that pt refused po meds. Transitioned to rocephin. Prior provider, Discussed mental status with daughter, would like her back to baseline before discharge. States she can be reached on her cellphone at [phone] to be notified before pt is discharged. Suspect hospital delirium complicating her presentation. Awake and alert today, oriented x2, has been eating better per RN. Patient took out her IV line herself as she was told she is going home today. We will continue with oral antibiotic from evening to complete the course for UTI. Hold Cellcept until antibiotic course is done, cont tacrolimus. Elevated methemoglobin Patient took 3 days of OTC AZO (phenazopyridine) Methemoglobin: 4.4%. Patient asymptomatic Per poison control re: methemoglobinemia and phenazopyridine toxicity - if methemoglobin >20% and patient symptomatic to treat with methylene blue Not needed at this time. dc phenazopyridine Hypomagnesemia/Hypokalemia: Monitor replete as appropriate. Diabetes mellitus, type II: Continue with home insulin. A1c of 4.6 on 03/26/2023. Cirrhosis/Hx of liver transplant History cirrhosis s/p liver transplant 2007 On tacrolimus, mycophenolate-holding mycophenolate in setting of infection with ongoing delirium. Not seen by transplant team or hepatology for years. Upcoming appointment with Dr Hill in June Pancytopenia: chronic, Stable Anxiety and depression: Continue duloxetine DVT Prophylaxis:Heparin SQ DNR/DNI Patient being discharged home with home health with following instruction at the point of discharge: Follow-up with your primary care physician within a week time and likely you will need labs CBC/CMP/magnesium/phosphorus. Complete the course of antibiotic as prescribed, then you can continue your CellCept after you are done with antibiotic therapy. Recommend reaching out to/following up with GI doctor and your transplant team for your history of liver transplant. Please make sure that you are able to get your medications today by calling your pharmacy before you leave the hospital so that your treatment continuity is not broken. Home Health Attestation I certify that this patient is under my care and that I, or a physicians sound assistant working with me, had a face to-face encounter that meets the home health ttox-va-kxer encounter requirements with this patient. The encounter with the patient was in whole, or in part, for the following medical condition, which is the primary reason for home health care (list medical condition): I certify that, based on my findings, the following services are medically necessary home health services: My clinical findings support the need for the above services because: Further, I certify that my clinical findings support that this patient is homebound (i.e. absences from home require considerable and taxing effort and are for medical reasons or baptist services or infrequently or of short duration when for other reasons) because: Certification for Home Health Services: Based on the above findings, I certify that this patient is confined to the home and needs intermittent longterm care, physical therapy and/or speech therapy or continues to need occupational therapy. The patient is under my care, and I have initiated the establishment of the plan of care. This patient will be followed by a physician who will periodically review the plan of care. Total Time Total Time Spent Total Time Spent (In Minutes): 45 Discharge Plan Discharge Items Patient Disposition: Home - Home Health Services Reason For Visit: UTI Discharge Diagnosis: AMS/delirium/complicated UTI Elevated methemoglobin Activity: Resume your previous activity Non-emergency contact: Primary Care Provider Call non-emergency contact if: you have any medication questions, your symptoms worsen and your temperature is above 101 Follow-up/Referrals: Ivette Ragland MD [Primary Care Provider] - (Date & Time 04/24/2023 11:20 AM Provider Ivette Ragland MD Department General Internal Medicine [facility] Please note that this is a telemedicine appointment. You will receive an email with instructions on how to connect with Dr Ragland from your home. ) Diet: Carb Consistent or DM2 Addtl Attending Provider Instructions: Follow-up with your primary care physician within a week time and likely you will need labs CBC/CMP/magnesium/phosphorus. Complete the course of antibiotic as prescribed, then you can continue your CellCept after you are done with antibiotic therapy. Recommend reaching out to/following up with GI doctor and your transplant team for your history of liver transplant. Please make sure that you are able to get your medications today by calling your pharmacy before you leave the hospital so that your treatment continuity is not broken. Pending Studies at Discharge: No Stand-Alone Forms: My [employer], Smoking Cessation Medications and DC Order Prescriptions: New cefdinir 300 mg Capsule 300 mg PO BID 4 Days Qty: 8 0RF Probiotic 3 billion cell capsule 3,000 mmu cells PO DAILY 7 Days Qty: 7 0RF Rx Instructions: administer with a meal Continued omeprazole 20 mg capsule,delayed release(DR/EC) 20 mg PO DAILY tacrolimus 1 mg capsule 1 mg PO Q12 duloxetine 60 mg capsule,delayed release(DR/EC) 60 mg PO DAILY Levemir FlexTouch U100 Insulin 100 unit/mL (3 mL) insulin pen 0 - 11 unit SUBCUT Q12 Rx Instructions: Uses sliding scale. BS-175: 1 unit, BS-199: 2 units, BS-224: 3 units, BS-249: 4 units, BS-274: 5 units, BS-299: 6 units, BS-324: 7 units, BS-349: 8 units: BS-374: 9 units, BS- 399: 10 units, BSG>400 11 units acetaminophen [Tylenol Extra Strength] 500 mg Tablet 500 mg PO Q6H PRN (Reason: Pain) potassium chloride 20 mEq tablet,ER particles/crystals 20 meq PO AMHS Held mycophenolate mofetil 250 mg capsule 500 mg PO BID Hold Instructions: Resume on 04/20/23. resume after antibiotic course is done in 3-4 days. Discharge Orders: Discharge Order (Routine); Ordered 04/16/23 Ordered By: Zeinab Sosa Admission Data Admit Date/Time: 04/09/23 18:26 Attending Provider: Zeinab Sosa Admit Provider: Sarahy Landis Primary Care Provider: Ivette Ragland Other Providers: Sarahy Landis ; [facility]
== END 2023-04-16 15:42 | disposition home health service (06) | DRG 689 ==
LOC: ED 14:36 → 2W 18:26 → SUATTDRO 18:26 → 2W 20:07 → 2N 04-16 09:19

== ENCOUNTER 2023-11-08 18:28 | Inpatient (IN) ==
--- OUTSIDE RECORDS SUMMARY | 2023-11-08 18:34 | External Medical Summary | Summary of Care ---
Author Name Unknown Organization [facility] Address [address] [address] Phone [phone] Care Team Providers Care [employer] Superintendent Name Role Phone Ellen Ragland MD Primary Care Provider + Reason for Visit * Reason Comments eRx-Medication Refill Encounter Details Date Type Department Care Team (Late st Contact Info) Description 09/11/2023 Refill General Internal Medicine [facility] [address] [facility] [place] [address] Ellen Ragland MD [address] [facility] [place] [id number] Type 2 diabetes mellitus with hemoglobin A1c goal of less than 7.0% ([facility]) Allergies Active Allergy Reactions Criticality Noted Date Comments Codeine 03/05/2001 Just with plain codeine , not vicodin or percocet Johansen-2 Inhibitors 07/08/2001 Legs numb, knots in legs celebrex Influenza Virus Vaccine 12/18/2018 Allergic reaction Pneumococcal Polysaccharides Conjugated Vaccine 12/18/2018 Allergy Rofecoxib 07/08/2001 Nausea documented as of this encounter (statuses as of 09/11/2023) Medications Medication Sig Dispensed Refills Start Date End Date Status MEDICAL INSTRUCTIONS Use as directed. VNA for nursing, PT/OT: DX: Fx right femur, liver transplant, CKD, HTN, depression, anemia, hyponatremia 1 Each 1 7 Active Calcium Carbonate Antacid (TUMS) 500 MG chewable tablet Take 1 Tab by mouth 3 times a day as needed for Heartburn. 90 Tab 0 7 Active Misc. Devices (BATH/SHOWER SEAT) MISCIndications:Ris k and functional assessment With back support 1 Each 0 7 Active Tacrolimus 1 MG Oral Capsule (PROGRAF)Indication s:Status post liver transplantation (HCC) take 1 capsule 2 times a day 180 Cap 0 0 Active Insulin Lispro (1 Unit Dial) 100 UNIT/ML Subcutaneous Solution Pen-injector (HumaLOG KwikPen) inject 8 units 2 times daily 15 mL 11 1 Active Ultilet Pen Needle 31G X 8 MM (Insulin Pen Needle) Use 4 times daily with insulin 400 Each 1 1 Active Lidocaine 4 % External Patch (Aspercreme) Place 1 Patch topically on the skin daily. 0 Active Acetaminophen 500 MG Oral Tablet (Tylenol Extra Strength) Take 1 Tablet by mouth every 6 hours as needed. 0 Active Vitamin B-12 1000 MCG Oral Tablet Take by mouth 1 Tablet in the morning. 90 Tablet 1 2 Active Additional Information Patient not taking.Reported on 07/15/2023 Omeprazole 20 MG Oral Capsule Delayed Release (PriLOSEC)Indicatio ns:Status post liver transplantation (HCC) TAKE ONE CAPSULE BY MOUTH IN THE MORNING 1 hour before first daily meal 90 Capsule 3 3 Active Mycophenolate Mofetil 250 MG Oral Capsule (Cellcept)Indicatio ns:Status post liver transplantation (HCC) TAKE TWO CAPSULES BY MOUTH TWICE DAILY 360 Capsule 3 3 Active Tacrolimus 1 MG Oral Capsule (Prograf)Indication s:Status post liver transplantation (HCC) TAKE 1 CAP BY MOUTH EVERY 12 HOURS 180 Capsule 3 3 Active DULoxetine HCl 60 MG Oral Capsule Delayed Release Particles (Cymbalta)Indicatio ns:ARGENIS (generalized anxiety disorder),Mild single current episode of major depressive disorder (HCC) take 1 cap by mouth daily 30 Capsule 5 3 Active Potassium Chloride Kiki ER 20 MEQ Oral Tablet Extended ReleaseIndications: Electrolyte and fluid disorder Take 1 Tablet by mouth in the morning and 1 Tablet before bedtime. 60 Tablet 11 3 Active Additional Information Patient not taking.Reported on 07/15/2023 DULoxetine HCl 60 MG Oral Capsule Delayed Release Particles (Cymbalta)Indicatio ns:ARGENIS (generalized anxiety disorder),Mild single current episode of major depressive disorder (HCC) take 1 cap by mouth daily 90 Capsule 3 3 Active Levemir FlexTouch 100 UNIT/ML Subcutaneous Solution Pen-injector (Insulin Detemir)Indications :Type 2 diabetes mellitus with hemoglobin A1c goal of less than 7.0% ([facility]),Type 2 diabetes mellitus with stage 3 chronic kidney disease, with long-term current use of insulin, unspecified whether stage 3a or 3b CKD (HCC) inject 13 units under the skin 2 times a day 30 mL 0 3 Active OneTouch Ultra In Vitro Strip (Glucose Blood)Indications:T ype 2 diabetes mellitus with hemoglobin A1c goal of less than 7.0% (HCC) test 3 times daily 300 Strip 3 3 Active OneTouch Ultra In Vitro Strip (Glucose Blood)Indications:T ype 2 diabetes mellitus with hemoglobin A1c goal of less than 7.0% ([facility]) test 3 times daily 300 Strip 3 2 023 Discontinued documented as of this encounter (statuses as of 09/11/2023) Active Problems Problem Noted Date Diagnosed Date Diabetes mellitus with gastroparesis 05/09/2020 ARGENIS (generalized anxiety disorder) 05/09/2020 Renal osteodystrophy 05/09/2020 Type 2 diabetes mellitus wit h stage 3 chronic kidney disease, with long-term current use of insulin 12/18/2018 Mild single current episode of major depressive disorder 12/18/2018 ADVANCE DIRECTIVE INFORMATION 10/30/2018 Overview: No, Advance Directive brochure given to patient at prior appointment. Urinary incontinence, nocturnal enuresis 018 Urge incontinence of urine 01/29/2018 Aspirin contraindicated 05/13/2016 Controlled substance agreement signed 09/27/2015 Osteoporosis 01/01/2011 Thoracic and lumbosacral neuritis 06/07/2010 DYSLIPIDEMIA, GOAL LDL BELOW 100 08/29/2009 Overview: Per Lipid Taxonomy. Type 2 diabetes mellitus wit h hemoglobin A1c goal of less than 7.0% 07/20/2009 Overview: Per Diabetes Taxonomy. ICD-10 update of inactive term Status post liver transplantation 08/03/2008 Chronic rhinitis 10/14/2003 Gastroparesis Thrombocytopenia documented as of this encounter (statuses as of 09/11/2023) Resolved Problems Problem Noted Date Diagnosed Date Resolved Date Acute cystitis with hematuria 03/06/2018 04/17/2018 Urinary incontinence without sensory awareness 01/29/2018 04/17/2018 HUMBLE (stress urinary incontinence, female) 01/29/2018 04/17/2018 Closed fracture of sacrum 06/04/2017 Inferior pubic ramus fracture 06/04/2017 06/18/2017 Overview: right Femoral neck fracture 06/04/20172016 Overview: right Hematoma 06/04/2017 04/17/2018 Overview: right posterior gluteal region 12.5 cm Fracture of femoral neck, right, closed 05/23/2017 04/17/2018 Fracture of multiple pubic rami 05/23/2017 04/17/2018 Overview: right superior and inferior pubic rami Acute sinusitis 04/10/2012 04/17/2018 KIDNEY DZ,CHRONIC (GFR 30-59) STAGE III 04/12/2010 11/13/2017 Overview: Per CKD Protocol, #1 Headache 03/30/2009 04/17/2018 Overview: ICD-10 update of inactive term Vertebral fracture, pathological 10/30/2008 04/17/2018 Lumbago 10/18/2008 04/17/2018 Pruritic disorder 09/08/2008 11/21/2008 Need for prophylactic immunotherapy 08/17/2008 01/29/2012 INTERFACED RESULT 08/12/2008 02/20/2012 EXAMINATION OF PARTICIPANT I N CLINICAL TRIAL- genomics 04/19/2008 01/05/2010 Overview: Renamed Per Clinical Trials Billing Project. Study Titile: Genomics Markers for Patients with Cardiovascular Disease Project # [id number] PI: Susan Harmon MD Please call [phone] with study related questions GENOMICS CARDIO RESEARCH OTHER*[id number] 04/19/2008 10/29/2016 Overview: Renamed Per Clinical Trials Billing Project. Study Titile: Genomics Markers for Patients with Cardiovascular Disease Project # [id number] PI: Susan Harmon MD Please call [phone] with study related questions Hypocalcemia 12/02/2005 04/17/2018 DENTURES 12/12/2004 04/17/2018 Dyslipidemia, goal to be determined 02/01/2002 08/29/2009 Overview: Per Lipid Taxonomy. Type 2 diabetes mellitus wit h hemoglobin A1c goal of less than 7.0% 07/20/2009 Overview: Per Diabetes Taxonomy. ICD-10 update of inactive term Cirrhosis of liver 8 Pleural effusion 04/17/2018 Back ache 06/18/2017 Hypomagnesemia 06/18/2017 Hypophosphatemia 06/18/2017 Sacral fracture 06/18/2017 documented as of this encounter (statuses as of 09/11/2023) Immunizations Name Administration Dates Next Due Hepatitis B, 20+ yrs 02/08/2008,01/05/2008 PPD 03/21/2008 Pneumococcal Conjugate Vacc, 13 Valent (Prevnar) 01/02/2016 Pneumococcal Polysaccharide PPV23 (Pneumovax) 04/10/2006 Seasonal Influenza, Split, I IV3, With Preserve, Inj 08/12/2013,10/09/2012,09/04/2011,07/24,08/15/2009,07/04/2008,06/26/2007 TDAP (age 11 and older)(Adacel) 03/29/2008 documented as of this encounter Social History Tobacco Use Types Packs/Day Years Used Date Smoking Tobacco: Never Smokeless Tobacco: Never Alcohol Use Standard Drinks/Week Comments No 0 (1 standard drink = 0.6 oz pur e alcohol) PHQ-2 Answer Date Recorded PHQ-2 Score 0 07/08/2019 Hunger Vital Sign Answer Date Recorded Worried About Running Out of Food in the Last Ye ar Never true 07/08/2019 Ran Out of Food in the Last Year Never true 07/08/2019 Sex and Gender Information Value Date Recorded Sex Assigned at Female 07/08/2019 12:07 PM EDT Gender Identity Female 07/08/2019 12:07 PM EDT Sexual Orientation Straight 07/08/2019 12 :07 PM EDT Job Start Date Occupation Industry Not on file Not on file Not on file documented as of this encounter Miscellaneous Notes * Telephone Encounter - Nickolas Maxwell [facility] - 09/11/2023 3:38 PM ESTSigned Prescriptions: Disp Refills Workanauch Ultra In Vitro Strip (Glucose Blo*300 St*3 Sig: test 3 times dailyAuthorizing Provider: ELLEN RAGLAND User: NICKOLAS MAXWELL documented in this encounter Plan of Treatment Health Maintenance Due Date Last Done Comments COVID-19 Vaccine (#1) 1954 Zoster Vaccines (1 of 2) 1968 Cologuard 1994 Sigmoidoscopy 1994 Hepatitis B (3 of 3 - Risk 3-dose series) 07/06/2008 02/08/2008, 01/05/2008 Fecal Occult Blood Test 02/07/2009 02/08/2008 Pneumococcal Vaccine: 65+ Years (3 - PPSV23 or PCV20) 01/01/2017 01/02/2016, 04/10/2006 Colonoscopy 02/11/2017 02/11/2007 Colorectal Cancer Screening 02/11/2017 DXA Scan 03/21/2017 03/21/2015, 10/2012, 12/21/2010, Additional history exists DTaP,Tdap,and Td Vaccines (2 - Td or Tdap) 03/29/2018 03/29/2008 *BISPHONATE OR OTHER ACCEPTABLE MEDICATION NEEDED FOR OSTEOPOROSIS (REFER TO SMARTSET #1146) 02/10/2019 Depression Screening 07/08/2020 07/08/2019 Diabetic Eye Exam 07/08/2020 07/08/2019, , 08/22/2016, Additional history exists Diabetic Foot Exam 07/08/2020 07/08/2019, 0 04/17/2018, 07/08/2017, Additional history exists Mammogram 07/09/2020 07/09/2019, 060 11/2014, 02/15/2014, Additional history exists Albumin/Creatinine Ratio 11/27/2022 022, 01/02/2018, 03/06/2017, Additional history exists HbA1c 10/03/2023 04/02/2023, 10/24, 08/10/2018, Additional history exists GFR 01/14/2024 07/15/2023, 0 09/2022, 04/09/2023, Additional history exists CKD PHOS USE SMARTSET 88755 04/22/2024 080 09/2022, 11/15/2020, 04/01/2017, Additional history exists CKD HGB USE SMARTSET 46270 07/15/202407/15, 04/22/2023, 04/02/2023, Additional history exists Lipid Panel 11/15/2025 11/15/2020, 0 02/2016, 11/02/2014, Additional history exists VITAMIN D LEVEL ONCE IN A LIFETIME-USE SMARTSET# [id number] Completed 04/09/2023, 08/10/2018, 11/04/2017, Additional history exists GARDASIL-HPV IMMUNIZATION SERIES Aged Out No longer eligible based on patient's age to complete this topic MENINGOCOCCAL (MENACTRA/MENVEO) Aged Out No longer eligible based on patient's age to complete this topic documented as of this encounter Medical Devices Implanted Type Area Social Staff Worker Device Identifier Shelf Expiration Date Model / Serial / Lot Allomax Implanted:Qty: 1 on 08/05/2008 at [facility] 04/22/2013 [id number] / / Description:allomax surgical graft, tissue #[id number] [employer] / [id number] - [id number] Implanted:Qty: 1 on 11/23/2008 at OR [facility] [employer] [id number] / / documented as of this encounter Visit Diagnoses Diagnosis Type 2 diabetes mellitus with hemoglobin A1c goal of less than 7.0% (HCC) documented in this encounter Advance Directives Latest Code Status on File Code Status Date Activated Date Inactivated Comments Full Code 03/29/2009 6:49 AM 03/31/2009 5:54 PM This o rder reflects the patients wishes and were consensually agreed upon. Question Answer Comments Discussion of Advance Directives occurred with: Patient Code Status History Code Status Date Activated Date Inactivated Comments Full Code 11/23/2008 7:12 AM 2008 4:44 PM Full Code 10/28/2008 4:27 PM 11/04/2008 12:38 AM Full Code 08/03/2008 1:10 PM 08/12/2008 4:20 PM Full Code 08/02/2008 8:28 PM 08/03/2008 1:10 PM Care Teams [employer] Superintendent Relationship Specialty Start Date End Date Ellen Ragland MD [address] [place] [address] PCP - General 05/17/08 documented as of this encounter
--- OUTSIDE RECORDS SUMMARY | 2023-11-08 18:34 | External Medical Summary | Summary of Care ---
Author Name Unknown Organization [facility] Address [address] [address] Phone [phone] Care Team Providers Care Financial Market Dealer Name Role Phone Ellen Ragland MD Primary Care Provider + Reason for Visit * Reason Onset Date Comments eRx-Medication Refill Medication Refill 10/30/2023 Encounter Details Date Type Department Care Team (Late st Contact Info) Description 10/30/2023 Refill General Internal Medicine [facility] [address] [facility] [place] [address] Ellen Ragland MD [address] [place] [address] Vitamin D deficiency Allergies Active Allergy Reactions Criticality Noted Date Comments Codeine 03/05/2001 Just with plain codeine , not vicodin or percocet Johansen-2 Inhibitors 07/08/2001 Legs numb, knots in legs celebrex Influenza Virus Vaccine 12/18/2018 Allergic reaction Pneumococcal Polysaccharides Conjugated Vaccine 12/18/2018 Allergy Rofecoxib 07/08/2001 Nausea documented as of this encounter (statuses as of 10/31/2023) Medications Medication Sig Dispensed Refills Start Date [...] hemoglobin A1c goal of less than 7.0% ([facility]),Type 2 diabetes mellitus with stage 3 chronic kidney disease, with long-term current use of insulin, unspecified whether stage 3a or 3b CKD ([facility]) inject 13 units under the skin 2 times a day 30 mL 0 3 Active OneTouch Ultra In Vitro Strip (Glucose Blood)Indications:T ype 2 diabetes mellitus with hemoglobin A1c goal of less than 7.0% ([facility]) test 3 times daily 300 Strip 3 3 Active Vitamin D3 1.25 MG (09014 UT) Oral CapsuleIndications: Vitamin D deficiency TAKE 1 CAPSULE BY MOUTH ONCE A WEEK. 12 Capsule 0 4 024 Active Vitamin D3 1.25 MG (79509 UT) Oral CapsuleIndications: Vitamin D deficiency Take 1 Capsule by mouth once a week. 12 Capsule 1 3 024 Discontinued documented as of this encounter (statuses as of 10/31/2023) Active Problems Problem Noted Date Diagnosed Date [...] as of this encounter (statuses as of 10/31/2023) Resolved Problems Problem Noted Date Diagnosed Date [...] for Patients with Cardiovascular Disease Project # [id number] PI: Susan Harmon MD Please call [phone] with study related questions GENOMICS CARDIO RESEARCH OTHER*[id number] 04/19/2008 10/29/2016 Overview: Renamed Per Clinical Trials Billing Project. Study Titile: Genomics Markers for Patients with Cardiovascular Disease Project # [id number] PI: Susan Harmon MD Please call [phone] with study related questions Hypocalcemia 12/02/2005 04/17/2018 [...] as of this encounter (statuses as of 10/31/2023) Immunizations Name Administration Dates Next Due Hepatitis [...] encounter Miscellaneous Notes * Telephone Encounter - Ellen Ragland MD - 10/31/2023 11:34 AM EST Signed Prescriptions: Disp Refills Vitamin D3 1.25 MG (51997 UT) Oral Capsule 12 Cap*0 Sig: TAKE 1 CAPSULE BY MOUTH ONCE A WEEK. Authorizing Provider: ELLEN RAGLAND * Telephone Encounter - Leeanne Woodward LPN - 10/31/2023 10:45 AM EST Pending Prescriptions: Disp Refills Vitamin D3 1.25 MG (96766 UT) Oral Capsule*12 Cap*0 Sig: Take 1 Capsule by mouth once a week. * Telephone Encounter - Leeanne Woodward LPN - 10/31/2023 10:44 AM EST Did you pend patient's preferred pharmacy and medication before forwarding?yes Pharmacy: [id number] [facility] Pending Prescriptions: Disp Refills Vitamin D3 1.25 MG (00176 UT) Oral Capsul*12 Cap*0 Sig: TAKE 1 CAPSULE BY MOUTH ONCE A WEEK. Last Visit: 07/08/2019 (in office), 04/24/2023 (telemedicine) Next Visit: Visit date not found If no future appointments scheduled, and last appointment is greater than a year ago, please schedule patient for a follow-up appointment Last date the medication was ordered: 04/10/2023 Is this request for a controlled substance?No Urine Drug Screen:No results found. However, due to the size of the patient record, not all encounters were searched. Please check Results Review for a complete set of results. Patient Phone Numbers Labs: Lab Results Component Value Date/Time CREAT 0.8 07/15/2023 10:52 AM CREAT 0.84 04/22/2023 12:00 AM CREAT 1.1 (H) 08/25/2018 12:56 PM POTASSIUM 4.2 07/15/2023 10:52 AM POTASSIUM 5.7 (A) 04/22/2023 12:00 AM POTASSIUM 4.0 08/25/2018 12:56 PM TSH 2.55 02/13/2016 09:57 AM LDLCALC 86 11/15/2020 11:44 AM LDLCALC 71 06/04/2013 01:31 PM LDLDIRECT 113 09/27/2015 12:06 PM ALT 18 07/15/2023 10:52 AM ALT 12 11/04/2017 12:53 PM HGBA1C 4.6 04/02/2023 09:33 AM HGBA1C 6.2 (H) 08/10/2018 11:00 AM * Telephone Encounter - Collin South - 10/31/2023 4:05 AM ESTPending Prescriptions: Disp Refills Vitamin D3 1.25 MG (94173 UT) Oral Capsule*12 Cap*0 Sig: Take 1Capsule by mouth once a week. documented in this encounter Plan of Treatment [...] 08/10/2018, Additional history exists GFR 01/14/2024 07/15/2023, 080 09/2022, 04/09/2023, Additional history exists CKD PHOS USE SMARTSET 67022 04/22/2024 08/0 09/2022, 11/15/2020, 04/01/2017, Additional history exists CKD HGB USE SMARTSET 83682 07/15/202407/15, 04/22/2023, 04/02/2023, Additional history exists Lipid Panel 11/15/2025 11/15/2020, 02/2016, 11/02/2014, Additional history exists VITAMIN D LEVEL ONCE IN A LIFETIME-USE SMARTSET# 52180 Completed 04/09/2023, 08/10/2018, 11/04/2017, Additional history exists GARDASIL-HPV IMMUNIZATION SERIES Aged Out No longer eligible based on patient's age to complete this topic MENINGOCOCCAL (MENACTRA/MENVEO) Aged Out No longer eligible based on patient's age to complete this topic documented as of this encounter Medical Devices Implanted Type Area Receiving Weigher Device Identifier Shelf Expiration Date Model / Serial / Lot Allomax Implanted:Qty: 1 on 08/05/2008 at OR [facility] 04/22/2013 [id number] / / Description:allomax surgical graft, tissue #[id number] Kyph[employer]ak /3 [id number] - [id number] Implanted:Qty: 1 on 11/23/2008 at OR [facility] [employer] [id number] / / documented as of this encounter Visit Diagnoses Diagnosis Vitamin D deficiency Unspecified vitamin D deficiency documented in this encounter Advance Directives Latest [...] 8:28 PM 08/03/2008 1:10 PM Care Teams Financial Market Dealer Relationship Specialty Start Date End Date Ellen Ragland MD [address] [place], [place] [address]mon[place] [address] PCP - General 05/17/08 documented as of this encounter
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
--- OUTSIDE RECORDS SUMMARY | 2023-11-08 18:35 | External Medical Summary | Summary of Care ---
Author Name Unknown Organization [facility] Address [address] [facility] [address] Phone [phone] Care Team Providers Care Workers Compensation Claims Adjuster Name Role Phone Ivette Ragland MD Primary Care Provider + Encounter Details Date Type Department Care Team (Late st Contact Info) Description 07/18/2023 Telephone General Internal Medicine [facility] [address] [facility] [place] [address] Ivette Ragland MD 200 [place] [address] Allergies Active Allergy Reactions Criticality Noted Date Comments Codeine 03/05/2001 Just with plain codeine , not vicodin or percocet Johansen-2 Inhibitors 07/08/2001 Legs numb, knots in legs celebrex Influenza Virus Vaccine 12/18/2018 Allergic reaction Pneumococcal Polysaccharides Conjugated Vaccine 12/18/2018 Allergy Rofecoxib 07/08/2001 Nausea documented as of this encounter (statuses as of 07/28/2023) Medications Medication Sig Dispensed Refills Start Date [...] Additional Information Patient not taking.Reported on 07/15/2023 [email or web address] Ultra In Vitro Strip (Glucose Blood)Indications:Ty pe 2 diabetes mellitus with hemoglobin A1c goal of less than 7.0% ([facility]) test 3 times daily 300 Strip 3 [...] single current episode of major depressive disorder ([facility]) take 1 cap by mouth daily 90 Capsule 3 04/04/2023 Active Levemir FlexTouch 100 UNIT/ML Subcutaneous Solution Pen-injector (Insulin Detemir)Indications: Type 2 diabetes mellitus with hemoglobin A1c goal of less than 7.0% ([facility]),Type 2 diabetes mellitus with stage 3 chronic kidney disease, with long-term current use of insulin, unspecified whether stage 3a or 3b CKD ([facility]) inject 13 units under the skin 2 times a day 30 mL 0 05/22/2023 Active documented as of this encounter (statuses as of 07/28/2023) Active Problems Problem Noted Date Diagnosed Date [...] as of this encounter (statuses as of 07/28/2023) Resolved Problems Problem Noted Date Diagnosed Date [...] for Patients with Cardiovascular Disease Project # [id number] PI: Susan Harmon MD Please call [phone] with study related questions GENOMICS CARDIO RESEARCH OTHER*[id number] 04/19/2008 10/29/2016 Overview: Renamed Per Clinical Trials Billing Project. Study Titile: Genomics Markers for Patients with Cardiovascular Disease Project # [id number] PI: Susan Harmon MD Please call [phone] with study related questions Hypocalcemia 12/02/2005 04/17/2018 [...] as of this encounter (statuses as of 07/28/2023) Immunizations Name Administration Dates Next Due Hepatitis [...] encounter Miscellaneous Notes * Telephone Encounter - Ivette Ragland MD - 07/28/2023 12:21 PM EST Noted. 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 Daughter [...] any chance can we have help from [facility] as an exception unless family is okay switching to [facility]. Please forward to concepcion and [facility] at home along with our casemanager whoever can help in this situation. I do not know the pool as of now. Thanks. * Telephone Encounter - Ashish Miranda OSA - 07/24/2023 9:29 AM EDT Any advice/help on this would be appreciated. * Telephone Encounter - Tonie Arreaga LPN - 07/24/2023 8:16 AM EDT Called Reny at [facility]. informed of message. She verbalized understanding. Reny asked, if we would reach out to [facility] if family doesn't follow through with appts [...] want to schedule to est care in [place] as previously advised. FYI to PCP * [...] was also conveyed to her that coming[facility] is difficult then they should think about switching the primary care provider to [place] as they live closer to that place. Please keep me posted if any new update. Thanks * Telephone Encounter - Tonie Arraega LPN - 07/23/2023 10:06 AM EDT Reny from [facility] [employer] calling. Fox was not available to transfer call, spoke with Carmelo. 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 Reny did my an unannounced visit to pt's [...] [place] [id number] * Telephone Encounter - Ivette Ragland MD - 07/21/2023 8:34 AM EDT Noted. Nursing Can we request any other protective agency or patcher to check on this patient? 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 Laying in Urine/Feces 14/04 [...] Cancer Screening 02/11/2017 DXA Scan 03/21/2017 03/21/2015, 04/10/2012, 12/21/2010, Additional history exists DTaP,Tdap,and Td Vaccines [...] Additional history exists CKD PHOS USE SMARTSET 17951 04/22/2024 080 09/2022, 11/15/2020, 04/01/2017, Additional history exists CKD HGB USE SMARTSET 46292 07/15/202407/15, 04/22/2023, 04/02/2023, Additional history exists Lipid Panel 11/15/2025 11/15/2020, 0 02/2016, 11/02/2014, Additional history exists VITAMIN D LEVEL ONCE IN A LIFETIME-USE SMARTSET# 34344 Completed 04/09/2023, 08/10/2018, 11/04/2017, Additional history exists GARDASIL-HPV IMMUNIZATION SERIES Aged Out No longer eligible based on patient's age to complete this topic MENINGOCOCCAL (MENACTRA/MENVEO) Aged Out No longer eligible based on patient's age to complete this topic documented as of this encounter Medical Devices Implanted Type Area Gray Tender Device Identifier Shelf Expiration Date Model / Serial / Lot Allomax Implanted:Qty: 1 on 08/05/2008 at [place] [facility] 04/22/2013 [id number] / / Description:allomax surgical graft, tissue #[id number] Kyphopak 20/3 [id number] - [id number] Implanted:Qty: 1 on 11/23/2008 at [place] [facility] [employer] [id number] / / documented as of this encounter [...] 8:28 PM 08/03/2008 1:10 PM Care Teams Workers Compensation Claims Adjuster Relationship Specialty Start Date End Date Ivette Ragland MD [address] [facility] [place] [address] PCP - General 05/17/08 documented as of this encounter
--- OUTSIDE RECORDS SUMMARY | 2023-11-08 18:35 | External Medical Summary | Summary of Care ---
Author Name Unknown Organization [facility] Address [address] [facility] [address] Phone [phone] Care Team Providers Care Light Armored Reconnaissance Officer Name Role Phone Ivette Ragland MD Primary Care Provider + Encounter Details Date Type Department Care Team (Late st Contact Info) Description 07/18/2023 Telephone General Internal Medicine [facility] 200 [facility] [place] [address] Ivette Ragland MD 200 [place] [address] Allergies Active Allergy Reactions Criticality Noted Date [...] Additional Information Patient not taking.Reported on 07/15/2023 [employer] Ultra In Vitro Strip (Glucose Blood)Indications:Ty pe 2 diabetes mellitus with hemoglobin A1c goal of less than 7.0% ([facility]) test 3 times daily 300 Strip 3 [...] single current episode of major depressive disorder ([facility]) take 1 cap by mouth daily 90 Capsule 3 04/04/2023 Active Levemir FlexTouch 100 UNIT/ML Subcutaneous Solution Pen-injector (Insulin Detemir)Indications: Type 2 diabetes mellitus with hemoglobin A1c goal of less than 7.0% ([facility]),Type 2 diabetes mellitus with stage 3 chronic kidney disease, with long-term current use of insulin, unspecified whether stage 3a or 3b CKD ([facility]) inject 13 units under the skin 2 [...] for Patients with Cardiovascular Disease Project # [id number] PI: Susan Harmon MD Please call [phone] with study related questions GENOMICS CARDIO RESEARCH OTHER*[id number] 04/19/2008 10/29/2016 Overview: Renamed Per Clinical Trials Billing Project. Study Titile: Genomics Markers for Patients with Cardiovascular Disease Project # [id number] PI: Susan Harmon MD Please call [phone] with study related questions Hypocalcemia 12/02/2005 04/17/2018 [...] Noted. 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 Daughter [...] any chance can we have help from [facility] at home as an exception unless family [...] 07/24/2023 8:16 AM EDT Called Reny at [facility]. informed of message. She verbalized understanding. Reny asked, if we would reach out to [facility] if family doesn't follow through with appts [...] want to schedule to est care in [place] as previously advised. FYI to PCP * [...] was also conveyed to her that [facility] is difficult then they should think about switching the primary care provider to [place] as they live closer to that place. Please keep me posted if any new update. Thanks * Telephone Encounter - Tonie Arreaga LPN - 07/23/2023 10:06 AM EDT Reny from [facility] [employer] calling. Fox was not available to [...] [place] [id number] * Telephone Encounter - Ivette Ragland MD - 07/21/2023 8:34 AM EDT Noted. Nursing Can we request any other protective agency or piercer to check on this patient? 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 Laying in Urine/Feces 14/04 [...] Additional history exists CKD PHOS USE SMARTSET 79023 04/22/2024 080 09/2022, 11/15/2020, 04/01/2017, Additional history exists CKD HGB USE SMARTSET 74065 07/15/202407/15, 04/22/2023, 04/02/2023, Additional history exists Lipid Panel 11/15/2025 11/15/2020, 0 02/2016, 11/02/2014, Additional history exists VITAMIN D LEVEL ONCE IN A LIFETIME-USE SMARTSET# 49248 Completed 04/09/2023, 08/10/2018, 11/04/2017, Additional history exists GARDASIL-HPV IMMUNIZATION SERIES Aged Out No longer eligible based on patient's age to complete this topic MENINGOCOCCAL (MENACTRA/MENVEO) Aged Out No longer eligible based on patient's age to complete this topic documented as of this encounter Medical Devices Implanted Type Area Yoker Device Identifier Shelf Expiration Date Model / Serial / Lot Allomax Implanted:Qty: 1 on 08/05/2008 at OR [facility] 04/22/2013 [id number] / / Description:allomax surgical graft, tissue #[id number] Kyphopak 20/3 [id number] - [id number] Implanted:Qty: 1 on 11/23/2008 at OR [facility] [employer] [id number] / / documented as of this encounter [...] 8:28 PM 08/03/2008 1:10 PM Care Teams Light Armored Reconnaissance Officer Relationship Specialty Start Date End Date Ivette Ragland MD [address] [facility] [place] [address] PCP - General 05/17/08 documented as of this encounter
--- OUTSIDE RECORDS SUMMARY | 2023-11-08 18:35 | External Medical Summary | Summary of Care ---
Author Name Unknown Organization [facility] Address [address] [facility] [address] Phone [phone] Care Team Providers Care City Marshal Name Role Phone Ivette Ragland MD Primary Care Provider + Encounter Details Date Type Department Care Team (Late st Contact Info) Description 07/18/2023 Telephone General Internal Medicine [facility] [address] [facility] [place] [address] Ivette Ragland MD 200 [place] [address] Allergies Active Allergy Reactions Criticality Noted Date [...] Additional Information Patient not taking.Reported on 07/15/2023 [email or web address] Ultra In Vitro Strip (Glucose Blood)Indications:Ty pe 2 diabetes mellitus with hemoglobin A1c goal of less than 7.0% ([facility]) test 3 times daily 300 [...] single current episode of major depressive disorder ([facility]) take 1 cap by mouth daily 90 Capsule 3 04/04/2023 Active Levemir FlexTouch 100 UNIT/ML Subcutaneous Solution Pen-injector (Insulin Detemir)Indications: Type 2 diabetes mellitus with hemoglobin A1c goal of less than 7.0% ([facility]),Type 2 diabetes mellitus with stage 3 chronic kidney disease, with long-term current use of insulin, unspecified whether stage 3a or 3b CKD ([facility]) inject 13 units under the skin 2 [...] for Patients with Cardiovascular Disease Project # [id number] PI: Susan Harmon MD Please call [phone] with study related questions GENOMICS CARDIO RESEARCH OTHER*[id number] 04/19/2008 10/29/2016 Overview: Renamed Per Clinical Trials Billing Project. 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 [...] any chance can we have help from [facility] at home as an exception unless family [...] 07/24/2023 8:16 AM EDT Called Reny at [facility]. informed of message. She verbalized understanding. Reny asked, if we would reach out to [facility] if family doesn't follow through with appts [...] want to schedule to est care in [place] as previously advised. FYI to PCP * [...] was also conveyed to her that coming[facility] is difficult then they should think about switching the primary care provider to [place] as they live closer to that place. Please keep me posted if any new update. Thanks * Telephone Encounter - Tonie Arreaga LPN - 07/23/2023 10:06 AM EDT Reny from [facility] calling. Fox was not available to [...] [place] [id number] * Telephone Encounter - Ivette Ragland MD - 07/21/2023 8:34 AM EDT Noted. Nursing Can we request any other protective agency or roll inspector to check on this patient? Thanks * Telephone Encounter - Dai Carnes LPN - 07/18/2023 11:47 AM EDT FYI * Telephone Encounter - Macy Zambrano OSA - 07/18/2023 10:56 AM EDT Reny calling that they received a call regarding Mobile Home Installer neglect and exportation. Laying in Urine/Feces 14/04 [...] Additional history exists CKD PHOS USE SMARTSET 05231 04/22/2024 080 09/2022, 11/15/2020, 04/01/2017, Additional history exists CKD HGB USE SMARTSET 86753 07/15/202407/15, 04/22/2023, 04/02/2023, Additional history exists Lipid Panel 11/15/2025 11/15/2020, 0 02/2016, 11/02/2014, Additional history exists VITAMIN D LEVEL ONCE IN A LIFETIME-USE SMARTSET# 62155 Completed 04/09/2023, 08/10/2018, 11/04/2017, Additional history exists GARDASIL-HPV IMMUNIZATION SERIES Aged Out No longer eligible based on patient's age to complete this topic MENINGOCOCCAL (MENACTRA/MENVEO) Aged Out No longer eligible based on patient's age to complete this topic documented as of this encounter Medical Devices Implanted Type Area Career Resource Specialist Device Identifier Shelf Expiration Date Model / Serial / Lot Allomax Implanted:Qty: 1 on 08/05/2008 at [place] [facility] 04/22/2013 [id number] / / Description:allomax surgical graft, tissue #[id number] Kyphopak 20/3 [id number] - [id number] Implanted:Qty: 1 on 11/23/2008 at [place] [facility] [employer] [id number] / / documented as of this encounter [...] 8:28 PM 08/03/2008 1:10 PM Care Teams City Marshal Relationship Specialty Start Date End Date Ivette Ragland MD [address] [facility] [place] [address] PCP - General 05/17/08 documented as of this encounter
--- OUTSIDE RECORDS SUMMARY | 2023-11-08 18:35 | External Medical Summary | Summary of Care ---
Author Name Unknown Organization [facility] Address [address] [facility] [address] Phone [phone] Care Team Providers Care Leather Sponger Name Role Phone Ivette Ragland MD Primary Care Provider + Encounter Details Date Type Department Care Team (Late st Contact Info) Description 07/18/2023 Telephone General Internal Medicine [facility] 200 [facility] [place] [address] Ivette Ragland MD 200 [place] [address] Allergies Active Allergy Reactions Criticality Noted Date Comments Codeine 03/05/2001 Just with plain codeine , not vicodin or percocet Johansen-2 Inhibitors 07/08/2001 Legs numb, knots in legs celebrex Influenza Virus Vaccine 12/18/2018 Allergic reaction Pneumococcal Polysaccharides Conjugated Vaccine 12/18/2018 Allergy Rofecoxib 07/08/2001 Nausea documented as of this encounter (statuses as of 07/24/2023) Medications Medication Sig Dispensed Refills Start Date [...] Additional Information Patient not taking.Reported on 07/15/2023 [employer] Ultra In Vitro Strip (Glucose Blood)Indications:Ty pe 2 diabetes mellitus with hemoglobin A1c goal of less than 7.0% ([facility]) test 3 times daily 300 Strip [...] single current episode of major depressive disorder ([facility]) take 1 cap by mouth daily 90 Capsule 3 04/04/2023 Active Levemir FlexTouch 100 UNIT/ML Subcutaneous Solution Pen-injector (Insulin Detemir)Indications: Type 2 diabetes mellitus with hemoglobin A1c goal of less than 7.0% ([facility]),Type 2 diabetes mellitus with stage 3 chronic kidney disease, with long-term current use of insulin, unspecified whether stage 3a or 3b CKD ([facility]) inject 13 units under the skin 2 times a day 30 mL 0 05/22/2023 Active documented as of this encounter (statuses as of 07/24/2023) Active Problems Problem Noted Date Diagnosed Date [...] as of this encounter (statuses as of 07/24/2023) Resolved Problems Problem Noted Date Diagnosed Date [...] for Patients with Cardiovascular Disease Project # [id number] PI: Susan Harmon MD Please call [phone] with study related questions GENOMICS CARDIO RESEARCH OTHER*[id number] 04/19/2008 10/29/2016 Overview: Renamed Per Clinical Trials Billing Project. Study Titile: Genomics Markers for Patients with Cardiovascular Disease Project # [id number] PI: Susan Harmon MD Please call [phone] with study related questions Hypocalcemia 12/02/2005 04/17/2018 [...] as of this encounter (statuses as of 07/24/2023) Immunizations Name Administration Dates Next Due Hepatitis [...] encounter Miscellaneous Notes * Telephone Encounter - Ashish Miranda OSA - 07/24/2023 9:29 AM EDT Any advice/help on this would be appreciated. * Telephone Encounter - Tonie Arreaga LPN - 07/24/2023 8:16 AM EDT Called Reny at [facility]. informed of message. She verbalized understanding. [...] want to schedule to est care in [place] as previously advised. FYI to PCP * [...] was also conveyed to her that [facility] is difficult then they should think about switching the primary care provider to [place] as they live closer to that place. Please keep me posted if any new update. Thanks * Telephone Encounter - Tonie Arreaga LPN - 07/23/2023 10:06 AM EDT Reny from [facility] calling. Fox was not [...] [place] [id number] * Telephone Encounter - Ivette Ragland MD - 07/21/2023 8:34 AM EDT Noted. Nursing Can we request any other protective agency or high risk case manager to check on this patient? 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 Laying in Urine/Feces 14/04 [...] 07/08/2017, Additional history exists Mammogram 07/09/2020 07/09/2019, 06/0 11/2014, 02/15/2014, Additional history exists Albumin/Creatinine Ratio 11/27/2022 022, 01/02/2018, 03/06/2017, Additional history exists HbA1c 10/03/2023 04/02/2023, 02/2 12/2020, 08/10/2018, Additional history exists GFR 01/14/2024 07/15/2023, 08/0 09/2022, 04/09/2023, Additional history exists CKD PHOS USE SMARTSET 16040 04/22/20240 09/2022, 11/15/2020, 04/01/2017, Additional history exists CKD HGB USE SMARTSET 59068 07/15/202407/15, 04/22/2023, 04/02/2023, Additional history exists Lipid Panel 11/15/2025 11/15/2020, 02/2016, 11/02/2014, Additional history exists VITAMIN D LEVEL ONCE IN A LIFETIME-USE SMARTSET# 32073 Completed 04/09/2023, 08/10/2018, 11/04/2017, Additional history exists GARDASIL-HPV IMMUNIZATION SERIES Aged Out No longer eligible based on patient's age to complete this topic MENINGOCOCCAL (MENACTRA/MENVEO) Aged Out No longer eligible based on patient's age to complete this topic documented as of this encounter Medical Devices Implanted Type Area Braid Maker Device Identifier Shelf Expiration Date Model / Serial / Lot Allomax Implanted:Qty: 1 on 08/05/2008 at [place] [facility] [place] 04/[place]/2013 [id number] / / Description:allomax surgical graft, tissue #[id number] Kyphopak / [id number] - [id number] Implanted:Qty: 1 on 11/23/2008 at [place] [facility] [place] [employer] [id number] / / documented as of this encounter [...] 8:28 PM 08/03/2008 1:10 PM Care Teams Leather Sponger Relationship Specialty Start Date End Date Ivette Ragland MD [address] [place] [address], [place] [address] PCP - General 05/17/08 documented as of this encounter
--- OUTSIDE RECORDS SUMMARY | 2023-11-08 18:35 | External Medical Summary | Summary of Care ---
Author Name Unknown Organization [facility] Address [address] [facility] [address] Phone [phone] Care Team Providers Care Radiology Nurse Name Role Phone Ivette Ragland MD Primary Care Provider + Reason for Visit * Reason Onset Date Comments Information 07/18/2023 Encounter Details Date Type Department Care Team (Late st Contact Info) Description 07/18/2023 Telephone General Internal Medicine [facility] [address] [facility] [place] [address] Ivette Ragland MD 200 [place] [address] Information Allergies Active Allergy Reactions Criticality Noted Date Comments Codeine 03/05/2001 Just with plain codeine , not vicodin or percocet Johansen-2 Inhibitors 07/08/2001 Legs numb, knots in legs celebrex Influenza Virus Vaccine 12/18/2018 Allergic reaction Pneumococcal Polysaccharides Conjugated Vaccine 12/18/2018 Allergy Rofecoxib 07/08/2001 Nausea documented as of this encounter (statuses as of 07/30/2023) Medications Medication Sig Dispensed Refills Start Date [...] Additional Information Patient not taking.Reported on 07/15/2023 [email or web address] Ultra In Vitro Strip (Glucose Blood)Indications:Ty pe 2 diabetes mellitus with hemoglobin A1c goal of less than 7.0% ([facility]) test 3 times daily 300 [...] as of this encounter (statuses as of 07/30/2023) Active Problems Problem Noted Date Diagnosed Date [...] as of this encounter (statuses as of 07/30/2023) Resolved Problems Problem Noted Date Diagnosed Date [...] # PI: Susan Harmon MD Please call [phone] with study related questions GENOMICS CARDIO RESEARCH OTHER*[id number] 04/19/2008 10/29/2016 Overview: Renamed Per Clinical Trials Billing Project. Study Titile: Genomics Markers for Patients with Cardiovascular Disease Project # PI: Susan Harmon MD Please call [phone] with study related questions Hypocalcemia 12/02/2005 04/17/2018 [...] as of this encounter (statuses as of 07/30/2023) Immunizations Name Administration Dates Next Due Hepatitis [...] encounter Miscellaneous Notes * Telephone Encounter - Alf Chase CMA - 07/30/2023 8:37 AM EST Received form from office of aging to be completed, placed in Dr Ragland's folder * Telephone Encounter - Leticia Sierra LPN - 07/28/2023 1:40 PM EST Called [place]. Spoke to Tracey- Reny [...] Maybe we can coordinate care [facility] to have the patient seen in person there if needed due to being closer for patient and family. Spoke with Sofy ALESHIA nurse to evaluate next steps and the only options we have are to schedule appointments and contact the office of aging if we suspect or if they do not schedule or keep their appointments.. Please call to schedule in person appointments. * Telephone Encounter - Ivette Ragland MD - 07/28/2023 12:21 PM EST Noted. 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 [...] any chance can we have help from [facility] as an exception unless family is okay switching to [facility]. Please forward to concepcion and Arely at home along with our casemanager whoever can help in this situation. I do not know the pool as of now. Thanks. * Telephone Encounter - Ashish Miranda OSA - 07/24/2023 9:29 AM EDT Any advice/help on this would be appreciated. * Telephone Encounter - Tonie Arreaga LPN - 07/24/2023 8:16 AM EDT Called Reny at [facility]. informed of message. She verbalized understanding. Reny [...] want to schedule to est care in [place] as previously advised. FYI to PCP * [...] conveyed to her that coming[facility] me is difficult then they should think about switching the primary care provider to [place] as they live closer to that place. Please keep me posted if any new update. Thanks * Telephone Encounter - Tonie Arreaga LPN - 07/23/2023 10:06 AM EDT Reny from [facility] [employer] calling. Fox was not available to [...] [place] [id number] * Telephone Encounter - Ivette Ragland MD - 07/21/2023 8:34 AM EDT Noted. Nursing Can we request any other protective agency or quality assurance supervisor body to check on this patient? Thanks * Telephone Encounter - Dai Carnes LPN - 07/18/2023 11:47 AM EDT FYI * Telephone Encounter - Macy Zambrano OSA - 07/18/2023 10:56 AM EDT Reny calling that they received a call regarding Salesperson Shoes neglect and exportation. Laying in Urine/Feces 14/04 [...] 07/08/2017, Additional history exists Mammogram 07/09/2020 07/09/2019, 0 11/2014, 02/15/2014, Additional history exists Albumin/Creatinine Ratio 11/27/2022 022, 01/02/2018, 03/06/2017, Additional history exists HbA1c 10/03/2023 04/02/2023, 10/24, 08/10/2018, Additional history exists GFR 01/14/2024 07/15/2023, 080 09/2022, 04/09/2023, Additional history exists CKD PHOS USE SMARTSET 25426 04/22/2024 080 09/2022, 11/15/2020, 04/01/2017, Additional history exists CKD HGB USE SMARTSET 07882 07/15/202407/15, 04/22/2023, 04/02/2023, Additional history exists Lipid Panel 11/15/2025 11/15/2020, 0 02/2016, 11/02/2014, Additional history exists VITAMIN D LEVEL ONCE IN A LIFETIME-USE SMARTSET# 63030 Completed 04/09/2023, 08/10/2018, 11/04/2017, Additional history exists GARDASIL-HPV IMMUNIZATION SERIES Aged Out No longer eligible based on patient's age to complete this topic MENINGOCOCCAL (MENACTRA/MENVEO) Aged Out No longer eligible based on patient's age to complete this topic documented as of this encounter Medical Devices Implanted Type Area Hammer Driver Device Identifier Shelf Expiration Date Model / Serial / Lot Allomax Implanted:Qty: 1 on 08/05/2008 at [place] [facility] 04/22/2013 [id number] / / Description:allomax surgical graft, tissue #[id number] Kyphopak 20/3 [id number] - [id number] Implanted:Qty: 1 on 11/23/2008 at [place] [facility] [employer] [id number] / / documented as of this encounter [...] 8:28 PM 08/03/2008 1:10 PM Care Teams Radiology Nurse Relationship Specialty Start Date End Date Ivette Ragland MD 200 [place] [address] PCP - General 05/17/08 documented as of this encounter
--- OUTSIDE RECORDS SUMMARY | 2023-11-08 18:35 | External Medical Summary | Summary of Care ---
Author Name Unknown Organization [facility] Address [address] [facility] [facility] [address] Phone [phone] Care Team Providers Care Medical Facilities Section Director Name Role Phone Ivette Ragland MD Primary Care Provider + Reason for Visit * Reason Onset Date Comments Information 07/18/2023 Encounter Details Date Type Department Care Team (Late st Contact Info) Description 07/18/2023 Telephone General Internal Medicine [facility] 200 [facility] [place] [address] Ivette Ragland MD 200 [place] [address] Information Allergies Active Allergy Reactions Criticality [...] Additional Information Patient not taking.Reported on 07/15/2023 [employer] Ultra In Vitro Strip (Glucose Blood)Indications:Ty pe 2 diabetes mellitus with hemoglobin A1c goal of less than 7.0% ([facility]) test 3 times daily 300 [...] # PI: Susan Harmon MD Please call [phone] with study related questions GENOMICS CARDIO RESEARCH OTHER*[id number] 04/19/2008 10/29/2016 Overview: Renamed Per Clinical Trials Billing Project. Study Titile: Genomics Markers for Patients with Cardiovascular Disease Project # PI: Susan Harmon MD Please call [phone] with study related questions Hypocalcemia 12/02/2005 04/17/2018 [...] encounter Miscellaneous Notes * Telephone Encounter - Leticia Sierra LPN - 07/28/2023 1:40 PM EST Called [facility]. Spoke to Tracey- Reny [...] thetelemed appointments when able. Patient was at in Oct with hepatology at . It does note it was difficult to get the patient into the clinic.. Maybe we can coordinate care with the [facility] to have the patient seen in person there if needed due to being closer for patient and family. Spoke with Sofy [facility] nurse to evaluate next steps and the only options we have are to schedule appointments and contact the office of aging if we suspect or if they do not schedule or keep their appointments.. Please call to schedule in person appointments. * Telephone Encounter - Ivette Ragland MD - 07/28/2023 12:21 PM EST Noted. I can not continue the care watermaster without clinical eval for this pt. Daughter [...] any chance can we have help from [facility] as an exception unless family is okay switching to [facility]. Please forward to concepcion and [facility] at home along with our casemanager whoever can help in this situation. I do not know the pool as of now. Thanks. * Telephone Encounter - Ashish Miranda OSA - 07/24/2023 9:29 AM EDT Any advice/help on this would be appreciated. * Telephone Encounter - Tonie Arreaga LPN - 07/24/2023 8:16 AM EDT Called Reny at [facility]. informed of message. She verbalized understanding. Reny [...] want to schedule to est care in [place] as previously advised. FYI to PCP * [...] was also conveyed to her that [facility] difficult then they should think about switching the primary care provider to [place] as they live closer to that place. Please keep me posted if any new update. Thanks * Telephone Encounter - Tonie Arreaga LPN - 07/23/2023 10:06 AM EDT Reny from [facility] calling. Chiquitad[place]ne was not available to transfer call, spoke [...] [place]. [place] [id number] * Telephone Encounter - Ivette Ragland MD - 07/21/2023 8:34 AM EDT Noted. Nursing Can we request any other protective agency or xm1 tank driver to check on this patient? Thanks * Telephone Encounter - Dai Carnes LPN - 07/18/2023 11:47 AM EDT FYI * Telephone Encounter - Macy Zambrano OSA - 07/18/2023 10:56 AM EDT Reny calling that they received a call regarding [employer] Worker neglect and exportation. Laying in Urine/Feces 14/04 [...] Cancer Screening 02/11/2017 DXA Scan 03/21/2017 03/21/2015, 0410/2012, 12/21/2010, Additional history exists DTaP,Tdap,and Td Vaccines [...] Additional history exists CKD PHOS USE SMARTSET 26768 04/22/2024 080 09/2022, 11/15/2020, 04/01/2017, Additional history exists CKD HGB USE SMARTSET 12511 07/15/202407/15, 04/22/2023, 04/02/2023, Additional history exists Lipid Panel 11/15/2025 11/15/2020, 02/2016, 11/02/2014, Additional history exists VITAMIN D LEVEL ONCE IN A LIFETIME-USE SMARTSET# 26228 Completed 04/09/2023, 08/10/2018, 11/04/2017, Additional history exists GARDASIL-HPV IMMUNIZATION SERIES Aged Out No longer eligible based on patient's age to complete this topic MENINGOCOCCAL (MENACTRA/MENVEO) Aged Out No longer eligible based on patient's age to complete this topic documented as of this encounter Medical Devices Implanted Type Area Electrical Engineering Manager Device Identifier Shelf Expiration Date Model / Serial / Lot Allomax Implanted:Qty: 1 on 08/05/2008 at OR [facility] 04/22/2013 [id number] / / Description:allomax surgical graft, tissue #[id number] Kyphopak 20/3 [id number] - [id number] Implanted:Qty: 1 on 11/23/2008 at OR [facility] [employer] [id number] / / documented as of this encounter [...] 8:28 PM 08/03/2008 1:10 PM Care Teams Medical Facilities Section Director Relationship Specialty Start Date End Date Ivette Ragland MD [address] [place] [address], [place] [address] PCP - General 05/17/08 documented as of this encounter
--- OUTSIDE RECORDS SUMMARY | 2023-11-08 18:36 | External Medical Summary ---
Author Name Unknown Address Unknown Organization K01:LABORATORY [facility] - [address] [place] [address] Laboratory Report Ordering Provider Test Date Status FARHEEN WESTON 07/15/2023 10:52:33 Final Test performed by [facility] on [employer]. Therapeutic ranges vary with type of transplant, time post-transplant, clinical protocols, and testing methodology. Results should be interpreted with clinical presentation and any signs rejection/toxicity. Observation Date Value Abnormality Reference (Units ) Status Tacrolimus (FK506) 07/15/2023 10:52:33 3.8 Below low normal 4.0-12.0 (ng/mL) Final Performing Location LABORATORY C - [address] [place] [id number]
--- OUTSIDE RECORDS SUMMARY | 2023-11-08 18:36 | External Medical Summary ---
Author Name Unknown Address Unknown Organization K0G:LABORATORY [place] [facility] - [address] [place] [address] Laboratory Report Ordering Provider Test Date Status FARHEEN WESTON 07/15/2023 10:52:33 Final Observation Date Value Abnormality Reference (Units ) Status WBC, Total 07/15/2023 10:52:33 3.94 Below low normal 4. 00-10.80 (K/uL) Final RBC 07/15/2023 10:52:33 3.56 3.85-5.15 (M/uL) Final Hemoglobin 07/15/2023 10:52:33 10.8 Below low normal 12 .0-15.3 (g/dL) Final HCT 07/15/2023 10:52:33 32.9 Below low normal 36. 0-45.2 (%) Final MCV 07/15/2023 10:52:33 92.4 81.5-97.5 (fL) Final MCH 07/15/2023 10:52:33 30.3 27.0-34.0 (pg) Final MCHC 07/15/2023 10:52:33 32.8 32.0-36.0 (g/dL) Final RDW 07/15/2023 10:52:33 14.4 11.5-15.5 (%) Final Platelets 07/15/2023 10:52:33 151 140-400 (K /uL) Final MPV 07/15/2023 10:52:33 9.8 6.6-11.1 ( fL) Final Performing Location LABORATORY [place] [facility] - [address] [place] [address]
--- OUTSIDE RECORDS SUMMARY | 2023-11-08 18:36 | External Medical Summary | Summary of Care ---
Author Name Unknown Organization [facility] Address [address] [facility] [place] [address] Phone [phone] Care Team Providers Care Driving School Instructor Name Role Phone Ivette Ragland MD Primary Care Provider + Reason for Visit * Reason Comments Outpatient Testing Encounter Details Date Type Department Care Team (Late st Contact Info) Description 07/15/2023 11:10 AM EDT Laboratory Laboratory, [facility] [address] [facility] [phone] [facility] [address] [place] [address] Liver transplant status (HCC) Allergies Active Allergy Reactions Criticality Noted Date Comments Codeine 03/05/2001 Just with plain codeine , not vicodin or percocet Johansen-2 Inhibitors 07/08/2001 Legs numb, knots in legs celebrex Influenza Virus Vaccine 12/18/2018 Allergic reaction Pneumococcal Polysaccharides Conjugated Vaccine 12/18/2018 Allergy Rofecoxib 07/08/2001 Nausea documented as of this encounter (statuses as of 07/15/2023) Medications Medication Sig Dispensed Refills Start Date [...] Additional Information Patient not taking.Reported on 07/15/2023 [employer] Ultra In Vitro Strip (Glucose Blood)Indications:Ty pe 2 diabetes mellitus with hemoglobin A1c goal of less than 7.0% ([facility]) test 3 times daily 300 Strip [...] unspecified whether stage 3a or 3b CKD ([facility]) inject 13 units under the skin 2 times a day 30 mL 0 05/22/2023 Active documented as of this encounter (statuses as of 07/15/2023) Active Problems Problem Noted Date Diagnosed Date [...] as of this encounter (statuses as of 07/15/2023) Resolved Problems Problem Noted Date Diagnosed Date [...] # PI: Susan Harmon MD Please call [phone] with study related questions GENOMICS CARDIO RESEARCH OTHER*[id number] 04/19/2008 10/29/2016 Overview: Renamed Per Clinical Trials Billing Project. Study Titile: Genomics Markers for Patients with Cardiovascular Disease Project # PI: Susan Harmon MD Please call [phone] with study related questions Hypocalcemia 12/02/2005 04/17/2018 [...] as of this encounter (statuses as of 07/15/2023) Immunizations Name Administration Dates Next Due Hepatitis [...] on file documented as of this encounter Plan of Treatment Pending Results Name Type Priority Associated Diagnoses Date /Time CBC Lab Routine Liver transplant status (HCC) 07/15/2023 10:52 AM EDT COMPREHENSIVE METABOLIC PANEL Lab Routine Liver transplant status (HCC) 07/15/2023 10:52 AM EDT PT INR Lab Routine Liver transplant status (HCC) 07/15/2023 10:52 AM EDT TACROLIMUS LEVEL Lab Routine Liver transplant status (HCC) 07/15/2023 10:52 AM EDT Health Maintenance Due Date Last Done Comments [...] FOR OSTEOPOROSIS (REFER TO SMARTSET #1146) 02/10/2019 DIABETES-EYE EXAM 07/08/2020 07/08/2019, , 08/22/2016, Additional history exists Depression Screening 07/08/2020 07/08/2019 Diabetic Foot Exam 07/08/2020 07/08/2019, 0 04/17/2018, 07/08/2017, Additional history exists Mammogram 07/09/2020 07/09/2019, 0611/2014, 02/15/2014, Additional history exists Albumin/Creatinine Ratio 11/27/2022 022, 01/02/2018, 03/06/2017, Additional history exists HbA1c 10/03/2023 04/02/2023, 02/2 12/2020, 08/10/2018, Additional history exists GFR 10/23/2023 04/22/2023, 03/22, 04/02/2023, Additional history exists CKD HGB USE SMARTSET 11753 04/22/202404/22, 04/02/2023, 04/02/2023, Additional history exists CKD PHOS USE SMARTSET 22189 04/22/2024 08/0 09/2022, 11/15/2020, 04/01/2017, Additional history exists Lipid Panel 11/15/2025 11/15/2020, 02/2016, 11/02/2014, Additional history exists VITAMIN D LEVEL ONCE IN A LIFETIME-USE SMARTSET# 20869 Completed 04/09/2023, 08/10/2018, 11/04/2017, Additional history exists GARDASIL-HPV IMMUNIZATION SERIES Aged Out No longer eligible based on patient's age to complete this topic MENINGOCOCCAL (MENACTRA/MENVEO) Aged Out No longer eligible based on patient's age to complete this topic documented as of this encounter Medical Devices Implanted Type Area Grain Elevator Agent Device Identifier Shelf Expiration Date Model / Serial / Lot Allomax Implanted:Qty: 1 on 08/05/2008 at OR [facility] 04/22/2013 [id number] / / Description:allomax surgical graft, tissue #[id number] Kyphopak 09/12 [id number] - [id number] Implanted:Qty: 1 on 11/23/2008 at OR [facility] [employer] [id number] / / documented as of this encounter Visit Diagnoses Diagnosis Liver transplant status (HCC) documented in this encounter Advance Directives [...] 8:28 PM 08/03/2008 1:10 PM Care Teams Driving School Instructor Relationship Specialty Start Date End Date Ivette Ragland MD [address] [facility] [place] [address] PCP - General 05/17/08 documented as of this encounter
--- OUTSIDE RECORDS SUMMARY | 2023-11-08 18:36 | External Medical Summary | Summary of Care ---
Author Name Unknown Organization [facility] Address [address] [facility] [address] Phone [phone] Care Team Providers Care Arbitrator Name Role Phone Ivette Ragland MD Primary Care Provider + Encounter Details Date Type Department Care Team (Late st Contact Info) Description 07/18/2023 Telephone General Internal Medicine [facility] 200 [place] [address] Ivette Ragland MD 200 [place] [address] Allergies Active Allergy Reactions Criticality Noted Date [...] Additional Information Patient not taking.Reported on 07/15/2023 [employer] Ultra In Vitro Strip (Glucose Blood)Indications:Ty pe 2 diabetes mellitus with hemoglobin A1c goal of less than 7.0% ([facility]) test 3 times daily 300 [...] single current episode of major depressive disorder ([facility]) take 1 cap by mouth daily 90 Capsule 3 04/04/2023 Active Levemir FlexTouch 100 UNIT/ML Subcutaneous Solution Pen-injector (Insulin Detemir)Indications: Type 2 diabetes mellitus with hemoglobin A1c goal of less than 7.0% ([facility]),Type 2 diabetes mellitus with stage 3 chronic kidney disease, with long-term current use of insulin, unspecified whether stage 3a or 3b CKD ([facility]) inject 13 units under the [...] for Patients with Cardiovascular Disease Project # [id number] PI: Susan Harmon MD Please call [phone] with study related questions GENOMICS CARDIO RESEARCH OTHER*[id number] 04/19/2008 10/29/2016 Overview: Renamed Per Clinical Trials Billing Project. Study Titile: Genomics Markers for Patients with Cardiovascular Disease Project # [id number] PI: Susan Harmon MD Please call [phone] with study related questions Hypocalcemia 12/02/2005 04/17/2018 [...] encounter Miscellaneous Notes * Telephone Encounter - Tonie Arreaga LPN - 07/24/2023 8:16 AM EDT Called Reny at [facility]. informed of message. She verbalized [...] want to schedule to est care in [place] as previously advised. FYI to PCP * [...] was also conveyed to her that [facility] is difficult then they should think about switching the primary care provider to [place] as they live closer to that place. Please keep me posted if any new update. Thanks * Telephone Encounter - Tonie Arreaga LPN - 07/23/2023 10:06 AM EDT Reny from [facility] calling. Fox was not available to [...] [place] [id number] * Telephone Encounter - Ivette Ragland MD - 07/21/2023 8:34 AM EDT Noted. Nursing Can we request any other protective agency or blind hooker to check on this patient? Thanks * Telephone Encounter - Dai Carnes LPN - 07/18/2023 11:47 AM EDT FYI * Telephone Encounter - Macy Zambrano OSA - 07/18/2023 10:56 AM EDT Reny calling that they received a call regarding Record Retrieval Specialist neglect and exportation. Laying in Urine/Feces 24/7 Pt Currently Non Verbal Will be sending [...] Additional history exists CKD PHOS USE SMARTSET 82720 04/22/2024 08/0 09/2022, 11/15/2020, 04/01/2017, Additional history exists CKD HGB USE SMARTSET 51191 07/15/202407/15, 04/22/2023, 04/02/2023, Additional history exists Lipid Panel 11/15/2025 11/15/2020, 01/0 02/2016, 11/02/2014, Additional history exists VITAMIN D LEVEL ONCE IN A LIFETIME-USE SMARTSET# 04672 Completed 04/09/2023, 08/10/2018, 11/04/2017, Additional history exists GARDASIL-HPV IMMUNIZATION SERIES Aged Out No longer eligible based on patient's age to complete this topic MENINGOCOCCAL (MENACTRA/MENVEO) Aged Out No longer eligible based on patient's age to complete this topic documented as of this encounter Medical Devices Implanted Type Area Information Technology Coordinator Device Identifier Shelf Expiration Date Model / Serial / Lot Allomax Implanted:Qty: 1 on 08/05/2008 at OR [facility] 04/22/2013 [id number] / / Description:allomax surgical graft, tissue #[id number] Kyphopak 09/12 [id number] - [id number] Implanted:Qty: 1 on 11/23/2008 at OR [facility] [employer] [id number] / / documented as of this encounter [...] 8:28 PM 08/03/2008 1:10 PM Care Teams Arbitrator Relationship Specialty Start Date End Date Ivette Ragland MD [address] [place] [address] [place] [address] PCP - General 05/17/08 documented as of this encounter
--- OUTSIDE RECORDS SUMMARY | 2023-11-08 18:36 | External Medical Summary | Summary of Care ---
Author Name Unknown Organization [facility] Address [address] [facility] [address] Phone [phone] Care Team Providers Care Communication Analyst Name Role Phone Ivette Ragland MD Primary Care Provider + Encounter Details Date Type Department Care Team (Late st Contact Info) Description 07/18/2023 Telephone General Internal Medicine [facility] [address] [place] [address] Ivette Ragland MD [address] [place] [address] Allergies Active Allergy Reactions Criticality Noted Date Comments Codeine 03/05/2001 Just with plain codeine , not vicodin or percocet Johansen-2 Inhibitors 07/08/2001 Legs numb, knots in legs celebrex Influenza Virus Vaccine 12/18/2018 Allergic reaction Pneumococcal Polysaccharides Conjugated Vaccine 12/18/2018 Allergy Rofecoxib 07/08/2001 Nausea documented as of this encounter (statuses as of 07/23/2023) Medications Medication Sig Dispensed Refills Start Date [...] Additional Information Patient not taking.Reported on 07/15/2023 [facility] [place] Ultra In Vitro Strip (Glucose Blood)Indications:Ty pe 2 diabetes mellitus with hemoglobin A1c goal of less than 7.0% ([facility]) test 3 times daily [...] single current episode of major depressive disorder ([facility]) take 1 cap by mouth daily 90 Capsule 3 04/04/2023 Active Levemir FlexTouch 100 UNIT/ML Subcutaneous Solution Pen-injector (Insulin Detemir)Indications: Type 2 diabetes mellitus with hemoglobin A1c goal of less than 7.0% ([facility]),Type 2 diabetes mellitus with stage 3 chronic kidney disease, with long-term current use of insulin, unspecified whether stage 3a or 3b CKD ([facility]) inject 13 units under the skin 2 times a day 30 mL 0 05/22/2023 Active documented as of this encounter (statuses as of 07/23/2023) Active Problems Problem Noted Date Diagnosed Date [...] as of this encounter (statuses as of 07/23/2023) Resolved Problems Problem Noted Date Diagnosed Date [...] for Patients with Cardiovascular Disease Project # [id number] PI: Susan Harmon MD Please call [phone] with study related questions GENOMICS CARDIO RESEARCH OTHER*[id number] 04/19/2008 10/29/2016 Overview: Renamed Per Clinical Trials Billing Project. Study Titile: Genomics Markers for Patients with Cardiovascular Disease Project # [id number] PI: Susan Harmon MD Please call [phone] with study related questions Hypocalcemia 12/02/2005 04/17/2018 [...] as of this encounter (statuses as of 07/23/2023) Immunizations Name Administration Dates Next Due Hepatitis [...] - 07/23/2023 10:06 AM EDT Reny from [facility] calling. Fox was not available [...] [place]. [place] [id number] * Telephone Encounter - Ivette Ragland MD - 07/21/2023 8:34 AM EDT Noted. Nursing Can we request any other protective agency or team automobile assembler to check on this patient? Thanks * Telephone Encounter - Dai Carnes LPN - 07/18/2023 11:47 AM EDT FYI * Telephone Encounter - Macy Zambrano OSA - 07/18/2023 10:56 AM EDT Reny calling that they received a call regarding House Worker General neglect and exportation. Laying in Urine/Feces 14/04 [...] Additional history exists CKD PHOS USE SMARTSET 86444 04/22/2024 08/0 09/2022, 11/15/2020, 04/01/2017, Additional history exists CKD HGB USE SMARTSET 96680 07/15/202407/15, 04/22/2023, 04/02/2023, Additional history exists Lipid Panel 11/15/2025 11/15/2020, 0 02/2016, 11/02/2014, Additional history exists VITAMIN D LEVEL ONCE IN A LIFETIME-USE SMARTSET# [id number] Completed 04/09/2023, 08/10/2018, 11/04/2017, Additional history exists GARDASIL-HPV IMMUNIZATION SERIES Aged Out No longer eligible based on patient's age to complete this topic MENINGOCOCCAL (MENACTRA/MENVEO) Aged Out No longer eligible based on patient's age to complete this topic documented as of this encounter Medical Devices Implanted Type Area Nut Grader Device Identifier Shelf Expiration Date Model / Serial / Lot Allomax Implanted:Q[place]: [place] on 08[place]05/2008 [place] [facility] [place] [id number] / / Description:allomax surgical graft, tissue #[id number] [place] / [id number] - [id number] Implanted:Qty: 1 on 11/23/2008 at [place] [facility] [place] [employer] [id number] / / documented as of this encounter [...] 8:28 PM 08/03/2008 1:10 PM Care Teams Communication Analyst Relationship Specialty Start Date End Date Ivette Ragland MD [address] [place] [address] PCP - General 05/17/08 documented as of this encounter
--- OUTSIDE RECORDS SUMMARY | 2023-11-08 18:36 | External Medical Summary | Summary of Care ---
Author Name Unknown Organization [facility] Address [address] [facility] [address] Phone [phone] Care Team Providers Care Academic Affairs Specialist Name Role Phone Ivette Ragland MD Primary Care Provider + Encounter Details Date Type Department Care Team Description 04/24/2023 Telemedicine General Internal Medicine [facility] [address] [facility] [place] [address] Ivette Ragland MD [address] [place] [address] Altered mental status, unspecified altered mental status type*; Renal osteodystrophy; Type 2 diabetes mellitus with stage 3 chronic kidney disease, with long-term current use of insulin, unspecified whether stage 3a or 3b CKD ([facility]); Type 2 diabetes mellitus with hemoglobin A1c goal of less than 7.0% ([facility]); Dyslipidemia, goal LDL below 100; Aspirin contraindicated; Controlled substance agreement signed; Pancytopenia ([facility]) Allergies Active Allergy Reactions Severity Noted Date Comments Codeine 03/05/2001 Just with plain codeine , not vicodin or percocet Johansen-2 Inhibitors 07/08/2001 Legs numb, knots in legs celebrex Influenza Virus Vaccine 12/18/2018 Allergic reaction Pneumococcal Polysaccharides Conjugated Vaccine 12/18/2018 Allergy Rofecoxib 07/08/2001 Nausea documented as of this encounter (statuses as of 05/13/2023) Medications Medication Sig Dispensed Refills Start Date End Date Status MEDICAL INSTRUCTIONS Use as directed. VNA for nursing, PT/OT: DX: Fx right femur, liver transplant, CKD, HTN, depression, anemia, hyponatremia 1 Each 1 07/01/2017 Active Calcium Carbonate Antacid (TUMS) 500 MG chewable tablet Take 1 Tab by mouth 3 times a day as needed for Heartburn. 90 Tab 0 07/01/2017 Active Additional Information Patient not taking.Reported on 08/30/2021 Misc. Devices (BATH/SHOWER SEAT) MISCIndications:Risk and functional [...] MG Oral Tablet (Tylenol Extra Strength) Take 500 mg by mouth every 6 hours as needed. 0 Active Vitamin B-12 1000 MCG Oral Tablet Take by mouth 1 Tablet in the morning. 90 Tablet 1 11/27/2021 Active Levemir FlexTouch 100 UNIT/ML Subcutaneous Solution Pen-injector (Insulin Detemir)Indications: Type 2 diabetes mellitus with hemoglobin A1c goal of less than 7.0% ([facility]),Type 2 diabetes mellitus with stage 3 chronic kidney disease, with long-term current use of insulin, unspecified whether stage 3a or 3b CKD ([facility]) inject 13 units under the skin 2 times a day 30 mL 0 05/21/2022 Active OneTouch Ultra In Vitro Strip (Glucose Blood)Indications:Ty pe 2 diabetes mellitus with hemoglobin A1c goal of less than 7.0% ([facility]) test 3 times daily 300 Strip 3 [...] before bedtime. 60 Tablet 11 04/03/2023 Active DULoxetine HCl 60 MG Oral Capsule Delayed Release Particles (Cymbalta)Indication s:ARGENIS (generalized anxiety disorder),Mild single current episode of major depressive disorder (HCC) take 1 cap by mouth daily 90 Capsule 3 04/04/2023 Active Vitamin D3 1.25 MG (03396 UT) Oral CapsuleIndications:V itamin D deficiency Take 1 Capsule by mouth once a week. 12 Capsule 1 04/10/2023 3 Active documented as of this encounter (statuses as of 05/13/2023) Active Problems Problem Noted Date Diabetes mellitus with gastroparesis ARGENIS (generalized anxiety disorder) 05/09 Renal osteodystrophy 05/09/2020 Type 2 diabetes mellitus wit h stage 3 chronic kidney disease, with long-term current use of insulin 12/18/2018 Mild single current episode of major dep ressive disorder 12/18/2018 ADVANCE DIRECTIVE INFORMATION 10/30/2018 Overview: No, Advance Directive brochure given to patient at prior appointment. Urinary incontinence, nocturnal enuresis 01/29/2018 Urge incontinence of urine 01/29/2018 Aspirin contraindicated 05/13/2016 Controlled substance agreement signed Osteoporosis 01/01/2011 Thoracic and lumbosacral neuritis 2009 DYSLIPIDEMIA, GOAL LDL BELOW 100 009 Overview: Per Lipid Taxonomy. Type 2 diabetes mellitus with hemoglobin A1c goal of less than 7.0% 07/20/2009 Overview: Per Diabetes Taxonomy. ICD-10 update of inactive term Status post liver transplantation 2007 Chronic rhinitis 10/14/2003 Gastroparesis Thrombocytopenia documented as of this encounter (statuses as of 05/13/2023) Resolved Problems Problem Noted Date Resolved Date Acute cystitis with hematuria 03/06/2018 Urinary incontinence without sensory awareness 0 01/29/2018 04/17/2018 HUMBLE (stress urinary incontinence, female) 201704/17/2018 Closed fracture of sacrum 06/04/20172017 Inferior pubic ramus fracture 06/04/2017 Overview: right Femoral neck fracture 06/04/2017 06/18/2017 Overview: right Hematoma 06/04/2017 04/17/2018 Overview: right posterior gluteal region 12.5 cm Fracture of femoral neck, right, closed 05/23/20 17 04/17/2018 Fracture of multiple pubic rami 05/23/2017 04/17/2018 Overview: right superior and inferior pubic rami Acute sinusitis 04/10/2012 04/17/2018 KIDNEY DZ,CHRONIC (GFR 30-59) STAGE III 04/12/20 10 11/13/2017 Overview: Per CKD Protocol, #1 Headache 03/30/2009 04/17/2018 Overview: ICD-10 update of inactive term Vertebral fracture, pathological 10/30/2008 04/17/2018 Lumbago 10/18/2008 04/17/2018 Pruritic disorder 09/08/2008 11/21/2008 Need for prophylactic immunotherapy 08/17/2008 01/29/2012 INTERFACED RESULT 08/12/2008 02/20/2012 EXAMINATION OF PARTICIPANT IN CLINICAL TRIAL- Onepager chelita 04/19/2008 01/05/2010 Overview: Renamed Per Clinical Trials Billing Project. Study Titile: Gen[employer] Markers for Patients with Cardiovascular Disease Project # [id number] PI: Susan Harmon MD Please call [phone] with study related questions GENOMICS CARDIO RESEARCH OTHER*[id number] 200710/29/2016 Overview: Renamed Per Clinical Trials Billing Project. Study Titile: Gen[employer] Markers for Patients with Cardiovascular Disease Project # [id number] PI: Susan Harmon MD Please call [phone] with study related questions Hypocalcemia 12/02/2005 04/17/2018 DENTURES 12/12/2004 04/17/2018 Dyslipidemia, goal to be determined 02/01/2002 08/29/2009 Overview: Per Lipid Taxonomy. Type 2 diabetes mellitus wit h hemoglobin A1c goal of less than 7.0% 07/20/2009 Overview: Per Diabetes Taxonomy. ICD-10 update of inactive term Cirrhosis of liver 08/05/2008 Pleural effusion 04/17/2018 Back ache 06/18/2017 Hypomagnesemia 06/18/2017 Hypophosphatemia 06/18/2017 Sacral fracture 06/18/2017 documented as of this encounter (statuses as of 05/13/2023) Immunizations Name Administration Dates Next Due Hepatitis [...] drink = 0.6 oz pur e alcohol) Food Insecurity Answer Date Recorded Within the past 12 months, y ou worried that your food would run out before you got money to buy more. Never true 07/08/2019 Within the past 12 months, t he food you bought just didn't last and you didn't have money to get more. Never true 07/08/2019 Sex Assigned at Date Recorded Female 07/08/2019 12:07 PM EDT Job Start Date Occupation Industry Not on file Not on file Not on file documented as of this encounter Progress Notes * Ivette Ragland MD - 04/24/2023 11:53 AM EDT HPI: Gloria Rios is a 72 year old female Type 2 DM,who presents status post liver transplant in 2007 for cirrhosis, insulin-dependent type 2 diabetes mellitus, hyperlipidemia, anxiety, depression, chronic pancytopenia, hypokalemia went to emergency room with increased confusion and dysuria for 3 days. Initially patient and family were reluctant to go to the hospital but eventually ended up in ER. Seems patient is bed-bound as baseline with chronic diffuse weakness. She does not ambulate and does not assist with transfer as per the family. She does have chronic incontinence of the urine and uses adult diaper which increases her risk for recurrent UTI. Comes with with: No chief complaint on file. Pt is here for the hospital follow up. Chart reviewed from the hospital including admission note, Hand P, consult notes, labs, EKG, imaging and discharge note including discharge meds. Patient states she is feeling better since went back home. Pt was admitted to the hospital on 04/09/23 for altered mental status to [facility] and d/young on 04/16/23. Labs in emergency room shows potassium of 2.8 calcium 8.1 and patient was started on potassium supplement. Patient had UTI and electrolyte imbalance. Received IV fluid, IV antibiotic and electrolyte improved with potassium of 4.7 and calcium of 8.9. Patient had CT head which showed no acute changes. Blood culture x2 were negative. Urine culture showed pansensitive Klebsiella pneumoniae and at thedischarge it was switched to oral cefdinir. At the discharge secondary to pancytopenia patient was advised to hold CellCept until finish the antibiotic or until seen by hepatology or transplant team and continue tacrolimus. Before going to the hospital patient took 3 dose of azo phenazopyridine and her methemoglobin levelwas 4.4% and poison control was called for methemoglobinemia and phenazopyridine toxicity. As patient's methadone hemoglobin level was under 20% and she was not treated with methylene blue. Admission Diagnosis : Metabolic encephalopathy, UTI, electrolyte imbalance. Patient was discharged home on cefdinir 300 mg 1 pill twice a day for 4 more days and probiotic. Patient was advised to continue rest of the medications. Pt has been followed up by bilingual patient support caseworker and specialists. Patient Active Problem List Diagnosis Code Chronic rhinitis J31.0 ADVANCE DIRECTIVE INFORMATION Status post liver transplantation ([facility]) Z94.4 Type 2 diabetes mellitus with hemoglobin A1c goal of less than 7.0% ([facility]) E11.9 DYSLIPIDEMIA, GOAL LDL BELOW 100 E78.5 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, M54.17 Osteoporosis M81.0 Gastroparesis K31.84 Controlled substance agreement signed Z79.899 Aspirin contraindicated Z53.09 Thrombocytopenia ([facility]) D69.6 Urinary incontinence, nocturnal enuresis N39.44 Urge incontinence of urine N39.41 Type 2 diabetes mellitus with stage 3 chronic kidney disease, with long-term current use of insulin([facility]) E11.22, N18.30, Z79.4 Mild single current episode of major depressive disorder ([facility]) F32.0 Diabetes mellitus with gastroparesis ([facility]) E11.43 ARGENIS (generalized anxiety disorder) F41.1 Renal osteodystrophy N25.0 Current Outpatient Medications Medication Sig Dispense Refill MEDICAL INSTRUCTIONS Use as directed. VNA for nursing, PT/OT: DX: Fx right femur, liver transplant,CKD, HTN, depression, anemia, hyponatremia 1 Each 1 Calcium Carbonate Antacid (TUMS) 500 MG chewable tablet Take 1 Tab by mouth 3 times a day as neededfor Heartburn. (Patient not taking: Reported on 08/30/2021) 90 Tab 0 Misc. Devices (BATH/SHOWER SEAT) MISC With back support 1 Each 0 Tacrolimus 1 MG Oral Capsule (PROGRAF) take 1 capsule 2 times a day 180 Cap 0 Insulin Lispro (1 Unit Dial) 100 UNIT/ML Subcutaneous Solution Pen-injector (HumaLOG KwikPen) inject 8 units 2 times daily 15 mL 11 Ultilet Pen Needle 31G X 8 MM (Insulin Pen Needle) Use 4 times daily with insulin 400 Each 1 Lidocaine 4 % External Patch (Aspercreme) Place 1 Patch topically on the skin daily. Acetaminophen 500 MG Oral Tablet (Tylenol Extra Strength) Take 500 mg by mouth every 6 hours as needed. Vitamin B-12 1000 MCG Oral Tablet Take by mouth 1 Tablet in the morning. 90 Tablet 1 Levemir FlexTouch 100 UNIT/ML Subcutaneous Solution Pen-injector (Insulin Detemir) inject 13 units under the skin 2 times a day 30 mL 0 OneTouch Ultra In Vitro Strip (Glucose Blood) test 3 times daily 300 Strip 3 Omeprazole 20 MG Oral Capsule Delayed Release (PriLOSEC) TAKE ONE CAPSULE BY MOUTH IN THE MORNING 1hour before first daily meal 90 Capsule 3 Mycophenolate Mofetil 250 MG Oral Capsule (Cellcept) TAKE TWO CAPSULES BY MOUTH TWICE DAILY 360 Capsule 3 Tacrolimus 1 MG Oral Capsule (Prograf) TAKE 1 CAP BY MOUTH EVERY 12 HOURS 180 Capsule 3 DULoxetine HCl 60 MG Oral Capsule Delayed Release Particles (Cymbalta) take 1 cap by mouth daily 30Capsule 5 Potassium Chloride Kiki ER 20 MEQ Oral Tablet Extended Release Take 1 Tablet by mouth in the morning and 1 Tablet before bedtime. 60 Tablet 11 DULoxetine HCl 60 MG Oral Capsule Delayed Release Particles (Cymbalta) take 1 cap by mouth daily 90Capsule 3 Vitamin D3 1.25 MG (80274 UT) Oral Capsule Take 1 Capsule by mouth once a week. 12 Capsule 1 No current facility-administered medications for this visit. The patient's medication list was reviewed and updated as needed. Review of patient's allergies indicates: Allergen Reactions Codeine Just with plain codeine , not vicodin or percocet Johansen-2 Inhibitors Legs numb, knots in legs celebrex Influenza Virus Vaccine Allergic reaction Pneumococcal Polysaccharides Conjugated Vaccine Allergy Rofecoxib Nausea Past Medical History: Diagnosis Date Back ache Chronic rhinitis Cirrhosis of liver (HCC) Liver transplant 07/30 DENTURES DM type 2, goal A1c below 7 Dyslipidemia, goal to be determined Femoral neck fracture (HCC) 06/04/2017 right Fracture of femoral neck, right, closed ([facility]) 05/2017 Fracture of multiple pubic rami ([facility]) 05/2017 right superior and inferior pubic rami Gastroparesis Hematoma 06/04/2017 right posterior gluteal region 12.5 cm Hypocalcemia Hypomagnesemia Hypophosphatemia Inferior pubic ramus fracture (HCC) 06/04/2017 right Pleural effusion Sacral fracture (HCC) 06/04/2017 right Sacral fracture, closed (HCC) 05/2017 Thrombocytopenia (HCC) Vertebral fracture, pathological Social History Socioeconomic History Marital status: Spouse name: aline Number of children: 3 Years of education: 12 Occupational History 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 OBJECTIVE: PHYSICAL EXAM: ASSESSMENT AND PLAN: Altered mental status, unspecified altered mental status type (Primary) - COMPREHENSIVE METABOLIC PANEL; Future; Expected date: 04/24/2023 - CBC WITH WBC DIFFERENTIAL; Future; Expected date: 04/24/2023 Doing much better but still home bound. Discussed with pt and daughter, it is important for us to see her in the clinic at least every 6 month and if it is easier they can get established with a provider who can see her closer in [place]. Currently patient is getting home health care and someone is coming home for physical therapy and also nursing once or twice a week. Currently taking Cymbalta 60 mg 1 capsule once a day. Advised to watch for any sign of bleeding from any site. Renal osteodystrophy On calcium and vitamin-D supplement. Advised hydration, avoidance of NSAIDs. Type 2 diabetes mellitus with stage 3 chronic kidney disease, with long-term current use of insulin, unspecified whether stage 3a or 3b CKD (HCC) Avoid Nsaids. Type 2 diabetes mellitus with hemoglobin A1c goal of less than 7.0% (HCC) Currently she is taking Humalog, Levemir. Dyslipidemia, goal LDL below 100 Continue low-fat diet. Aspirin contraindicated Controlled substance agreement signed Pancytopenia (HCC) - CBC WITH WBC DIFFERENTIAL; Future; Expected date: 04/24/2023 Secondary to underlying fatty liver changes, current posttransplant medications. Advised importanceof keeping appointment with a animal sitter if she can not go and see transplant medicine in [place]. Post liver transplant and she is taking tacrolimus currently. Follow Up: Return in about 3 months (around 07/25/2023) for Return with Physician. | For: Return with Physician Ivette Ragland MD documented in this encounter Plan of Treatment Upcoming Encounters Date Type Specialty Care Team Description 07/15/2023 Office Visit Gastroenterology Viviana Hill MD [address] [place] [id number] Scheduled Orders Name Type Priority Associated Diagnoses Orde r Schedule COMPREHENSIVE METABOLIC PANEL Lab Routine Altered mental status, unspecified altered mental status type Expected: 04/24/2023 (Approximate), Expires: 04/23/2024 CBC WITH WBC DIFFERENTIAL Lab Routine Altered mental status, unspecified altered mental status type Pancytopenia (HCC) Expected: 04/24/2023 (Approximate), Expires: 04/24/2024 Health Maintenance Due Date Last Done Comments COVID-19 Vaccine (#1) 1954 Zoster Vaccines (1 of 2) 1968 Cologuard 1994 Sigmoidoscopy 1994 Hepatitis B (3 of 3 - 19+ 3-dose series) 07/06/2008 02/08/2008, 01/05/2008 Fecal Occult [...] 07/08/2020 07/08/2019, , 08/22/2016, Additional history exists DIABETES-FOOT EXAM 07/08/2020 07/08/2019, 0 04/17/2018, 07/08/2017, Additional history exists Depression Screening, Annual for Pts 12 and Over 07/08/2020 07/08/2019 Mammogram 07/09/2020 07/09/2019, 11/2014, 02/15/2014, Additional history exists Albumin/Creatinine Ratio 11/27/2022 022, 01/02/2018, 03/06/2017, Additional history exists HbA1c 10/03/2023 04/02/2023, 10/24, 08/10/2018, Additional history exists GFR 10/23/2023 04/22/2023, 03/22, 04/02/2023, Additional history exists CKD HGB USE SMARTSET 51107 04/22/202404/22, 04/02/2023, 04/02/2023, Additional history exists CKD PHOS USE SMARTSET 33031 04/22/202409/2022, 11/15/2020, 04/01/2017, Additional history exists Lipid Panel 11/15/2025 11/15/2020, 02/2016, 11/02/2014, Additional history exists VITAMIN D LEVEL ONCE IN A LIFETIME-USE SMARTSET# [id number] Completed 04/09/2023, 08/10/2018, 11/04/2017, Additional history exists GARDASIL-HPV IMMUNIZATION SERIES Aged Out No longer eligible based on patient's age to complete this topic MENINGOCOCCAL (MENACTRA/MENVEO) Aged Out No longer eligible based on patient's age to complete this topic documented as of this encounter Medical Devices Implanted Type Area Personal Computer Specialist Device Identifier Shelf Expiration Date Model / Serial / Lot Allomax Implanted:Qty: 1 on 08/05/2008 at OR [facility] 04/22/2013 [id number] / / Description:allomax surgical graft, tissue #[id number] / [id number] - [id number] Implanted:Qty: 1 on 11/23/2008 at OR [facility] [id number] / / documented as of this encounter Visit Diagnoses Diagnosis Altered mental status, unspecified altered mental status type- Primary Renal osteodystrophy Type 2 diabetes mellitus with stage 3 chronic kidney disease, with long-term current use of insulin, unspecified whether stage 3a or 3b CKD (HCC) Dyslipidemia, goal LDL below 100 Other and unspecified hyperlipidemia Aspirin contraindicated Surgical or other procedure not carried out because of contraindication Controlled substance agreement signed Encounter for long-term (current) use of other medications Pancytopenia (HCC) Other pancytopenia documented in this encounter Advance Directives Latest [...] 8:28 PM 08/03/2008 1:10 PM Care Teams Academic Affairs Specialist Relationship Specialty Start Date End Date Ivette Ragland MD [address] [place] [address], [place] [address] PCP - General 05/17/08 documented as of this encounter"
--- OUTSIDE RECORDS SUMMARY | 2023-11-08 18:36 | External Medical Summary | Summary of Care ---
Author Name Unknown Organization [facility] Address [address] [facility] [address] Phone [phone] Care Team Providers Care Chinese Language Professor Name Role Phone Ivette Ragland MD Primary Care Provider + Encounter Details Date Type Department Care Team (Late st Contact Info) Description 07/18/2023 Telephone General Internal Medicine [facility] [address] [facility] [place] [address] Ivette Ragland MD 200 [place] [address] Allergies Active Allergy Reactions Criticality Noted Date Comments Codeine 03/05/2001 Just with plain codeine , not vicodin or percocet Johansen-2 Inhibitors 07/08/2001 Legs numb, knots in legs celebrex Influenza Virus Vaccine 12/18/2018 Allergic reaction Pneumococcal Polysaccharides Conjugated Vaccine 12/18/2018 Allergy Rofecoxib 07/08/2001 Nausea documented as of this encounter (statuses as of 07/22/2023) Medications Medication Sig Dispensed Refills Start Date [...] Additional Information Patient not taking.Reported on 07/15/2023 Quanttus Ultra In Vitro Strip (Glucose Blood)Indications:Ty pe 2 diabetes mellitus with hemoglobin A1c goal of less than 7.0% ([facility]) test 3 times daily 300 Strip [...] episode of major depressive disorder ([facility]) take 1 cap by mouth daily 90 Capsule 3 04/04/2023 Active Levemir FlexTouch 100 UNIT/ML Subcutaneous Solution Pen-injector (Insulin Detemir)Indications: Type 2 diabetes mellitus with hemoglobin A1c goal of less than 7.0% ([facility]),Type 2 diabetes mellitus with stage 3 chronic kidney disease, with long-term current use of insulin, unspecified whether stage 3a or 3b CKD ([facility]) inject 13 units under the skin 2 times a day 30 mL 0 05/22/2023 Active documented as of this encounter (statuses as of 07/22/2023) Active Problems Problem Noted Date Diagnosed Date [...] as of this encounter (statuses as of 07/22/2023) Resolved Problems Problem Noted Date Diagnosed Date [...] for Patients with Cardiovascular Disease Project # [id number] PI: Susan Harmon MD Please call [phone] with study related questions GENOMICS CARDIO RESEARCH OTHER*[id number] 04/19/2008 10/29/2016 Overview: Renamed Per Clinical Trials Billing Project. Study Titile: Genomics Markers for Patients with Cardiovascular Disease Project # [id number] PI: Susan Harmon MD Please call [phone] with study related questions Hypocalcemia 12/02/2005 04/17/2018 [...] as of this encounter (statuses as of 07/22/2023) Immunizations Name Administration Dates Next Due Hepatitis [...] [place] [id number] * Telephone Encounter - Ivette Ragland MD - 07/21/2023 8:34 AM EDT Noted. Nursing Can we request any other protective agency or merchandise flow manager to check on this patient? 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 Laying in Urine/Feces 14/04 [...] Additional history exists CKD PHOS USE SMARTSET 22296 04/22/2024 080 09/2022, 11/15/2020, 04/01/2017, Additional history exists CKD HGB USE SMARTSET 08381 07/15/202407/15, 04/22/2023, 04/02/2023, Additional history exists Lipid Panel 11/15/2025 11/15/2020, 0 02/2016, 11/02/2014, Additional history exists VITAMIN D LEVEL ONCE IN A LIFETIME-USE SMARTSET# 23086 Completed 04/09/2023, 08/10/2018, 11/04/2017, Additional history exists GARDASIL-HPV IMMUNIZATION SERIES Aged Out No longer eligible based on patient's age to complete this topic MENINGOCOCCAL (MENACTRA/MENVEO) Aged Out No longer eligible based on patient's age to complete this topic documented as of this encounter Medical Devices Implanted Type Area Vocational Childcare Teacher Device Identifier Shelf Expiration Date Model / Serial / Lot Allomax Implanted:Qty: 1 on 08/05/2008 at [place] [facility] [place] [id number] / / Description:allomax surgical graft, tissue #[id number] Kyphopak 20/3 [id number] - [id number] Implanted:Qty: 1 on 11/23/2008 at [place] [facility] [place] [employer] [id number] / / documented as of this encounter [...] 8:28 PM 08/03/2008 1:10 PM Care Teams Chinese Language Professor Relationship Specialty Start Date End Date Ivette Ragland MD [address] [place] [address] PCP - General 05/17/08 documented as of this encounter
--- OUTSIDE RECORDS SUMMARY | 2023-11-08 18:36 | External Medical Summary ---
Author Name Unknown Address Unknown Organization K0G:[facility] [address] [place] [address] Laboratory Report Ordering Provider Test Date Status FARHEEN WESTON 07/15/2023 10:52:33 Final Observation Date Value Abnormality Reference (Units ) Status BUN 07/15/2023 10:52:33 22 Above high normal 6-20 (mg/dL) Final Creatinine 07/15/2023 10:52:33 0.8 0.5-1.0 (mg/dL) Final Glomerular filtration rate/1.73 sq M.predicted [Volume Rate/Area] in Serum, Plasma or Blood by Creatinine-based formula (CKD-EPI) 07/15/2023 10:52:33 75 >=60 (mL/min) Final eGFR is calculated based on the CKD-EPI 2020 equation SODIUM 07/15/2023 10:52:33 142 135-146 (m mol/L) Final Potassium 07/15/2023 10:52:33 4.2 3.5-5.1 (m mol/L) Final Cl 07/15/2023 10:52:33 103 98-107 (mm ol/L) Final CO2 07/15/2023 10:52:33 28 22-32 (mmo l/L) Final Anion gap 07/15/2023 10:52:33 11 7-15 (mmol /L) Final Glucose 07/15/2023 10:52:33 132 Above high normal 70 -120 (mg/dL) Final Albumin 07/15/2023 10:52:33 4.0 3.8-5.0 (g /dL) Final AST (Aspartate aminotransferase) 07/15/2023 10:52:33 14 10-35 (U/L) Fin al Alk Phos 07/15/2023 10:52:33 54 35-130 (U/ L) Final Bilirubin, Total 07/15/2023 10:52:33 0.7 <=1 .2 (mg/dL) Final Calcium 07/15/2023 10:52:33 9.4 8.4-10.2 ( mg/dL) Final Protein 07/15/2023 10:52:33 6.2 6.0-8.3 (g /dL) Final ALT (Alanine aminotransferase) 07/15/2023 10:52:33 18 10-35 (U/L) Gabriel bahena Performing Location [facility] [address] [place] [address]
--- OUTSIDE RECORDS SUMMARY | 2023-11-08 18:36 | External Medical Summary | Summary of Care ---
Author Name Unknown Organization [facility] Address [address] [facility] [address] Phone [phone] Care Team Providers Care Community Leader Name Role Phone Ivette Ragland MD Primary Care Provider + Encounter Details Date Type Department Care Team (Late st Contact Info) Description 07/18/2023 Telephone General Internal Medicine [facility] 200 [facility] [place] [address] Ivette Ragland MD 200 [place] [address] Allergies Active Allergy Reactions Criticality Noted Date [...] Additional Information Patient not taking.Reported on 07/15/2023 Open Utility Ultra In Vitro Strip (Glucose Blood)Indications:Ty pe 2 diabetes mellitus with hemoglobin A1c goal of less than 7.0% ([facility]) test 3 times daily [...] single current episode of major depressive disorder ([facility]) take 1 cap by mouth daily 90 Capsule 3 04/04/2023 Active Levemir FlexTouch 100 UNIT/ML Subcutaneous Solution Pen-injector (Insulin Detemir)Indications: Type 2 diabetes mellitus with hemoglobin A1c goal of less than 7.0% ([facility]),Type 2 diabetes mellitus with stage 3 chronic kidney disease, with long-term current use of insulin, unspecified whether stage 3a or 3b CKD ([facility]) inject 13 units under [...] for Patients with Cardiovascular Disease Project # [id number] PI: Susan Harmon MD Please call [phone] with study related questions GENOMICS CARDIO RESEARCH OTHER*[id number] 04/19/2008 10/29/2016 Overview: Renamed Per Clinical Trials Billing Project. Study Titile: Genomics Markers for Patients with Cardiovascular Disease Project # [id number] PI: Susan Harmon MD Please call [phone] with study related questions Hypocalcemia 12/02/2005 04/17/2018 [...] was also conveyed to her that [facility] then they should think about switching the primary care provider to [place] as they live closer to that place. Please keep me posted if any new update. Thanks * Telephone Encounter - Tonie Arreaga LPN - 07/23/2023 10:06 AM EDT Reny from [facility] [employer] calling. Fox was not [...] [place] [id number] * Telephone Encounter - Ivette Ragland MD - 07/21/2023 8:34 AM EDT Noted. Nursing Can we request any other protective agency or student admissions clerk to check on this patient? 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 Laying in Urine/Feces 14/04 [...] Additional history exists CKD PHOS USE SMARTSET 50722 04/22/2024 08/0 09/2022, 11/15/2020, 04/01/2017, Additional history exists CKD HGB USE SMARTSET 74859 07/15/202407/15, 04/22/2023, 04/02/2023, Additional history exists Lipid Panel 11/15/2025 11/15/2020, 0 02/2016, 11/02/2014, Additional history exists VITAMIN D LEVEL ONCE IN A LIFETIME-USE SMARTSET# 53408 Completed 04/09/2023, 08/10/2018, 11/04/2017, Additional history exists GARDASIL-HPV IMMUNIZATION SERIES Aged Out No longer eligible based on patient's age to complete this topic MENINGOCOCCAL (MENACTRA/MENVEO) Aged Out No longer eligible based on patient's age to complete this topic documented as of this encounter Medical Devices Implanted Type Area Manager Fleet Device Identifier Shelf Expiration Date Model / Serial / Lot Allomax [place]ed:[place] [facility] [place] [id number] / / Description:allomax surgical graft, tissue #[id number] Kyphopak 20/3 [id number] - [id number] Implanted:Qty: 1 on 11/23/2008 [place] [facility] [place] [employer] [id number] / / documented as of this encounter [...] 8:28 PM 08/03/2008 1:10 PM Care Teams Community Leader Relationship Specialty Start Date End Date Ivette Ragland MD 200 [place] [address] PCP - General 05/17/08 documented as of this encounter
--- OUTSIDE RECORDS SUMMARY | 2023-11-08 18:36 | External Medical Summary | Summary of Care ---
Author Name Unknown Organization [facility] Address [address] [facility] [address] Phone [phone] Care Team Providers Care Aboriginal Liaison Officer Name Role Phone Ivette Ragland MD Primary Care Provider + Encounter Details Date Type Department Care Team (Late st Contact Info) Description 07/18/2023 Telephone General Internal Medicine [facility] 200 [facility] [place] [address] Ivette Ragland MD 200 [place] [address] Allergies Active Allergy Reactions Criticality Noted Date [...] Additional Information Patient not taking.Reported on 07/15/2023 Pwnie Express Ultra In Vitro Strip (Glucose Blood)Indications:Ty pe 2 diabetes mellitus with hemoglobin A1c goal of less than 7.0% ([facility]) test 3 times daily 300 Strip [...] single current episode of major depressive disorder ([facility]) take 1 cap by mouth daily 90 Capsule 3 04/04/2023 Active Levemir FlexTouch 100 UNIT/ML Subcutaneous Solution Pen-injector (Insulin Detemir)Indications: Type 2 diabetes mellitus with hemoglobin A1c goal of less than 7.0% ([facility]),Type 2 diabetes mellitus with stage 3 chronic kidney disease, with long-term current use of insulin, unspecified whether stage 3a or 3b CKD ([facility]) inject 13 units under the skin [...] for Patients with Cardiovascular Disease Project # [id number] PI: Susan Harmon MD Please call [phone] with study related questions GENOMICS CARDIO RESEARCH OTHER*[id number] 04/19/2008 10/29/2016 Overview: Renamed Per Clinical Trials Billing Project. Study Titile: Genomics Markers for Patients with Cardiovascular Disease Project # [id number] PI: Susan Harmon MD Please call [phone] with study related questions Hypocalcemia 12/02/2005 04/17/2018 [...] 07/24/2023 8:16 AM EDT Called Reny at [facility]. informed of message. She verbalized [...] want to schedule to est care in [place] as previously advised. FYI to PCP * [...] was also conveyed to her that coming[facility] to see me is difficult then they should think about switching the primary care provider to [place] as they live closer to that place. Please keep me posted if any new update. Thanks * Telephone Encounter - Tonie Arreaga LPN - 07/23/2023 10:06 AM EDT Reny from [facility] [employer] calling. Fox was not available to [...] [place] [id number] * Telephone Encounter - Ivette Ragland MD - 07/21/2023 8:34 AM EDT Noted. Nursing Can we request any other protective agency or coding manager to check on this patient? 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 Laying in Urine/Feces 14/04 [...] Additional history exists CKD PHOS USE SMARTSET 32955 04/22/20240 09/2022, 11/15/2020, 04/01/2017, Additional history exists CKD HGB USE SMARTSET 01892 07/15/202407/15, 04/22/2023, 04/02/2023, Additional history exists Lipid Panel 11/15/2025 11/15/2020, 02/2016, 11/02/2014, Additional history exists VITAMIN D LEVEL ONCE IN A LIFETIME-USE SMARTSET# 15651 Completed 04/09/2023, 08/10/2018, 11/04/2017, Additional history exists GARDASIL-HPV IMMUNIZATION SERIES Aged Out No longer eligible based on patient's age to complete this topic MENINGOCOCCAL (MENACTRA/MENVEO) Aged Out No longer eligible based on patient's age to complete this topic documented as of this encounter Medical Devices Implanted Type Area Chrome Cleaner Device Identifier Shelf Expiration Date Model / Serial / Lot Allomax Implanted:Qty: 1 on 08/05/2008 at [place] [facility] [place] [id number] / / Description:allomax surgical graft, tissue #[id number] Kyphopak / [id number] - [id number] Implanted:Qty: 1 on 11/23/2008 at [place] [facility] [place] [employer] [id number] / / documented as of this encounter [...] 8:28 PM 08/03/2008 1:10 PM Care Teams Aboriginal Liaison Officer Relationship Specialty Start Date End Date Ivette Ragland MD [address] [place] [address], [place] [address] PCP - General 05/17/08 documented as of this encounter
--- OUTSIDE RECORDS SUMMARY | 2023-11-08 18:36 | External Medical Summary | Summary of Care ---
Author Name Unknown Organization [facility] Address [address] [facility] [address] Phone [phone] Care Team Providers Care Fee Clerk Name Role Phone Ivette Ragland MD Primary Care Provider + Reason for Visit * Reason Comments Follow Up S/p liver transplant Encounter Details Date Type Department Care Team (Late st Contact Info) Description 07/15/2023 10:20 AM EDT Office Visit Hepatology, [facility] [address] [facility] [place] [phone] Viviana Hill MD [address] [place], [place] [address] [address] Liver transplant status (HCC)* Allergies Active Allergy Reactions Criticality Noted Date [...] Additional Information Patient not taking.Reported on 07/15/2023 [employer] Ultra In Vitro Strip (Glucose Blood)Indications:Ty pe 2 diabetes mellitus with hemoglobin A1c goal of less than 7.0% ([facility]) test 3 times daily 300 [...] for Patients with Cardiovascular Disease Project # [id number] PI: Susan Harmon MD Please call [phone] with study related questions GENOMICS CARDIO RESEARCH OTHER*[id number] 04/19/2008 10/29/2016 Overview: Renamed Per Clinical Trials Billing Project. Study Titile: Genomics Markers for Patients with Cardiovascular Disease Project # [id number] PI: Susan Harmon MD Please call [phone] with study related questions Hypocalcemia 12/02/2005 04/17/2018 [...] Date Smoking Tobacco: Never Smokeless Tobacco: Never Tobacco Cessation:Counseling Given: Not Answered Alcohol Use Standard Drinks/Week Comments No 0 [...] on file documented as of this encounter Last Filed Vital Signs Vital Sign Reading Time Taken Comments Blood Pressure 141/73 07/15/2023 10:21 AM EDT Pulse 94 07/15/2023 10:21 AM EDT Temperature 36.6 C (97.9 F) 07/15/2023 1 0:21 AM EDT Respiratory Rate - - Oxygen Saturation 98% 07/15/2023 10: 21 AM EDT Inhaled Oxygen Concentration - - Weight 42.2 kg (93 lb) 07/15/2023 10:21 AM EDT per [facility] april weight , unable to weigh today Height - - Body Mass Index 17.57 07/08/2019 12:16 PM EDT documented in this encounter Progress Notes * Viviana Hill MD - 07/15/2023 10:22 AM EDT Images from the original note were not included. Hepatology Tabatha Coronado CC: post oltx fup Last seen by me in 2018, did not fup after that due to covid, now here bc of refills HPI: 72 yo fm with a history of diabetes, presumably pino cirrhosis s/p oltx in 2007. She has been on Cellcept and prograf for her IS. She is doing overall well. With her daughter today - she reports it is is hard to get her mom out bc she is basically bed ridden. Her had to help her. Recent uti in 05/14 - broke her left shoulder She is in a wheelchair, since her last visit used to walk with a walker. She is just very weak- her muscles are weak. Does take boost daily. Has declined colonoscopy in the past. Current Outpatient Medications Medication Sig Dispense Refill MEDICAL INSTRUCTIONS Use as directed. VNA for nursing, PT/OT: DX: Fx right femur, liver transplant,CKD, HTN, depression, anemia, hyponatremia 1 Each 1 Calcium Carbonate Antacid (TUMS) 500 MG chewable tablet Take 1 Tab by mouth 3 times a day as neededfor Heartburn. 90 Tab 0 Misc. Devices (BATH/SHOWER SEAT) [...] by mouth every 6 hours as needed. OneTouch Ultra In Vitro Strip (Glucose Blood) [...] 1 cap by mouth daily 30Capsule 5 DULoxetine HCl 60 MG Oral Capsule Delayed Release Particles (Cymbalta) take 1 cap by mouth daily 90Capsule 3 Levemir FlexTouch 100 UNIT/ML Subcutaneous Solution Pen-injector (Insulin Detemir) inject 13 units under the skin 2 times a day 30 mL 0 Vitamin B-12 1000 MCG Oral Tablet Take by mouth 1 Tablet in the morning. (Patient not taking: Reported on 07/15/2023) 90 Tablet 1 Potassium Chloride Kiki ER 20 MEQ Oral Tablet Extended Release Take 1 Tablet by mouth in the morning and 1 Tablet before bedtime. (Patient not taking: Reported on 07/15/2023) 60 Tablet 11 No current facility-administered medications for this visit. ROS: Constitutional: No report of fever, chills, night sweats. There have been no non-intentional weightchanges. GI: Per HPI, otherwise negative. Physical Exam Constitutional: BP 141/73 | Pulse 94 | Temp 36.6 C (97.9 F) | Wt 42.2 kg (93 lb) Comment: per april weight , unable to weigh today | SpO2 98% | BMI 17.57 kg/m | BSA 1.35 m Thin female in nad CV: Heart is regular without murmur, rub or catia. Pulm: Clear to percussion and auscultation. GI: Abdomen is soft, non-tender, with normo-active bowel sounds in all four quadrants. No hepatosplenomegaly is appreciated. No masses are palpated. No guarding or rebound is noted. Labs reviewed: Component Ref Range & Units 3 mo ago BUN 6 - 20 mg/dL 20 Creatinine 0.5 - 1.0 mg/dL 0.8 Estimated Glomerular Filtration Rate >=60 mL/min 84 Comment: eGFR is calculated based on the CKD-EPI 2020 equation Sodium 135 - 146 mmol/L 141 Potassium 3.5 - 5.1 mmol/L 4.7 Chloride 98 - 107 mmol/L 106 CO2 22 - 32 mmol/L 26 Anion Gap 7 - 15 mmol/L 9 Glucose 70 - 120 mg/dL 100 Calcium 8.4 - 10.2 mg/dL 8.9 Last abd in 2018 showed patent flow and normal appearing liver A/P: 72 yo fm post oltx, on prograf and cellcept. Doing well clinically in the sense that she has no evidence of decompensation. Post oltx -her last abd monisha shows patent vasculature and normal appearing liver. Continue current medications. Consider repeat imaging and labs now thru 2023. Boost. She appears more weaker than before - her daughter states she is bedridden. Viviana Hill MD documented in this encounter Nursing Notes * Chaya Cardoza LPN - 07/15/2023 10:20 AM EDT Patient identified by name and date of . Chief Complaint Patient presents with Follow Up S/p liver transplant documented in this encounter Plan of Treatment Pending Results Name Type Priority Associated Diagnoses Date /Time CBC Lab Routine Liver transplant status (HCC) 07/15/2023 10:52 AM EDT COMPREHENSIVE METABOLIC PANEL Lab Routine Liver transplant status (HCC) 07/15/2023 10:52 AM EDT PT INR Lab Routine Liver transplant status (HCC) 07/15/2023 10:52 AM EDT TACROLIMUS LEVEL Lab Routine Liver transplant status (HCC) 07/15/2023 10:52 AM EDT Scheduled Orders Name Type Priority Associated Diagnoses Orde r Schedule CBC Lab Routine Liver transplant status (HCC) Expected: 07/15/2023, Expires: 07/15/2024 COMPREHENSIVE METABOLIC PANEL Lab Routine Liver transplant status (HCC) Expected: 07/15/2023, Expires: 07/15/2024 PT INR Lab Routine Liver transplant status (HCC) Expected: 07/15/2023, Expires: 07/15/2024 TACROLIMUS LEVEL Lab Routine Liver transplant status (HCC) Expected: 07/15/2023, Expires: 07/15/2024 Health Maintenance Due Date Last Done Comments [...] Additional history exists CKD HGB USE SMARTSET 94664 04/22/202404/22, 04/02/2023, 04/02/2023, Additional history exists CKD PHOS USE SMARTSET 69846 04/22/2024 080 09/2022, 11/15/2020, 04/01/2017, Additional history exists Lipid Panel 11/15/2025 11/15/2020, 02/2016, 11/02/2014, Additional history exists VITAMIN D LEVEL ONCE IN A LIFETIME-USE SMARTSET# 71881 Completed 04/09/2023, 08/10/2018, 11/04/2017, Additional history exists GARDASIL-HPV IMMUNIZATION SERIES Aged Out No longer eligible based on patient's age to complete this topic MENINGOCOCCAL (MENACTRA/MENVEO) Aged Out No longer eligible based on patient's age to complete this topic documented as of this encounter Medical Devices Implanted Type Area Clinical Dietitian Device Identifier Shelf Expiration Date Model / Serial / Lot Allomax Implanted:Qty: 1 on 08/05/2008 at [place] [facility] [place] [id number] / / Description:allomax surgical graft, tissue #[id number] Kyphopak 09/12 [id number] - [id number] Implanted:Qty: 1 on 11/23/2008 at [place] [facility] [place] [employer] [id number] / / documented as of this encounter Visit Diagnoses Diagnosis Liver transplant status (HCC)- Primary documented in this encounter Advance Directives Latest [...] 8:28 PM 08/03/2008 1:10 PM Care Teams Fee Clerk Relationship Specialty Start Date End Date Ivette Ragland MD 200 [facility] [place] [address] PCP - General 05/17/08 documented as of this encounter"
--- OUTSIDE RECORDS SUMMARY | 2023-11-08 18:36 | External Medical Summary | Summary of Care ---
Author Name Unknown Organization [facility] Address [address] [facility] [address] Phone [phone] Care Team Providers Care Special Forces Senior Sergeant Name Role Phone Ivette Ragland MD Primary Care Provider + Encounter Details Date Type Department Care Team (Late st Contact Info) Description 07/18/2023 Telephone General Internal Medicine [facility] [address] [facility] [place] [address] Ivette Ragland MD [address] [place] [address] Allergies Active Allergy Reactions Criticality Noted Date [...] Additional Information Patient not taking.Reported on 07/15/2023 [employer] Ultra In Vitro Strip (Glucose Blood)Indications:Ty pe 2 diabetes mellitus with hemoglobin A1c goal of less than 7.0% ([facility]) test 3 times daily 300 [...] single current episode of major depressive disorder ([facility]) take 1 cap by mouth daily 90 Capsule 3 04/04/2023 Active Levemir FlexTouch 100 UNIT/ML Subcutaneous Solution Pen-injector (Insulin Detemir)Indications: Type 2 diabetes mellitus with hemoglobin A1c goal of less than 7.0% ([facility]),Type 2 diabetes mellitus with stage 3 chronic kidney disease, with long-term current use of insulin, unspecified whether stage 3a or 3b CKD ([facility]) inject 13 units under the [...] for Patients with Cardiovascular Disease Project # [id number] PI: Susan Harmon MD Please call [phone] with study related questions GENOMICS CARDIO RESEARCH OTHER*[id number] 04/19/2008 10/29/2016 Overview: Renamed Per Clinical Trials Billing Project. Study Titile: Genomics Markers for Patients with Cardiovascular Disease Project # [id number] PI: Susan Harmon MD Please call [phone] with study related questions Hypocalcemia 12/02/2005 04/17/2018 [...] 07/23/2023 10:06 AM EDT Reny from [facility] calling. [employer] was not available to [...] [place] [id number] * Telephone Encounter - Ivette Ragland MD - 07/21/2023 8:34 AM EDT Noted. Nursing Can we request any other protective agency or studio hand to check on this patient? Thanks * Telephone Encounter - Dai Carnes LPN - 07/18/2023 11:47 AM EDT FYI * Telephone Encounter - Macy Zambrano OSA - 07/18/2023 10:56 AM EDT Reny calling that they received a call regarding [employer] neglect and exportation. Laying in Urine/Feces 14/04 [...] Additional history exists CKD PHOS USE SMARTSET 77941 04/22/2024 08/0 09/2022, 11/15/2020, 04/01/2017, Additional history exists CKD HGB USE SMARTSET 66573 07/15/202407/15, 04/22/2023, 04/02/2023, Additional history exists Lipid Panel 11/15/2025 11/15/2020, 0 02/2016, 11/02/2014, Additional history exists VITAMIN D LEVEL ONCE IN A LIFETIME-USE SMARTSET# 59665 Completed 04/09/2023, 08/10/2018, 11/04/2017, Additional history exists GARDASIL-HPV IMMUNIZATION SERIES Aged Out No longer eligible based on patient's age to complete this topic MENINGOCOCCAL (MENACTRA/MENVEO) Aged Out No longer eligible based on patient's age to complete this topic documented as of this encounter Medical Devices Implanted Type Area A Class Lineman Device Identifier Shelf Expiration Date Model / Serial / Lot Allomax Implanted:Qty: 1 on 08/05/[address] [facility] [place] 04/22/2013 [id number] / / Description:allomax surgical graft, tissue #[id number] Kyph[employer]ak / [id number] - [id number] Implanted:Qty: 1 on 11/23/[address] [facility] [employer] [id number] / / documented as of this encounter [...] 8:28 PM 08/03/2008 1:10 PM Care Teams Special Forces Senior Sergeant Relationship Specialty Start Date End Date Ivette Ragland MD [address] [place] [address] PCP - General 05/17/08 documented as of this encounter
--- OUTSIDE RECORDS SUMMARY | 2023-11-08 18:36 | External Medical Summary | Summary of Care ---
Author Name Unknown Organization [facility] Address [address] [facility] [address] Phone [phone] Care Team Providers Care Fisheries Diver Name Role Phone Ellen Ragland MD Primary Care Provider + Encounter Details Date Type Department Care Team Description 05/21/2023 Refill General Internal Medicine [facility] [address] [facility] [place] [address] [facility] MD [address] [facility] [address] Type 2 diabetes mellitus with hemoglobin A1c goal of less than 7.0% ([facility]); Type 2 diabetes mellitus with stage 3 chronic kidney disease, with long-term current use of insulin, unspecified whether stage 3a or 3b CKD ([facility]) Allergies Active Allergy Reactions Severity Noted Date Comments Codeine 03/05/2001 Just with plain codeine , not vicodin or percocet Johansen-2 Inhibitors 07/08/2001 Legs numb, knots in legs celebrex Influenza Virus Vaccine 12/18/2018 Allergic reaction Pneumococcal Polysaccharides Conjugated Vaccine 12/18/2018 Allergy Rofecoxib 07/08/2001 Nausea documented as of this encounter (statuses as of 05/22/2023) Medications Medication Sig Dispensed Refills Start Date End Date Status MEDICAL INSTRUCTIONS Use as directed. VNA for nursing, PT/OT: DX: Fx right femur, liver transplant, CKD, HTN, depression, anemia, hyponatremia 1 Each 1 7 Active Calcium Carbonate Antacid (TUMS) 500 MG chewable tablet Take 1 Tab by mouth 3 times a day as needed for Heartburn. 90 Tab 0 7 Active Additional Information Patient not taking.Reported on 08/30/2021 Misc. Devices (BATH/SHOWER SEAT) MISCIndications:Risk and functional assessment With back support 1 Each 0 7 Active Tacrolimus 1 MG Oral Capsule (PROGRAF)Indications [...] the morning. 90 Tablet 1 2 Active OneTouch Ultra In Vitro Strip (Glucose Blood)Indications:Ty pe 2 diabetes mellitus with hemoglobin A1c goal of less than 7.0% ([facility]) test 3 times daily 300 Strip 3 2 Active Omeprazole 20 MG Oral Capsule Delayed Release (PriLOSEC)Indication s:Status post liver transplantation (HCC) TAKE ONE CAPSULE BY MOUTH IN THE MORNING 1 hour before first daily meal 90 Capsule 3 3 Active Mycophenolate Mofetil 250 MG Oral Capsule (Cellcept)Indication s:Status post liver transplantation (HCC) TAKE TWO CAPSULES BY MOUTH TWICE DAILY 360 Capsule 3 3 Active Tacrolimus 1 MG Oral Capsule (Prograf)Indications [...] before bedtime. 60 Tablet 11 3 Active DULoxetine HCl 60 MG Oral Capsule Delayed Release Particles (Cymbalta)Indication s:ARGENIS (generalized anxiety disorder),Mild single current episode of major depressive disorder (HCC) take 1 cap by mouth daily 90 Capsule 3 3 Active Vitamin D3 1.25 MG (96863 UT) Oral CapsuleIndications:V itamin D deficiency Take 1 Capsule by mouth once a week. 12 Capsule 1 3 07/09/20 23 Active Levemir FlexTouch 100 UNIT/ML Subcutaneous Solution Pen-injector (Insulin Detemir)Indications: Type 2 diabetes mellitus with hemoglobin A1c goal of less than 7.0% (HCC),Type 2 diabetes mellitus with stage 3 chronic kidney disease, with long-term current use of insulin, unspecified whether stage 3a or 3b CKD (HCC) inject 13 units under the skin 2 times a day 30 mL 0 3 Active Levemir FlexTouch 100 UNIT/ML Subcutaneous Solution Pen-injector (Insulin Detemir)Indications: Type 2 diabetes mellitus with hemoglobin A1c goal of less than 7.0% (HCC),Type 2 diabetes mellitus with stage 3 chronic kidney disease, with long-term current use of insulin, unspecified whether stage 3a or 3b CKD (HCC) inject 13 units under the skin 2 times a day 30 mL 0 2 05/21/20 23 Discontinu ed(Refill) documented as of this encounter (statuses as of 05/22/2023) Active Problems Problem Noted Date Diabetes mellitus [...] as of this encounter (statuses as of 05/22/2023) Resolved Problems Problem Noted Date Resolved Date [...] 02/20/2012 EXAMINATION OF PARTICIPANT IN CLINICAL TRIAL- [facility] 04/19/2008 01/05/2010 Overview: Renamed Per Clinical Trials Billing Project. Study Titile: Genomics Markers for Patients with Cardiovascular Disease Project # [id number] PI: Susan Harmon MD Please call [phone] with study related questions GENOMICS CARDIO RESEARCH OTHER*[id number] 200710/29/2016 Overview: Renamed Per Clinical Trials Billing Project. Study Titile: Genomics Markers for Patients with Cardiovascular Disease Project # [id number] PI: Susan Harmon MD Please call [phone] with study related questions Hypocalcemia 12/02/2005 04/17/2018 [...] as of this encounter (statuses as of 05/22/2023) Immunizations Name Administration Dates Next Due Hepatitis [...] Telephone Encounter - Ellen Ragland MD - 05/22/2023 7:49 AM EDTSigned Prescriptions: Disp Refills Levemir FlexTouch 100 UNIT/ML Subcutaneous*30 mL 0 Sig: inject 13 units under the skin 2 times a dayAuthorizing Provider: ELLEN RAGLAND * Telephone Encounter - Alf Chase CMA - 05/21/2023 5:14 PM EDT Pending Prescriptions: Disp Refills Levemir FlexTouch 100 UNIT/ML Subcutaneou*30 mL 0 Sig: inject 13 units under the skin 2 times a day Last Visit: 07/08/2019 (in office), 04/24/2023 (telemedicine) Next Visit: Visit date not found Last date the medication was ordered: 05/21/22 Patient Active Problem List Diagnosis Code Chronic rhinitis J31.0 ADVANCE DIRECTIVE INFORMATION Status post liver transplantation (HCC) Z94.4 Type 2 diabetes mellitus with hemoglobin A1c goal of less than 7.0% (HCC) E11.9 DYSLIPIDEMIA, GOAL LDL BELOW 100 E78.5 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, 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 Osteoporosis M81.0 Gastroparesis K31.84 Controlled substance agreement signed Z79.899 Aspirin contraindicated Z53.09 Thrombocytopenia ([facility]) D69.6 Urinary incontinence, nocturnal enuresis N39.44 Urge incontinence of urine N39.41 Type 2 diabetes mellitus with stage 3 chronic kidney disease, with long-term current use of insulin([facility]) E11.22, N18.30, Z79.4 Mild single current episode of major depressive disorder ([facility]) F32.0 Diabetes mellitus with gastroparesis ([facility]) E11.43 ARGENIS (generalized anxiety disorder) F41.1 Renal osteodystrophy N25.0 Labs: Lab Results Component Value Date/Time CREATININE - [facility] 0.8 04/09/2023 11:55 AM CREATININE - [facility] 1.1 (H) 08/25/2018 12:56 PM CREATININE ISTAT 1.2 09/13/2016 12:23 PM CREATININE, RANDOM URINE - [facility] 210 11/27/2021 01:31 PM CREATININE, RANDOM URINE - [facility] 171 01/02/2018 03:16 PM CREATININE-OUTSIDE LAB 0.84 04/22/2023 12:00 AM Lab Results Component Value Date/Time POTASSIUM - [facility] 4.7 04/09/2023 11:55 AM POTASSIUM - [facility] 4.0 08/25/2018 12:56 PM POTASSIUM POCT - [facility] 3.3 (L) 09/13/2016 12:23 PM POTASSIUM, RANDOM URINE - [facility] 26.1 07/19/2008 12:26 PM POTASSIUM, WHOLE BLOOD - [facility] 3.4 (L) 08/05/2008 04:41 PM POTASSIUM-OUTSIDE LAB 5.7 (A) 04/22/2023 12:00 AM Lab Results Component Value Date/Time TSH - [facility] 2.55 02/13/2016 09:57 AM Lab Results Component Value Date/Time LDL (CALCULATED)-OUTSIDE LAB 87 10/21/2012 12:00 AM LDL CHOLESTEROL (CALCULATED) - [facility] 86 11/15/2020 11:44 AM LDL CHOLESTEROL (CALCULATED) - [facility] 71 06/04/2013 01:31 PM LDL CHOLESTEROL (CALCULATED) - [facility] 74 07/18/2011 09:38 AM LDL CHOLESTEROL (DIRECT MEASURE) - [facility] 113 09/27/2015 12:06 PM LDL CHOLESTEROL (DIRECT MEASURE) - [facility] 110 11/02/2014 07:52 AM Lab Results Component Value Date/Time ALT - [facility] 18 04/02/2023 09:33 AM ALT - [facility] 12 11/04/2017 12:53 PM Hemoglobin AIC Results: Lab Results Component Value Date/Time HEMOGLOBIN A1C - [facility] 4.6 04/02/2023 09:33 AM HEMOGLOBIN A1C - [facility] 5.7 (H) 11/15/2020 11:44 AM HEMOGLOBIN A1C - [facility] 6.2 (H) 08/10/2018 11:00 AM HEMOGLOBIN A1C - [facility] 5.1 06/20/2017 05:45 AM HEMOGLOBIN A1C - [facility] 5.7 09/13/2016 12:11 PM * Telephone Encounter - Kath Pierre CPhT - 05/21/2023 4:34 PM EDT Patient calling to request a refill for Levemir FlexTouch 100 UNIT/ML Subcutaneous Solution Pen-injector (Insulin Detemir) stated she is using as per sliding scale Thank you, Kath Pierre Cardiopulmonary Technician And Eeg Tech II [facility] (formerly [facility]) 05/21/2023 4:35 PM documented in this encounter Plan of Treatment Upcoming Encounters Date Type Specialty Care Team Description 07/15/2023 Office Visit Gastroenterology Viviana Hill MD [facility] [place] [id number] Health Maintenance Due Date Last Done Comments COVID-19 Vaccine (#1) 1954 Zoster Vaccines (1 of 2) 1968 Cologuard 1994 Sigmoidoscopy 1994 Hepatitis B (3 of 3 - 19+ 3-dose series) 07/06/2008 02/08/2008, 01/05/2008 Fecal Occult Blood Test 02/07/2009 02/08/2008 Pneumococcal Vaccine: 65+ Years (3 - PPSV23 or PCV20) 01/01/2017 01/02/2016, 04/10/2006 Colonoscopy 02/11/2017 02/11/2007 Colorectal Cancer Screening 02/11/2017 DXA Scan 03/21/2017 03/21/2015, 040 10/2012, 12/21/2010, Additional history exists DTaP,Tdap,and Td [...] Additional history exists CKD HGB USE SMARTSET 30019 04/22/202404/22, 04/02/2023, 04/02/2023, Additional history exists CKD PHOS USE SMARTSET 74153 04/22/2024 08/0 09/2022, 11/15/2020, 04/01/2017, Additional history exists Lipid Panel 11/15/2025 11/15/2020, 02/2016, 11/02/2014, Additional history exists VITAMIN D LEVEL ONCE IN A LIFETIME-USE SMARTSET# 13819 Completed 04/09/2023, 08/10/2018, 11/04/2017, Additional history exists GARDASIL-HPV IMMUNIZATION SERIES Aged Out No longer eligible based on patient's age to complete this topic MENINGOCOCCAL (MENACTRA/MENVEO) Aged Out No longer eligible based on patient's age to complete this topic documented as of this encounter Medical Devices Implanted Type Area Curb Setter Device Identifier Shelf Expiration Date Model / Serial / Lot Allomax Implanted:Qty: 1 on [place] [facility] [place] [id number] / / Description:allomax surgical graft, tissue #[id number] [employer] 20/3 [id number] - [id number] Implanted:Qty: 1 on 11/23/2008 [place] [facility] [place] [employer] [id number] / / documented as of this encounter Visit Diagnoses Diagnosis Type 2 diabetes mellitus with stage 3 chronic kidney disease, with long-term current use of insulin, unspecified whether stage 3a or 3b CKD (HCC) documented in this encounter Advance Directives [...] 8:28 PM 08/03/2008 1:10 PM Care Teams Fisheries Diver Relationship Specialty Start Date End Date Ellen Ragland MD [address] [place] [id number] PCP - General 05/17/08 documented as of this encounter
--- OUTSIDE RECORDS SUMMARY | 2023-11-08 18:36 | External Medical Summary | Summary of Care ---
Author Name Unknown Organization [facility] Address [address] [facility] [address] Phone [phone] Care Team Providers Care Gas Systems Worker Name Role Phone Ivette Ragland MD Primary Care Provider + Encounter Details Date Type Department Care Team (Late st Contact Info) Description 07/18/2023 Telephone General Internal Medicine [facility] [address] [facility] [place] [address] Ivette Ragland MD 200 [place] [address] Allergies Active Allergy Reactions Criticality Noted Date [...] Additional Information Patient not taking.Reported on 07/15/2023 [employer] Ultra In Vitro Strip (Glucose Blood)Indications:Ty pe 2 diabetes mellitus with hemoglobin A1c goal of less than 7.0% ([facility]) test 3 times daily 300 [...] single current episode of major depressive disorder ([facility]) take 1 cap by mouth daily 90 Capsule 3 04/04/2023 Active Levemir FlexTouch 100 UNIT/ML Subcutaneous Solution Pen-injector (Insulin Detemir)Indications: Type 2 diabetes mellitus with hemoglobin A1c goal of less than 7.0% ([facility]),Type 2 diabetes mellitus with stage 3 chronic kidney disease, with long-term current use of insulin, unspecified whether stage 3a or 3b CKD ([facility]) inject 13 units under the [...] for Patients with Cardiovascular Disease Project # [id number] PI: Susan Harmon MD Please call [phone] with study related questions GENOMICS CARDIO RESEARCH OTHER*[id number] 04/19/2008 10/29/2016 Overview: Renamed Per Clinical Trials Billing Project. Study Titile: Genomics Markers for Patients with Cardiovascular Disease Project # [id number] PI: Susan Harmon MD Please call [phone] with study related questions Hypocalcemia 12/02/2005 04/17/2018 [...] 07/24/2023 8:16 AM EDT Called Reny at [facility] informed of message. She verbalized understanding. Reny asked, if we would reach out to [facility] if family doesn't follow through with appts as advised during the last video visit. At this time, family and pt are refusing any service [employer] could provide. Pt did go to a hepatology appt at on 07/15. Per notes from last visit, "Follow Up: Return in about 3 months (around 07/25/2023) for Return with Physician. " This has not been scheduled. * Telephone Encounter - Ivette Ragland MD [...] was also conveyed to her [facility] then they should think about switching the primary care provider to [place] as they live closer to that place. Please keep me posted if any new update. Thanks * Telephone Encounter - Tonie Arreaga LPN - 07/23/2023 10:06 AM EDT Reny from [facility] calling. [employer] was not available to transfer [...] [place] [phone] * Telephone Encounter - Ivette Ragland MD - 07/21/2023 8:34 AM EDT Noted. Nursing Can we request any other protective agency or tie carrier to check on this patient? Thanks * Telephone Encounter - Dai Carnes LPN - 07/18/2023 11:47 AM EDT FYI * Telephone Encounter - Macy Zambrano OSA - 07/18/2023 10:56 AM EDT Reny calling that they received a call regarding [employer] neglect and exportation. Laying in Urine/Feces 14/04 [...] Cancer Screening 02/11/2017 DXA Scan 03/21/2017 03/21/2015, 0 10/2012, 12/21/2010, Additional history exists DTaP,Tdap,and Td [...] 03/06/2017, Additional history exists HbA1c 10/03/2023 04/02/2023, 2 12/2020, 08/10/2018, Additional history exists GFR 01/14/2024 07/15/2023, 080 09/2022, 04/09/2023, Additional history exists CKD PHOS USE SMARTSET 69412 04/22/2024 08/0 09/2022, 11/15/2020, 04/01/2017, Additional history exists CKD HGB USE SMARTSET 59717 07/15/202407/15, 04/22/2023, 04/02/2023, Additional history exists Lipid Panel 11/15/2025 11/15/2020, 0 02/2016, 11/02/2014, Additional history exists VITAMIN D LEVEL ONCE IN A LIFETIME-USE SMARTSET# 04309 Completed 04/09/2023, 08/10/2018, 11/04/2017, Additional history exists GARDASIL-HPV IMMUNIZATION SERIES Aged Out No longer eligible based on patient's age to complete this topic MENINGOCOCCAL (MENACTRA/MENVEO) Aged Out No longer eligible based on patient's age to complete this topic documented as of this encounter Medical Devices Implanted Type Area Spanish Language Lecturer Device Identifier Shelf Expiration Date Model / Serial / Lot Allomax Implanted:Q[place] [facility] [place] [id number] / / Description:allomax surgical graft, tissue #[id number] [employer] 09/12 [id number] - [id number] Implanted:Qty: 1 on 11/23/2008 [place] [facility] [place] [employer] [id number] / / documented as of this encounter [...] 8:28 PM 08/03/2008 1:10 PM Care Teams Gas Systems Worker Relationship Specialty Start Date End Date Ivette Ragland MD [address] [facility] [place] [address] PCP - General 05/17/08 documented as of this encounter
--- OUTSIDE RECORDS SUMMARY | 2023-11-08 18:36 | External Medical Summary ---
Author Name Unknown Address Unknown Organization K0G[facility] [address] [place] [address] Laboratory Report Ordering Provider Test Date Status KIMBERLEY WESTONUJA 07/15/2023 10:52:33 Final Warfarin Therapy
INR: 2 .0-3.0 conventional anticoagulation
INR: 2.5- 3.5 high intensity anticoagulation Observation Date Value Abnormality Reference (Units ) Status PT 07/15/2023 10:52:33 13.8 11.6-15.2 (seconds) Final INR 07/15/2023 10:52:33 1.0 0.8-1.2 Final Performing Location [facility] [address] [place] [address]
--- NOTE | 2023-11-08 18:40 | Emergency Department Note ---
Impression & Plan Altered mental status, Colitis, Leukopenia ED Provider Note NAME: JUAN STEINER AGE: 72 SEX: F : 1950 ARRIVES VIA: Ambulance INFORMANT: Patient, EMS ED PROVIDER(S): Sunday Fournier DO CHIEF COMPLAINT: Altered mental status HPI: Patient is a 72-year-old female with a past medical history of metabolic encephalopathy, anxiety, pancytopenia, cirrhosis with a history of a liver transplant who presents to the ER per report from EMS for confusion. Patient denies all complaints with the exception of pain on her sacrum. No headache or change in vision. No chest pain or shortness of breath. No nausea or vomiting. No belly pain. No dysuria, urgency, or frequency. No other exacerbating or remitting factors. Per report from EMS the daughter had her come in to be evaluated as the patient did not know the daughter had to go to work. The patient is aware the daughter works as a nurse. Additional history obtained from son-in-law who notes that the patient has been a little bit more confused today and has been having nausea, vomiting, and diarrhea all day and unable to keep anything down. Daughters present at bedside and notes that she is completely confused. They note she is not in touch with reality. She normally knows what day it is the year and the month. ADDITIONAL HISTORY OBTAINED: Per HPI Chronic Medical/Social Conditions Affecting Care: Per HPI PAST MEDICAL HISTORY:See Below PAST SURGICAL HISTORY:See Below FAMILY HISTORY:See Below SOCIAL HISTORY:See Below HOME MEDICATIONS:See Below ALLERGIES:See Below VITALS:See Below PHYSICAL EXAMINATION: GENERAL: Sitting up in bed, alert, chronically ill-appearing, disheveled EYE EXAM: normal conjunctiva. PERRL and EOM's grossly intact. OROPHARYNX: mucous membranes are dry NECK: supple, no nuchal rigidity, no adenopathy, non-tender LUNGS: Clear to auscultation. Normal chest wall mechanics HEART: no murmurs, S1 normal and S2 normal ABDOMEN: abdomen soft, non-tender, normo-active bowel sounds, no masses, no rebound or guarding. BACK: Back is symmetrical on inspection and there is no deformity, no midline tenderness, no CVA tenderness. SKIN: Small erythema at the base of the sacrum with a bony protuberance. Skin blanches over the protuberance. No current skin breakdown. UPPER EXTREMITIES: upper extremities are grossly normal. LOWER EXTREMITIES: No pitting edema. NEURO EXAM: Oriented to person, place but not year, cranial nerves II-XII intact, normal speech, no gross weakness of arms, no gross weakness of legs. 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 Family notes that she is extremely confused. IVs were established blood work was obtained. Labs show leukopenia 3.8. This actually improved from previous. Mild anemia 10.1 which is slightly up from her baseline likely secondary to dehydration. BMP along with LFTs bilirubin was fairly unremarkable. Troponin was negative. Lipase normal. UA was contaminated. Patient was given IV fluids, Zofran and Zosyn to cover the colitis and possible UTI. Patient was updated bedside discussed with the hospitalist for further evaluation management treatment. Chest x-ray was clean as well as CT head. CT abdomen pelvis did show the colitis. Consults/Care Managements Discussions: Per [facility] Triage Nursing notes reviewed. Limited review of prior medical records performed Vital Signs: reviewed and remarkable for no significant abnormalities Differential diagnosis: Differential diagnoses includes but is not limited to gastritis, peptic ulcer disease, GERD, gallbladder disease, pancreatitis, small bowel obstruction, appendicitis, diverticulitis, hernia, urinary tract infection, torsion, perforation, trauma, infectious. ER treatment provided: See below Diagnostics interpreted by me include EKG and cardiac monitoring as listed below: -Cardiac Monitoring: An order was placed for continuous cardiac monitoring. The monitor shows a rate of 90 with sinus rhythm. -ECG: Sinus rhythm rate 82 Normal axis No PVCs QTc 476 -Laboratory studies:Interpreted by me as stated above in MDM and shown below. Imaging studies: Xrays: As interpreted by me: Portable AP upright 1 view of the chest shows no focal infiltrate CTs show: CT head and abdomen pelvis as described above Procedures:none Critical Care: None Past Med/Surg History Medical History Anxiety and depression Back pain Cirrhosis CKD (chronic kidney disease) Closed fracture of left proximal humerus Diabetes Diabetes mellitus, type II Hypokalemia Left hip pain (10/07/13) Pancytopenia Surgical History History of cholecystectomy History of hysterectomy History of liver transplant History of right hip hemiarthroplasty Liver transplanted Family History Other Cancer Diabetes Social History Smoking Status: Never smoker Second Hand Exposure: No; Do You Dip or Chew Tobacco: No; Hx Alcohol Use: No Hx Substance Use: No Preferred Language: Chinese Communication Ability: Effective [employer] Work[employer] Required: No Beliefs That Will Affect Care: None marital status: / Current Living Situation: Family Current Living Situation Comment: with daughter Feels Safe at Home: Yes Assistive Devices: Wheelchair and Other Allergies Allergies Allergy/AdvReac Type Severity Reaction Status Date / Time celecoxib AdvReac Mild NAUSEA, Verified 04/09/23 16:15 VOMITING codeine AdvReac Mild ANXIETY Verified 04/09/23 16:15 rofecoxib AdvReac Mild LEGS GO Verified 04/09/23 16:15 NUMB hydromorphone AdvReac Unknown RESTLESS, Verified 04/09/23 16:15 INSOMNIA Home Meds Home Medications Medication Instructions Recorded Confirmed duloxetine 60 mg capsule,delayed 60 mg PO DAILY 11/08/23 11/08/23 release insulin detemir U-100 100 unit/mL 13 unit subcut BID 11/08/23 11/08/23 (3 mL) subcutaneous pen (Levemir FlexPen) mycophenolate mofetil 250 mg 500 mg PO BID 11/08/23 11/08/23 capsule omeprazole 20 mg capsule,delayed 20 mg PO DAILY 11/08/23 11/08/23 release potassium chloride 20 mEq 20 meq PO BID 11/08/23 11/08/23 tablet,extended release(part/cryst) tacrolimus 1 mg capsule, 1 mg PO BID 11/08/23 11/08/23 immediate-release Results & Data (ED) Vital Signs Vital Signs - 24 hr 11/08/23 18:33 11/08/23 18:34 11/08/23 18:37 Temperature Temperature Source Pulse Rate 90 Pulse Rate from SpO2 Sensor 94 H Respiratory Rate 18 Respiratory Effort / Characteristics Respiratory Depth Blood Pressure 144/86 H Blood Pressure Mean 123 Blood Pressure Position Pulse Oximetry 100 96 Oxygen Delivery Method Room Air Sepsis Recent Fever Within 48 Hours Sepsis New/Unexplained Change in Mental Status Sepsis Action Taken by Nursing 11/08/23 18:38 11/08/23 18:39 11/08/23 18:45 Temperature 36.5 C Temperature Source Oral Pulse Rate 88 93 H 87 Pulse Rate from SpO2 Sensor 87 Respiratory Rate 16 19 Respiratory Effort / Characteristics Non-Labored Spontaneous Respiratory Depth Normal Blood Pressure 144/86 H Blood Pressure Mean 105 Blood Pressure Position Sitting Pulse Oximetry 99 99 Oxygen Delivery Method Room Air Sepsis Recent Fever Within 48 Hours No Sepsis New/Unexplained Change in Mental Status No Sepsis Action Taken by Nursing No Action Required 11/08/23 19:00 11/08/23 19:15 Temperature Temperature Source Pulse Rate 85 89 Pulse Rate from SpO2 Sensor 85 89 Respiratory Rate 21 19 Respiratory Effort / Characteristics Respiratory Depth Blood Pressure Blood Pressure Mean Blood Pressure Position Pulse Oximetry 99 98 Oxygen Delivery Method Sepsis Recent Fever Within 48 Hours Sepsis New/Unexplained Change in Mental Status Sepsis Action Taken by Nursing Laboratory Data 11/08/23 18:40 11/08/23 19:33 Lab Results 11/08/23 11/08/23 Range/Units 18:40 19:33 WBC 3.85 L (4.8-10.8) K/ul RBC 3.43 L (4.20-5.40) M/uL Hgb 10.1 L (12.0-16.0) g/dl Hct 30.2 L (37.0-47.0) % MCV 88.0 (80.0-100.0) fL MCH 29.4 (25.0-34.0) pg MCHC 33.4 (32.0-36.0) g/dL RDW Std Deviation 47.1 H (36.4-46.3) fL RDW Coeff of [place] 14.6 H (11.5-14.5) % Plt Count 164 (130-400) K/uL MPV 10.2 (9.4-12.4) fL Immature Gran % (Auto) 0.3 % Neut % (Auto) 67.7 % Lymph % (Auto) 24.4 % [place] % (Auto) 6.5 % Eos % (Auto) 0.8 % Baso % (Auto) 0.3 % Neut # (Auto) 2.61 (1.40-6.50) K/uL Lymph # (Auto) 0.94 L (1.20-3.40) K/uL [place] # (Auto) 0.25 (0.11-0.59) K/uL Eos # (Auto) 0.03 (0.00-0.50) K/uL Baso # (Auto) 0.01 (0.00-0.20) K/uL Immature Gran # (Auto) 0.01 (0.01-0.20) K/uL Sodium 135 L (136-145) mmol/L Potassium TNP 3.9 Chloride 104 (98-107) mmol/L Carbon Dioxide 26 (21-32) mmol/L Anion Gap 5 (3-11) BUN 27 H (6-23) mg/dl Creatinine 0.89 (0.6-1.2) mg/dl Est Cr Clr Drug Dosing 41.1 ml/min Est GFR ( Amer) 74.5 ml/min Est GFR (Non-Af Amer) 64.3 ml/min BUN/Creatinine Ratio 30.3 H (10-20) Glucose 199 H (70-99(Fasting)) mg/dl Calcium 8.9 (8.6-10.3) mg/dl Total Bilirubin 0.7 (0.2-1.0) mg/dl AST TNP 13 ALT 12 (7-52) U/L Alkaline Phosphatase 41 (34-104) U/L Ammonia 17.0 L (18-72) umol/L Troponin I High Sens 4.8 (0-14) pg/ml Total Protein 5.9 L (6.0-8.3) gm/dl Albumin 3.5 (3.4-5.0) gm/dl Globulin 2.4 L (2.5-4.0) gm/dl Albumin/Globulin Ratio 1.5 (0.9-2) Lipase < 3 L (11-82) U/L Urine Color Yellow Urine Appearance Cloudy A (Clear) Urine pH 5.0 (4.5-7.5) Ur Specific [place] 1.019 (1.000-1.030) Urine Protein 2+ H (Negative) Urine Glucose (UA) Negative (Negative) Urine Ketones Negative (Negative) Urine Blood 2+ H (Negative) Urine Nitrite Negative (Negative) Urine Bilirubin Negative (Negative) Urine Urobilinogen Negative (Negative) Ur Leukocyte Esterase 2+ H (Negative) Urine WBC (Auto) >30 H (0-5) /hpf Urine RBC (Auto) 5-10 H (0-4) /hpf U Hyaline Cast (Auto) 10-30 H (0-5) /lpf U Epithel Cells (Auto) 10-20 H (0-5) /lpf Urine Bacteria (Auto) Negative (Negative) Administered Medications Discontinued Medications Sodium Chloride (Nss) 500 mls @ 999 mls/hr IV .Q31M ONE Stop: 11/08/23 19:07 Last Infusion: 11/08/23 19:43 Dose: Infused Documented By: Admin: 11/08/23 19:12 Dose: 999 mls/hr Documented By: ACC Piperacillin Sod/Tazobactam Sod (Zosyn) 4.5 gm in 100 mls @ 200 mls/hr IV NOW ONE Stop: 11/08/23 21:27 Last Infusion: 11/08/23 22:47 Dose: Infused Documented By: Admin: 11/08/23 22:12 Dose: 200 mls/hr Documented By: ACC Ondansetron HCl (Ondansetron Inj 2 Mg/Ml 2 Ml Vial) 4 mg IV NOW STA Stop: 11/08/23 18:42 Last Admin: 11/08/23 19:31 Dose: 4 mg Documented By: ACC Imaging Data Radiologist's Impression: Chest X-Ray 11/08/23 18:37 XR chest 1V portable HISTORY: 72 years-old Female ams acutely altered mental status COMPARISON: Chest radiograph 04/13/2023 TECHNIQUE: AP view of the chest FINDINGS: A vertebroplasty and a chronic proximal left humeral fracture are incidentally noted. Lung volumes are mildly diminished, unchanged. Lungs are clear. There is no pneumothorax or pleural effusion. Cardiac size is normal. Mediastinal contours are normal. There is no evidence for pulmonary edema. IMPRESSION: No acute process. ACT 112: Negative or not required by law. The above report was generated using voice recognition software. It may contain grammatical, syntax or spelling errors. Electronically signed by: Ronnie Dorsey M.D. 11/08/2023 6:56 PM Abdomen/Pelvis CT 11/08/23 18:42 Exam(s): CT ABDOMEN + PELVIS With Contrast IV Amt: 84 ml optiray 320 EXAM: CT Abdomen and Pelvis With Intravenous Contrast CLINICAL HISTORY: Reason for exam: n/v/d. TECHNIQUE: Axial computed tomography images of the abdomen and pelvis with intravenous contrast. CTDI is 10.82 mGy and DLP is 503 mGy-cm. Automated exposure control was utilized for the study. A dose lowering technique was utilized adhering to the principles of ALARA. CONTRAST: Patient received 84 ml optiray 320 of IV contrast COMPARISON: No relevant prior studies available. FINDINGS: Lung bases: Unremarkable. No mass. No consolidation. Pleural space: Trace RIGHT pleural effusion. ABDOMEN: Liver: Unremarkable. No mass. Gallbladder and bile ducts: Surgical clips in the RIGHT upper quadrant, correlate with surgical history. Cholecystectomy. No ductal dilation. Pancreas: Unremarkable. No mass. No ductal dilation. Spleen: Unremarkable. No splenomegaly. Adrenals: Unremarkable. No mass. Kidneys and ureters: Unremarkable. No solid mass. No hydronephrosis. Stomach and bowel: Severe wall thickening of the colon, preferentially located in the middle quadrant, consistent with colitis. Diverticulosis, without acute diverticulitis. No small bowel obstruction. No free intraperitoneal air. PELVIS: Appendix: No findings to suggest acute appendicitis. Bladder: Unremarkable. No mass. Reproductive: Unremarkable as visualized. ABDOMEN and PELVIS: Intraperitoneal space: Unremarkable. No free air. No significant fluid collection. Bones/joints: Multilevel cement kyphoplasty. Degenerative changes of the spine. No acute fracture. No dislocation. Soft tissues: Unremarkable. Vasculature: Atherosclerotic changes of the aorta. No abdominal aortic aneurysm. Lymph nodes: Unremarkable. No enlarged lymph nodes. IMPRESSION: 1. Severe wall thickening of the colon, preferentially located in the middle quadrant, consistent with colitis. 2. Trace RIGHT pleural effusion. 3. Surgical clips in the RIGHT upper quadrant, correlate with surgical history. Cholecystectomy. 4. Diverticulosis, without acute diverticulitis. No small bowel obstruction. No free intraperitoneal air. Electronically signed by: Froilan Kaplan MD 11/08/23 20:[address] 11/08/23 18:44 CT head/brain wo con CLINICAL HISTORY: 72 years-old Female with ams. Acutely altered mental status TECHNIQUE: Multiple axial CT images of the head were obtained without contrast. A dose lowering technique was utilized adhering to the principles of ALARA. CT DOSE: 625.8 mGy.cm COMPARISON: 04/13/2023 FINDINGS: No acute intracranial hemorrhage, midline shift, intracranial mass, hydrocephalus, territorial ischemia or abnormal extra-axial collection. Involutional changes with chronic microvascular ischemic disease. The calvarium is intact. Findings suggestive of prior partial right mastoidectomy. Prior bilateral lens repair. The paranasal sinuses, mastoid air cells, and middle ear cavities are clear. IMPRESSION: No acute intracranial abnormality. ACT 112: Negative or not required by law. The above report was generated using voice recognition software. It may contain grammatical, syntax or spelling errors. Electronically signed by: Ronnie Dorsey M.D. 11/08/2023 8:07 PM Discharge Plan Visit Data Chief Complaint: Confusion Stated Complaint: AMS ED Provider: Sunday Fournier Discharge Problem: Altered mental status, Colitis, Leukopenia Forms Stand Alone Forms: My [facility] Prescriptions Prescriptions: No Action mycophenolate mofetil 250 mg capsule 500 mg PO BID potassium chloride 20 mEq tablet,ER particles/crystals 20 meq PO BID omeprazole 20 mg capsule,delayed release(DR/EC) 20 mg PO DAILY tacrolimus 1 mg capsule 1 mg PO BID duloxetine 60 mg capsule,delayed release(DR/EC) 60 mg PO DAILY Levemir FlexPen 100 unit/mL (3 mL) insulin pen 13 unit SUBCUT BID Referrals Referrals: Ivette Ragland MD [Primary Care Provider] - Discharge Problem: Altered mental status Qualifiers: Altered mental status type: unspecified Qualified Code(s): R41.82 - Altered mental status, unspecified Leukopenia Qualifiers: Leukopenia type: unspecified Qualified Code(s): D72.819 - Decreased white blood cell count, unspecified
[2023-11-08 18:54] LABS: Basophils # (auto) 0.01 K/uL (0.00-0.20); Basophils % (auto) 0.3 %; Eosinophils # (auto) 0.03 K/uL (0.00-0.50); Eosinophils % (auto) 0.8 %; Hematocrit (blood only) 30.2 % (37.0-47.0); Hemoglobin 10.1 g/dl (12.0-16.0); Immature Granulocytes # (auto) 0.01 K/uL (0.01-0.20); Immature Granulocytes % (auto) 0.3 %; Lymphocytes # (auto) 0.94 K/uL (1.20-3.40); Lymphocytes % (auto) 24.4 %; Mean Corpuscular Hemoglobin 29.4 pg (25.0-34.0); Mean Corpuscular Hgb Conc 33.4 g/dL (32.0-36.0); Mean Platelet Volume 10.2 fL (9.4-12.4); Monocytes # (auto) 0.25 K/uL (0.11-0.59); Monocytes % (auto) 6.5 %; Neutrophils # (auto) 2.61 K/uL (1.40-6.50); Neutrophils % (auto) 67.7 %; Platelet Count 164 K/uL (130-400); RDW Coefficient of Variation 14.6 % (11.5-14.5); RDW Standard Deviation 47.1 fL (36.4-46.3); Red Blood Count 3.43 M/uL (4.20-5.40); White Blood Count 3.85 K/ul (4.8-10.8)
--- NOTE | 2023-11-08 18:57 | XRay Report ---
XR chest 1V portable HISTORY: 72 years-old Female ams acutely altered mental status COMPARISON: Chest radiograph 04/13/2023 TECHNIQUE: AP view of the chest FINDINGS: A vertebroplasty and a chronic proximal left humeral fracture are incidentally noted. Lung volumes ar e mildly diminished, unchanged. Lungs are clear. There is no pneumothorax or pleural effusion. Cardia c size is normal. Mediastinal contours are normal. There is no evidence for pulmonary edema. IMPRESSION: No acute process. ACT 112: Negative or not required by law. The above report was generated using voice recognition software. It may contain grammatical, syntax o r spelling errors. Electronically signed by: Ronnie Dorsey M.D. 11/08/2023 6:56 PM
[2023-11-08] MEDS: SODIUM CHLORIDE 0.9% 500 ML IV ONE (19:12)
[2023-11-08 19:16] LABS: Alanine Aminotransferase 12 U/L (7-52); Albumin Globulin Ratio 1.5 (0.9-2); Albumin Level 3.5 gm/dl (3.4-5.0); Alkaline Phosphatase 41 U/L (34-104); Anion Gap 5 (3-11); BUN Creatinine Ratio 30.3 (10-20); Bilirubin,Total 0.7 mg/dl (0.2-1.0); Blood Urea Nitrogen 27 mg/dl (6-23); Calcium 8.9 mg/dl (8.6-10.3); Carbon Dioxide 26 mmol/L (21-32); Chloride 104 mmol/L (98-107); Creatinine Clr Calc Pharmacy 41.1 ml/min; Est GFR (African American) 74.5 ml/min; Est GFR (Non-African American) 64.3 ml/min; Globulin 2.4 gm/dl (2.5-4.0); Glucose 199 mg/dl (70-99(Fasting)); Lipase < 3 U/L (11-82); Sodium 135 mmol/L (136-145); Total Protein 5.9 gm/dl (6.0-8.3)
[2023-11-08] MEDS: ONDANSETRON INJ 2 MG/ML 2 ML VIAL IV STA (19:31)
[2023-11-08 19:58] LABS: Appearance Urine Cloudy (Clear); Bacteria Urine Automated Negative (Negative); Bilirubin Urine Negative (Negative); Blood Urine 2+ (Negative); Color Urine Yellow; Glucose Urine UA Negative (Negative); Ketones Urine Negative (Negative); Leukocyte Esterase Urine 2+ (Negative); Nitrite Urine Negative (Negative); Protein Urine 2+ (Negative); Specific Gravity Urine 1.019 (1.000-1.030); Urobilinogen Urine Negative (Negative); WBC Urine Automated >30 /hpf (0-5)
[2023-11-08 20:04] LABS: Potassium 3.9 mmol/L (3.5-5.1)
--- NOTE | 2023-11-08 20:09 | CT Scan Report ---
CT head/brain wo con CLINICAL HISTORY: 72 years-old Female with ams. Acutely altered mental status TECHNIQUE: Multiple axial CT images of the head were obtained without contrast. A dose lowering tech nique was utilized adhering to the principles of ALARA. CT DOSE: 625.8 mGy.cm COMPARISON: 04/13/2023 FINDINGS: No acute intracranial hemorrhage, midline shift, intracranial mass, hydrocephalus, territorial ischem ia or abnormal extra-axial collection. Involutional changes with chronic microvascular ischemic disea se. The calvarium is intact. Findings suggestive of prior partial right mastoidectomy. Prior bilateral le ns repair. The paranasal sinuses, mastoid air cells, and middle ear cavities are clear. IMPRESSION: No acute intracranial abnormality. ACT 112: Negative or not required by law. The above report was generated using voice recognition software. It may contain grammatical, syntax o r spelling errors. Electronically signed by: Ronnie Dorsey M.D. 11/08/2023 8:07 PM
[2023-11-08 20:12] LABS: Troponin I High Sensitivity 4.8 pg/ml (0-14)
--- NOTE | 2023-11-08 20:57 | CT Scan Report ---
Exam(s): CT ABDOMEN + PELVIS With Contrast IV Amt: 84 ml optiray 320 EXAM: CT Abdomen and Pelvis With Intravenous Contrast CLINICAL HISTORY: Reason for exam: n/v/d. TECHNIQUE: Axial computed tomography images of the abdomen and pelvis with intravenous contrast. CTDI is 10.82 mGy and DLP is 503 mGy-cm. Automated exposure control was utilized for the study. A dose lowering technique was utilized adhering to the principles of ALARA. CONTRAST: Patient received 84 ml optiray 320 of IV contrast COMPARISON: No relevant prior studies available. FINDINGS: Lung bases: Unremarkable. No mass. No consolidation. Pleural space: Trace RIGHT pleural effusion. ABDOMEN: Liver: Unremarkable. No mass. Gallbladder and bile ducts: Surgical clips in the RIGHT upper quadrant, correlate with surgical history. Cholecystectomy. No ductal dilation. Pancreas: Unremarkable. No mass. No ductal dilation. Spleen: Unremarkable. No splenomegaly. Adrenals: Unremarkable. No mass. Kidneys and ureters: Unremarkable. No solid mass. No hydronephrosis. Stomach and bowel: Severe wall thickening of the colon, preferentially located in the middle quadrant, consistent with colitis. Diverticulosis, without acute diverticulitis. No small bowel obstruction. No free intraperitoneal air. PELVIS: Appendix: No findings to suggest acute appendicitis. Bladder: Unremarkable. No mass. Reproductive: Unremarkable as visualized. ABDOMEN and PELVIS: Intraperitoneal space: Unremarkable. No free air. No significant fluid collection. Bones/joints: Multilevel cement kyphoplasty. Degenerative changes of the spine. No acute fracture. No dislocation. Soft tissues: Unremarkable. Vasculature: Atherosclerotic changes of the aorta. No abdominal aortic aneurysm. Lymph nodes: Unremarkable. No enlarged lymph nodes. IMPRESSION: 1. Severe wall thickening of the colon, preferentially located in the middle quadrant, consistent with colitis. 2. Trace RIGHT pleural effusion. 3. Surgical clips in the RIGHT upper quadrant, correlate with surgical history. Cholecystectomy. 4. Diverticulosis, without acute diverticulitis. No small bowel obstruction. No free intraperitoneal air. Electronically signed by: Froilan Kaplan MD 11/08/23 20:56 PM
[2023-11-08] MEDS: PIPERACILLIN/TAZOBACTAM 4.5 GM/100 ML BAG IV ONE (22:12)
--- NOTE | 2023-11-08 22:58 | History & Physical Report ---
Date of Service November 08, 2023 Assessment & Plan (1) Metabolic encephalopathy: Plan: 72-year-old female with past medical history significant for type 2 diabetes, hyperlipidemia, gastroparesis, urinary incontinence, stool incontinence, renal osteodystrophy, osteoporosis, history of thoracic lumbosacral neuritis, history of thrombocytopenia, general anxiety disorder, depression, aspirin contraindicated, history of liver cirrhosis s/p liver transplant in 2007, history of hypokalemia presents from home because of nausea vomiting and diarrhea going on for last 4 days and poor oral intake and some confusion. Patient states last few days she is having diarrhea. Denies any blood in the stools. Has a mild abdominal discomfort. No fevers. Also not able to eat anything because of nausea vomiting. Denies any chest pain or shortness of breath. Denies any headache. No cough. No runny nose or sore throat. Hemodynamics are okay. Patient knows her name., Knows that she is in the hospital. Knows month and year. But she thinks she stays with the sister while she is living with her daughter. Currently she is wheelchair-bound as per daughter. But patient states she is ambulating with a walker. Daughter thinks that whenever she gets UTIs she gets confused. Metabolic encephalopathy Mostly from dehydration from nausea vomiting and diarrhea And UTI Getting fluids and antibiotics Will monitor Nausea vomiting and diarrhea Colitis on CT scan Gentle fluids stool studies Clear liquid diet IV Zosyn GI consult UTI Will follow cultures On Zosyn Diabetes Will cut back on long-acting insulin to 6 units twice daily Sliding scale Will monitor History of liver cirrhosis s/p liver transplant in 2007 Continue transplant medications Hypokalemia On potassium supplements Will follow-up labs. Depression Anxiety On duloxetine GERD On omeprazole Ambulatory status Wheelchair-bound as per daughter DVT prophylaxis Heparin subcu Disposition Med/tele CODE STATUS DNR/DNI as per my discussion with the daughter History of Present Illness Chief Complaint: Nausea vomiting and diarrhea, confusion Primary Care Provider: Ivette Ragland MD 72-year-old female with past medical history significant for type 2 diabetes, hyperlipidemia, gastroparesis, urinary incontinence, stool incontinence, renal osteodystrophy, osteoporosis, history of thoracic lumbosacral neuritis, history of thrombocytopenia, general anxiety disorder, depression, aspirin contraindicated, history of liver cirrhosis s/p liver transplant in 2007, history of hypokalemia presents from home because of nausea vomiting and diarrhea going on for last 4 days and poor oral intake and some confusion. Patient states last few days she is having diarrhea. Denies any blood in the stools. Has a mild abdominal discomfort. No fevers. Also not able to eat anything because of nausea vomiting. Denies any chest pain or shortness of breath. Denies any headache. No cough. No runny nose or sore throat. Hemodynamics are okay. Patient knows her name., Knows that she is in the hospital. Knows month and year. But she thinks she stays with the sister while she is living with her daughter. Currently she is wheelchair-bound as per daughter. But patient states she is ambulating with a walker. Daughter thinks that whenever she gets UTIs she gets confused. Past medical history. As mentioned above Past surgical history. Bone biopsy, colonoscopy, right heart catheterization, EGD, exploration of postoperative hemorrhage of the abdomen, incision and drainage hematoma right gluteal region, laparoscopic cholecystectomy, liver transplantation, bilateral foot surgery, right hemiarthroplasty, right femoral head exchange, total abdominal hysterectomy with removal of tubes, lumbar vertebroplasty, Social history. . No smoking. No alcohol use. No drug use. Family history. Sister had uterine cancer. Maternal grandmother had diabetes. Paternal grandmother had diabetes. Mother had lung disorders. Allergies Allergy/AdvReac Type Severity Reaction Status Date / Time celecoxib AdvReac Mild NAUSEA, Verified 04/09/23 16:15 VOMITING codeine AdvReac Mild ANXIETY Verified 04/09/23 16:15 rofecoxib AdvReac Mild LEGS GO Verified 04/09/23 16:15 NUMB hydromorphone AdvReac Unknown RESTLESS, Verified 04/09/23 16:15 INSOMNIA Home Medications Medication Instructions Recorded Confirmed Type duloxetine 60 mg capsule,delayed 60 mg PO DAILY 11/08/23 11/08/23 History release insulin detemir U-100 100 unit/mL 13 unit subcut BID 11/08/23 11/08/23 History (3 mL) subcutaneous pen (Levemir FlexPen) mycophenolate mofetil 250 mg 500 mg PO BID 11/08/23 11/08/23 History capsule omeprazole 20 mg capsule,delayed 20 mg PO DAILY 11/08/23 11/08/23 History release potassium chloride 20 mEq 20 meq PO BID 11/08/23 11/08/23 History tablet,extended release(part/cryst) tacrolimus 1 mg capsule, 1 mg PO BID 11/08/23 11/08/23 History immediate-release Past Med/Surg History Medical History Anxiety and depression Back pain Cirrhosis CKD (chronic kidney disease) Closed fracture of left proximal humerus Diabetes Diabetes mellitus, type II Hypokalemia Left hip pain (10/07/13) Pancytopenia Surgical History History of cholecystectomy History of hysterectomy History of liver transplant History of right hip hemiarthroplasty Liver transplanted Family History Other Cancer Diabetes Social History Smoking Status: Never smoker Second Hand Exposure: No; Do You Dip or Chew Tobacco: No; Hx Alcohol Use: No Hx Substance Use: No Preferred Language: [place] 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 ENT- oropharynx clear Neck- supple, no JVD. Lungs- clear to auscultation no wheezing or crackles. Heart- regular rhythm; no murmur, no gallop. Abdomen- normal bowel sounds, soft, nontender, no distension. Extremities- no pretibial edema, no erythema seen Neuro- alert, oriented ; PERRL,; no facial palsy; no dysarthria; moves extremities. Skin- warm & dry Results & Data Results & Data Vital Signs (Past 12 Hours) Vital Signs Temp Pulse Resp BP Pulse Ox O2 Del Method 11/08/23 19:15 89 19 98 11/08/23 19:00 85 21 99 11/08/23 18:45 87 19 99 11/08/23 18:39 93 H 11/08/23 18:38 36.5 C 88 16 144/86 H 99 Room Air 11/08/23 18:37 96 Room Air 11/08/23 18:34 90 18 100 11/08/23 18:33 144/86 H Diagnostic Findings Laboratory Results WBC 3.85 K/ul (4.8-10.8) L 11/08/23 18:40 RBC 3.43 M/uL (4.20-5.40) L 11/08/23 18:40 Hgb 10.1 g/dl (12.0-16.0) L 11/08/23 18:40 Hct 30.2 % (37.0-47.0) L 11/08/23 18:40 MCV 88.0 fL (80.0-100.0) 11/08/23 18:40 MCH 29.4 pg (25.0-34.0) 11/08/23 18:40 MCHC 33.4 g/dL (32.0-36.0) 11/08/23 18:40 RDW Std Deviation 47.1 fL (36.4-46.3) H 11/08/23 18:40 RDW Coeff of [place] 14.6 % (11.5-14.5) H 11/08/23 18:40 Plt Count 164 K/uL (130-400) 11/08/23 18:40 MPV 10.2 fL (9.4-12.4) 11/08/23 18:40 Immature Gran % (Auto) 0.3 % 11/08/23 18:40 Neut % (Auto) 67.7 % 11/08/23 18:40 Lymph % (Auto) 24.4 % 11/08/23 18:40 [place] % (Auto) 6.5 % 11/08/23 18:40 Eos % (Auto) 0.8 % 11/08/23 18:40 Baso % (Auto) 0.3 % 11/08/23 18:40 Neut # (Auto) 2.61 K/uL (1.40-6.50) 11/08/23 18:40 Lymph # (Auto) 0.94 K/uL (1.20-3.40) L 11/08/23 18:40 [place] # (Auto) 0.25 K/uL (0.11-0.59) 11/08/23 18:40 Eos # (Auto) 0.03 K/uL (0.00-0.50) 11/08/23 18:40 Baso # (Auto) 0.01 K/uL (0.00-0.20) 11/08/23 18:40 Immature Gran # (Auto) 0.01 K/uL (0.01-0.20) 11/08/23 18:40 Sodium 135 mmol/L (136-145) L 11/08/23 18:40 Potassium 3.9 mmol/L (3.5-5.1) 11/08/23 19:33 Chloride 104 mmol/L (98-107) 11/08/23 18:40 Carbon Dioxide 26 mmol/L (21-32) 11/08/23 18:40 Anion Gap 5 (3-11) 11/08/23 18:40 BUN 27 mg/dl (6-23) H 11/08/23 18:40 Creatinine 0.89 mg/dl (0.6-1.2) 11/08/23 18:40 Est Cr Clr Drug Dosing 41.1 ml/min 11/08/23 18:40 Est GFR ( Amer) 74.5 ml/min 11/08/23 18:40 Est GFR (Non-Af Amer) 64.3 ml/min 11/08/23 18:40 BUN/Creatinine Ratio 30.3 (10-20) H 11/08/23 18:40 Glucose 199 mg/dl (70-99(Fasting)) H 11/08/23 18:40 Calcium 8.9 mg/dl (8.6-10.3) 11/08/23 18:40 Total Bilirubin 0.7 mg/dl (0.2-1.0) 11/08/23 18:40 AST 13 U/L (13-39) 11/08/23 19:33 ALT 12 U/L (7-52) 11/08/23 18:40 Alkaline Phosphatase 41 U/L (34-104) 11/08/23 18:40 Ammonia 17.0 umol/L (18-72) L 11/08/23 19:33 Troponin I High Sens 4.8 pg/ml (0-14) 11/08/23 19:33 Total Protein 5.9 gm/dl (6.0-8.3) L 11/08/23 18:40 Albumin 3.5 gm/dl (3.4-5.0) 11/08/23 18:40 Globulin 2.4 gm/dl (2.5-4.0) L 11/08/23 18:40 Albumin/Globulin Ratio 1.5 (0.9-2) 11/08/23 18:40 Lipase < 3 U/L (11-82) L 11/08/23 18:40 Urine Color Yellow 11/08/23 19:33 Urine Appearance Cloudy (Clear) A 11/08/23 19:33 Urine pH 5.0 (4.5-7.5) 11/08/23 19:33 Ur Specific [place] 1.019 (1.000-1.030) 11/08/23 19:33 Urine Protein 2+ (Negative) H 11/08/23 19:33 Urine Glucose (UA) Negative (Negative) 11/08/23 19: Urine Ketones Negative (Negative) 11/08/23 19:33 Urine Blood 2+ (Negative) H 11/08/23 19:33 Urine Nitrite Negative (Negative) 11/08/23 19: Urine Bilirubin Negative (Negative) 11/08/23 19:33 Urine Urobilinogen Negative (Negative) 11/08/23 19:33 Ur Leukocyte Esterase 2+ (Negative) H 11/08/23 19:33 Urine WBC (Auto) >30 /hpf (0-5) H 11/08/23 19:33 Urine RBC (Auto) 5-10 /hpf (0-4) H 11/08/23 19:33 U Hyaline Cast (Auto) 10-30 /lpf (0-5) H 11/08/23 19:33 U Epithel Cells (Auto) 10-20 /lpf (0-5) H 11/08/23 19:33 Urine Bacteria (Auto) Negative (Negative) 11/08/23 19:33 Impressions Chest X-Ray 11/08/23 18:37 XR chest 1V portable HISTORY: 72 years-old Female ams acutely altered mental status COMPARISON: Chest radiograph 04/13/2023 TECHNIQUE: AP view of the chest FINDINGS: A vertebroplasty and a chronic proximal left humeral fracture are incidentally noted. Lung volumes are mildly diminished, unchanged. Lungs are clear. There is no pneumothorax or pleural effusion. Cardiac size is normal. Mediastinal contours are normal. There is no evidence for pulmonary edema. IMPRESSION: No acute process. ACT 112: Negative or not required by law. The above report was generated using voice recognition software. It may contain grammatical, syntax or spelling errors. Electronically signed by: Ronnie Dorsey M.D. 11/08/2023 6:56 PM Abdomen/Pelvis CT 11/08/23 18:42 Exam(s): CT ABDOMEN + PELVIS With Contrast IV Amt: 84 ml optiray 320 EXAM: CT Abdomen and Pelvis With Intravenous Contrast CLINICAL HISTORY: Reason for exam: n/v/d. TECHNIQUE: Axial computed tomography images of the abdomen and pelvis with intravenous contrast. CTDI is 10.82 mGy and DLP is 503 mGy-cm. Automated exposure control was utilized for the study. A dose lowering technique was utilized adhering to the principles of ALARA. CONTRAST: Patient received 84 ml optiray 320 of IV contrast COMPARISON: No relevant prior studies available. FINDINGS: Lung bases: Unremarkable. No mass. No consolidation. Pleural space: Trace RIGHT pleural effusion. ABDOMEN: Liver: Unremarkable. No mass. Gallbladder and bile ducts: Surgical clips in the RIGHT upper quadrant, correlate with surgical history. Cholecystectomy. No ductal dilation. Pancreas: Unremarkable. No mass. No ductal dilation. Spleen: Unremarkable. No splenomegaly. Adrenals: Unremarkable. No mass. Kidneys and ureters: Unremarkable. No solid mass. No hydronephrosis. Stomach and bowel: Severe wall thickening of the colon, preferentially located in the middle quadrant, consistent with colitis. Diverticulosis, without acute diverticulitis. No small bowel obstruction. No free intraperitoneal air. PELVIS: Appendix: No findings to suggest acute appendicitis. Bladder: Unremarkable. No mass. Reproductive: Unremarkable as visualized. ABDOMEN and PELVIS: Intraperitoneal space: Unremarkable. No free air. No significant fluid collection. Bones/joints: Multilevel cement kyphoplasty. Degenerative changes of the spine. No acute fracture. No dislocation. Soft tissues: Unremarkable. Vasculature: Atherosclerotic changes of the aorta. No abdominal aortic aneurysm. Lymph nodes: Unremarkable. No enlarged lymph nodes. IMPRESSION: 1. Severe wall thickening of the colon, preferentially located in the middle quadrant, consistent with colitis. 2. Trace RIGHT pleural effusion. 3. Surgical clips in the RIGHT upper quadrant, correlate with surgical history. Cholecystectomy. 4. Diverticulosis, without acute diverticulitis. No small bowel obstruction. No free intraperitoneal air. Electronically signed by: Froilan Kaplan MD 11/08/23 20:[address] 11/08/23 18:44 CT head/brain wo con CLINICAL HISTORY: 72 years-old Female with ams. Acutely altered mental status TECHNIQUE: Multiple axial CT images of the head were obtained without contrast. A dose lowering technique was utilized adhering to the principles of ALARA. CT DOSE: 625.8 mGy.cm COMPARISON: 04/13/2023 FINDINGS: No acute intracranial hemorrhage, midline shift, intracranial mass, hydrocephalus, territorial ischemia or abnormal extra-axial collection. Involutional changes with chronic microvascular ischemic disease. The calvarium is intact. Findings suggestive of prior partial right mastoidectomy. Prior bilateral lens repair. The paranasal sinuses, mastoid air cells, and middle ear cavities are clear. IMPRESSION: No acute intracranial abnormality. ACT 112: Negative or not required by law. The above report was generated using voice recognition software. It may contain grammatical, syntax or spelling errors. Electronically signed by: Ronnie Dorsey M.D. 11/08/2023 8:07 PM ECG Additional Comments: ECG. Normal sinus rhythm with rate of 82. No significant change was found. Code Status & VTE Plan VTE Prophylaxis Plan VTE Prophylaxis will be ordered: Yes
[2023-11-08] MEDS ORDERED: GLUCAGON FOR INJ 1 MG VIAL SQ PRN (23:51)
[2023-11-08] MEDS ORDERED: DEXTROSE 50% 50 ML SYRINGE IV PRN (23:51)
[2023-11-08] MEDS ORDERED: GLUCOSE 10 TAB/TUBE PO PRN (23:51)
[2023-11-08] MEDS ORDERED: GLUCOSE 40% GEL 15 GM TUBE PO PRN (23:51)
[2023-11-08] MEDS ORDERED: NITROGLYCERIN SL 0.4 MG/TAB TAB SL PRN (23:51)
[2023-11-09] MEDS: SODIUM CHLORIDE 0.9% 1,000 ML IV SCH (02:11)
[2023-11-09] MEDS: INSULIN ASPART PER UNIT CHARGE SC SCH (02:20)
[2023-11-09] MEDS: PIPERACILLIN/TAZOBACTAM 4.5 GM in DEXTROSE 5% MINI-B 100 ML IV SCH (03:08)
[2023-11-09] MEDS: PIPERACILLIN/TAZOBACTAM 4.5 GM/100ML D5W IV ONE (03:08)
[2023-11-09 04:28] LABS: Basophils # (auto) 0.02 K/uL (0.00-0.20); Basophils % (auto) 0.6 %; Eosinophils # (auto) 0.09 K/uL (0.00-0.50); Eosinophils % (auto) 2.5 %; Hematocrit (blood only) 28.8 % (37.0-47.0); Hemoglobin 9.6 g/dl (12.0-16.0); Immature Granulocytes # (auto) 0.02 K/uL (0.01-0.20); Immature Granulocytes % (auto) 0.6 %; Lymphocytes # (auto) 1.12 K/uL (1.20-3.40); Lymphocytes % (auto) 30.9 %; Mean Corpuscular Hemoglobin 29.4 pg (25.0-34.0); Mean Corpuscular Hgb Conc 33.3 g/dL (32.0-36.0); Mean Corpuscular Volume 88.1 fL (80.0-100.0); Mean Platelet Volume 10.4 fL (9.4-12.4); Monocytes # (auto) 0.31 K/uL (0.11-0.59); Monocytes % (auto) 8.5 %; Neutrophils # (auto) 2.07 K/uL (1.40-6.50); Neutrophils % (auto) 56.9 %; Platelet Count 167 K/uL (130-400); RDW Coefficient of Variation 14.5 % (11.5-14.5); RDW Standard Deviation 46.4 fL (36.4-46.3); Red Blood Count 3.27 M/uL (4.20-5.40); White Blood Count 3.63 K/ul (4.8-10.8)
[2023-11-09 04:40] LABS: BUN Creatinine Ratio 26.6 (10-20); Calcium 8.7 mg/dl (8.6-10.3); Creatinine Clr Calc Pharmacy 46.4 ml/min; Est GFR (African American) 86.1 ml/min; Est GFR (Non-African American) 74.3 ml/min; Magnesium 1.2 mg/dl (1.7-2.4); Phosphorus 2.9 mg/dl (2.5-4.9); Potassium 3.6 mmol/L (3.5-5.1)
[2023-11-09] MEDS: DULoxetine HCL 60 MG CAP PO SCH (08:28)
[2023-11-09] MEDS: POTASSIUM CHLORIDE CRTAB 20 MEQ TABCR PO SCH (08:29)
[2023-11-09] MEDS: TACROLIMUS 1 MG CAP PO SCH (08:29)
[2023-11-09] MEDS: MYCOPHENOLATE MOFETIL 250 MG CAP PO SCH (08:29)
[2023-11-09] MEDS: HEPARIN SOD 5,000 UNIT/0.5 ML VIAL SQ SCH (08:29)
[2023-11-09] MEDS: PANTOprazole 40 MG TAB PO SCH (08:29)
--- NOTE | 2023-11-09 09:04 | Hospitalist Progress Note ---
Date of Service November 09, 2023 Assessment & Plan (1) Metabolic encephalopathy: Plan: 72 yo F with past medical history significant for type 2 diabetes, hyperlipidemia, gastroparesis, urinary incontinence, stool incontinence, renal osteodystrophy, osteoporosis, history of thoracic lumbosacral neuritis, history of thrombocytopenia, general anxiety disorder, depression, aspirin contraindicated, history of liver cirrhosis s/p liver transplant in 2007, histo ry of hypokalemia presents from home because of nausea vomiting and diarrhea going on for last 4 days and poor oral intake and some confusion. Patient states last few days she is having diarrhea. Denies any blood in the stools. Has a mild abdominal discomfort. No fevers. Also not able to eat anything because of nausea vomiting. Denies any chest pain or shortness of breath. Denies any headache. No cough. No runny nose or sore throat. Hemodynamics are okay. Patient knows her name., Knows that she is in the hospital. Knows month and year. But she thinks she stays with the sister while she is living with her daughter. Currently she is wheelchair-bound as per daughter. But patient states she is ambulating with a walker. Daughter thinks that whenever she gets UTIs she gets confused. Metabolic encephalopathy Mostly from dehydration from nausea vomiting and diarrhea And UTI Getting fluids and antibiotics Will monitor Nausea vomiting and diarrhea Colitis on CT scan Gentle fluids stool studies Clear liquid diet IV Zosyn GI consult UTI Will follow cultures On Zosyn Diabetes Will cut back on long-acting insulin to 6 units twice daily Sliding scale Will monitor History of liver cirrhosis s/p liver transplant in 2007 Continue transplant medications Hypokalemia, Hypomagnesemia On potassium supplements replete and monitor Depression Anxiety On duloxetine GERD On omeprazole Ambulatory status Wheelchair-bound as per daughter DVT prophylaxis Heparin subcu Disposition Med/tele CODE STATUS DNR/DNI as per admitting provider 's discussion with the daughter Admission and Anticipated Discharge Date Admission Date: November 08, 2023 Subjective Pt seen in follow up of AMS, colitis. She has hx of liver transplant Laying in bed in NAD, Able to answer some questions appropriately, however also somewhat confused. Does not think she is in the hopsital. Reports abd. discomfort but now improved. Reports episodes of vomiting and diarrhea but none recently. Denies any chest pain or shortness of breath at this time. Review of Systems Review of Systems: All systems reviewed & are unremarkable except as noted in Subjective Physical Exam Physical Exam: General- thin, elderly F in NAD, somewhat confused Head- atraumatic Eyes- PERRL. Neck- supple, no JVD. Lungs- clear to auscultation no wheezing or crackles. Heart- regular rhythm; no murmur, no gallop. Abdomen- normal bowel sounds, soft, nontender, no distension. Extremities- no pretibial edema, no erythema seen Neuro- alert, oriented ; PERRL,; no facial palsy; no dysarthria; moves extremities. Skin- warm & dry Results & Data Results & Data Vital Signs (Past 12 Hours) Vital Signs Pulse Pulse Resp BP Pulse Ox O2 Del Method 11/09/23 07:08 89 11/09/23 06:00 86 18 126/70 98 Room Air 11/09/23 03:00 81 18 139/77 100 Room Air 11/09/23 02:29 96 Room Air Laboratory Results 11/09/23 11/09/23 11/09/23 Range/Units 08:11 03:39 02:15 WBC 3.63 L (4.8-10.8) K/ul RBC 3.27 L (4.20-5.40) M/uL Hgb 9.6 L (12.0-16.0) g/dl Hct 28.8 L (37.0-47.0) % MCV 88.1 (80.0-100.0) fL MCH 29.4 (25.0-34.0) pg MCHC 33.3 (32.0-36.0) g/dL RDW Std Deviation 46.4 H (36.4-46.3) fL RDW Coeff of [place] 14.5 (11.5-14.5) % Plt Count 167 (130-400) K/uL MPV 10.4 (9.4-12.4) fL Immature Gran % (Auto) 0.6 % Neut % (Auto) 56.9 % Lymph % (Auto) 30.9 % [place] % (Auto) 8.5 % Eos % (Auto) 2.5 % Baso % (Auto) 0.6 % Neut # (Auto) 2.07 (1.40-6.50) K/uL Lymph # (Auto) 1.12 L (1.20-3.40) K/uL [place] # (Auto) 0.31 (0.11-0.59) K/uL Eos # (Auto) 0.09 (0.00-0.50) K/uL Baso # (Auto) 0.02 (0.00-0.20) K/uL Immature Gran # (Auto) 0.02 (0.01-0.20) K/uL Sodium 136 (136-145) mmol/L Potassium 3.6 Chloride 106 (98-107) mmol/L Carbon Dioxide 24 (21-32) mmol/L Anion Gap 6 (3-11) BUN 21 (6-23) mg/dl Creatinine 0.79 (0.6-1.2) mg/dl Est Cr Clr Drug Dosing 46.4 ml/min Est GFR ( Amer) 86.1 ml/min Est GFR (Non-Af Amer) 74.3 ml/min BUN/Creatinine Ratio 26.6 H (10-20) Glucose 127 H (70-99(Fasting)) mg/dl POC Glucose 154 H 191 H (70-99) mg/dl Estimat Average Glucose Pending Hemoglobin A1c Pending Calcium 8.7 (8.6-10.3) mg/dl Phosphorus 2.9 (2.5-4.9) mg/dl Magnesium 1.2 L (1.7-2.4) mg/dl Total Bilirubin (0.2-1.0) mg/dl AST ALT (7-52) U/L Alkaline Phosphatase (34-104) U/L Ammonia (18-72) umol/L Troponin I High Sens (0-14) pg/ml Total Protein (6.0-8.3) gm/dl Albumin (3.4-5.0) gm/dl Globulin (2.5-4.0) gm/dl Albumin/Globulin Ratio (0.9-2) Lipase (11-82) U/L Urine Color Urine Appearance (Clear) Urine pH (4.5-7.5) Ur Specific [place] (1.000-1.030) Urine Protein (Negative) Urine Glucose (UA) (Negative) Urine Ketones (Negative) Urine Blood (Negative) Urine Nitrite (Negative) Urine Bilirubin (Negative) Urine Urobilinogen (Negative) Ur Leukocyte Esterase (Negative) Urine WBC (Auto) (0-5) /hpf Urine RBC (Auto) (0-4) /hpf U Hyaline Cast (Auto) (0-5) /lpf U Epithel Cells (Auto) (0-5) /lpf Urine Bacteria (Auto) (Negative) 11/08/23 11/08/23 Range/Units 19:33 18:40 WBC 3.85 L (4.8-10.8) K/ul RBC 3.43 L (4.20-5.40) M/uL Hgb 10.1 L (12.0-16.0) g/dl Hct 30.2 L (37.0-47.0) % MCV 88.0 (80.0-100.0) fL MCH 29.4 (25.0-34.0) pg MCHC 33.4 (32.0-36.0) g/dL RDW Std Deviation 47.1 H (36.4-46.3) fL RDW Coeff of [place] 14.6 H (11.5-14.5) % Plt Count 164 (130-400) K/uL MPV 10.2 (9.4-12.4) fL Immature Gran % (Auto) 0.3 % Neut % (Auto) 67.7 % Lymph % (Auto) 24.4 % [place] % (Auto) 6.5 % Eos % (Auto) 0.8 % Baso % (Auto) 0.3 % Neut # (Auto) 2.61 (1.40-6.50) K/uL Lymph # (Auto) 0.94 L (1.20-3.40) K/uL [place] # (Auto) 0.25 (0.11-0.59) K/uL Eos # (Auto) 0.03 (0.00-0.50) K/uL Baso # (Auto) 0.01 (0.00-0.20) K/uL Immature Gran # (Auto) 0.01 (0.01-0.20) K/uL Sodium 135 L (136-145) mmol/L Potassium 3.9 TNP Chloride 104 (98-107) mmol/L Carbon Dioxide 26 (21-32) mmol/L Anion Gap 5 (3-11) BUN 27 H (6-23) mg/dl Creatinine 0.89 (0.6-1.2) mg/dl Est Cr Clr Drug Dosing 41.1 ml/min Est GFR ( Amer) 74.5 ml/min Est GFR (Non-Af Amer) 64.3 ml/min BUN/Creatinine Ratio 30.3 H (10-20) Glucose 199 H (70-99(Fasting)) mg/dl POC Glucose (70-99) mg/dl Estimat Average Glucose Hemoglobin A1c Calcium 8.9 (8.6-10.3) mg/dl Phosphorus (2.5-4.9) mg/dl Magnesium (1.7-2.4) mg/dl Total Bilirubin 0.7 (0.2-1.0) mg/dl AST 13 TNP ALT 12 (7-52) U/L Alkaline Phosphatase 41 (34-104) U/L Ammonia 17.0 L (18-72) umol/L Troponin I High Sens 4.8 (0-14) pg/ml Total Protein 5.9 L (6.0-8.3) gm/dl Albumin 3.5 (3.4-5.0) gm/dl Globulin 2.4 L (2.5-4.0) gm/dl Albumin/Globulin Ratio 1.5 (0.9-2) Lipase < 3 L (11-82) U/L Urine Color Yellow Urine Appearance Cloudy A (Clear) Urine pH 5.0 (4.5-7.5) Ur Specific [place] 1.019 (1.000-1.030) Urine Protein 2+ H (Negative) Urine Glucose (UA) Negative (Negative) Urine Ketones Negative (Negative) Urine Blood 2+ H (Negative) Urine Nitrite Negative (Negative) Urine Bilirubin Negative (Negative) Urine Urobilinogen Negative (Negative) Ur Leukocyte Esterase 2+ H (Negative) Urine WBC (Auto) >30 H (0-5) /hpf Urine RBC (Auto) 5-10 H (0-4) /hpf U Hyaline Cast (Auto) 10-30 H (0-5) /lpf U Epithel Cells (Auto) 10-20 H (0-5) /lpf Urine Bacteria (Auto) Negative (Negative) Medications Administered Current Inpatient Medications Dextrose (Dextrose 50% 50 Ml Syringe) 25 - 50 ml IV UD PRN; Protocol PRN Reason: Hypoglycemia Protocol Stop: 12/08/23 23:50 Duloxetine HCl (Duloxetine Hcl 60 Mg Cap) 60 mg PO DAILY ALYSSA Stop: 12/09/23 08:59 Last Admin: 11/09/23 08:28 Dose: 60 mg Glucagon (Glucagon For Inj 1 Mg Vial) 1 mg SQ UD PRN; Protocol PRN Reason: Hypoglycemia Protocol Stop: 12/08/23 23:50 Glucose (Glucose 10 Tab/Tube) 4 - 8 tab PO UD PRN; Protocol PRN Reason: Hypoglycemia Treatment Stop: 12/08/23 23:50 Glucose (Glucose 40% Gel 15 Gm Tube) 15 - 30 gm PO UD PRN; Protocol PRN Reason: Hypoglycemia Protocol Stop: 12/08/23 23:50 Heparin Sodium (Porcine) (Heparin Sod 5,000 Unit/0.5 Ml Vial) 5,000 units SQ Q12 ALYSSA Stop: 12/09/23 08:59 Last Admin: 11/09/23 08:29 Dose: 5,000 units Sodium Chloride (Nss) 1,000 mls @ 75 mls/hr IV .[id number] [facility] Stop: 12/08/23 23:50 Last Admin: 11/09/23 02:11 Dose: 75 mls/hr Piperacillin Sod/Tazobactam (Sod 4.5 gm/ Dextrose) 100 mls @ 25 mls/hr IV Q8H [facility]; Protocol Stop: 11/19/23 03:59 Last Infusion: 11/09/23 07:10 Dose: Infused Magnesium Sulfate/Dextrose (Magnesium Sulfate / D5w) 1 gm in 100 mls @ 50 mls/hr IV Q2H [facility] Stop: 11/09/23 12:29 Insulin Aspart (Insulin Aspart Per Unit Charge) 0 units SC ACHS ALYSSA Stop: 12/09/23 00:59 Last Admin: 11/09/23 02:20 Dose: 2 units Insulin Glargine (Lantus Per Unit Charge) 6 units SQ BID [facility] Stop: 12/09/23 08:59 Miscellaneous (Carbohydrates For Hypoglycemia ) 15 - 30 gm PO UD PRN PRN Reason: Hypoglycemia Protocol Stop: 12/08/23 23:50 Mycophenolate Mofetil (Mycophenolate Mofetil 250 Mg Cap) 500 mg PO BID [facility] Stop: 12/09/23 08:59 Last Admin: 11/09/23 08:29 Dose: 500 mg Nitroglycerin (Nitroglycerin Sl 0.4 Mg/Tab Tab) 0.4 mg SL Q5M PRN PRN Reason: Chest Pain Stop: 12/08/23 23:50 Ondansetron HCl (Ondansetron Inj 2 Mg/Ml 2 Ml Vial) 4 mg IV Q6H PRN PRN Reason: Nausea Stop: 12/08/23 23:50 Pantoprazole Sodium (Pantoprazole 40 Mg Tab) 40 mg PO DAILY ALYSSA Stop: 12/09/23 08:59 Last Admin: 11/09/23 08:29 Dose: 40 mg Potassium Chloride (Potassium Chloride Crtab 20 Meq Tabcr) 20 meq PO BID [facility]YSSA Stop: 12/09/23 08:59 Last Admin: 11/09/23 08:29 Dose: 20 meq Tacrolimus (Tacrolimus 1 Mg Cap) 1 mg PO BID [facility]YSSA Stop: 12/09/23 08:59 Last Admin: 11/09/23 08:29 Dose: 1 mg
[2023-11-09] MEDS: MAGNESIUM SULFATE / D5W 1 GM/100 ML BAG IV SCH (09:30)
[2023-11-09] MEDS: LANTUS PER UNIT CHARGE SQ SCH (09:35)
[2023-11-09 18:58] LABS: BUN Creatinine Ratio 18.5 (10-20); Calcium 8.5 mg/dl (8.6-10.3); Creatinine Clr Calc Pharmacy 45.5 ml/min; Est GFR (African American) 83.5 ml/min; Est GFR (Non-African American) 72.1 ml/min; Magnesium 1.9 mg/dl (1.7-2.4)
[2023-11-09 19:47] LABS: Astrovirus PCR Not Detected (NotDetected); Campylobacter PCR Not Detected (NotDetected); Cryptosporidium PCR Not Detected (NotDetected); Cyclospora cayetanensis PCR Not Detected (NotDetected); Entamoeba histolytica PCR Not Detected (NotDetected); Enteroaggregative E.coli(EAEC) Not Detected (NotDetected); Enteropathogenic E.coli (EPEC) Not Detected (NotDetected); Enterotoxigenic E.coli (ETEC) Not Detected (NotDetected); Giardia lamblia PCR Not Detected (NotDetected); Norovirus GI/GII PCR Not Detected (NotDetected); Plesiomonas shigelloides PCR Not Detected (NotDetected); Rotavirus A PCR Not Detected (NotDetected); Salmonella PCR Not Detected (NotDetected); Sapovirus PCR Not Detected (NotDetected); Shiga-like Toxin E.coli (STEC) Not Detected (NotDetected); Shigella/Enteroinvasive E.coli Not Detected (NotDetected); Vibrio cholerae PCR Not Detected (NotDetected); Vibrio species PCR Not Detected (NotDetected); Yersinia enterocolitica PCR Not Detected (NotDetected)
[2023-11-09 19:52] LABS: Adenovirus F 40/41 PCR DETECTED (NotDetected)
--- NOTE | 2023-11-10 06:24 | Electrocardiogram Report ---
Test Reason : Blood Pressure : / mmHG Vent. Rate : 082 BPM Atrial Rate : 082 BPM P-R Int : 138 ms QRS Dur : 074 ms QT Int : 408 ms P-R-T Axes : 004 016 054 degrees QTc Int : 476 ms Normal sinus rhythm Normal ECG When compared with ECG of 09-APR-2023 14:46, No significant change was found Confirmed by Bakari Bradley ([id number]) on 11/10/2023 6:23:41 AM Also confirmed by Bakari Bradley ([id number]) on 11/10/2023 6:24:34 AM Referred By: REFERRED SELF Confirmed By:Bakari Bradley
[2023-11-10 07:57] LABS: Hematocrit (blood only) 26.7 % (37.0-47.0); Hemoglobin 8.9 g/dl (12.0-16.0); Mean Corpuscular Hemoglobin 29.4 pg (25.0-34.0); Mean Corpuscular Hgb Conc 33.3 g/dL (32.0-36.0); Mean Corpuscular Volume 88.1 fL (80.0-100.0); Platelet Count 128 K/uL (130-400); RDW Coefficient of Variation 14.5 % (11.5-14.5); RDW Standard Deviation 45.9 fL (36.4-46.3); Red Blood Count 3.03 M/uL (4.20-5.40); White Blood Count 5.05 K/ul (4.8-10.8)
[2023-11-10 08:15] LABS: Estimated Average Glucose 117 mg/dl; Hemoglobin A1C 5.7 % (4.5-5.6)
[2023-11-10 08:19] LABS: Albumin Globulin Ratio 1.6 (0.9-2); Albumin Level 3.3 gm/dl (3.4-5.0); BUN Creatinine Ratio 14.9 (10-20); Bilirubin,Total 0.7 mg/dl (0.2-1.0); Calcium 8.3 mg/dl (8.6-10.3); Creatinine Clr Calc Pharmacy 48.5 ml/min; Est GFR (African American) 93.2 ml/min; Est GFR (Non-African American) 80.4 ml/min; Globulin 2.1 gm/dl (2.5-4.0); Magnesium 1.6 mg/dl (1.7-2.4); Phosphorus 2.7 mg/dl (2.5-4.9); Potassium 3.7 mmol/L (3.5-5.1); Total Protein 5.4 gm/dl (6.0-8.3)
--- NOTE | 2023-11-10 09:05 | Hospitalist Progress Note ---
Date of Service November 10, 2023 Assessment & Plan (1) Metabolic encephalopathy: Plan: 72 yo F with past medical history significant for type 2 diabetes, hyperlipidemia, gastroparesis, urinary incontinence, stool incontinence, renal osteodystrophy, osteoporosis, history of thoracic lumbosacral neuritis, history of thrombocytopenia, general anxiety disorder, depression, aspirin contraindicated, history of liver cirrhosis s/p liver transplant in 2007, histo ry of hypokalemia presents from home because of nausea vomiting and diarrhea going on for last 4 days and poor oral intake and some confusion. Patient states last few days she is having diarrhea. Denies any blood in the stools. Has a mild abdominal discomfort. No fevers. Also not able to eat anything because of nausea vomiting. Denies any chest pain or shortness of breath. Denies any headache. No cough. No runny nose or sore throat. Hemodynamics are okay. Patient knows her name., Knows that she is in the hospital. Knows month and year. But she thinks she stays with the sister while she is living with her daughter. Currently she is wheelchair-bound as per daughter. But patient states she is ambulating with a walker. Daughter thinks that whenever she gets UTIs she gets confused. Metabolic encephalopathy Mostly from dehydration from nausea vomiting and diarrhea And UTI Getting fluids and antibiotics Will monitor Nausea vomiting and diarrhea Colitis on CT scan Gentle fluids stool PCR positive for adenovirus c. diff negative Clear liquid diet IV Zosyn GI consulted - recommend colonoscopy which pt declined at this time. Recommend daily LFTs, and prograf level. For now cont. prograf and cellcept. UTI Will follow cultures On Zosyn Diabetes Will cut back on long-acting insulin to 6 units twice daily Sliding scale Will monitor History of liver cirrhosis s/p liver transplant in 2007 Continue transplant medications, as above GI consulted Hypokalemia, Hypomagnesemia On potassium supplements replete and monitor Depression Anxiety On duloxetine GERD On omeprazole Ambulatory status Wheelchair-bound as per daughter DVT prophylaxis Heparin subcu Disposition Med/tele CODE STATUS DNR/DNI as per admitting provider 's discussion with the daughter Admission and Anticipated Discharge Date Admission Date: November 08, 2023 Subjective Pt seen in follow up of AMS, colitis. She has hx of liver transplant Laying in bed in NAD, Able to answer some questions appropriately, however also somewhat confused. Reports abd. discomfort but now improved. Reports episodes of vomiting and diarrhea but no vomiting recently. stool pcr posit. for adenovirus Denies any chest pain or shortness of breath at this time. Seen by GI - colonoscopy recommended and declined by the pt Review of Systems Review of Systems: All systems reviewed & are unremarkable except as noted in Subjective Physical Exam Physical Exam: General- thin, elderly F in NAD, somewhat confused Head- atraumatic Eyes- PERRL. Neck- supple, no JVD. Lungs- clear to auscultation no wheezing or crackles. Heart- regular rhythm; no murmur, no gallop. Abdomen- normal bowel sounds, soft, nontender, no distension. Extremities- no pretibial edema, no erythema seen Neuro- alert, oriented ; PERRL,; no facial palsy; no dysarthria; moves extremities. Skin- warm & dry Results & Data Results & Data Vital Signs (Past 12 Hours) Vital Signs Temp Pulse Resp BP BP Pulse Ox O2 Del Method 11/10/23 07:53 36.3 C L 72 17 118/66 100 Room Air 11/10/23 02:45 35.4 C L 80 18 163/76 H 100 Room Air 11/09/23 23:01 36.5 C 83 18 151/71 H 99 Room Air Laboratory Results 11/10/23 11/10/23 11/09/23 Range/Units 07:58 07:11 20:04 WBC 5.05 (4.8-10.8) K/ul RBC 3.03 L (4.20-5.40) M/uL Hgb 8.9 L (12.0-16.0) g/dl Hct 26.7 L (37.0-47.0) % MCV 88.1 (80.0-100.0) fL MCH 29.4 (25.0-34.0) pg MCHC 33.3 (32.0-36.0) g/dL RDW Std Deviation 45.9 (36.4-46.3) fL RDW Coeff of Francisco 14.5 (11.5-14.5) % Plt Count 128 L (130-400) K/uL MPV 10.0 (9.4-12.4) fL Sodium 136 (136-145) mmol/L Potassium 3.7 (3.5-5.1) mmol/L Chloride 106 (98-107) mmol/L Carbon Dioxide 26 (21-32) mmol/L Anion Gap 4 (3-11) BUN 11 (6-23) mg/dl Creatinine 0.74 (0.6-1.2) mg/dl Est Cr Clr Drug Dosing 48.5 ml/min Est GFR ( Amer) 93.2 ml/min Est GFR (Non-Af Amer) 80.4 ml/min BUN/Creatinine Ratio 14.9 (10-20) Glucose 68 L (70-99(Fasting)) mg/dl POC Glucose 79 166 H (70-99) mg/dl Estimat Average Glucose mg/dl Hemoglobin A1c (4.5-5.6) % Calcium 8.3 L (8.6-10.3) mg/dl Phosphorus 2.7 (2.5-4.9) mg/dl Magnesium 1.6 L (1.7-2.4) mg/dl Total Bilirubin 0.7 (0.2-1.0) mg/dl AST 12 L (13-39) U/L ALT 10 (7-52) U/L Alkaline Phosphatase 32 L (34-104) U/L Total Protein 5.4 L (6.0-8.3) gm/dl Albumin 3.3 L (3.4-5.0) gm/dl Globulin 2.1 L (2.5-4.0) gm/dl Albumin/Globulin Ratio 1.6 (0.9-2) Stl C. cayetanensis PCR (NotDetected) Stool Rotavirus A PCR (NotDetected) Stl Adenov F 40/41 PCR (NotDetected) Stool Astrovirus (PCR) (NotDetected) Stool Campylobacter PCR (NotDetected) Stl C. diff Tox B Gene (Neg) Stool Cryptosporidium PCR (NotDetected) Stl E.coli Shiga Tox PCR (NotDetected) Stl Enterotoxigenic E PCR (NotDetected) Stool EPEC (PCR) (NotDetected) Stool EAEC (PCR) (NotDetected) Stl E. histolytica PCR (NotDetected) Stool Giardia Lamblia PCR (NotDetected) Stool Salmonella PCR (NotDetected) Stool Sapovirus (PCR) (NotDetected) Stl P. shigelloides PCR (NotDetected) Stl Shigella/EIEC PCR (NotDetected) St Y.enterocolitica PCR (NotDetected) Stool Vibrio (PCR) (NotDetected) Stl Vibrio cholerae PCR (NotDetected) Stl Norovirus GI/GII PCR (NotDetected) 11/09/23 11/09/23 11/09/23 Range/Units 18:25 18:15 16:50 WBC (4.8-10.8) K/ul RBC (4.20-5.40) M/uL Hgb (12.0-16.0) g/dl Hct (37.0-47.0) % MCV (80.0-100.0) fL MCH (25.0-34.0) pg MCHC (32.0-36.0) g/dL RDW Std Deviation (36.4-46.3) fL RDW Coeff of Francisco (11.5-14.5) % Plt Count (130-400) K/uL MPV (9.4-12.4) fL Sodium 136 (136-145) mmol/L Potassium 4.0 (3.5-5.1) mmol/L Chloride 105 (98-107) mmol/L Carbon Dioxide 24 (21-32) mmol/L Anion Gap 7 (3-11) BUN 15 (6-23) mg/dl Creatinine 0.81 (0.6-1.2) mg/dl Est Cr Clr Drug Dosing 45.5 ml/min Est GFR ( Amer) 83.5 ml/min Est GFR (Non-Af Amer) 72.1 ml/min BUN/Creatinine Ratio 18.5 (10-20) Glucose 156 H (70-99(Fasting)) mg/dl POC Glucose 94 (70-99) mg/dl Estimat Average Glucose mg/dl Hemoglobin A1c (4.5-5.6) % Calcium 8.5 L (8.6-10.3) mg/dl Phosphorus 3.0 (2.5-4.9) mg/dl Magnesium 1.9 (1.7-2.4) mg/dl Total Bilirubin (0.2-1.0) mg/dl AST (13-39) U/L ALT (7-52) U/L Alkaline Phosphatase (34-104) U/L Total Protein (6.0-8.3) gm/dl Albumin (3.4-5.0) gm/dl Globulin (2.5-4.0) gm/dl Albumin/Globulin Ratio (0.9-2) Stl C. cayetanensis PCR Not Detected (NotDetected) Stool Rotavirus A PCR Not Detected (NotDetected) Stl Adenov F 40/ PCR DETECTED A* (NotDetected) Stool Astrovirus (PCR) Not Detected (NotDetected) Stool Campylobacter PCR Not Detected (NotDetected) Stl C. diff Tox B Gene Negative Cdiff Gene (Neg) Stool Cryptosporidium PCR Not Detected (NotDetected) Stl E.coli Shiga Tox PCR Not Detected (NotDetected) Stl Enterotoxigenic E PCR Not Detected (NotDetected) Stool EPEC (PCR) Not Detected (NotDetected) Stool EAEC (PCR) Not Detected (NotDetected) Stl E. histolytica PCR Not Detected (NotDetected) Stool Giardia Lamblia PCR Not Detected (NotDetected) Stool Salmonella PCR Not Detected (NotDetected) Stool Sapovirus (PCR) Not Detected (NotDetected) Stl P. shigelloides PCR Not Detected (NotDetected) Stl Shigella/EIEC PCR Not Detected (NotDetected) St Y.enterocolitica PCR Not Detected (NotDetected) Stool Vibrio (PCR) Not Detected (NotDetected) Stl Vibrio cholerae PCR Not Detected (NotDetected) Stl Norovirus GI/GII PCR Not Detected (NotDetected) 11/09/23 11/09/23 Range/Units 11:52 03:39 WBC (4.8-10.8) K/ul RBC (4.20-5.40) M/uL Hgb (12.0-16.0) g/dl Hct (37.0-47.0) % MCV (80.0-100.0) fL MCH (25.0-34.0) pg MCHC (32.0-36.0) g/dL RDW Std Deviation (36.4-46.3) fL RDW Coeff of Francisco (11.5-14.5) % Plt Count (130-400) K/uL MPV (9.4-12.4) fL Sodium (136-145) mmol/L Potassium (3.5-5.1) mmol/L Chloride (98-107) mmol/L Carbon Dioxide (21-32) mmol/L Anion Gap (3-11) BUN (6-23) mg/dl Creatinine (0.6-1.2) mg/dl Est Cr Clr Drug Dosing ml/min Est GFR ( Amer) ml/min Est GFR (Non-Af Amer) ml/min BUN/Creatinine Ratio (10-20) Glucose (70-99(Fasting)) mg/dl POC Glucose 278 H (70-99) mg/dl Estimat Average Glucose 117 mg/dl Hemoglobin A1c 5.7 H (4.5-5.6) % Calcium (8.6-10.3) mg/dl Phosphorus (2.5-4.9) mg/dl Magnesium (1.7-2.4) mg/dl Total Bilirubin (0.2-1.0) mg/dl AST (13-39) U/L ALT (7-52) U/L Alkaline Phosphatase (34-104) U/L Total Protein (6.0-8.3) gm/dl Albumin (3.4-5.0) gm/dl Globulin (2.5-4.0) gm/dl Albumin/Globulin Ratio (0.9-2) Stl C. cayetanensis PCR (NotDetected) Stool Rotavirus A PCR (NotDetected) Stl Adenov F 40/41 PCR (NotDetected) Stool Astrovirus (PCR) (NotDetected) Stool Campylobacter PCR (NotDetected) Stl C. diff Tox B Gene (Neg) Stool Cryptosporidium PCR (NotDetected) Stl E.coli Shiga Tox PCR (NotDetected) Stl Enterotoxigenic E PCR (NotDetected) Stool EPEC (PCR) (NotDetected) Stool EAEC (PCR) (NotDetected) Stl E. histolytica PCR (NotDetected) Stool Giardia Lamblia PCR (NotDetected) Stool Salmonella PCR (NotDetected) Stool Sapovirus (PCR) (NotDetected) Stl P. shigelloides PCR (NotDetected) Stl Shigella/EIEC PCR (NotDetected) St Y.enterocolitica PCR (NotDetected) Stool Vibrio (PCR) (NotDetected) Stl Vibrio cholerae PCR (NotDetected) Stl Norovirus GI/GII PCR (NotDetected) Medications Administered Current Inpatient Medications Dextrose (Dextrose 50% 50 Ml Syringe) 25 - 50 ml IV UD PRN; Protocol PRN Reason: Hypoglycemia Protocol Stop: 12/08/23 23:50 Duloxetine HCl (Duloxetine Hcl 60 Mg Cap) 60 mg PO DAILY [facility] Stop: 12/09/23 08:59 Last Admin: 11/09/23 08:28 Dose: 60 mg Glucagon (Glucagon For Inj 1 Mg Vial) 1 mg SQ UD PRN; Protocol PRN Reason: Hypoglycemia Protocol Stop: 12/08/23 23:50 Glucose (Glucose 10 Tab/Tube) 4 - 8 tab PO UD PRN; Protocol PRN Reason: Hypoglycemia Treatment Stop: 12/08/23 23:50 Glucose (Glucose 40% Gel 15 Gm Tube) 15 - 30 gm PO UD PRN; Protocol PRN Reason: Hypoglycemia Protocol Stop: 12/08/23 23:50 Heparin Sodium (Porcine) (Heparin Sod 5,000 Unit/0.5 Ml Vial) 5,000 units SQ Q12 [facility] Stop: 12/09/23 08:59 Last Admin: 11/09/23 20:04 Dose: 5,000 units Sodium Chloride (Nss) 1,000 mls @ 75 mls/hr IV .[id number] [facility] Stop: 12/08/23 23:50 Last Admin: 11/10/23 06:28 Dose: 75 mls/hr Piperacillin Sod/Tazobactam (Sod 4.5 gm/ Dextrose) 100 mls @ 25 mls/hr IV Q8H [facility]; Protocol Stop: 11/19/23 03:59 Last Infusion: 11/10/23 08:43 Dose: Infused Insulin Aspart (Insulin Aspart Per Unit Charge) 0 units SC ACHS [facility] Stop: 12/09/23 00:59 Last Admin: 11/10/23 08:41 Dose: Not Given Insulin Glargine (Lantus Per Unit Charge) 6 units SQ BID [facility] Stop: 12/09/23 08:59 Last Admin: 11/09/23 20:09 Dose: 6 units Miscellaneous (Carbohydrates For Hypoglycemia ) 15 - 30 gm PO UD PRN PRN Reason: Hypoglycemia Protocol Stop: 12/08/23 23:50 Mycophenolate Mofetil (Mycophenolate Mofetil 250 Mg Cap) 500 mg PO BID [facility] Stop: 12/09/23 08:59 Last Admin: 11/09/23 20:04 Dose: 500 mg Nitroglycerin (Nitroglycerin Sl 0.4 Mg/Tab Tab) 0.4 mg SL Q5M PRN PRN Reason: Chest Pain Stop: 12/08/23 23:50 Ondansetron HCl (Ondansetron Inj 2 Mg/Ml 2 Ml Vial) 4 mg IV Q6H PRN PRN Reason: Nausea Stop: 12/08/23 23:50 Pantoprazole Sodium (Pantoprazole 40 Mg Tab) 40 mg PO DAILY [facility] Stop: 12/09/23 08:59 Last Admin: 11/09/23 08:29 Dose: 40 mg Potassium Chloride (Potassium Chloride Crtab 20 Meq Tabcr) 20 meq PO BID [facility] Stop: 12/09/23 08:59 Last Admin: 11/09/23 20:04 Dose: 20 meq Tacrolimus (Tacrolimus 1 Mg Cap) 1 mg PO BID [facility] Stop: 12/09/23 08:59 Last Admin: 11/09/23 20:04 Dose: 1 mg
--- NOTE | 2023-11-10 09:19 | Gastrointestinal Consultation ---
Date of Consultation November 10, 2023 Assessment & Plan (1) Colitis: 72 year old female with history of type 2 diabetes, hyperlipidemia, gastroparesis, urinary incontinence, stool incontinence, renal osteodystrophy, osteoporosis, history of thoracic lumbosacral neuritis, history of thrombocytopenia, general anxiety disorder, depression, aspirin contraindicated, history of liver cirrhosis s/p liver transplant in 2007, admitted with nausea/vomiting/diarrhea and abd pain - colitis on CT, screened positive for adenovirus and now on Zosyn for UTI She reports her GI symptoms are improving, denies further episodes of nausea/vomiting or diarrhea. Abd pain is also improving. Continue conservative measures. She has refused colonoscopy in the past and was not agreeable when discussed at bedside. She should continue to follow up with Dr. Hill for her post-liver transplant care. She was encouraged to continue to think about colonoscopy evaluation and to let us know how she would like to proceed. Recall as needed. Thank you for allowing us to participate in the care of this patient. Please call with any acute changes, questions or concerns. Please see addendum below with additional recommendation from my supervising physician. (2) Immunosuppressed status: Supervising Physician Co-Signing Physician Notes I personally saw and evaluated the patient on 11/10/2023 with HUBER Hu and agree with her findings and plan of care. Abdomen soft and non-tender on exam. 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 Patient is improving no longer with diarrhea or vomiting. Colitis was seen on CT scan likely due to viral illness however patient has never had a colonoscopy and she absolutely refuses one when discussed today about importance to follow up with colonoscopy in 6-8 weeks to rule out any malignancy. She declines any colonoscopy at all. Would recommend to continue prograf and ok to continue cellcept as patient is non-toxic and improved. Trend daily prograf level as well as LFTS. Follow back up in clinic with Dr. Hill for her post-liver transplant care. GI will sign off but please call back with questions. Nannette Owen, DO Gastroenterology and Hepatology History of Present Illness Reason for Consultation: colitis Requesting Physician: Rodney Attending Physician: Tony Stevens MD History of Present Illness 72 year old female with history of type 2 diabetes, hyperlipidemia, gastroparesis, urinary incontinence, stool incontinence, renal osteodystrophy, osteoporosis, history of thoracic lumbosacral neuritis, history of thrombocytopenia, general anxiety disorder, depression, aspirin contraindicated, history of liver cirrhosis s/p liver transplant in 2007, admitted through the ED with nausea/vomiting and diarrhea - CT showing colitis. Pt was seen and evaluated, chart reviewed, Upon entering her room she was asleep. She awake easily to name, however, history was limited. Notes that today she is starting to feel better. She has some mild abd pain, mostly lower. She reports to me that her nausea/vomiting seem to be improved and that her last bowel movement was sometime yesterday. She deneis any black or bloody stools. No fever, chills, CP, SOB. 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 Hill. She is maintained on cellcept and prograf. She has never had a colonoscopy + adenovirus CT w/ severe wall thickening of the colon, preferentially located in the middle quadrant, consistent with colitis. Diverticulosis, without acute diverticulitis. No small bowel obstruction. No free intraperitoneal air. EGD 2011: Essentially unremarkable exam. Pt desribes 2 months of episodic abdominal pain. Pain occurs several times daily, lasts 5-15 mins, severe. No nausea, no t aggravated by PO intake. CT unremarkable. EGD 2009: Upper esophageal web, dilated. EGD 2006: Portal HTN gastropathy. Allergies Allergy/AdvReac Type Severity Reaction Status Date / Time celecoxib AdvReac Mild NAUSEA, Verified 04/09/23 16:15 VOMITING codeine AdvReac Mild ANXIETY Verified 04/09/23 16:15 rofecoxib AdvReac Mild LEGS GO Verified 04/09/23 16:15 NUMB hydromorphone AdvReac Unknown RESTLESS, Verified 04/09/23 16:15 INSOMNIA Home Medications Medication Instructions Recorded Confirmed Type duloxetine 60 mg capsule,delayed 60 mg PO DAILY 11/08/23 11/08/23 History release insulin detemir U-100 100 unit/mL 13 unit subcut BID 11/08/23 11/08/23 History (3 mL) subcutaneous pen (Levemir FlexPen) mycophenolate mofetil 250 mg 500 mg PO BID 11/08/23 11/08/23 History capsule omeprazole 20 mg capsule,delayed 20 mg PO DAILY 11/08/23 11/08/23 History release potassium chloride 20 mEq 20 meq PO BID 11/08/23 11/08/23 History tablet,extended release(part/cryst) tacrolimus 1 mg capsule, 1 mg PO BID 11/08/23 11/08/23 History immediate-release Patient History Medical History Anxiety and depression Back pain Cirrhosis CKD (chronic kidney disease) Closed fracture of left proximal humerus Diabetes Diabetes mellitus, type II Hypokalemia Left hip pain (10/07/13) Pancytopenia Surgical History History of cholecystectomy History of hysterectomy History of liver transplant History of right hip hemiarthroplasty Liver transplanted Family History Other Cancer Diabetes Social History Smoking Status: Never smoker Second Hand Exposure: No; Do You Dip or Chew Tobacco: No; Hx Alcohol Use: No Hx Substance Use: No Preferred Language: Tajik Communication Ability: Impaired 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 Respiratory: normal respiratory effort, lungs clear to auscultation Cardiovascular: Rate/Rhythm: regular rate Gastrointestinal (Abdomen): Percussion/Palpation: abdomen soft; abdomen nontender Skin: no rashes, warm and dry Results & Data Vital Signs (Past 12 Hours) Vital Signs Temp Pulse Resp BP BP Pulse Ox O2 Del Method 11/10/23 07:53 36.3 C L 72 17 118/66 100 Room Air 11/10/23 02:45 35.4 C L 80 18 163/76 H 100 Room Air 11/09/23 23:01 36.5 C 83 18 151/71 H 99 Room Air Laboratory Results 11/10/23 11/10/23 11/09/23 Range/Units 07:58 07:11 20:04 WBC 5.05 (4.8-10.8) K/ul RBC 3.03 L (4.20-5.40) M/uL Hgb 8.9 L (12.0-16.0) g/dl Hct 26.7 L (37.0-47.0) % MCV 88.1 (80.0-100.0) fL MCH 29.4 (25.0-34.0) pg MCHC 33.3 (32.0-36.0) g/dL RDW Std Deviation 45.9 (36.4-46.3) fL RDW Coeff of Francisco 14.5 (11.5-14.5) % Plt Count 128 L (130-400) K/uL MPV 10.0 (9.4-12.4) fL Sodium 136 (136-145) mmol/L Potassium 3.7 (3.5-5.1) mmol/L Chloride 106 (98-107) mmol/L Carbon Dioxide 26 (21-32) mmol/L Anion Gap 4 (3-11) BUN 11 (6-23) mg/dl Creatinine 0.74 (0.6-1.2) mg/dl Est Cr Clr Drug Dosing 48.5 ml/min Est GFR ( Amer) 93.2 ml/min Est GFR (Non-Af Amer) 80.4 ml/min BUN/Creatinine Ratio 14.9 (10-20) Glucose 68 L (70-99(Fasting)) mg/dl POC Glucose 79 166 H (70-99) mg/dl Estimat Average Glucose mg/dl Hemoglobin A1c (4.5-5.6) % Calcium 8.3 L (8.6-10.3) mg/dl Phosphorus 2.7 (2.5-4.9) mg/dl Magnesium 1.6 L (1.7-2.4) mg/dl Total Bilirubin 0.7 (0.2-1.0) mg/dl AST 12 L (13-39) U/L ALT 10 (7-52) U/L Alkaline Phosphatase 32 L (34-104) U/L Total Protein 5.4 L (6.0-8.3) gm/dl Albumin 3.3 L (3.4-5.0) gm/dl Globulin 2.1 L (2.5-4.0) gm/dl Albumin/Globulin Ratio 1.6 (0.9-2) Stl C. cayetanensis PCR (NotDetected) Stool Rotavirus A PCR (NotDetected) Stl Adenov F 40/41 PCR (NotDetected) Stool Astrovirus (PCR) (NotDetected) Stool Campylobacter PCR (NotDetected) Stl C. diff Tox B Gene (Neg) Stool Cryptosporidium PCR (NotDetected) Stl E.coli Shiga Tox PCR (NotDetected) Stl Enterotoxigenic E PCR (NotDetected) Stool EPEC (PCR) (NotDetected) Stool EAEC (PCR) (NotDetected) Stl E. histolytica PCR (NotDetected) Stool Giardia Lamblia PCR (NotDetected) Stool Salmonella PCR (NotDetected) Stool Sapovirus (PCR) (NotDetected) Stl P. shigelloides PCR (NotDetected) Stl Shigella/EIEC PCR (NotDetected) St Y.enterocolitica PCR (NotDetected) Stool Vibrio (PCR) (NotDetected) Stl Vibrio cholerae PCR (NotDetected) Stl Norovirus GI/GII PCR (NotDetected) 11/09/23 11/09/23 11/09/23 Range/Units 18:25 18:15 16:50 WBC (4.8-10.8) K/ul RBC (4.20-5.40) M/uL Hgb (12.0-16.0) g/dl Hct (37.0-47.0) % MCV (80.0-100.0) fL MCH (25.0-34.0) pg MCHC (32.0-36.0) g/dL RDW Std Deviation (36.4-46.3) fL RDW Coeff of Francisco (11.5-14.5) % Plt Count (130-400) K/uL MPV (9.4-12.4) fL Sodium 136 (136-145) mmol/L Potassium 4.0 (3.5-5.1) mmol/L Chloride 105 (98-107) mmol/L Carbon Dioxide 24 (21-32) mmol/L Anion Gap 7 (3-11) BUN 15 (6-23) mg/dl Creatinine 0.81 (0.6-1.2) mg/dl Est Cr Clr Drug Dosing 45.5 ml/min Est GFR ( Amer) 83.5 ml/min Est GFR (Non-Af Amer) 72.1 ml/min BUN/Creatinine Ratio 18.5 (10-20) Glucose 156 H (70-99(Fasting)) mg/dl POC Glucose 94 (70-99) mg/dl Estimat Average Glucose mg/dl Hemoglobin A1c (4.5-5.6) % Calcium 8.5 L (8.6-10.3) mg/dl Phosphorus 3.0 (2.5-4.9) mg/dl Magnesium 1.9 (1.7-2.4) mg/dl Total Bilirubin (0.2-1.0) mg/dl AST (13-39) U/L ALT (7-52) U/L Alkaline Phosphatase (34-104) U/L Total Protein (6.0-8.3) gm/dl Albumin (3.4-5.0) gm/dl Globulin (2.5-4.0) gm/dl Albumin/Globulin Ratio (0.9-2) Stl C. cayetanensis PCR Not Detected (NotDetected) Stool Rotavirus A PCR Not Detected (NotDetected) Stl Adenov F 40/41 PCR DETECTED A* (NotDetected) Stool Astrovirus (PCR) Not Detected (NotDetected) Stool Campylobacter PCR Not Detected (NotDetected) Stl C. diff Tox B Gene Negative Cdiff Gene (Neg) Stool Cryptosporidium PCR Not Detected (NotDetected) Stl E.coli Shiga Tox PCR Not Detected (NotDetected) Stl Enterotoxigenic E PCR Not Detected (NotDetected) Stool EPEC (PCR) Not Detected (NotDetected) Stool EAEC (PCR) Not Detected (NotDetected) Stl E. histolytica PCR Not Detected (NotDetected) Stool Giardia Lamblia PCR Not Detected (NotDetected) Stool Salmonella PCR Not Detected (NotDetected) Stool Sapovirus (PCR) Not Detected (NotDetected) Stl P. shigelloides PCR Not Detected (NotDetected) Stl Shigella/EIEC PCR Not Detected (NotDetected) St Y.enterocolitica PCR Not Detected (NotDetected) Stool Vibrio (PCR) Not Detected (NotDetected) Stl Vibrio cholerae PCR Not Detected (NotDetected) Stl Norovirus GI/GII PCR Not Detected (NotDetected) 11/09/23 11/09/23 Range/Units 11:52 03:39 WBC (4.8-10.8) K/ul RBC (4.20-5.40) M/uL Hgb (12.0-16.0) g/dl Hct (37.0-47.0) % MCV (80.0-100.0) fL MCH (25.0-34.0) pg MCHC (32.0-36.0) g/dL RDW Std Deviation (36.4-46.3) fL RDW Coeff of Francisco (11.5-14.5) % Plt Count (130-400) K/uL MPV (9.4-12.4) fL Sodium (136-145) mmol/L Potassium (3.5-5.1) mmol/L Chloride (98-107) mmol/L Carbon Dioxide (21-32) mmol/L Anion Gap (3-11) BUN (6-23) mg/dl Creatinine (0.6-1.2) mg/dl Est Cr Clr Drug Dosing ml/min Est GFR ( Amer) ml/min Est GFR (Non-Af Amer) ml/min BUN/Creatinine Ratio (10-20) Glucose (70-99(Fasting)) mg/dl POC Glucose 278 H (70-99) mg/dl Estimat Average Glucose 117 mg/dl Hemoglobin A1c 5.7 H (4.5-5.6) % Calcium (8.6-10.3) mg/dl Phosphorus (2.5-4.9) mg/dl Magnesium (1.7-2.4) mg/dl Total Bilirubin (0.2-1.0) mg/dl AST (13-39) U/L ALT (7-52) U/L Alkaline Phosphatase (34-104) U/L Total Protein (6.0-8.3) gm/dl Albumin (3.4-5.0) gm/dl Globulin (2.5-4.0) gm/dl Albumin/Globulin Ratio (0.9-2) Stl C. cayetanensis PCR (NotDetected) Stool Rotavirus A PCR (NotDetected) Stl Adenov F 40/41 PCR (NotDetected) Stool Astrovirus (PCR) (NotDetected) Stool Campylobacter PCR (NotDetected) Stl C. diff Tox B Gene (Neg) Stool Cryptosporidium PCR (NotDetected) Stl E.coli Shiga Tox PCR (NotDetected) Stl Enterotoxigenic E PCR (NotDetected) Stool EPEC (PCR) (NotDetected) Stool EAEC (PCR) (NotDetected) Stl E. histolytica PCR (NotDetected) Stool Giardia Lamblia PCR (NotDetected) Stool Salmonella PCR (NotDetected) Stool Sapovirus (PCR) (NotDetected) Stl P. shigelloides PCR (NotDetected) Stl Shigella/EIEC PCR (NotDetected) St Y.enterocolitica PCR (NotDetected) Stool Vibrio (PCR) (NotDetected) Stl Vibrio cholerae PCR (NotDetected) Stl Norovirus GI/GII PCR (NotDetected)
[2023-11-10] MEDS: CARBOHYDRATES FOR HYPOGLYCEMIA PO PRN (12:20)
[2023-11-11 08:41] LABS: Hemoglobin 9.3 g/dl (12.0-16.0); Mean Corpuscular Hemoglobin 29.1 pg (25.0-34.0); Mean Corpuscular Hgb Conc 33.2 g/dL (32.0-36.0); Mean Corpuscular Volume 87.5 fL (80.0-100.0); Mean Platelet Volume 9.7 fL (9.4-12.4); Platelet Count 126 K/uL (130-400); RDW Coefficient of Variation 14.6 % (11.5-14.5); White Blood Count 3.13 K/ul (4.8-10.8)
[2023-11-11 09:00] LABS: Albumin Globulin Ratio 1.5 (0.9-2); Albumin Level 3.5 gm/dl (3.4-5.0); BUN Creatinine Ratio 9.9 (10-20); Bilirubin,Total 0.7 mg/dl (0.2-1.0); Calcium 8.6 mg/dl (8.6-10.3); Creatinine Clr Calc Pharmacy 44.8 ml/min; Est GFR (African American) 83.5 ml/min; Est GFR (Non-African American) 72.1 ml/min; Globulin 2.3 gm/dl (2.5-4.0); Magnesium 1.6 mg/dl (1.7-2.4); Phosphorus 2.7 mg/dl (2.5-4.9); Potassium 4.3 mmol/L (3.5-5.1); Total Protein 5.8 gm/dl (6.0-8.3)
--- NOTE | 2023-11-11 09:16 | Hospitalist Progress Note ---
Date of Service November 11, 2023 Assessment & Plan (1) Metabolic encephalopathy: Plan: 72 yo F with past medical history significant for type 2 diabetes, hyperlipidemia, gastroparesis, urinary incontinence, stool incontinence, renal osteodystrophy, osteoporosis, history of thoracic lumbosacral neuritis, history of thrombocytopenia, general anxiety disorder, depression, aspirin contraindicated, history of liver cirrhosis s/p liver transplant in 2007, histo ry of hypokalemia presents from home because of nausea vomiting and diarrhea going on for last 4 days and poor oral intake and some confusion. Patient states last few days she is having diarrhea. Denies any blood in the stools. Has a mild abdominal discomfort. No fevers. Also not able to eat anything because of nausea vomiting. Denies any chest pain or shortness of breath. Denies any headache. No cough. No runny nose or sore throat. Hemodynamics are okay. Patient knows her name., Knows that she is in the hospital. Knows month and year. But she thinks she stays with the sister while she is living with her daughter. Currently she is wheelchair-bound as per daughter. But patient states she is ambulating with a walker. Daughter thinks that whenever she gets UTIs she gets confused. Metabolic encephalopathy Mostly from dehydration from nausea vomiting and diarrhea And UTI Getting fluids and antibiotics Will monitor Nausea vomiting and diarrhea Colitis on CT scan Gentle fluids stool PCR positive for adenovirus c. diff negative Continues to have loose stools, nausea and vomiting resolved Clear liquid diet -> advance to low fat low fiber IV Zosyn GI consulted - recommend colonoscopy which pt declined at this time. Recommend daily LFTs, and prograf level. For now cont. prograf and cellcept. 11/11 - Discussed with daughter at the bedside. She will continue to discuss with the pt - if she changes her mind, will contact GI. UTI Will follow cultures On Zosyn Diabetes Will cut back on long-acting insulin to 6 units twice daily Sliding scale Will monitor History of liver cirrhosis s/p liver transplant in 2007 Continue transplant medications, as above GI consulted Hypokalemia, Hypomagnesemia On potassium supplements replete and monitor Depression Anxiety On duloxetine GERD On omeprazole Ambulatory status Wheelchair-bound as per daughter DVT prophylaxis Heparin subcu Disposition Med/tele CODE STATUS DNR/DNI as per admitting provider 's discussion with the daughter Admission and Anticipated Discharge Date Admission Date: November 08, 2023 Subjective Pt seen in follow up of AMS, colitis. She has hx of liver transplant Laying in bed in NAD, Able to answer some questions appropriately, more awake today and able to better participate in conversation. Pt's daughter present at the bedside and discussed with. Continues to have loose stools . stool pcr posit. for adenovirus She denies any nausea/ vomiting at this time and would like her diet to be advanced. Denies any chest pain or shortness of breath at this time. Seen by GI - colonoscopy recommended and declined by the pt. This was also discussed w/ pt's daughter today. Pt reportedly historically declined colonoscopy - pt tells me she experienced a lot of discomfort when she had colonoscopy before. Daughter will continue to discuss with the pt - if she would change her mind, will let GI know. Review of Systems Review of Systems: All systems reviewed & are unremarkable except as noted in Subjective Physical Exam Physical Exam: General- thin, elderly F in NAD Head- atraumatic Eyes- PERRL. Neck- supple, no JVD. Lungs- clear to auscultation no wheezing or crackles. Heart- regular rhythm; no murmur, no gallop. Abdomen- normal bowel sounds, soft, nontender, no distension. Extremities- no pretibial edema, no erythema seen Neuro- alert, oriented ; PERRL,; no facial palsy; no dysarthria; moves extremities. Skin- warm & dry Results & Data Results & Data Vital Signs (Past 12 Hours) Vital Signs Temp Pulse Pulse Resp BP Pulse Ox O2 Del Method 11/11/23 03:10 36.6 C 69 18 123/61 99 Room Air 11/10/23 23:00 75 Laboratory Results 11/11/23 11/11/23 11/11/23 Range/Units 08:35 08:33 08:20 WBC 3.13 L (4.8-10.8) K/ul RBC 3.20 L (4.20-5.40) M/uL Hgb 9.3 L (12.0-16.0) g/dl Hct 28.0 L (37.0-47.0) % MCV 87.5 (80.0-100.0) fL MCH 29.1 (25.0-34.0) pg MCHC 33.2 (32.0-36.0) g/dL RDW Std Deviation 46.0 (36.4-46.3) fL RDW Coeff of Francisco 14.6 H (11.5-14.5) % Plt Count 126 L (130-400) K/uL MPV 9.7 (9.4-12.4) fL Sodium 139 (136-145) mmol/L Potassium 4.3 (3.5-5.1) mmol/L Chloride 110 H (98-107) mmol/L Carbon Dioxide 25 (21-32) mmol/L Anion Gap 4 (3-11) BUN 8 (6-23) mg/dl Creatinine 0.81 (0.6-1.2) mg/dl Est Cr Clr Drug Dosing 44.8 ml/min Est GFR ( Amer) 83.5 ml/min Est GFR (Non-Af Amer) 72.1 ml/min BUN/Creatinine Ratio 9.9 L (10-20) Glucose 83 (70-99(Fasting)) mg/dl POC Glucose 74 68 L* (70-99) mg/dl Calcium 8.6 (8.6-10.3) mg/dl Phosphorus 2.7 (2.5-4.9) mg/dl Magnesium 1.6 L (1.7-2.4) mg/dl Total Bilirubin 0.7 (0.2-1.0) mg/dl AST 13 (13-39) U/L ALT 9 (7-52) U/L Alkaline Phosphatase 38 (34-104) U/L Total Protein 5.8 L (6.0-8.3) gm/dl Albumin 3.5 (3.4-5.0) gm/dl Globulin 2.3 L (2.5-4.0) gm/dl Albumin/Globulin Ratio 1.5 (0.9-2) Tacrolimus Pending 11/11/23 11/11/23 11/10/23 Range/Units 07:55 07:52 20:38 WBC (4.8-10.8) K/ul RBC (4.20-5.40) M/uL Hgb (12.0-16.0) g/dl Hct (37.0-47.0) % MCV (80.0-100.0) fL MCH (25.0-34.0) pg MCHC (32.0-36.0) g/dL RDW Std Deviation (36.4-46.3) fL RDW Coeff of Francisco (11.5-14.5) % Plt Count (130-400) K/uL MPV (9.4-12.4) fL Sodium (136-145) mmol/L Potassium (3.5-5.1) mmol/L Chloride (98-107) mmol/L Carbon Dioxide (21-32) mmol/L Anion Gap (3-11) BUN (6-23) mg/dl Creatinine (0.6-1.2) mg/dl Est Cr Clr Drug Dosing ml/min Est GFR ( Amer) ml/min Est GFR (Non-Af Amer) ml/min BUN/Creatinine Ratio (10-20) Glucose (70-99(Fasting)) mg/dl POC Glucose 60 L* 58 L* 119 H (70-99) mg/dl Calcium (8.6-10.3) mg/dl Phosphorus (2.5-4.9) mg/dl Magnesium (1.7-2.4) mg/dl Total Bilirubin (0.2-1.0) mg/dl AST (13-39) U/L ALT (7-52) U/L Alkaline Phosphatase (34-104) U/L Total Protein (6.0-8.3) gm/dl Albumin (3.4-5.0) gm/dl Globulin (2.5-4.0) gm/dl Albumin/Globulin Ratio (0.9-2) Tacrolimus 11/10/23 11/10/23 11/10/23 Range/Units 17:14 13:21 12:08 WBC (4.8-10.8) K/ul RBC (4.20-5.40) M/uL Hgb (12.0-16.0) g/dl Hct (37.0-47.0) % MCV (80.0-100.0) fL MCH (25.0-34.0) pg MCHC (32.0-36.0) g/dL RDW Std Deviation (36.4-46.3) fL RDW Coeff of Francisco (11.5-14.5) % Plt Count (130-400) K/uL MPV (9.4-12.4) fL Sodium (136-145) mmol/L Potassium (3.5-5.1) mmol/L Chloride (98-107) mmol/L Carbon Dioxide (21-32) mmol/L Anion Gap (3-11) BUN (6-23) mg/dl Creatinine (0.6-1.2) mg/dl Est Cr Clr Drug Dosing ml/min Est GFR ( Amer) ml/min Est GFR (Non-Af Amer) ml/min BUN/Creatinine Ratio (10-20) Glucose (70-99(Fasting)) mg/dl POC Glucose 89 120 H 61 L* (70-99) mg/dl Calcium (8.6-10.3) mg/dl Phosphorus (2.5-4.9) mg/dl Magnesium (1.7-2.4) mg/dl Total Bilirubin (0.2-1.0) mg/dl AST (13-39) U/L ALT (7-52) U/L Alkaline Phosphatase (34-104) U/L Total Protein (6.0-8.3) gm/dl Albumin (3.4-5.0) gm/dl Globulin (2.5-4.0) gm/dl Albumin/Globulin Ratio (0.9-2) Tacrolimus 11/10/23 11/10/23 Range/Units 12:06 07:11 WBC (4.8-10.8) K/ul RBC (4.20-5.40) M/uL Hgb (12.0-16.0) g/dl Hct (37.0-47.0) % MCV (80.0-100.0) fL MCH (25.0-34.0) pg MCHC (32.0-36.0) g/dL RDW Std Deviation (36.4-46.3) fL RDW Coeff of Francisco (11.5-14.5) % Plt Count (130-400) K/uL MPV (9.4-12.4) fL Sodium (136-145) mmol/L Potassium (3.5-5.1) mmol/L Chloride (98-107) mmol/L Carbon Dioxide (21-32) mmol/L Anion Gap (3-11) BUN (6-23) mg/dl Creatinine (0.6-1.2) mg/dl Est Cr Clr Drug Dosing ml/min Est GFR ( Amer) ml/min Est GFR (Non-Af Amer) ml/min BUN/Creatinine Ratio (10-20) Glucose (70-99(Fasting)) mg/dl POC Glucose 67 L* (70-99) mg/dl Calcium (8.6-10.3) mg/dl Phosphorus (2.5-4.9) mg/dl Magnesium (1.7-2.4) mg/dl Total Bilirubin (0.2-1.0) mg/dl AST (13-39) U/L ALT (7-52) U/L Alkaline Phosphatase (34-104) U/L Total Protein (6.0-8.3) gm/dl Albumin (3.4-5.0) gm/dl Globulin (2.5-4.0) gm/dl Albumin/Globulin Ratio (0.9-2) Tacrolimus Pending Medications Administered Current Inpatient Medications Dextrose (Dextrose 50% 50 Ml Syringe) 25 - 50 ml IV UD PRN; Protocol PRN Reason: Hypoglycemia Protocol Stop: 12/08/23 23:50 Duloxetine HCl (Duloxetine Hcl 60 Mg Cap) 60 mg PO DAILY ALYSSA Stop: 12/09/23 08:59 Last Admin: 11/10/23 10:00 Dose: 60 mg Glucagon (Glucagon For Inj 1 Mg Vial) 1 mg SQ UD PRN; Protocol PRN Reason: Hypoglycemia Protocol Stop: 12/08/23 23:50 Glucose (Glucose 10 Tab/Tube) 4 - 8 tab PO UD PRN; Protocol PRN Reason: Hypoglycemia Treatment Stop: 12/08/23 23:50 Glucose (Glucose 40% Gel 15 Gm Tube) 15 - 30 gm PO UD PRN; Protocol PRN Reason: Hypoglycemia Protocol Stop: 12/08/23 23:50 Heparin Sodium (Porcine) (Heparin Sod 5,000 Unit/0.5 Ml Vial) 5,000 units SQ Q12 ALYSSA Stop: 12/09/23 08:59 Last Admin: 11/10/23 22:05 Dose: 5,000 units Sodium Chloride (Nss) 1,000 mls @ 75 mls/hr IV .[id number] ALYSSA Stop: 12/08/23 23:50 Last Admin: 11/11/23 06:25 Dose: 75 mls/hr Piperacillin Sod/Tazobactam (Sod 4.5 gm/ Dextrose) 100 mls @ 25 mls/hr IV Q8H [facility]; Protocol Stop: 11/19/23 03:59 Last Admin: 11/11/23 05:40 Dose: 25 mls/hr Insulin Aspart (Insulin Aspart Per Unit Charge) 0 units SC ACHS [facility] Stop: 12/09/23 00:59 Last Admin: 11/11/23 09:02 Dose: Not Given Insulin Glargine (Lantus Per Unit Charge) 6 units SQ BID [facility] Stop: 12/09/23 08:59 Last Admin: 11/10/23 22:10 Dose: 6 units Miscellaneous (Carbohydrates For Hypoglycemia ) 15 - 30 gm PO UD PRN PRN Reason: Hypoglycemia Protocol Stop: 12/08/23 23:50 Last Admin: 11/11/23 08:03 Dose: 15 gm Mycophenolate Mofetil (Mycophenolate Mofetil 250 Mg Cap) 500 mg PO BID [facility] Stop: 12/09/23 08:59 Last Admin: 11/10/23 22:05 Dose: 500 mg Nitroglycerin (Nitroglycerin Sl 0.4 Mg/Tab Tab) 0.4 mg SL Q5M PRN PRN Reason: Chest Pain Stop: 12/08/23 23:50 Ondansetron HCl (Ondansetron Inj 2 Mg/Ml 2 Ml Vial) 4 mg IV Q6H PRN PRN Reason: Nausea Stop: 12/08/23 23:50 Pantoprazole Sodium (Pantoprazole 40 Mg Tab) 40 mg PO DAILY [facility] Stop: 12/09/23 08:59 Last Admin: 11/10/23 10:00 Dose: 40 mg Potassium Chloride (Potassium Chloride Crtab 20 Meq Tabcr) 20 meq PO BID ALYSSA Stop: 12/09/23 08:59 Last Admin: 11/10/23 22:06 Dose: 20 meq Tacrolimus (Tacrolimus 1 Mg Cap) 1 mg PO BID [facility] Stop: 12/09/23 08:59 Last Admin: 11/10/23 22:06 Dose: 1 mg
[2023-11-11] MEDS: MAGNESIUM SULFATE / D5W 1 GM/100 ML BAG IV ONE (13:00)
[2023-11-11] MEDS: LIDOCAINE 5% 1 PATCH TD STA (16:29)
[2023-11-12 05:02] LABS: Hematocrit (blood only) 23.3 % (37.0-47.0); Mean Corpuscular Hemoglobin 29.3 pg (25.0-34.0); Mean Corpuscular Hgb Conc 34.3 g/dL (32.0-36.0); Mean Corpuscular Volume 85.3 fL (80.0-100.0); Mean Platelet Volume 9.6 fL (9.4-12.4); Platelet Count 116 K/uL (130-400); RDW Coefficient of Variation 14.5 % (11.5-14.5); RDW Standard Deviation 45.3 fL (36.4-46.3); Red Blood Count 2.73 M/uL (4.20-5.40); White Blood Count 2.71 K/ul (4.8-10.8)
[2023-11-12 05:11] LABS: BUN Creatinine Ratio 9.3 (10-20); Calcium 7.8 mg/dl (8.6-10.3); Creatinine Clr Calc Pharmacy 42.2 ml/min; Est GFR (African American) 77.7 ml/min; Magnesium 1.5 mg/dl (1.7-2.4); Phosphorus 1.9 mg/dl (2.5-4.9); Potassium 3.7 mmol/L (3.5-5.1)
[2023-11-12] MEDS: POT PHOSPHATE MONOBASIC W/ SOD TAB PO SCH (10:08)
[2023-11-12] MEDS: MAGNESIUM SULFATE / D5W 1 GM/100 ML BAG IV SCH (11:38)
--- NOTE | 2023-11-12 14:40 | Hospitalist Progress Note ---
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 No fever. Denied blood in the stool. Currently she is wheelchair-bound as per daughter. But patient stated she is ambulating with a walker. Daughter thinks that whenever she gets UTIs she gets confused. She is being managed for the following: Possible UTI Colitis Metabolic encephalopathy: Likely secondary to above Patient coming in with confusion, nausea, vomiting, diarrhea Also had poor p.o. intake and and hence dehydration. Admitting UA suggestive of UTI, urine culture with no growth. Follow admitting blood culture. No growth for 48 hours. Admitting CTAP suggestive of colitis. Also noted was diverticulosis without acute diverticulitis. Admitting CT head with no acute intracranial findings. Stool PCR positive for adenovirus. Negative for C. difficile. For encephalopathy, improving, continue hydration, continue management of other acute issues. Patient reports improving nausea, vomiting, improving appetite, improving belly discomfort. Now stool more formed. Continue with IV antibiotic, plan to transition to p.o. likely tomorrow. c/w probiotic Continue with low fiber diet. GI evaluated, patient has refused colonoscopy multiple times, continue with Prograf and CellCept. Daily Prograf level as well as LFTs. Follow-up with Dr. Hill for her post liver transplant care. Patient does not want colonoscopy. Other chronic medical conditions: Continue with/resume home meds as and when able Diabetes: Sliding scale insulin while in hospital. A1c of 5.7 this admission. Liver cirrhosis status post liver transplant in 2007: Continue transplant medication as above. Follow-up with GI upon discharge. Electrolyte abnormalities: Continue potassium supplement as prior. Depression, anxiety: Continue with duloxetine GERD: Continue home omeprazole Ambulatory dysfunction: Wheelchair-bound as per daughter DVT prophylaxis heparin subcu Disposition: PT/OT, CM to assist with DC plan. Goals of care discussion: Due to worsening overall condition in the past several months, patient's daughter would like to explore hospice. wireless store manager consulted. CODE STATUS: DNRDNI Admission and Anticipated Discharge Date Admission Date: November 08, 2023 Subjective Patient was seen and examined at bedside. Patient was lying in bed, on room air, resting comfortably, patient's daughter a t bedside. Per RN, patient has ripped her IV line 3 times in the last 12 hours. Patient was oriented x 2 at bedside exam, stated that she does not want further IV line, discussed in detail the need for IV line while in the hospital, patient's daughter in agreement with putting back IV line. Patient agreeable. RN communicated if the patient is confused and trying to pull the IV line, to use soft mittens. Patient's daughter agrees as well. Per RN, patient eating okay and moving bowels okay. Physical Exam Physical Exam: General- thin, elderly F in NAD Head- atraumatic Eyes- PERRL. Neck- supple, no JVD. Lungs- clear to auscultation no wheezing or crackles. Heart- regular rhythm; no murmur, no gallop. Abdomen- normal bowel sounds, soft, nontender, no distension. Extremities- no pretibial edema, no erythema seen Neuro- alert, oriented x2 ; PERRL,; no facial palsy; no dysarthria; moves extremities. Skin- warm & dry Results & Data Results & Data Vital Signs (Past 12 Hours) Vital Signs Temp Pulse Resp BP Pulse Ox O2 Del Method 11/12/23 11:18 36.6 C 82 16 176/77 H 100 Room Air 11/12/23 07:52 36.7 C 81 16 155/69 H 100 Room Air 11/12/23 03:23 36.6 C 78 18 138/65 100 Room Air
[2023-11-13 06:14] LABS: Hematocrit (blood only) 26.8 % (37.0-47.0); Mean Corpuscular Hemoglobin 28.9 pg (25.0-34.0); Mean Corpuscular Hgb Conc 33.6 g/dL (32.0-36.0); Mean Corpuscular Volume 86.2 fL (80.0-100.0); Mean Platelet Volume 9.7 fL (9.4-12.4); Platelet Count 123 K/uL (130-400); RDW Coefficient of Variation 14.1 % (11.5-14.5); RDW Standard Deviation 43.7 fL (36.4-46.3); Red Blood Count 3.11 M/uL (4.20-5.40); White Blood Count 2.92 K/ul (4.8-10.8)
[2023-11-13 06:30] LABS: BUN Creatinine Ratio 16.4 (10-20); Creatinine Clr Calc Pharmacy 52.7 ml/min; Est GFR (African American) 101.1 ml/min; Est GFR (Non-African American) 87.2 ml/min; Magnesium 1.7 mg/dl (1.7-2.4); Phosphorus 4.2 mg/dl (2.5-4.9); Potassium 3.9 mmol/L (3.5-5.1)
[2023-11-13] MEDS: ACETAMINOPHEN 325 MG TAB PO PRN (08:54)
[2023-11-13] MEDS: ADVANCED PROBIOTIC 650 MG CAPSULE PO SCH (08:55)
--- NOTE | 2023-11-13 13:27 | Hospitalist Progress Note ---
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 No fever. Denied blood in the stool. Currently she is wheelchair-bound as per daughter. But patient stated she is ambulating with a walker. Daughter thinks that whenever she gets UTIs she gets confused. She is being managed for the following: Possible UTI Colitis Metabolic encephalopathy: Likely secondary to above Patient coming in with confusion, nausea, vomiting, diarrhea Also had poor p.o. intake and and hence dehydration. Admitting UA suggestive of UTI, urine culture with no growth. Follow admitting blood culture. No growth for 48 hours. Admitting CTAP suggestive of colitis. Also noted was diverticulosis without acute diverticulitis. Admitting CT head with no acute intracranial findings. Stool PCR positive for adenovirus. Negative for C. difficile. For encephalopathy, improving, encourage po hydration, continue management of other acute issues. Patient reports improving nausea, vomiting, improving appetite, improving belly discomfort. Still w/ liquid stool per RN, will add fiber. Transition 11/09 zosyn to Augmentin 11/13. c/w probiotic Continue with low fat diet. GI evaluated, patient has refused colonoscopy multiple times, continue with Prograf and CellCept. Follow-up with Dr. Hill for her post liver transplant care. Patient does not want colonoscopy. Will add fiber and cholestyramine for loose stool, will follow. Possible Failure to thrive in Adult: Patient w/ poor appetite at baseline. Per pt's dtr, pt with generalized worsening functional status over the last several months. Pt w/ decreasing weight trend per EMR. Currently with BMI of 18. Encourage PO intake. Nutrition on board. Other chronic medical conditions: Continue with/resume home meds as and when able Diabetes: Sliding scale insulin while in hospital. A1c of 5.7 this admission. Liver cirrhosis status post liver transplant in 2007: Continue transplant medication as above. Follow-up with GI upon discharge. Electrolyte abnormalities: Continue potassium supplement as prior. Depression, anxiety: Continue with duloxetine GERD: Continue home omeprazole Ambulatory dysfunction: Wheelchair-bound as per daughter DVT prophylaxis heparin subcu Disposition: PT/OT, CM to assist with DC plan. Goals of care discussion: Due to worsening overall condition in the past several months, patient's daughter would like to explore hospice. vendor relationship manager consulted. --> hospice to eval the patient tomorrow. CODE STATUS: DNRDNI Admission and Anticipated Discharge Date Admission Date: November 08, 2023 Subjective Patient was seen and examined at bedside. Patient was lying in bed, on room air, resting comfortably. Pt with occasions of medical equipment noncompliance; pt easily gets delirious when admitted in hospital per dtr. Per RN, patient eating okay and moving bowels okay. Will dc ivf. Physical Exam Physical Exam: General- thin, elderly F in NAD Head- atraumatic Eyes- PERRL. Neck- supple, no JVD. Lungs- clear to auscultation no wheezing or crackles. Heart- regular rhythm; no murmur, no gallop. Abdomen- normal bowel sounds, soft, nontender, no distension. Extremities- no pretibial edema, no erythema seen Neuro- alert, oriented x2 ; PERRL,; no facial palsy; no dysarthria; moves extremities. Skin- warm & dry Results & Data Results & Data Vital Signs (Past 12 Hours) Vital Signs Temp Pulse Resp BP Pulse Ox O2 Del Method 11/13/23 11:40 36.3 C L 75 18 168/77 H 100 Room Air 11/13/23 07:54 Room Air 11/13/23 03:31 36.4 C L 79 18 174/83 H 100 Room Air
[2023-11-13] MEDS: PSYLLIUM or GUAR GUM FIBER POWDER PACKET PO SCH (14:59)
[2023-11-13] MEDS: AMOXICILLIN/CLAVULANATE 875 MG TAB PO SCH (17:46)
[2023-11-13] MEDS: CHOLESTYRAMINE LIGHT 4 GM PKT PO SCH (21:34)
[2023-11-14] MEDS ORDERED: OLANZapine 10 MG/2.1 ML SDV IM PRN (01:30)
[2023-11-14] MEDS ORDERED: hydrALAZINE HCL 20 MG/ML VIAL IV PRN (02:00)
[2023-11-14] MEDS: hydrALAZINE HCL 20 MG/ML VIAL IV ONE (02:47)
--- NOTE | 2023-11-14 14:17 | Hospitalist Progress Note ---
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 No fever. Denied blood in the stool. Currently she is wheelchair-bound as per daughter. But patient stated she is ambulating with a walker. Daughter thinks that whenever she gets UTIs she gets confused. She is being managed for the following: Possible UTI Colitis Metabolic encephalopathy: Likely secondary to above Patient coming in with confusion, nausea, vomiting, diarrhea Also had poor p.o. intake and and hence dehydration. Admitting UA suggestive of UTI, urine culture with no growth. Follow admitting blood culture. No growth for 48 hours. Admitting CTAP suggestive of colitis. Also noted was diverticulosis without acute diverticulitis. Admitting CT head with no acute intracranial findings. Stool PCR positive for adenovirus. Negative for C. difficile. For encephalopathy, improving, encourage po hydration, continue management of other acute issues. Patient reports improving nausea, vomiting, improving appetite, improving belly discomfort. Added stool forming agent 11/13, improving freq/consistency of stool per pt. Transitioned 11/09 zosyn to Augmentin 11/13. c/w probiotic Continue with low fat diet. GI evaluated, patient has refused colonoscopy multiple times, continue with Prograf and CellCept. Follow-up with Dr. Hill for her post liver transplant ca re. Patient does not want colonoscopy. Possible Failure to thrive in Adult: Patient w/ poor appetite at baseline. Per pt's dtr, pt with generalized worsening functional status over the last several months. Pt w/ decreasing weight trend per EMR. Currently with BMI of 18. Encourage PO intake. Nutrition on board. Other chronic medical conditions: Continue with/resume home meds as and when able Diabetes: Sliding scale insulin while in hospital. A1c of 5.7 this admission. Liver cirrhosis status post liver transplant in 2007: Continue transplant medication as above. Follow-up with GI upon discharge. Electrolyte abnormalities: Continue potassium supplement as prior. Depression, anxiety: Continue with duloxetine GERD: Continue home omeprazole Ambulatory dysfunction: Wheelchair-bound as per daughter DVT prophylaxis heparin subcu Disposition: PT/OT, CM to assist with DC plan. Goals of care discussion: Plan for DC to home with hospice on Friday. CODE STATUS: DNRDNI Admission and Anticipated Discharge Date Admission Date: November 08, 2023 Subjective Patient was seen and examined at bedside. Patient was lying in bed, on room air, resting comfortably. Pt with occasions of medical equipment noncompliance; pt easily gets delirious when admitted in hospital per dtr. Per RN, patient eating okay and no BMs to her by my bedside exam time. Per pt, one BM overnight, consistency improving. Physical Exam Physical Exam: General- thin, elderly F in NAD Head- atraumatic Eyes- PERRL. Neck- supple, no JVD. Lungs- clear to auscultation no wheezing or crackles. Heart- regular rhythm; no murmur, no gallop. Abdomen- normal bowel sounds, soft, nontender, no distension. Extremities- no pretibial edema, no erythema seen Neuro- alert, oriented x2 ; PERRL,; no facial palsy; no dysarthria; moves extremities. Skin- warm & dry Results & Data Results & Data Vital Signs (Past 12 Hours) Vital Signs Temp Pulse Pulse Resp BP Pulse Ox O2 Del Method 11/14/23 12:46 36.7 C 94 H 15 151/85 H 100 Room Air 11/14/23 08:54 36.7 C 93 H 15 162/79 H 100 Room Air 11/14/23 07:01 92 H 11/14/23 03:59 36.5 C 78 18 151/67 H 94 Room Air 11/14/23 03:02 94 H
[2023-11-15] MEDS: ONDANSETRON INJ 2 MG/ML 2 ML VIAL IV PRN (11:21)
--- NOTE | 2023-11-15 16:00 | Hospitalist Progress Note ---
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 No fever. Denied blood in the stool. Currently she is wheelchair-bound as per daughter. But patient stated she is ambulating with a walker. Daughter thinks that whenever she gets UTIs she gets confused. She is being managed for the following: Possible UTI Colitis Metabolic encephalopathy: Likely secondary to above Patient coming in with confusion, nausea, vomiting, diarrhea Also had poor p.o. intake and and hence dehydration. Admitting UA suggestive of UTI, urine culture with no growth. Follow admitting blood culture. No growth for 48 hours. Admitting CTAP suggestive of colitis. Also noted was diverticulosis without acute diverticulitis. Admitting CT head with no acute intracranial findings. Stool PCR positive for adenovirus. Negative for C. difficile. For encephalopathy, improving, encourage po hydration, continue management of other acute issues. Patient reports improving nausea, vomiting, improving appetite, improving belly discomfort. Added stool forming agent 11/13, improving freq/consistency of stool per pt. Transitioned 11/09 zosyn to Augmentin 11/13. c/w probiotic Continue with low fat diet. GI evaluated, patient has refused colonoscopy multiple times, continue with Prograf and CellCept. Follow-up with Dr. Hill for her post liver transplant ca re. Patient does not want colonoscopy. Possible Failure to thrive in Adult: Patient w/ poor appetite at baseline. Per pt's dtr, pt with generalized worsening functional status over the last several months. Pt w/ decreasing weight trend per EMR. Currently with BMI of 18. Encourage PO intake. Nutrition on board. Other chronic medical conditions: Continue with/resume home meds as and when able Diabetes: Sliding scale insulin while in hospital. A1c of 5.7 this admission. Liver cirrhosis status post liver transplant in 2007: Continue transplant medication as above. Follow-up with GI upon discharge. Electrolyte abnormalities: Continue potassium supplement as prior. Depression, anxiety: Continue with duloxetine GERD: Continue home omeprazole Ambulatory dysfunction: Wheelchair-bound as per daughter DVT prophylaxis heparin subcu Disposition: PT/OT, CM to assist with DC plan. Goals of care discussion: Plan for DC to home with hospice on Friday. CODE STATUS: DNRDNI Admission and Anticipated Discharge Date Admission Date: November 08, 2023 Subjective Patient was seen and examined at bedside. Patient was lying in bed, on room air, resting comfortably. Pt with occasions of medical equipment noncompliance; pt easily gets delirious when admitted in hospital per dtr. Pt states she is eating okay and improving consistency of BMs. Patient reports feeling tired today. Physical Exam Physical Exam: General- thin, elderly F in NAD Head- atraumatic Eyes- PERRL. Neck- supple, no JVD. Lungs- clear to auscultation no wheezing or crackles. Heart- regular rhythm; no murmur, no gallop. Abdomen- normal bowel sounds, soft, nontender, no distension. Extremities- no pretibial edema, no erythema seen Neuro- alert, oriented x2 ; PERRL,; no facial palsy; no dysarthria; moves extremities. Skin- warm & dry Results & Data Results & Data Vital Signs (Past 12 Hours) Vital Signs Temp Pulse Pulse Resp BP Pulse Ox O2 Del Method 11/15/23 15:35 36.5 C 99 H 18 121/78 98 Room Air 11/15/23 15:15 103 H 11/15/23 11:51 36.7 C 84 15 139/77 99 Room Air 11/15/23 08:22 36.6 C 81 15 168/80 H 100 Room Air 11/15/23 07:00 83
[2023-11-16 06:04] LABS: BUN Creatinine Ratio 23.5 (10-20); Calcium 9.3 mg/dl (8.6-10.3); Creatinine Clr Calc Pharmacy 35.2 ml/min; Est GFR (African American) 63.2 ml/min; Est GFR (Non-African American) 54.5 ml/min; Magnesium 1.4 mg/dl (1.7-2.4); Phosphorus 3.3 mg/dl (2.5-4.9); Potassium 5.1 mmol/L (3.5-5.1)
[2023-11-16] MEDS: MAGNESIUM SULFATE / D5W 1 GM/100 ML BAG IV SCH (12:37)
--- NOTE | 2023-11-16 15:56 | Hospitalist Progress Note ---
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 No fever. Denied blood in the stool. Currently she is wheelchair-bound as per daughter. But patient stated she is ambulating with a walker. Daughter thinks that whenever she gets UTIs she gets confused. She is being managed for the following: Possible UTI Colitis Metabolic encephalopathy: Likely secondary to above Patient coming in with confusion, nausea, vomiting, diarrhea Also had poor p.o. intake and and hence dehydration. Admitting UA suggestive of UTI, urine culture with no growth. Follow admitting blood culture. No growth for 48 hours. Admitting CTAP suggestive of colitis. Also noted was diverticulosis without acute diverticulitis. Admitting CT head with no acute intracranial findings. Stool PCR positive for adenovirus. Negative for C. difficile. For encephalopathy, improving, encourage po hydration, continue management of other acute issues. Patient reports improving nausea, vomiting, improving appetite, improving belly discomfort. Added stool forming agent 11/13, improving freq/consistency of stool per pt. Transitioned 11/09 zosyn to Augmentin 11/13. c/w probiotic Continue with low fat diet. GI evaluated, patient has refused colonoscopy multiple times, continue with Prograf and CellCept. Follow-up with Dr. Hill for her post liver transplant ca re. Patient does not want colonoscopy. Possible Failure to thrive in Adult: Patient w/ poor appetite at baseline. Per pt's dtr, pt with generalized worsening functional status over the last several months. Pt w/ decreasing weight trend per EMR. Currently with BMI of 18. Encourage PO intake. Nutrition on board. Other chronic medical conditions: Continue with/resume home meds as and when able Diabetes: Sliding scale insulin while in hospital. A1c of 5.7 this admission. Liver cirrhosis status post liver transplant in 2007: Continue transplant medication as above. Follow-up with GI upon discharge. Electrolyte abnormalities: Continue potassium supplement as prior. Depression, anxiety: Continue with duloxetine GERD: Continue home omeprazole Ambulatory dysfunction: Wheelchair-bound as per daughter DVT prophylaxis heparin subcu Disposition: PT/OT, CM to assist with DC plan. Goals of care discussion: Plan for DC to home with hospice on Friday. CODE STATUS: DNRDNI Admission and Anticipated Discharge Date Admission Date: November 08, 2023 Subjective Patient was seen and examined at bedside. Patient was lying in bed, on room air, resting comfortably. Pt with occasions of medical equipment noncompliance; pt easily gets delirious when admitted in hospital per dtr. Pt states she is eating okay and improving consistency of BMs. Per RN soft BM x 1 overnight and x 1 in AM. Physical Exam Physical Exam: General- thin, elderly F in NAD Head- atraumatic Eyes- PERRL. Neck- supple, no JVD. Lungs- clear to auscultation no wheezing or crackles. Heart- regular rhythm; no murmur, no gallop. Abdomen- normal bowel sounds, soft, nontender, no distension. Extremities- no pretibial edema, no erythema seen Neuro- alert, oriented x2 ; PERRL,; no facial palsy; no dysarthria; moves extremities. Skin- warm & dry Results & Data Results & Data Vital Signs (Past 12 Hours) Vital Signs Temp Pulse Pulse Resp BP Pulse Ox O2 Del Method 11/16/23 15:49 36.3 C L 91 H 18 181/96 H 100 Room Air 11/16/23 11:38 36.5 C 80 18 131/79 99 Room Air 11/16/23 08:00 36.6 C 82 18 149/74 H 99 Room Air 11/16/23 05:59 81
--- NOTE | 2023-11-17 12:07 | Discharge Summary ---
Date of Service November 17, 2023 Admission HPI Per Admitting Provider 72-year-old female with past medical history significant for type 2 diabetes, hyperlipidemia, gastroparesis, urinary incontinence, stool incontinence, renal osteodystrophy, osteoporosis, history of thoracic lumbosacral neuritis, history of thrombocytopenia, general anxiety disorder, depression, aspirin contraindicated, history of liver cirrhosis s/p liver transplant in 2007, history of hypokalemia presents from home because of nausea vomiting and diarrhea going on for last 4 days and poor oral intake and some confusion. Patient states last few days she is having diarrhea. Denies any blood in the stools. Has a mild abdominal discomfort. No fevers. Also not able to eat anything because of nausea vomiting. Denies any chest pain or shortness of breath. Denies any headache. No cough. No runny nose or sore throat. Hemodynamics are okay. Patient knows her name., Knows that she is in the hospital. Knows month and year. But she thinks she stays with the sister while she is living with her daughter. Currently she is wheelchair-bound as per daughter. But patient states she is ambulating with a walker. Daughter thinks that whenever she gets UTIs she gets confused. Past medical history. As mentioned above Past surgical history. Bone biopsy, colonoscopy, right heart catheterization, EGD, exploration of postoperative hemorrhage of the abdomen, incision and drainage hematoma right gluteal region, laparoscopic cholecystectomy, liver transplantation, bilateral foot surgery, right hemiarthroplasty, right femoral head exchange, total abdominal hysterectomy with removal of tubes, lumbar v ertebroplasty, Social history. . No smoking. No alcohol use. No drug use. Family history. Sister had uterine cancer. Maternal grandmother had diabetes. Paternal grandmother had diabetes. Mother had lung disorders. Admission Exam Per Admitting Provider General- Not in distress Head- atraumatic Eyes- PERRL. ENT- oropharynx clear Neck- supple, no JVD. Lungs- clear to auscultation no wheezing or crackles. Heart- regular rhythm; no murmur, no gallop. Abdomen- normal bowel sounds, soft, nontender, no distension. Extremities- no pretibial edema, no erythema seen Neuro- alert, oriented ; PERRL,; no facial palsy; no dysarthria; moves extremities. Skin- warm & dry Principal Diagnosis possible UTI Colitis Metabolic encephalopathy Possible failure to thrive in adult Discharge Exam General- thin, elderly F in NAD Head- atraumatic Eyes- PERRL. Neck- supple, no JVD. Lungs- clear to auscultation no wheezing or crackles. Heart- regular rhythm; no murmur, no gallop. Abdomen- normal bowel sounds, soft, nontender, no distension. Extremities- no pretibial edema, no erythema seen Neuro- alert, oriented x2 ; PERRL,; no facial palsy; no dysarthria; moves extremities. Skin- warm & dry Discharge Data Allergies Allergy/AdvReac Type Severity Reaction Status Date / Time celecoxib AdvReac Mild NAUSEA, Verified 04/09/23 16:15 VOMITING codeine AdvReac Mild ANXIETY Verified 04/09/23 16:15 rofecoxib AdvReac Mild LEGS GO Verified 04/09/23 16:15 NUMB hydromorphone AdvReac Unknown RESTLESS, Verified 04/09/23 16:15 INSOMNIA Consultations 11/08/23 20:58 ED Decision to Admit Stat 11/09/23 08:00 Consult Gastroenterology Routine Ordered Studies 11/08/23 18:42 CT Abd and Pelvis [CT abd pelvis IV con only] Stat 11/08/23 18:44 CT head/brain wo con Stat Hospital Course (1) Metabolic encephalopathy: 72-year-old lady with PMH of T2DM, HLD, gastroparesis, urinary incontinence, stool incontinence, renal osteodystrophy, osteoporosis, thoracic lumbosacral neuritis, thrombocytopenia, general anxiety disorder, depression, aspirin contraindicated, liver cirrhosis status post liver transplant in 2007, amada saldaña presented 11/08 with complaint of nausea, vomiting, diarrhea 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 No fever. Denied blood in the stool. Currently she is wheelchair-bound as per daughter. But patient stated she is ambulating with a walker. Daughter thinks that whenever she gets UTIs she gets confused. She was managed for the following: Possible UTI Colitis Metabolic encephalopathy: Likely secondary to above Patient coming in with confusion, nausea, vomiting, diarrhea Also had poor p.o. intake and and hence dehydration. Admitting UA suggestive of UTI, urine culture with no growth. Follow admitting blood culture. No growth for 5 days Admitting CTAP suggestive of colitis. Also noted was diverticulosis without acute diverticulitis. Admitting CT head with no acute intracranial findings. Stool PCR positive for adenovirus. Negative for C. difficile. For encephalopathy, improving, encourage po hydration, continue management of other acute issues. Patient reports no nausea, vomiting, improving appetite, improving belly discomfort. Added stool forming agent 11/13, improving freq/consistency of stool per pt and rn. Transitioned 11/09 zosyn to Augmentin 11/13. c/w probiotic. Complete atb course on dc. Continue with low fat diet. GI evaluated, patient has refused colonoscopy multiple times, continue with Prograf and CellCept. Follow-up with Dr. Hill for her post liver transplant care. Patient does not want colonoscopy. Possible Failure to thrive in Adult: Patient w/ poor appetite at baseline. Per pt's dtr, pt with generalized worsening functional status over the last several months. Pt w/ decreasing weight trend per EMR. Currently with BMI of 18. Encourage PO intake. Nutrition on board. Other chronic medical conditions: Continue with/resume home meds as and when able Diabetes: Sliding scale insulin while in hospital. A1c of 5.7 this admission. Liver cirrhosis status post liver transplant in 2007: Continue transplant medication as above. Follow-up with GI upon discharge. Electrolyte abnormalities: Continue potassium supplement as prior. Depression, anxiety: Continue with duloxetine GERD: Continue home omeprazole Ambulatory dysfunction: Wheelchair-bound as per daughter DVT prophylaxis heparin subcu Disposition: PT/OT, CM to assist with DC plan. Goals of care discussion: Plan for DC to home with hospice on Friday. CODE STATUS: [id number] Patient is being discharged to home with hospice: Follow-up with your primary care physician within a week time and likely you will need labs CBC/CMP/magnesium/phosphorus. You are being discharged to home with hospice, you will be discharged on a ntibiotic to complete the course for colitis. You will also be discharged on medications to help you with bowel movements to form up. This is already in improving trend. This is expected to improve further over next 5 to 7 days, if not improving, you will need repeat evaluation at your PCP office. Follow-up with the GI office as an outpatient. Take your medications as prescribed. Please make sure that you are able to get your medications today by calling your pharmacy before you leave the hospital so that your treatment continuity is not broken. Home Health Attestation I certify that this patient is under my care and that I, or a physicians dam tender assistant working with me, had a face to-face encounter that meets the home health [id number] encounter requirements with this patient. The encounter with the patient was in whole, or in part, for the following medical condition, which is the primary reason for home health care (list medica l condition): I certify that, based on my findings, the following services are medically necessary home health services: My clinical findings support the need for the above services because: Further, I certify that my clinical findings support that this patient is homebound (i.e. absences from home require considerable and taxing effort and are for medical reasons or latter day services or infrequently or of short duration when for other reasons) because: Certification for Home Health Services: Based on the above findings, I certify that this patient is confined to the home and needs intermittent prison care, physical therapy and/or speech therapy or continues to need occupational therapy. The patient is under my care, and I have initiated the establishment of the plan of care. This patient will be followed by a physician who will periodically review the plan of care. Total Time Total Time Spent Total Time Spent (In Minutes): 45 Discharge Plan Discharge Items Patient Disposition: Hospice - Home Reason For Visit: CONFUSION, UTI, COLITIS Discharge Diagnosis: possible UTI Colitis Metabolic encephalopathy Possible failure to thrive in adult Activity: Resume your previous activity Non-emergency contact: Primary Care Provider Call non-emergency contact if: you have any medication questions, your symptoms worsen and your temperature is above 101.5 Follow-up/Referrals: Ivette Ragland MD [Primary Care Provider] - Diet: Low Fiber and Low Fat Addtl Attending Provider Instructions: Follow-up with your primary care physician within a week time and likely you will need labs CBC/CMP/magnesium/phosphorus. You are being discharged to home with hospice, you will be discharged on antibiotic to complete the course for colitis. You will also be discharged on medications to help you with bowel movements to form up. This is already in improving trend. This is expected to improve further over next 5 to 7 days, if not improving, you will need repeat evaluation at your PCP office. Follow-up with the GI office as an outpatient. Take your medications as prescribed. Please make sure that you are able to get your medications today by calling your pharmacy before you leave the hospital so that your treatment continuity is not broken. Pending Studies at Discharge: No Stand-Alone Forms: My [facility] Medications and DC Order Prescriptions: New amoxicillin-pot clavulanate 875-125 mg Tablet 1 tab PO BIDM 3 Days Qty: 6 0RF cholestyramine-aspartame [Prevalite] 4 gram Powder In Packet 1 ea PO BID@1000,2200 PRN (Reason: loose stool) Qty: 60 0RF Advanced Probiotic 625 mg (10 billion cell) Capsule 2 cap PO DAILY 14 Days Qty: 28 0RF Psyllium Or Guar Gum Fiber Sup [Metamucil Or Nutrisource Fiber Supplement] 1 pkg PO QAM Qty: 15 1RF Continued mycophenolate mofetil 250 mg capsule 500 mg PO BID potassium chloride 20 mEq tablet,ER particles/crystals 20 meq PO BID omeprazole 20 mg capsule,delayed release(DR/EC) 20 mg PO DAILY tacrolimus 1 mg capsule 1 mg PO BID duloxetine 60 mg capsule,delayed release(DR/EC) 60 mg PO DAILY Levemir FlexPen 100 unit/mL (3 mL) insulin pen 13 unit SUBCUT BID Discharge Orders: Discharge Order (Routine); Ordered 11/17/23 Ordered By: Zeinab Sosa Admission Data Admit Date/Time: 11/08/23 22:43 Attending Provider: Zeinab Sosa Admit Provider: Capo Bella Primary Care Provider: Ivette Ragland Other Providers: Capo Bella; Amy Franklin; Ion Proctor; Cassandra Crowley; Misty Acosta; Mady Potts; Mary Bejarano; Toyin,Kelechi; Willie Mccann; Karolina Vicente; Rodri Alcantara; Jaylin Gates; Breanne Pulido; Kari Arreola; Lola Bradshaw; Viviana Hill; Liza Velez; Bryon Sparrow; Quan Rangel; Nannette Owen; Philip Mckeon Jr
== END 2023-11-17 17:12 | disposition hospice, home (50) | DRG 391 ==
LOC: ED 18:28 → SUATTDRO 22:43 → EDINP 22:43 → 2W 11-09 15:08

== ENCOUNTER 2024-10-15 13:45 | Inpatient (IN) ==
--- NOTE | 2024-10-15 14:10 | Emergency Department Note ---
Impression & Plan Weakness, Acute UTI, Hypomagnesemia, LEONID (acute kidney injury), Acute dehydration ED Provider Note NAME: JUAN STEINER AGE: 73 SEX: F : 1950 ARRIVES VIA: Ambulance INFORMANT: Patient, EMS ED PROVIDER(S): Marc Gee DO CHIEF COMPLAINT: Weakness HPI: The patient is a 73-year-old female who presented to the emergency department for an evaluation of weakness. The patient's had ongoing and worsening weakness over the course the last several weeks. The patient has been not eating or drinking. She is also been noticed to have loose bowel movements. The patient does not give much history. She does follow commands very slowly. She offers no complaints. There was no reported rectal bleeding. ROS: See above HPI for pertinent positives & negatives. A total of 10 systems reviewed and were otherwise negative. PAST MEDICAL HISTORY: See Below PAST SURGICAL HISTORY: See Below FAMILY HISTORY: See Below SOCIAL HISTORY: See Below HOME MEDICATIONS: See Below ALLERGIES: See Below VITALS: See Below PHYSICAL EXAMINATION: GENERAL: The patient is listless and slow to respond to questions. She does not appear to be uncomfortable. EYES: The conjunctivae are clear. The pupils are round and reactive. EARS, NOSE, MOUTH AND THROAT: The nose is without any evidence of any deformity. Mucous membranes are dry. NECK: The neck is nontender and supple. RESPIRATORY: Normal respiratory effort is noted there is no evidence of wheezing rhonchi or rales CARDIOVASCULAR: Regular rate and rhythm noted there no murmurs rubs or gallops normal S1 normal S2. GASTROINTESTINAL: The abdomen is soft and nondistended. There is left-sided tenderness to palpation but no specific guarding or rigidity. MUSCULOSKELETAL/EXTREMITIES: There is no evidence of gross deformity full range of motion is noted in the hips and shoulders. SKIN: There is no swelling. Skin is warm and dry. NEUROLOGIC: Patient is awake verbal commands. The patient is globally weak but there was no unilateral weakness or facial droop noted. MEDICAL DECISION MAKING: The pain is a 73-year-old female who presented to the emergency department for an evaluation of generalized weakness. The patient has been experiencing loose stools over the last several weeks. She has a history of colitis. The patient has not been eating. She has been confused at times. I discussed the patient's laboratory and radiographic studies with her and her family members. Given her findings I discussed her condition with the on-call [facility] hospitalist. They have agreed to evaluate the patient in the emergency department for further management and disposition. She was treated with IV fluids as well as IV magnesium replacement. Vital signs are reassuring. Triage Nursing notes reviewed. Prior medical records reviewed Vital Signs: reviewed and remarkable for no significant abnormalities Differential diagnosis: Infection, dehydration, metabolic abnormality, hypo/hyperglycemia, electrolyte disturbance, anemia, hypoxia, cardiac sources, intracerebral event, toxicologic, neurologic, as well as other pathologies. ER treatment provided: See below Diagnostics interpreted by me: ECG: EKG was obtained in the emergency department. My interpretation is sinus tachycardia at 104 bpm. There was no ectopy. There is no acute ST segment abnormalities noted. This was compared to a tracing from November 08, 2023. There is an increase in rate otherwise no changes were noted. Cardiac Monitoring: An order was placed for continuous cardiac monitoring. The monitor shows a rate of 94 bpm with sinus rhythm. Laboratory studies: As stated above and show below. Imaging studies: See below. Radiographic imaging was reviewed by myself Consultation(s): I discussed this case with Eula who is on-call for [facility]. Past Med/Surg History Problem List (Updated 10/15/24 @ 20:11 by Marc Gee DO) Acute dehydration (Acute) LEONID (acute kidney injury) (Acute) Weakness (Acute) Acute kidney injury superimposed on CKD Gastroenteritis Leukopenia (Acute) Colitis (Acute) Altered mental status (Acute) Immunosuppressed status Hypomagnesemia (Acute) Metabolic encephalopathy Hypokalemia Anxiety and depression Pancytopenia Cirrhosis History of liver transplant (Acute) Diabetes mellitus, type II Acute UTI (Acute) Confusion (Acute) CKD (chronic kidney disease) Medical History Closed fracture of left proximal humerus Diabetes Left hip pain (10/07/13) Back pain Surgical History History of right hip hemiarthroplasty History of hysterectomy History of cholecystectomy Liver transplanted Family History Other Cancer Diabetes Social History Smoking Status: Former smoker Tobacco Type: Cigarettes Second Hand Exposure: No; Do You Dip or Chew Tobacco: No; Hx Alcohol Use: No Hx Substance Use: No Preferred Language: Korean Communication Ability: Impaired Globe Tester Required: No Beliefs That Will Affect Care: None marital status: / Current Living Situation: Family Current Living Situation Comment: with daughter Feels Safe at Home: Yes Assistive Devices: Denture - Upper, Denture - Lower, Hospital Bed and Wheelchair Allergies Allergies Allergy/AdvReac Type Severity Reaction Status Date / Time celecoxib AdvReac Intermediate NAUSEA, Verified 10/15/24 17:21 VOMITING codeine AdvReac Intermediate ANXIETY Verified 10/15/24 17:21 hydromorphone AdvReac Intermediate RESTLESS, Verified 10/15/24 17:21 INSOMNIA rofecoxib AdvReac Intermediate LEGS GO Verified 10/15/24 17:21 NUMB Home Meds Home Medications Medication Instructions Recorded Confirmed duloxetine 60 mg capsule,delayed 60 mg PO DAILY 11/08/23 10/15/24 release mycophenolate mofetil 250 mg 500 mg PO BID 11/08/23 10/15/24 capsule omeprazole 20 mg capsule,delayed 20 mg PO DAILY 11/08/23 10/15/24 release tacrolimus 1 mg capsule, 1 mg PO AMHS 11/08/23 10/15/24 immediate-release cranberry extract-vitamin C 250 2 cap PO DAILY 10/15/24 10/15/24 mg-60 mg capsule (Azo Cranberry Plus Vit C) insulin detemir U-100 100 unit/mL 13 unit subcut BID 10/15/24 10/15/24 (3 mL) subcutaneous pen Results & Data (ED) Vital Signs Vital Signs - 24 hr 10/15/24 13:54 10/15/24 13:54 10/15/24 13:54 Temperature 36.5 C Temperature Source Oral Pulse Rate 103 H Pulse Rate [Apical] 104 H Pulse Rate from SpO2 Sensor Pulse Rhythm [Apical] Pulse Strength [Apical] Respiratory Rate 13 18 Respiratory Effort / Characteristics Non-Labored Spontaneous Non-Labored Spontaneous Respiratory Depth Normal Normal Respiratory Pattern Regular Regular Blood Pressure 144/76 H Blood Pressure [Right Arm] 144/76 H Blood Pressure Mean 98 Blood Pressure Mean [Right Arm] 98 Blood Pressure Position Semi-fowlers Blood Pressure Position [Right Arm] Semi-fowlers Pulse Oximetry 100 100 97 Oxygen Delivery Method Room Air Room Air Room Air Sepsis Recent Fever Within 48 Hours No Sepsis New/Unexplained Change in Mental Status No Sepsis Action Taken by Nursing No Action Required 10/15/24 15:58 10/15/24 16:14 10/15/24 16:15 Temperature Temperature Source Pulse Rate 97 H Pulse Rate [Apical] 98 H Pulse Rate from SpO2 Sensor Pulse Rhythm [Apical] Regular Pulse Strength [Apical] Normal Respiratory Rate 16 Respiratory Effort / Characteristics Non-Labored Spontaneous Respiratory Depth Normal Respiratory Pattern Regular Blood Pressure Blood Pressure [Right Arm] 125/73 Blood Pressure Mean Blood Pressure Mean [Right Arm] 90 Blood Pressure Position Blood Pressure Position [Right Arm] Semi-fowlers Pulse Oximetry 97 97 Oxygen Delivery Method Room Air Room Air Sepsis Recent Fever Within 48 Hours Sepsis New/Unexplained Change in Mental Status Sepsis Action Taken by Nursing 10/15/24 16:15 10/15/24 17:12 10/15/24 17:13 Temperature Temperature Source Pulse Rate 97 H 93 H Pulse Rate [Apical] Pulse Rate from SpO2 Sensor 96 H 94 H Pulse Rhythm [Apical] Pulse Strength [Apical] Respiratory Rate 22 18 Respiratory Effort / Characteristics Respiratory Depth Respiratory Pattern Blood Pressure 125/73 122/77 122/77 Blood Pressure [Right Arm] Blood Pressure Mean 90 92 102 Blood Pressure Mean [Right Arm] Blood Pressure Position Blood Pressure Position [Right Arm] Pulse Oximetry 94 Oxygen Delivery Method Room Air Sepsis Recent Fever Within 48 Hours Sepsis New/Unexplained Change in Mental Status Sepsis Action Taken by Nursing 10/15/24 18:34 10/15/24 18:38 10/15/24 19:00 Temperature Temperature Source Pulse Rate 94 H 105 H Pulse Rate [Apical] 94 H Pulse Rate from SpO2 Sensor 94 H 96 H Pulse Rhythm [Apical] Regular Pulse Strength [Apical] Normal Respiratory Rate 17 16 18 Respiratory Effort / Characteristics Non-Labored Spontaneous Respiratory Depth Normal Respiratory Pattern Regular Blood Pressure 117/75 114/76 Blood Pressure [Right Arm] 117/75 Blood Pressure Mean 85 88 Blood Pressure Mean [Right Arm] 89 Blood Pressure Position Blood Pressure Position [Right Arm] Semi-fowlers Pulse Oximetry 100 92 96 Oxygen Delivery Method Room Air Sepsis Recent Fever Within 48 Hours Sepsis New/Unexplained Change in Mental Status Sepsis Action Taken by Nursing 10/15/24 19:30 Temperature Temperature Source Pulse Rate 94 H Pulse Rate [Apical] Pulse Rate from SpO2 Sensor 96 H Pulse Rhythm [Apical] Pulse Strength [Apical] Respiratory Rate 19 Respiratory Effort / Characteristics Respiratory Depth Respiratory Pattern Blood Pressure Blood Pressure [Right Arm] Blood Pressure Mean Blood Pressure Mean [Right Arm] Blood Pressure Position Blood Pressure Position [Right Arm] Pulse Oximetry 90 Oxygen Delivery Method Sepsis Recent Fever Within 48 Hours Sepsis New/Unexplained Change in Mental Status Sepsis Action Taken by Skilled Nursing Medications Current Medication List: was personally reviewed by me Laboratory Data Attestation: I reviewed the patient's lab results. 10/15/24 14:00 10/15/24 14:00 Lab Results 10/15/24 10/15/24 10/15/24 Range/Units 14:00 15:00 17:15 WBC 5.69 (4.8-10.8) K/ul RBC 3.45 L (4.20-5.40) M/uL Hgb 9.9 L (12.0-16.0) g/dl Hct 29.8 L (37.0-47.0) % MCV 86.4 (80.0-100.0) fL MCH 28.7 (25.0-34.0) pg MCHC 33.2 (32.0-36.0) g/dL RDW Std Deviation 45.5 (36.4-46.3) fL RDW Coeff of [place] 14.6 H (11.5-14.5) % Plt Count 190 (130-400) K/uL MPV 10.2 (9.4-12.4) fL Immature Gran % (Auto) 0.5 % Neut % (Auto) 78.2 % Lymph % (Auto) 14.4 % [place] % (Auto) 6.0 % Eos % (Auto) 0.7 % Baso % (Auto) 0.2 % Neut # (Auto) 4.45 (1.40-6.50) K/uL Lymph # (Auto) 0.82 L (1.20-3.40) K/uL [place] # (Auto) 0.34 (0.11-0.59) K/uL Eos # (Auto) 0.04 (0.00-0.50) K/uL Baso # (Auto) 0.01 (0.00-0.20) K/uL Immature Gran # (Auto) 0.03 (0.01-0.20) K/uL Sodium 137 (136-145) mmol/L Potassium 5.0 (3.5-5.1) mmol/L Chloride 109 H (98-107) mmol/L Carbon Dioxide 17 L (21-32) mmol/L Anion Gap 11 (3-11) BUN 45 H (6-23) mg/dl Creatinine 1.67 H (0.6-1.2) mg/dl Est Cr Clr Drug Dosing 20.2 ml/min eGFR 31.95 BUN/Creatinine Ratio 26.9 H (10-20) Glucose 153 H (70-99(Fasting)) mg/dl Calcium 9.0 (8.6-10.3) mg/dl Magnesium 0.8 L* (1.7-2.4) mg/dl Total Bilirubin 0.5 (0.2-1.0) mg/dl AST 12 L (13-39) U/L ALT 8 (7-52) U/L Alkaline Phosphatase 51 (34-104) U/L Total Creatine Kinase 15 L (26-192) U/L Troponin I High Sens 5.0 (0-14) pg/ml Total Protein 6.3 (6.0-8.3) gm/dl Albumin 3.9 (3.4-5.0) gm/dl Globulin 2.4 L (2.5-4.0) gm/dl Albumin/Globulin Ratio 1.6 (0.9-2) TSH 1.412 (0.300-4.500) uIu/ml Urine Color Yellow Urine Appearance Turbid A (Clear) Urine pH 5.5 (4.5-7.5) Ur Specific [place] 1.015 (1.000-1.030) Urine Protein 2+ H (Negative) Urine Glucose (UA) Negative (Negative) Urine Ketones Trace H (Negative) Urine Blood 1+ H (Negative) Urine Nitrite Negative (Negative) Urine Bilirubin Negative (Negative) Urine Urobilinogen Negative (Negative) Ur Leukocyte Esterase 3+ H (Negative) Urine WBC (Auto) >50 H (0-5) /hpf Urine RBC (Auto) 3-5 H (0-2) /hpf U Hyaline Cast (Auto) 11-20 H (0-2) /lpf U Epithel Cells (Auto) 0-2 (0-2) /hpf Urine Bacteria (Auto) 2+ H (None Seen) Hyaline Casts Present A (None Presnt) /lpf WBC Casts Present A (None Prsent) /lpf SARS-CoV-2 (PCR) NEGATIVE (Negative) Influenza Type A (PCR) Negative (Neg) Influenza Type B (PCR) Negative (Neg) RSV (RT-PCR) Negative (Neg) Administered Medications Discontinued Medications Sodium Chloride (Nss) 1,000 mls @ 999 mls/hr IV .Q1H1M ONE Stop: 10/15/24 15:08 Last Infusion: 10/15/24 16:44 Dose: Infused Documented By: Admin: 10/15/24 14:25 Dose: 999 mls/hr Documented By: Magnesium Sulfate/Dextrose (Magnesium Sulfate / D5w) 1 gm in 100 mls @ 100 mls/hr IV Q1H ALYSSA Stop: 10/15/24 16:58 Last Infusion: 10/15/24 18:56 Dose: Infused Documented By: Admin: 10/15/24 17:51 Dose: 100 mls/hr Documented By: Infusion: 10/15/24 17:09 Dose: Infused Documented By: Admin: 10/15/24 16:08 Dose: 100 mls/hr Documented By: Ceftriaxone Sodium (Rocephin) 2,000 mg in 50 mls @ 100 mls/hr IV NOW STA Stop: 10/15/24 16:43 Last Infusion: 10/15/24 17:54 Dose: Infused Documented By: Admin: 10/15/24 17:14 Dose: 100 mls/hr Documented By: Ioversol (Optiray 320 100ml) 90 ml IV ONCE ONE Stop: 10/15/24 15:26 Last Admin: 10/15/24 15:25 Dose: 90 ml Documented By: IRASEMA Ondansetron HCl (Ondansetron Inj 2 Mg/Ml 2 Ml Vial) 4 mg IV NOW STA Stop: 10/15/24 14:09 Last Admin: 10/15/24 14:25 Dose: 4 mg Documented By: Imaging Data Attestation: I personally reviewed and interpreted this imaging study as follows: My Impression: CT of the brain was obtained in the emergency department for altered mental status. My interpretation is no intracranial hemorrhage or mass effect, final report below. CT of the abdomen pelvis was obtained. My interpretation is no free air or signs of bowel obstruction, final report below. 1 view chest x-ray was obtained. My interpretation is no free air or definite infiltrate, final report below. Radiologist's Impression: Abdomen/Pelvis CT 10/15/24 14:[address] WITH IV CONTRAST CT DOSE: 716.39 mGy.cm HISTORY: pain and loose stools TECHNIQUE: Multiaxial CT images of the abdomen and pelvis were performed following the IV administration of 90 cc of Optiray, A dose lowering technique was utilized adhering to the principles of ALARA. COMPARISON STUDY: 11/08/2023 FINDINGS: There is a trace right pleural effusion with mild dependent atelectasis at the right lung base. ABDOMEN: Gallbladder is surgically absent. Stable operative changes at the right upper quadrant. Liver, spleen, and adrenal glands are unremarkable. Stable pancreatic atrophy. Kidneys show no hydronephrosis or calculi. Stable cyst inferior right kidney. There are scattered atherosclerotic calcifications. No abdominal aortic aneurysm. Pelvis: Low pelvis is obscured by extensive spray artifact from metallic hip prostheses. There is diffuse colonic wall thickening and inflammation consistent with colitis. No other bowel inflammation or obstruction. No free fluid, free air, or abscess. Osseous structures: Stable old pelvic fractures. Stable multilevel lumbar kyphoplasty and stable height loss at multiple thoracic and lumbar vertebral bodies. IMPRESSION: Diffuse colitis without bowel obstruction or perforation. Otherwise as described. ACT 112: Negative or not required by law. The above report was generated using voice recognition software. It may contain grammatical, syntax or spelling errors. Electronically signed by: Tom Carroll M.D. 10/15/2024 3:51 PM Chest X-Ray 10/15/24 14:08 XR chest 1V portable CLINICAL HISTORY: weakness TECHNIQUE: Single frontal radiograph of the chest was obtained. Comparison: Comparison is made to chest radiograph 03/24/2024 FINDINGS: No lines and tubes are seen. Calcified aortic knob is seen. The lungs are clear. No evidence of pleural effusion or pneumothorax. IMPRESSION: No acute chest disease. ACT 112: Negative or not required by law. Electronically signed by: Ike Sheehan M.D. 10/15/2024 2:[address] 10/15/24 14:08 CT head/brain wo con CLINICAL HISTORY: ams Technique: Contiguous axial CT images of the head were acquired from the base of the skull to the vertex without intravenous contrast administration. Images were viewed in brain, subdural and bone windows. Automated dose lowering techniques and/or adjustment according to patient size were utilized for this exam. Comparison: Comparison is made to CT head 04/13/2024 Findings: Areas of decreased attenuation are present in the periventricular and subcortical white matter bilaterally consistent with small vessel ischemic disease. Generalized cerebral atrophy with commensurate enlargement of the ventricles, sulci, and cisterns is also present. There is no acute intracranial hemorrhage or evidence of acute territorial infarction. No shift of the midline structures, mass effect, or extra-axial abnormalities are shown. Atherosclerotic calcifications are present in the intracranial segments of the internal carotid arteries. The orbits appear normal. There are no acute fractures of the calvaria or scalp swelling. Incidental note is made of cerumen in the right ear and asymmetry of the bilateral mastoids, unchanged from prior exam. Chronic ethmoid sinusitis is noted. Impression: No acute intracranial hemorrhage, no evidence of acute territorial infarction or other acute intracranial disease process. ACT 112: Negative or not required by law. Electronically signed by: Ike Sheehan M.D. 10/15/2024 3:50 PM Discharge Plan Visit Data Chief Complaint: Weakness Stated Complaint: WEAKNESS, ED Provider: Marc Gee Discharge Problem: Weakness, Acute UTI, Hypomagnesemia, LEONID (acute kidney injury), Acute dehydration Patient Disposition: Being Evaluated by Hospitalist Forms Stand Alone Forms: My [facility] Prescriptions Prescriptions: No Action mycophenolate mofetil 250 mg capsule 500 mg PO BID omeprazole 20 mg capsule,delayed release(DR/EC) 20 mg PO DAILY tacrolimus 1 mg capsule 1 mg PO AMHS duloxetine 60 mg capsule,delayed release(DR/EC) 60 mg PO DAILY Levemir FlexPen 100 unit/mL (3 mL) insulin pen 13 unit SUBCUT BID cranberry extract-vitamin C [Azo Cranberry Plus Vit C] 250-60 mg Capsule 2 cap PO DAILY Referrals Referrals: Ivette Ragland MD [Primary Care Provider] -
[2024-10-15] MEDS: ONDANSETRON INJ 2 MG/ML 2 ML VIAL IV STA (14:25)
[2024-10-15] MEDS: SODIUM CHLORIDE 0.9% 1,000 ML IV ONE (14:25)
--- NOTE | 2024-10-15 14:33 | XRay Report ---
XR chest 1V portable CLINICAL HISTORY: weakness TECHNIQUE: Single frontal radiograph of the chest was obtained. Comparison: Comparison is made to chest radiograph 03/24/2024 FINDINGS: No lines and tubes are seen. Calcified aortic knob is seen. The lungs are clear. No evidence of pleur al effusion or pneumothorax. IMPRESSION: No acute chest disease. ACT 112: Negative or not required by law. Electronically signed by: Ike Sheehan M.D. 10/15/2024 2:32 PM
[2024-10-15 14:34] LABS: Basophils # (auto) 0.01 K/uL (0.00-0.20); Basophils % (auto) 0.2 %; Eosinophils # (auto) 0.04 K/uL (0.00-0.50); Eosinophils % (auto) 0.7 %; Hematocrit (blood only) 29.8 % (37.0-47.0); Hemoglobin 9.9 g/dl (12.0-16.0); Immature Granulocytes # (auto) 0.03 K/uL (0.01-0.20); Immature Granulocytes % (auto) 0.5 %; Lymphocytes # (auto) 0.82 K/uL (1.20-3.40); Lymphocytes % (auto) 14.4 %; Mean Corpuscular Hemoglobin 28.7 pg (25.0-34.0); Mean Corpuscular Hgb Conc 33.2 g/dL (32.0-36.0); Mean Corpuscular Volume 86.4 fL (80.0-100.0); Mean Platelet Volume 10.2 fL (9.4-12.4); Monocytes # (auto) 0.34 K/uL (0.11-0.59); Neutrophils # (auto) 4.45 K/uL (1.40-6.50); Neutrophils % (auto) 78.2 %; Platelet Count 190 K/uL (130-400); RDW Coefficient of Variation 14.6 % (11.5-14.5); RDW Standard Deviation 45.5 fL (36.4-46.3); Red Blood Count 3.45 M/uL (4.20-5.40); White Blood Count 5.69 K/ul (4.8-10.8)
[2024-10-15 14:45] LABS: BUN Creatinine Ratio 26.9 (10-20); Creatinine Clr Calc Pharmacy 20.2 ml/min
[2024-10-15 15:00] LABS: Albumin Globulin Ratio 1.6 (0.9-2); Albumin Level 3.9 gm/dl (3.4-5.0); Bilirubin,Total 0.5 mg/dl (0.2-1.0); Globulin 2.4 gm/dl (2.5-4.0); Magnesium 0.8 mg/dl (1.7-2.4); Thyroid Stimulating Hormone 1.412 uIu/ml (0.300-4.500); Total Protein 6.3 gm/dl (6.0-8.3)
[2024-10-15] MEDS: OPTIRAY 320 100ml IV ONE (15:25)
[2024-10-15 15:49] LABS: Appearance Urine Turbid (Clear); Bilirubin Urine Negative (Negative); Blood Urine 1+ (Negative); Color Urine Yellow; Glucose Urine UA Negative (Negative); Ketones Urine Trace (Negative); Leukocyte Esterase Urine 3+ (Negative); Nitrite Urine Negative (Negative); Protein Urine 2+ (Negative); Specific Gravity Urine 1.015 (1.000-1.030); Urobilinogen Urine Negative (Negative); WBC Urine Automated >50 /hpf (0-5); pH Urine 5.5 (4.5-7.5)
--- NOTE | 2024-10-15 15:51 | CT Scan Report ---
CT head/brain wo con CLINICAL HISTORY: ams Technique: Contiguous axial CT images of the head were acquired from the base of the skull to the [place] prema without intravenous contrast administration. Images were viewed in brain, subdural and bone [facility]. Automated dose lowering techniques and/or adjustment according to patient size were utilized for this exam. Comparison: Comparison is made to CT head 04/13/2024 Findings: Areas of decreased attenuation are present in the periventricular and subcortical white matter bilate rally consistent with small vessel ischemic disease. Generalized cerebral atrophy with commensurate e nlargement of the ventricles, sulci, and cisterns is also present. There is no acute intracranial hem orrhage or evidence of acute territorial infarction. No shift of the midline structures, mass effect, or extra-axial abnormalities are shown. Atherosclerotic calcifications are present in the intracran ial segments of the internal carotid arteries. The orbits appear normal. There are no acute fractures of the calvaria or scalp swelling. Incidental note is made of cerumen in the right ear and asymmetry of the bilateral mastoids, unchanged from prio r exam. Chronic ethmoid sinusitis is noted. Impression: No acute intracranial hemorrhage, no evidence of acute territorial infarction or other acute intracra nial disease process. ACT 112: Negative or not required by law. Electronically signed by: Ike Sheehan M.D. 10/15/2024 3:50 PM
--- NOTE | 2024-10-15 15:53 | CT Scan Report ---
ABDOMEN AND PELVIS CT WITH IV CONTRAST CT DOSE: 716.39 mGy.cm HISTORY: pain and loose stools TECHNIQUE: Multiaxial CT images of the abdomen and pelvis were performed following the IV administrat ion of 90 cc of Optiray, A dose lowering technique was utilized adhering to the principles of ALARA. COMPARISON STUDY: 11/08/2023 FINDINGS: There is a trace right pleural effusion with mild dependent atelectasis at the right lung b ase. ABDOMEN: Gallbladder is surgically absent. Stable operative changes at the right upper quadrant. Live r, spleen, and adrenal glands are unremarkable. Stable pancreatic atrophy. Kidneys show no hydronephr osis or calculi. Stable cyst inferior right kidney. There are scattered atherosclerotic calcification s. No abdominal aortic aneurysm. Pelvis: Low pelvis is obscured by extensive spray artifact from metallic hip prostheses. There is dif fuse colonic wall thickening and inflammation consistent with colitis. No other bowel inflammation or obstruction. No free fluid, free air, or abscess. Osseous structures: Stable old pelvic fractures. Stable multilevel lumbar kyphoplasty and stable heig ht loss at multiple thoracic and lumbar vertebral bodies. IMPRESSION: Diffuse colitis without bowel obstruction or perforation. Otherwise as described. ACT 112: Negative or not required by law. The above report was generated using voice recognition software. It may contain grammatical, syntax o r spelling errors. Electronically signed by: Tom Carroll M.D. 10/15/2024 3:51 PM
[2024-10-15 15:58] LABS: Epithelial Cell Urine Auto 0-2 /hpf (0-2)
[2024-10-15 15:59] LABS: Hyaline Casts Urine Present /lpf (None Presnt); White Blood Cell Casts Urine Present /lpf (None Prsent)
[2024-10-15 16:00] LABS: Bacteria Urine Automated 2+ (None Seen)
[2024-10-15] MEDS: MAGNESIUM SULFATE / D5W 1 GM/100 ML BAG IV SCH ×2 (16:08→22:05)
[2024-10-15] MEDS: cefTRIAXone SODIUM 2,000 MG/50 ML BAG IV STA (17:14)
--- NOTE | 2024-10-15 17:25 | Electrocardiogram Report ---
Test Reason : Blood Pressure : */* mmHG Vent. Rate : 104 BPM Atrial Rate : 104 BPM P-R Int : 142 ms QRS Dur : 70 ms QT Int : 354 ms P-R-T Axes : 58 4 65 degrees QTcB Int : 465 ms Sinus tachycardia Nonspecific ST abnormality Abnormal ECG When compared with ECG of 08-Nov-2023 19:51, No significant change was found Confirmed by Darvin Combs ([id number]) on 10/15/2024 5:24:41 PM Referred By: REFERRED SELF Confirmed By: Darvin Combs
--- NOTE | 2024-10-15 17:48 | History & Physical Report ---
Date of Service October 15, 2024 Assessment & Plan (1) Metabolic encephalopathy: (2) Gastroenteritis: (3) Acute kidney injury superimposed on CKD: (4) History of liver transplant: (5) Immunosuppressed status: (6) Diabetes mellitus, type II: Plan This is a 73-year-old female with PMH of type 2 diabetes, dyslipidemia, urinary incontinence, history of liver transplant on Prograf and CellCept following with Dr. Hill, mood disorder and other medical problems listed below who presents with persistent diarrhea for the past few days. Acute metabolic encephalopathy In setting of infectious etiology Unknown baseline - unable to reach family. Oriented to person only at this time CT head with no acute intracranial hemorrhage, no evidence of acute territorial infarction or other acute intracranial disease process Colitis, likely gastroenteritis Family whom she lives with had norovirus last week CT abd/pelvis with diffuse colitis without bowel obstruction or perforation. Otherwise as described Stool cx and c diff pending Isolation precautions Liquid diet Continue IV fluids Suspected UTI Abnormal UA, stool incontinence over past few days Continue empiric Rocephin Follow urine culture Hypomagnesemia Mg 0.8 in setting of GI losses Repleting with 4gm Mag now Repeat Mg this evening LEONID superimposed on CKD Non anion gap metabolic acidosis Cr 1.67 (baseline 0.8), likely pre-renal with GI losses Bicarb 17 Continue IV fluids, repeat BMP this evening H/o liver transplant Follows with Dr. Sams Plan to continue Cellcept and Prograf, may need to renally adjust based on AM Cr function DM II A1c5.8 in March Hold home agents SSI while in-patient BSG AC HS DVT Ppx: SQ heparin Code status: FULL for now (attempted to call family for clarification but unable to reach this evening) PCP: Obie Dispo: admitted to [facility] tele Patient seen in collaboration with Dr. Cardoso. Please see addendum. I spent a total of 75 minutes coordinating, documenting, and providing care for this patient excluding time spent in the performance of separately billed services or time spent by another provider/QHP. History of Present Illness Chief Complaint: Diarrhea Primary Care Provider: Ivette Ragland MD This is a 73-year-old female with PMH of type 2 diabetes, dyslipidemia, urinary incontinence, history of liver transplant on Prograf and CellCept following with Dr. Hill, rebeca disorder and other medical problems listed below who presents with persistent diarrhea for the past few days. Patient has not been eating or drinking. Per history from caregivers, family with norovirus last week. Patient was symptoms the past few days. Patient is soft-spoken and difficult to elicit history from. Has been incontinent of stool and was brought in due to concern for dehydration and inability to care for her in the state at home. Endorses abdominal discomfort yesterday but not today. No current nausea or episodes of vomiting since arrival. Unable to elicit remainder of ROS as patient is slow to respond (baseline) and no family present. Allergies Allergy/AdvReac Type Severity Reaction Status Date / Time celecoxib AdvReac Intermediate NAUSEA, Verified 10/15/24 17:21 VOMITING codeine AdvReac Intermediate ANXIETY Verified 10/15/24 17:21 hydromorphone AdvReac Intermediate RESTLESS, Verified 10/15/24 17:21 INSOMNIA rofecoxib AdvReac Intermediate LEGS GO Verified 10/15/24 17:21 NUMB Home Medications Medication Instructions Recorded Confirmed Type duloxetine 60 mg capsule,delayed 60 mg PO DAILY 11/08/23 10/15/24 History release mycophenolate mofetil 250 mg 500 mg PO BID 11/08/23 10/15/24 History capsule omeprazole 20 mg capsule,delayed 20 mg PO DAILY 11/08/23 10/15/24 History release tacrolimus 1 mg capsule, 1 mg PO AMHS 11/08/23 10/15/24 History immediate-release cranberry extract-vitamin C 250 2 cap PO DAILY 10/15/24 10/15/24 History mg-60 mg capsule (Azo Cranberry Plus Vit C) insulin detemir U-100 100 unit/mL 13 unit subcut BID 10/15/24 10/15/24 History (3 mL) subcutaneous pen Past Med/Surg History Problem List (Updated 10/15/24 @ 18:00 by Galilea Henry PA-C) Acute kidney injury superimposed on CKD Gastroenteritis Leukopenia (Acute) Colitis (Acute) Altered mental status (Acute) Immunosuppressed status Hypomagnesemia Metabolic encephalopathy Hypokalemia Anxiety and depression Pancytopenia Cirrhosis History of liver transplant (Acute) Diabetes mellitus, type II Acute UTI (Acute) Confusion (Acute) CKD (chronic kidney disease) Medical History Closed fracture of left proximal humerus Diabetes Left hip pain (10/07/13) Back pain Surgical History History of right hip hemiarthroplasty History of hysterectomy History of cholecystectomy Liver transplanted Family History Other Cancer Diabetes Social History Smoking Status: Former smoker Tobacco Type: Cigarettes Second Hand Exposure: No; Do You Dip or Chew Tobacco: No; Hx Alcohol Use: No Hx Substance Use: No Preferred Language: Macanese Communication Ability: Impaired Home Organizer Required: No Beliefs That Will Affect Care: None marital status: / Current Living Situation: Family Current Living Situation Comment: with daughter Feels Safe at Home: Yes Assistive Devices: Denture - Upper, Denture - Lower, Hospital Bed and Wheelchair Review of Systems Review of Systems: Unobtainable due to cognitive status Physical Exam Physical Exam: Please see Dr. Cardoso's addundum for physical exam. Results & Data Results & Data Vital Signs (Past 12 Hours) Vital Signs Temp Pulse Pulse Resp BP BP Pulse Ox 10/15/24 17:13 122/77 10/15/24 17:12 93 H 18 122/77 10/15/24 16:15 97 H 22 125/73 94 10/15/24 16:15 98 H 16 125/73 97 10/15/24 16:14 97 10/15/24 15:58 97 H 10/15/24 13:54 104 H 18 144/76 H 97 10/15/24 13:54 100 10/15/24 13:54 36.5 C 103 H 13 144/76 H 100 O2 Del Method 10/15/24 17:13 10/15/24 17:12 10/15/24 16:15 Room Air 10/15/24 16:15 Room Air 10/15/24 16:14 Room Air 10/15/24 15:58 10/15/24 13:54 Room Air 10/15/24 13:54 Room Air 10/15/24 13:54 Room Air Laboratory Results Short CBC 10/15/24 Range/Units 14:00 WBC 5.69 (4.8-10.8) K/ul Hgb 9.9 L (12.0-16.0) g/dl Hct 29.8 L (37.0-47.0) % Plt Count 190 (130-400) K/uL BMP 10/15/24 14:00 Sodium 137 Potassium 5.0 Chloride 109 H Carbon Dioxide 17 L BUN 45 H Creatinine 1.67 H Glucose 153 H Calcium 9.0 Cardiac Enzymes 10/15/24 Range/Units 14:00 Total Creatine Kinase 15 L (26-192) U/L Liver Function 10/15/24 Range/Units 14:00 Total Bilirubin 0.5 (0.2-1.0) mg/dl AST 12 L (13-39) U/L ALT 8 (7-52) U/L Alkaline Phosphatase 51 (34-104) U/L Albumin 3.9 (3.4-5.0) gm/dl Urine 10/15/24 Range/Units 15:00 Urine Color Yellow Urine Appearance Turbid A (Clear) Urine pH 5.5 (4.5-7.5) Ur Specific [place] 1.015 (1.000-1.030) Urine Protein 2+ H (Negative) Urine Glucose (UA) Negative (Negative) Diagnostic Findings Abdomen/Pelvis CT 10/15/24 14:[address] WITH IV CONTRAST CT DOSE: 716.39 mGy.cm HISTORY: pain and loose stools TECHNIQUE: Multiaxial CT images of the abdomen and pelvis were performed following the IV administration of 90 cc of Optiray, A dose lowering technique was utilized adhering to the principles of ALARA. COMPARISON STUDY: 11/08/2023 FINDINGS: There is a trace right pleural effusion with mild dependent atelectasis at the right lung base. ABDOMEN: Gallbladder is surgically absent. Stable operative changes at the right upper quadrant. Liver, spleen, and adrenal glands are unremarkable. Stable pancreatic atrophy. Kidneys show no hydronephrosis or calculi. Stable cyst inferior right kidney. There are scattered atherosclerotic calcifications. No abdominal aortic aneurysm. Pelvis: Low pelvis is obscured by extensive spray artifact from metallic hip prostheses. There is diffuse colonic wall thickening and inflammation consistent with colitis. No other bowel inflammation or obstruction. No free fluid, free air, or abscess. Osseous structures: Stable old pelvic fractures. Stable multilevel lumbar kyphoplasty and stable height loss at multiple thoracic and lumbar vertebral bodies. IMPRESSION: Diffuse colitis without bowel obstruction or perforation. Otherwise as described. ACT 112: Negative or not required by law. The above report was generated using voice recognition software. It may contain grammatical, syntax or spelling errors. Electronically signed by: Tom Carroll M.D. 10/15/2024 3:51 PM Chest X-Ray 10/15/24 14:08 XR chest 1V portable CLINICAL HISTORY: weakness TECHNIQUE: Single frontal radiograph of the chest was obtained. Comparison: Comparison is made to chest radiograph 03/24/2024 FINDINGS: No lines and tubes are seen. Calcified aortic knob is seen. The lungs are clear. No evidence of pleural effusion or pneumothorax. IMPRESSION: No acute chest disease. ACT 112: Negative or not required by law. Electronically signed by: Ike Sheehan M.D. 10/15/2024 2:[address] 10/15/24 14:08 CT head/brain wo con CLINICAL HISTORY: ams Technique: Contiguous axial CT images of the head were acquired from the base of the skull to the vertex without intravenous contrast administration. Images were viewed in brain, subdural and bone windows. Automated dose lowering techniques and/or adjustment according to patient size were utilized for this exam. Comparison: Comparison is made to CT head 04/13/2024 Findings: Areas of decreased attenuation are present in the periventricular and subcortical white matter bilaterally consistent with small vessel ischemic disease. Generalized cerebral atrophy with commensurate enlargement of the ventricles, sulci, and cisterns is also present. There is no acute intracranial hemorrhage or evidence of acute territorial infarction. No shift of the midline structures, mass effect, or extra-axial abnormalities are shown. Atherosclerotic calcifications are present in the intracranial segments of the internal carotid arteries. The orbits appear normal. There are no acute fractures of the calvaria or scalp swelling. Incidental note is made of cerumen in the right ear and asymmetry of the bilateral mastoids, unchanged from prior exam. Chronic ethmoid sinusitis is noted. Impression: No acute intracranial hemorrhage, no evidence of acute territorial infarction or other acute intracranial disease process. ACT 112: Negative or not required by law. Electronically signed by: Ike Sheehan M.D. 10/15/2024 3:50 PM Code Status & VTE Plan VTE Prophylaxis Plan VTE Prophylaxis will be ordered: Yes Supervising Physician Co-Signing Physician Notes Patient is a 73-year-old female with history of diabetes mellitus, cirrhosis s/p liver transplant, mood disorder and other medical problems presents with history of ongoing diarrhea for the past few days. Patient is a very poor historian. Patient also had poor appetite lately and complains of abdominal pain.+ Family history currently managed with infection secondary to norovirus. Patient denies any chest pain, dyspnea. Please review HPI for complete details of presentation. I personally reviewed blood work and imaging studies. CT head, chest x-ray showed no acute process. CT abdomen showed findings suggestive of diffuse colitis. Stool studies currently pending. Blood work showed elevated creatinine 1.6, bicarbonate 17, chloride 109, magnesium 0.8. Physical Exam: Vitals signs as noted above General Appearance: Thin, frail, no apparent distress Head: normocephalic, Atraumatic Eyes: normal inspection, EOMI Neck: supple, Trachea midline Respiratory/Chest: Normal breath sounds, CTA, No accessory muscle use Cardiovascular: S1, S2, No murmur, tachycardia Abdomen/GI:Soft, mild tender predominantly right sided, bowel sounds present Extremities/Musculoskeletal:normal inspection, no edema Neurologic/Psych:AAOX3, grossly no focal neurological deficits Skin: normal color, warm Diffuse colitis Dehydration Acute kidney injury Hypomagnesemia Suspected UTI Acute metabolic encephalopathy Cirrhosis S/P liver transplant Started on IV Rocephin empirically Stool studies pending Consulted GI Will eventually need colonoscopy Advance diet as tolerated IV fluids Avoid nephrotoxic agents as able Replete magnesium Check tacrolimus levels I personally interviewed and examined the patient at bedside. I have reviewed the advanced practitioner's documentation on the date of service referred in note and agree with plan. Patient's care is coordinated with Galilea Henry PA-C. Please refer to the documentation above for details of patient's presentation and for discussion of other issues. I spent a total [id number] coordinating, documenting, and providing care for this patient excluding time spent in the performance of separately billed services or time spent by another provider/QHP.
[2024-10-15 18:18] LABS: Influenza A virus by PCR Negative (Neg); Influenza B virus by PCR Negative (Neg); RSV by PCR Negative (Neg); SARS CoV2 RNA(COVID-19) Ceph NEGATIVE (Negative)
--- OUTSIDE RECORDS SUMMARY | 2024-10-15 20:33 | External Medical Summary | Summary of Care ---
Author Name Unknown Organization [facility] Address [address] [facility] [address] Phone [phone] Care Team Providers Care Hot Dip Galvanizer Name Role Phone Ellen Ragland MD Primary Care Provider + Reason for Visit * Reason Comments eRx-Medication Refill Encounter Details Date Type Department Care Team (Late st Contact Info) Description 05/10/2024 Refill General Internal Medicine [facility] [address] [facility] [place] [address] Clair Garcia MD [address] [facility] [address] ARGENIS (generalized anxiety disorder); Mild single current episode of major depressive disorder (HCC) Allergies Active Allergy Reactions Criticality Noted Date Comments Codeine 03/05/2001 Just with plain codeine , not vicodin or percocet Johansen-2 Inhibitors 07/08/2001 Legs numb, knots in legs celebrex Influenza Virus Vaccine 12/18/2018 Allergic reaction Pneumococcal Polysaccharides Conjugated Vaccine 12/18/2018 Allergy Rofecoxib 07/08/2001 Nausea documented as of this encounter (statuses as of 05/12/2024) Medications Medication Sig Dispensed Refills Start Date End Date Status MEDICAL INSTRUCTIONS Use as directed. VNA for nursing, PT/OT: DX: Fx right femur, liver transplant, CKD, HTN, depression, anemia, hyponatremia 1 Each 1 07/01/20 17 Active Calcium Carbonate Antacid (TUMS) 500 MG chewable tablet Take 1 Tab by mouth 3 times a day as needed for Heartburn. 90 Tab 07/01/20 17 Active Misc. Devices (BATH/SHOWER SEAT) MISCIndications:Ris k and functional assessment With back support 1 Each 07/08/20 17 Active Tacrolimus 1 MG Oral Capsule (PROGRAF)Indication s:Status post liver transplantation (HCC) take 1 capsule 2 times a day 180 Cap 06/19/20 20 Active Ultilet Pen Needle 31G X 8 MM (Insulin Pen Needle) Use 4 times daily with insulin 400 Each 1 04/25/20 21 Active Acetaminophen 500 MG Oral Tablet (Tylenol Extra Strength) Take 1 Tablet by mouth every 6 hours as needed. Active OneTouch Ultra In Vitro Strip (Glucose Blood)Indications:T ype 2 diabetes mellitus with hemoglobin A1c goal of less than 7.0% ([facility]) test 3 times daily 300 Strip 3 09/11/20 23 Active Insulin Lispro (1 Unit Dial) 100 UNIT/ML Subcutaneous Solution Pen-injector (HumaLOG KwikPen) inject 8 units 2 times daily 15 mL 11 03/04/20 24 Active Additional Information Patient not taking.Reported on 03/23/2024 Levemir FlexTouch 100 UNIT/ML Subcutaneous Solution Pen-injector (Insulin Detemir)Indications :Type 2 diabetes mellitus with hemoglobin A1c goal of less than 7.0% (HCC),Type 2 diabetes mellitus with stage 3 chronic kidney disease, with long-term current use of insulin, unspecified whether stage 3a or 3b CKD ([facility]) inject 13 units under the skin 2 times a day 30 mL 03/04/20 24 Active Cranberry-Vitamin C 250-60 MG Oral Capsule (AZO Cranberry Urinary Tract) Take 2 caps by mouth daily 03/23/20 24 Active Mycophenolate Mofetil 250 MG Oral Capsule (Cellcept)Indicatio ns:Status post liver transplantation (HCC) TAKE TWO CAPSULES BY MOUTH TWICE DAILY 360 Capsule 03/31/20 24 Active Omeprazole 20 MG Oral Capsule Delayed Release (PriLOSEC)Indicatio ns:Status post liver transplantation (HCC) TAKE ONE CAPSULE BY MOUTH IN THE MORNING 1 HOUR BEFORE FIRST DAILY MEAL 90 Capsule 1 04/03/20 24 Active Tacrolimus 1 MG Oral Capsule (Prograf)Indication s:Status post liver transplantation (HCC) TAKE ONE CAPSULE BY MOUTH EVERY TWELVE HOURS 180 Capsule 04/02/20 24 Active DULoxetine HCl 60 MG Oral Capsule Delayed Release Particles (Cymbalta)Indicatio ns:ARGENIS (generalized anxiety disorder),Mild single current episode of major depressive disorder (HCC) TAKE ONE CAPSULE BY MOUTH EVERY DAY 90 Capsule 1 05/12/20 24 Active DULoxetine HCl 60 MG Oral Capsule Delayed Release Particles (Cymbalta)Indicatio ns:ARGENIS (generalized anxiety disorder),Mild single current episode of major depressive disorder (HCC) take 1 cap by mouth daily 30 Capsule 5 04/04/20 23 024 Discontinued(Re fill) DULoxetine HCl 60 MG Oral Capsule Delayed Release Particles (Cymbalta)Indicatio ns:ARGENIS (generalized anxiety disorder),Mild single current episode of major depressive disorder (HCC) take 1 cap by mouth daily 90 Capsule 3 04/04/20 23 024 Discontinued documented as of this encounter (statuses as of 05/12/2024) Active Problems Problem Noted Date Diagnosed Date Pancytopenia 03/23/2024 Diabetes mellitus with gastroparesis 05/09/2020 ARGENIS (generalized [...] incontinence of urine 01/29/2018 Aspirin contraindicated 05/13/2016 Osteoporosis 01/01/2011 Thoracic and lumbosacral neuritis 06/07/2010 DYSLIPIDEMIA, GOAL LDL BELOW 100 08/29/2009 Overview: Per Lipid Taxonomy. Type 2 diabetes mellitus wit h hemoglobin A1c goal of less than 7.0% 07/20/2009 Overview: Per Diabetes Taxonomy. ICD-10 update of inactive term Status post liver transplantation 08/03/2008 Chronic rhinitis 10/14/2003 Gastroparesis Thrombocytopenia documented as of this encounter (statuses as of 05/12/2024) Resolved Problems Problem Noted Date Diagnosed Date [...] Overview: right superior and inferior pubic rami Controlled substance agreement signed 09/27/2015 03/23/2024 Acute sinusitis 04/10/2012 04/17/2018 KIDNEY DZ,CHRONIC (GFR [...] for Patients with Cardiovascular Disease Project # [id number] PI: Susan Harmon MD Please call [phone] with study related questions GENOMICS CARDIO RESEARCH OTHER*[id number] 04/19/2008 10/29/2016 Overview: Renamed Per Clinical Trials Billing Project. Study Titile: Genomics Markers for Patients with Cardiovascular Disease Project # [id number] PI: Susan Harmon MD Please call [phone] with study related questions Hypocalcemia 12/02/2005 04/17/2018 [...] as of this encounter (statuses as of 05/12/2024) Immunizations Name Administration Dates Next Due Hepatitis B, 20+ yrs 02/08/2008,01/05/2008 PPD 03/21/2008 Pneumococcal Conjugate Vacc, 13 Valent (Prevnar) 01/02/2016 Pneumococcal Polysaccharide PPV23 (Pneumovax) 04/10/2006 Seasonal Influenza, Split, I IV3, With Preserve, Inj 08/12/2013,10/09/2012,09/04/2011,07/24,08/15/2009,07/04/2008,06/26/2007 TDAP, Age 7 and older, IM (Adacel) 03/29/2008 documented as of this encounter Social [...] in the Last Year Never true 07/08/2019 Utilities Answer Date Recorded Do you have trouble paying y our heating, water, or electric bill? (Adult - for ages 18 years and over) Not on file 03/09/2024 Is your family able to pay t he heat, water, or electric bill? (Household - for ages 0-17 years) Not on file 03/09/2024 Does your family have access to good internet? (Household - for ages 0-17 years) Not on file 03/09/2024 Social Connections Answer Date Recorded How often do you feel lonely or isolated from those around you? (Adult - for ages 18 years and over) Not on file 03/09/2024 Sex and Gender Information Value Date Recorded Sex Assigned at Female 07/08/2019 12:07 PM EDT Gender Identity Female 07/08/2019 12:07 PM EDT Sexual Orientation Straight 07/08/2019 12 :07 PM EDT Job Start Date Occupation Industry Not on file Not on file Not on file documented as of this encounter Miscellaneous Notes * Telephone Encounter - Susan Chatman RPh - 05/12/2024 11:09 AM EDTSigned Prescriptions: Disp Refills DULoxetine HCl 60 MG Oral Capsule Delayed *90 Cap*1 Sig: TAKE ONE CAPSULE BY MOUTH EVERY DAYAuthorizing Provider: ELLEN RAGLAND User: SUSAN CHATMAN NN documented in this encounter Plan of Treatment Upcoming Encounters Date Type Department Care Team (Late st Contact Info) Description 07/06/2024 8:20 AM EDT Office Visit [facility], [facility] [address] [place] [address] Viviana Hill MD [address] [place] [id number] 07/20/2024 9:20 AM EDT Office Visit General Internal Medicine [facility] [place] [address] [place] [address] Ellen Ragland MD [address] [place] [address] Health Maintenance Due Date Last Done Comments COVID-19 Vaccine (#1) 1954 Zoster Vaccines (1 of 2) 1968 Cologuard 1994 Sigmoidoscopy 1994 Hepatitis B Vaccine (3 of 3 - 19+ 3-dose series) 07/06/2008 02/08/2008, 01/05/2008 Fecal Occult Blood Test 02/07/2009 02/08/2008 Adult Wellness Visit 11/26/2015 Pneumococcal Vaccine: 65+ Years (3 of 3 - PPSV23 or PCV20) 02/27/2016 01/02/2016, 04/10/2006 Colonoscopy 02/11/2017 02/11/2007 Colorectal Cancer Screening 02/11/2017 DXA Scan 03/21/2017 03/21/2015, 10/2012, 12/21/2010, Additional history exists DTaP,Tdap,and Td Vaccines (2 - Td or Tdap) 03/29/2018 03/29/2008 *BISPHONATE OR OTHER ACCEPTABLE MEDICATION NEEDED FOR OSTEOPOROSIS (REFER TO SMARTSET #1146) 02/10/2019 Depression Monitoring 07/08/2020 07/08/2019 Diabetic Eye Exam 07/08/2020 07/08/2019, , 08/22/2016, Additional history exists Diabetic Foot Exam 07/08/2020 07/08/2019, 0 04/17/2018, 07/08/2017, Additional history exists Mammogram 07/09/2020 07/09/2019, 0611/2014, 02/15/2014, Additional history exists Albumin/Creatinine Ratio 11/27/2022 022, 01/02/2018, 03/06/2017, Additional history exists CKD PHOS USE SMARTSET 37483 04/22/2024 08/0 09/2022, 11/15/2020, 04/01/2017, Additional history exists GFR 09/23/2024 03/23/2024, 06/23, 04/22/2023, Additional history exists HbA1c 09/23/2024 03/23/2024, 03/22, 11/15/2020, Additional history exists CKD HGB USE SMARTSET 06265 03/23/202503/23, 03/23/2024, 07/15/2023, Additional history exists Lipid Panel 03/23/2029 03/23/2024, 10/24, 09/27/2015, Additional history exists VITAMIN D LEVEL ONCE IN A LIFETIME-USE SMARTSET# 63091 Completed 03/23/2024, 04/09/2023, 08/10/2018, Additional history exists HPV (Gardasil) Vaccine Aged Out No lo nger eligible based on patient's age to complete this topic MENINGOCOCCAL (MENACTRA/MENVEO) Aged Out No longer eligible based on patient's age to complete this topic documented as of this encounter Medical Devices Implanted Type Area Ballpoint Pens Assembler Device Identifier Shelf Expiration Date Model / Serial / Lot Allomax Implanted:Qty: 1 on 08/05/2008 at OR [facility] 04/22/2013 [id number] / / Description:allomax surgical graft, tissue #[id number] [place] 09/12 [id number] - [id number] Implanted:Qty: 1 on 11/23/2008 at OR [facility] [employer] [id number] / / documented as of this encounter Visit Diagnoses Diagnosis ARGENIS (generalized anxiety disorder) Generalized anxiety disorder Mild single current episode of major depressive disorder (HCC) documented in this encounter Advance Directives * Full Code (Latest Code Status on File) Date Activated Date Inactivated Comments 03/29/2009 6:49 AM 03/31/2009 5:54 PM This order re flects the patients wishes and were consensually agreed upon. Question Answer Comments Discussion of Advance Directives occurred with: Patient * Full Code Date Activated Date Inactivated Comments 11/23/2008 7:12 AM 2008 4:44 PM * Full Code Date Activated Date Inactivated Comments 10/28/2008 4:27 PM 11/04/2008 12:38 AM * Full Code Date Activated Date Inactivated Comments 08/03/2008 1:10 PM 08/12/2008 4:20 PM * Full Code Date Activated Date Inactivated Comments 08/02/2008 8:28 PM 08/03/2008 1:10 PM Care Teams Hot Dip Galvanizer Relationship Specialty Start Date End Date Ellen Ragland MD [address] [place], [place] [address] [place] [address] PCP - General 05/17/08 documented as of this encounter
--- OUTSIDE RECORDS SUMMARY | 2024-10-15 20:33 | External Medical Summary ---
Author Name Unknown Address Unknown Organization [id number]:LABORATORY [facility] [place] - [address] [place] [address] Laboratory Report Ordering Provider Test Date Status TRISTAFARHEEN Mccartney 07/06/2024 08:45:29 Final Test performed by Immunoassa y on Cardiocore. Therapeutic ranges vary with type of transplant, time post-transplant, clinical protocols, and testing methodology. Results should be interpreted with clinical presentation and any signs rejection/toxicity. Observation Date Value Abnormality Reference (Units ) Status Tacrolimus (FK506) 07/06/2024 08:45:29 5.6 4 .0-12.0 (ng/mL) Final Performing Location LABORATORY C - [address] [place] [address]
--- OUTSIDE RECORDS SUMMARY | 2024-10-15 20:33 | External Medical Summary | Summary of Care ---
Author Name Unknown Organization [facility] Address [address] [place] [address] Phone [phone] Care Team Providers Care Satellite Dish Repairer Name Role Phone Ivette Ragland MD Primary Care Provider + Reason for Visit * Reason Onset Date Comments Medication Refill 09/30/2024 Encounter Details Date Type Department Care Team (Late st Contact Info) Description 09/30/2024 Refill Gastroenterology, [address] [phone] Trista Zhong MD [address] [place] [id number] LIVER TRANSPLANT STATUS (HCC) Allergies Active Allergy Reactions Criticality Noted Date Comments Codeine 03/05/2001 Just with plain codeine , not vicodin or percocet Ojhansen-2 Inhibitors (Sulfonamide) 07/08 Legs numb, knots in legs celebrex Influenza Virus Vaccine 12/18/2018 Allergic reaction Pneumococcal Polysaccharides Conjugated Vaccine 12/18/2018 Allergy Rofecoxib 07/08/2001 Nausea documented as of this encounter (statuses as of 10/01/2024) Medications MEDICAL INSTRUCTIONS Use as directed. VNA for nursing, PT/OT: DX: Fx right femur, liver transplant, CKD, HTN, depression, anemia, hyponatremia 1 Each 1 017 Active Calcium Carbonate Antacid (TUMS) 500 MG chewable tablet Take 1 Tab by mouth 3 times a day as needed for Heartburn. 90 Tab 017 Active Misc. Devices (BATH/SHOWER SEAT) MISCIndications:Ri sk and functional assessment With back support 1 Each 017 Active Ultilet Pen Needle 31G X 8 MM (Insulin Pen Needle) Use 4 times daily with insulin 400 Each 1 021 Active Acetaminophen 500 MG Oral Tablet (Tylenol Extra Strength) Take 1 Tablet by mouth every 6 hours as needed. Active OneTouch Ultra In Vitro Strip (Glucose Blood)Indications: Type 2 diabetes mellitus with hemoglobin A1c goal of less than 7.0% ([facility]) test 3 times daily 300 Strip 3 023 Active Insulin Lispro (1 Unit Dial) 100 UNIT/ML Subcutaneous Solution Pen-injector (HumaLOG KwikPen) inject 8 units 2 times daily 15 mL 11 024 Active Additional Information Patient not taking.Reported on 03/23/2024 Levemir FlexTouch 100 UNIT/ML Subcutaneous Solution Pen-injector (Insulin Detemir)Indication s:Type 2 diabetes mellitus with hemoglobin A1c goal of less than 7.0% ([facility]),Type 2 diabetes mellitus with stage 3 chronic kidney disease, with long-term current use of insulin, unspecified whether stage 3a or 3b CKD (HCC) inject 13 units under the skin 2 times a day 30 mL 024 Active Cranberry-Vitamin C 250-60 MG Oral Capsule (AZO Cranberry Urinary Tract) Take 2 caps by mouth daily 024 Active Omeprazole 20 MG Oral Capsule Delayed Release (PriLOSEC)Indicati ons:Status post liver transplantation (HCC) TAKE ONE CAPSULE BY MOUTH IN THE MORNING 1 HOUR BEFORE FIRST DAILY MEAL 90 Capsule 1 024 Active Tacrolimus 1 MG Oral Capsule (Prograf)Indicatio ns:Status post liver transplantation (HCC) TAKE ONE CAPSULE BY MOUTH EVERY TWELVE HOURS 180 Capsule 024 Active DULoxetine HCl 60 MG Oral Capsule Delayed Release Particles (Cymbalta)Indicati ons:ARGENIS (generalized anxiety disorder),Mild single current episode of major depressive disorder (HCC) TAKE ONE CAPSULE BY MOUTH EVERY DAY 90 Capsule 1 024 Active Tacrolimus 1 MG Oral Capsule (Prograf)Indicatio ns:Status post liver transplantation (HCC) Take 1 Capsule by mouth in the morning and 1 Capsule before bedtime. 180 Capsule 025 Active Mycophenolate Mofetil 250 MG Oral Capsule (Cellcept)Indicati ons:Status post liver transplantation (HCC) TAKE TWO CAPSULES BY MOUTH TWICE DAILY 360 Capsule 025 Active Mycophenolate Mofetil 250 MG Oral Capsule (Cellcept)Indicati ons:Status post liver transplantation (HCC) TAKE TWO CAPSULES BY MOUTH TWICE DAILY 360 Capsule 024 2024 Discontinued Tacrolimus 1 MG Oral Capsule (Prograf)Indicatio ns:Status post liver transplantation (HCC) Take 1 Capsule by mouth in the morning and 1 Capsule before bedtime. 180 Capsule 024 2024 Discontinued documented as of this encounter (statuses as of 10/01/2024) Active Problems Problem Noted Date Diagnosed Date Pancytopenia 03/23/2024 Diabetes mellitus with gastroparesis 05/09/2020 ARGENIS (generalized anxiety disorder) 05/09/2020 Renal osteodystrophy 05/09/2020 Type 2 diabetes mellitus wit h stage 3 chronic kidney disease, with long-term current use of insulin 12/18/2018 Mild single current episode of major depressive disorder 12/18/2018 Urinary incontinence, nocturnal enuresis 018 Urge incontinence of urine 01/29/2018 Aspirin contraindicated 05/13/2016 Osteoporosis 01/01/2011 Thoracic and lumbosacral neuritis 06/07/2010 DYSLIPIDEMIA, GOAL LDL BELOW 100 08/29/2009 Overview (08/29/2009): Per Lipid Taxonomy. Type 2 diabetes mellitus wit h hemoglobin A1c goal of less than 7.0% 07/20/2009 Overview (01/16/2016): Per Diabetes Taxonomy. ICD-10 update of inactive term Status post liver transplantation 08/03/2008 Chronic rhinitis 10/14/2003 Gastroparesis Thrombocytopenia documented as of this encounter (statuses as of 10/01/2024) Resolved Problems Problem Noted Date Diagnosed Date Resolved Date ADVANCE DIRECTIVE INFORMATION 10/30/2018 07/26/2024 Overview (03/21/2008): No, Advance Directive brochure given to patient at prior appointment. Acute cystitis with hematuria 03/06/2018 04/17/2018 Urinary incontinence without sensory awareness 01/29/2018 04/17/2018 HUMBLE (stress urinary incontinence, female) 01/29/2018 04/17/2018 Closed fracture of sacrum 06/04/2017 Inferior pubic ramus fracture 06/04/2017 06/18/2017 Overview (06/17/2017): right Femoral neck fracture 06/04/20172016 Overview (06/17/2017): right Hematoma 06/04/2017 04/17/2018 Overview (06/17/2017): right posterior gluteal region 12.5 cm Fracture of femoral neck, right, closed 05/23/2017 04/17/2018 Fracture of multiple pubic rami 05/23/2017 04/17/2018 Overview (06/18/2017): right superior and inferior pubic rami Controlled substance agreement signed 09/27/2015 03/23/2024 Acute sinusitis 04/10/2012 04/17/2018 KIDNEY DZ,CHRONIC (GFR 30-59) STAGE III 04/12/2010 11/13/2017 Overview (04/12/2010): Per CKD Protocol, #1 Headache 03/30/2009 04/17/2018 Overview (12/13/2015): ICD-10 update of inactive term Vertebral fracture, pathological 10/30/2008 04/17/2018 Lumbago 10/18/2008 04/17/2018 Pruritic disorder 09/08/2008 11/21/2008 Need for prophylactic immunotherapy 08/17/2008 01/29/2012 INTERFACED RESULT 08/12/2008 02/20/2012 EXAMINATION OF PARTICIPANT I N CLINICAL TRIAL- genomics 04/19/2008 01/05/2010 Overview (01/05/2010): Renamed Per Clinical Trials Billing Project. Study Titile: Genomics Markers for Patients with Cardiovascular Disease Project # [id number] PI: Susan Harmon MD Please call [phone] with study related questions GENOMICS CARDIO RESEARCH OTHER*[id number] 04/19/2008 10/29/2016 Overview (01/05/2010): Renamed Per Clinical Trials Billing Project. Study Titile: Genomics Markers for Patients with Cardiovascular Disease Project # [id number] PI: Susan Harmon MD Please call [phone] with study related questions Hypocalcemia 12/02/2005 04/17/2018 DENTURES 12/12/2004 04/17/2018 Dyslipidemia, goal to be determined 02/01/2002 08/29/2009 Overview (08/29/2009): Per Lipid Taxonomy. Type 2 diabetes mellitus wit h hemoglobin A1c goal of less than 7.0% 07/20/2009 Overview (01/16/2016): Per Diabetes Taxonomy. ICD-10 update of inactive term Cirrhosis of liver 8 Pleural effusion 04/17/2018 Back ache 06/18/2017 Hypomagnesemia 06/18/2017 Hypophosphatemia 06/18/2017 Sacral fracture 06/18/2017 documented as of this encounter (statuses as of 10/01/2024) Immunizations Name Administration Dates Next Due Hepatitis B, 20+ yrs 02/08/2008,01/05/2008 PPD 03/21/2008 Pneumococcal Conjugate Vacc, 13 Valent (Prevnar) 01/02/2016 Pneumococcal Polysaccharide PPV23 (Pneumovax) 04/10/2006 Seasonal Influenza Vac., MDV , IM, 0.5 mL (Fluzone) 08/12/2013,10/09/2012,09/04/2011,07/24,08/15/2009,07/04/2008,06/26/2007 TDAP, Age 7 and older, IM [...] in the Last Year Never true 07/08/2019 Comments No Sex and Gender Information Value Date Recorded Sex Assigned at Female 07/08/2019 12:07 PM EDT Legal Sex Female 5:26 AM EST Gender Identity Female 07/08/2019 12:07 PM EDT Sexual Orientation Straight 07/08/2019 12 :07 PM EDT 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 Not on file Not on file Not on file documented as of this encounter Miscellaneous Notes * Telephone Encounter - Dolores Joyce LPN - 10/01/2024 9:08 AM ESTSigned Prescriptions: Disp Refills Tacrolimus 1 MG Oral Capsule (Prograf) 180 Ca*0 Sig: Take 1 Capsule by mouth in the morning and 1 Capsule before bedtime.Authorizing Provider: TRISTA ZHONG Mycophenolate Mofetil 250 MG Oral Capsule *360 Ca*0 Sig: TAKE TWO CAPSULES BY MOUTH TWICE DAILYAuthorizing Pro vider: TRISTA ZHONG * Telephone Encounter - Lynne Payne CMA - 09/30/2024 2:42 PM EST Did you pend patient's preferred pharmacy and medication before forwarding?yes Pharmacy: [id number] [address] [facility] Pending Prescriptions: Disp Refills Tacrolimus 1 MG Oral Capsule (Prograf) 180 Ca*0 Sig: Take 1 Capsule by mouth in the morning and 1 Capsule before bedtime. Mycophenolate Mofetil 250 MG Oral Capsule*360 Ca*0 Sig: TAKE TWO CAPSULES BY MOUTH TWICE DAILY Last Visit: 07/06/2024 (in office), Visit date not found (telemedicine) Patient Phone Numbers [place] [phone] Labs: Lab Results Component Value Date/Time CREAT 0.7 03/23/2024 10:57 AM CREAT 0.84 04/22/2023 12:00 AM CREAT 1.1 (H) 08/25/2018 12:56 PM POTASSIUM 4.3 03/23/2024 10:57 AM POTASSIUM 5.7 (A) 04/22/2023 12:00 AM POTASSIUM 4.0 08/25/2018 12:56 PM TSH 2.55 02/13/2016 09:57 AM LDL 59 03/23/2024 10:57 AM LDL 113 09/27/2015 12:06 PM LDL 71 06/04/2013 01:31 PM LDLCALC 87 10/21/2012 12:00 AM ALT 7 (L) 03/23/2024 10:57 AM ALT 12 11/04/2017 12:53 PM HGBA1C 5.8 (H) 03/23/2024 10:57 AM HGBA1C 6.2 (H) 08/10/2018 11:00 AM documented in this encounter Plan of Treatment Health Maintenance Due Date Last Done Comments COVID-19 Vaccine (#1) 1954 Zoster Vaccines (1 of 2) 1968 Cologuard 1994 Sigmoidoscopy 1994 Hepatitis B Vaccine (3 of 3 - 19+ 3-dose series) 07/06/2008 02/08/2008, 01/05/2008 Fecal Occult Blood Test 02/07/2009 02/08/2008 Adult Wellness Visit 11/26/2015 Pneumococcal Vaccine: 50+ Years (3 of 3 - PPSV23, PCV20 or PCV21) 02/27/2016 01/02/2016, 04/10/2006 Colonoscopy 02/11/2017 02/11/2007 Colorectal Cancer Screening 02/11/2017 DXA Scan 03/21/2017 03/21/2015, 04/10/2012, 12/21/2010, Additional history exists DTap/Tdap Vaccines (2 - Td or Tdap) 03/29/2018 [...] Additional history exists CKD PHOS USE SMARTSET 58060 04/22/2024 08/0 09/2022, 11/15/2020, 04/01/2017, Additional history exists GFR 09/23/2024 03/23/2024, 06/23, 04/22/2023, Additional history exists HbA1c 09/23/2024 03/23/2024, 03/22, 11/15/2020, Additional history exists CKD HGB USE SMARTSET 75489 03/23/202503/23, 03/23/2024, 07/15/2023, Additional history exists Lipid Panel 03/23/2029 03/23/2024, 10/24, 09/27/2015, Additional history exists VITAMIN D LEVEL ONCE IN A LIFETIME-USE SMARTSET# 53685 Completed 03/23/2024, 04/09/2023, 08/10/2018, Additional history exists HPV (Gardasil) Vaccine Aged Out No lo nger eligible based on patient's age to complete this topic MENINGOCOCCAL (MENACTRA/MENVEO) Aged Out No longer eligible based on patient's age to complete this topic documented as of this encounter Medical Devices Implanted Type Area Senior Online Marketing Manager Device Identifier Shelf Expiration Date Model / Serial / Lot Allomax Implanted:Qty: 1 on 08/05/2008 at [facility] [place] 04/22/2013 [id number] / / Description:allomax surgical graft, tissue #[id number] Ky[employer]ak 20/3 [id number] - [id number] Implanted:Qty: 1 on 11/23/2008 at [facility] [place] [employer] [id number] / / documented as of this encounter Visit Diagnoses Diagnosis LIVER TRANSPLANT STATUS (HCC) Liver replaced by transplant documented in this encounter Advance Directives * [...] 8:28 PM 08/03/2008 1:10 PM Care Teams Satellite Dish Repairer Relationship Specialty Start Date End Date Ivette Ragland MD [address] [facility] [place] [address] PCP - General 05/17/08 documented as of this encounter
--- OUTSIDE RECORDS SUMMARY | 2024-10-15 20:33 | External Medical Summary | Summary of Care ---
Author Name Unknown Organization [facility] Address [address] [facility] [place] [address] Phone [phone] Care Team Providers Care Cad Design Engineer Name Role Phone Ivette Ragland MD Primary Care Provider + Reason for Visit * Reason Comments Outpatient Testing Encounter Details Date Type Department Care Team (Late st Contact Info) Description 07/06/2024 9:20 AM EDT Laboratory Laboratory, [facility] [address] [id number] [facility] [address] [place] [address] Status post liver transplant (HCC) Allergies Active Allergy Reactions Criticality Noted Date Comments Codeine 03/05/2001 Just with plain codeine , not vicodin or percocet Johansen-2 Inhibitors (Sulfonamide) 07/08 Legs numb, knots in legs celebrex Influenza Virus Vaccine 12/18/2018 Allergic reaction Pneumococcal Polysaccharides Conjugated Vaccine 12/18/2018 Allergy Rofecoxib 07/08/2001 Nausea documented as of this encounter (statuses as of 07/06/2024) Medications Medication Sig Dispensed Refills Start Date End Date Status MEDICAL INSTRUCTIONS Use as directed. VNA for nursing, PT/OT: DX: Fx right femur, liver transplant, CKD, HTN, depression, anemia, hyponatremia 1 Each 1 07/01/2017 Active Calcium Carbonate Antacid (TUMS) 500 MG chewable tablet Take 1 Tab by mouth 3 times a day as needed for Heartburn. 90 Tab 07/01/2017 Active Misc. Devices (BATH/SHOWER SEAT) MISCIndications:Risk and functional assessment With back support 1 Each 07/08/2017 Active Ultilet Pen Needle 31G X 8 MM (Insulin Pen Needle) Use 4 times daily with insulin 400 Each 1 04/25/2021 Active Acetaminophen 500 MG Oral Tablet (Tylenol Extra Strength) Take 1 Tablet by mouth every 6 hours as needed. Active OneTouch Ultra In Vitro Strip (Glucose Blood)Indications:Ty pe 2 diabetes mellitus with hemoglobin A1c goal of less than 7.0% ([facility]) test 3 times daily 300 Strip 3 09/11/2023 Active Insulin Lispro (1 Unit Dial) 100 UNIT/ML Subcutaneous Solution Pen-injector (HumaLOG KwikPen) inject 8 units 2 times daily 15 mL 11 03/04/2024 Active Additional Information Patient not taking.Reported on 03/23/2024 Levemir FlexTouch 100 UNIT/ML Subcutaneous Solution Pen-injector (Insulin Detemir)Indications: Type 2 diabetes mellitus with hemoglobin A1c goal of less than 7.0% ([facility]),Type 2 diabetes mellitus with stage 3 chronic kidney disease, with long-term current use of insulin, unspecified whether stage 3a or 3b CKD ([facility]) inject 13 units under the skin 2 times a day 30 mL 03/04/2024 Active Cranberry-Vitamin C 250-60 MG Oral Capsule (AZO Cranberry Urinary Tract) Take 2 caps by mouth daily 03/23/2024 Active Omeprazole 20 MG Oral Capsule Delayed Release (PriLOSEC)Indication s:Status post liver transplantation (HCC) TAKE ONE CAPSULE BY MOUTH IN THE MORNING 1 HOUR BEFORE FIRST DAILY MEAL 90 Capsule 1 04/03/2024 Active Tacrolimus 1 MG Oral Capsule (Prograf)Indications :Status post liver transplantation (HCC) TAKE ONE CAPSULE BY MOUTH EVERY TWELVE HOURS 180 Capsule 04/02/2024 Active DULoxetine HCl 60 MG Oral Capsule Delayed Release Particles (Cymbalta)Indication s:ARGENIS (generalized anxiety disorder),Mild single current episode of major depressive disorder (HCC) TAKE ONE CAPSULE BY MOUTH EVERY DAY 90 Capsule 1 05/12/2024 Active Mycophenolate Mofetil 250 MG Oral Capsule (Cellcept)Indication s:Status post liver transplantation (HCC) TAKE TWO CAPSULES BY MOUTH TWICE DAILY 360 Capsule 07/06/2024 Active Tacrolimus 1 MG Oral Capsule (Prograf)Indications :Status post liver transplantation (HCC) Take 1 Capsule by mouth in the morning and 1 Capsule before bedtime. 180 Capsule 07/06/2024 Active documented as of this encounter (statuses as of 07/06/2024) Active Problems Problem Noted Date Diagnosed Date [...] as of this encounter (statuses as of 07/06/2024) Resolved Problems Problem Noted Date Diagnosed Date [...] for Patients with Cardiovascular Disease Project # [id number] PI: Susan Harmon MD Please call [phone] with study related questions GENOMICS CARDIO RESEARCH OTHER*[id number] 04/19/2008 10/29/2016 Overview: Renamed Per Clinical Trials Billing Project. Study Titile: Genomics Markers for Patients with Cardiovascular Disease Project # [id number] PI: Susan Harmon MD Please call [phone] with study related questions Hypocalcemia 12/02/2005 04/17/2018 [...] as of this encounter (statuses as of 07/06/2024) Immunizations Name Administration Dates Next Due Hepatitis [...] as of this encounter Plan of Treatment Upcoming Encounters Date Type Department Care Team (Late st Contact Info) Description 07/20/2024 9:20 AM EDT Office Visit General Internal Medicine [place] [address] [place] [address] Ivette Ragland MD [address] [facility] [place] [address] Pending Results Name Type Priority Associated Diagnoses Date /Time TACROLIMUS LEVEL Lab Routine Status post liver transplant (HCC) 07/06/2024 8:45 AM EDT Health Maintenance Due Date Last [...] 03/21/2017 03/21/2015, 10/2012, 12/21/2010, Additional history exists DTap/Tdap Vaccines (2 - Td or Tdap) 03/29/2018 03/29/2008 *BISPHONATE OR OTHER ACCEPTABLE MEDICATION NEEDED FOR OSTEOPOROSIS (REFER TO SMARTSET #1146) 02/10/2019 Depression Monitoring 07/08/2020 07/08/2019 Diabetic Eye Exam 07/08/2020 07/08/2019, , 08/22/2016, Additional history exists Diabetic Foot Exam 07/08/2020 07/08/2019, 0 04/17/2018, 07/08/2017, Additional history exists Mammogram 07/09/2020 07/09/2019, 06/11/2014, 02/15/2014, Additional history exists Albumin/Creatinine Ratio 11/27/2022 022, 01/02/2018, 03/06/2017, Additional history exists CKD PHOS USE SMARTSET 42843 04/22/2024 08/0 09/2022, 11/15/2020, 04/01/2017, Additional history exists GFR 09/23/2024 03/23/2024, 06/23, 04/22/2023, Additional history exists HbA1c 09/23/2024 03/23/2024, 03/22, 11/15/2020, Additional history exists CKD HGB USE SMARTSET 70431 03/23/202503/23, 03/23/2024, 07/15/2023, Additional history exists Lipid Panel 03/23/2029 03/23/2024, 10/24, 09/27/2015, Additional history exists VITAMIN D LEVEL ONCE IN A LIFETIME-USE SMARTSET# [id number] Completed 03/23/2024, 04/09/2023, 08/10/2018, Additional history exists HPV (Gardasil) Vaccine Aged Out No lo nger eligible based on patient's age to complete this topic MENINGOCOCCAL (MENACTRA/MENVEO) Aged Out No longer eligible based on patient's age to complete this topic documented as of this encounter Medical Devices Implanted Type Area Senior Administrator Support Device Identifier Shelf Expiration Date Model / Serial / Lot Allomax Implanted:Qty: 1 on 08/05/2008 at [place] [facility] [place] 04/22/2013 [id number] / / Description:allomax surgical graft, tissue #[id number] [employer] 20/3 [id number] - [id number] Implanted:Qty: 1 on 11/23/2008 at [place] [facility] [place] [employer] [id number] / / documented as of this encounter Visit Diagnoses Diagnosis Status post liver transplant (HCC) Liver replaced by transplant documented in [...] 8:28 PM 08/03/2008 1:10 PM Care Teams Cad Design Engineer Relationship Specialty Start Date End Date Ivette Ragland MD [address] [place] [address], [place] [address] PCP - General 05/17/08 documented as of this encounter
--- OUTSIDE RECORDS SUMMARY | 2024-10-15 20:33 | External Medical Summary | Summary of Care ---
Author Name Unknown Organization [facility] Address [address] [address] Phone [phone] Care Team Providers Care Surgical Clinical Reviewer Name Role Phone Ivette Ragland MD Primary Care Provider + Reason for Visit * Reason Comments Follow Up Pt here with annette christian for f/u s/p liver transplant. Pt needs med refills. Encounter Details Date Type Department Care Team (Late st Contact Info) Description 07/06/2024 8:20 AM EDT Office Visit Hepatology, [facility] [address] [facility] [place] [address] Viviana Hill MD [address] [place] [address] [place] [phone] Status post liver transplant (HCC)*; Status post liver transplantation (HCC); LIVER TRANSPLANT STATUS (HCC) Allergies Active Allergy [...] day as needed for Heartburn. 90 Tab 7 Active Misc. Devices (BATH/SHOWER SEAT) MISCIndications:Risk and functional assessment With back support 1 Each 7 Active Ultilet Pen Needle 31G X 8 MM (Insulin Pen Needle) Use 4 times daily with insulin 400 Each 1 1 Active Acetaminophen 500 MG Oral Tablet (Tylenol Extra Strength) Take 1 Tablet by mouth every 6 hours as needed. Active OneTouch Ultra In Vitro Strip (Glucose Blood)Indications:Ty pe 2 diabetes mellitus with hemoglobin A1c goal of less than 7.0% ([facility]) test 3 times daily 300 Strip 3 3 Active Insulin Lispro (1 Unit Dial) 100 UNIT/ML Subcutaneous Solution Pen-injector (HumaLOG KwikPen) inject 8 units 2 times daily 15 mL 11 4 Active Additional Information Patient not taking.Reported on 03/23/2024 Levemir FlexTouch 100 UNIT/ML Subcutaneous Solution Pen-injector (Insulin Detemir)Indications: Type 2 diabetes mellitus with hemoglobin A1c goal of less than 7.0% ([facility]),Type 2 diabetes mellitus with stage 3 chronic kidney disease, with long-term current use of insulin, unspecified whether stage 3a or 3b CKD ([facility]) inject 13 units under the skin 2 times a day 30 mL 4 Active Cranberry-Vitamin C 250-60 MG Oral Capsule (AZO Cranberry Urinary Tract) Take 2 caps by mouth daily 4 Active Omeprazole 20 MG Oral Capsule Delayed Release (PriLOSEC)Indication s:Status post liver transplantation (HCC) TAKE ONE CAPSULE BY MOUTH IN THE MORNING 1 HOUR BEFORE FIRST DAILY MEAL 90 Capsule 1 4 Active Tacrolimus 1 MG Oral Capsule (Prograf)Indications :Status post liver transplantation (HCC) TAKE ONE CAPSULE BY MOUTH EVERY TWELVE HOURS 180 Capsule 4 Active DULoxetine HCl 60 MG Oral Capsule Delayed Release Particles (Cymbalta)Indication s:ARGENIS (generalized anxiety disorder),Mild single current episode of major depressive disorder (HCC) TAKE ONE CAPSULE BY MOUTH EVERY DAY 90 Capsule 1 4 Active Mycophenolate Mofetil 250 MG Oral Capsule (Cellcept)Indication s:Status post liver transplantation (HCC) TAKE TWO CAPSULES BY MOUTH TWICE DAILY 360 Capsule 4 Active Tacrolimus 1 MG Oral Capsule (Prograf)Indications :Status post liver transplantation (HCC) Take 1 Capsule by mouth in the morning and 1 Capsule before bedtime. 180 Capsule 4 Active Tacrolimus 1 MG Oral Capsule (PROGRAF)Indications :Status post liver transplantation (HCC) take 1 capsule 2 times a day 180 Cap 0 07/06/20 24 Discontinu ed(Refill) Mycophenolate Mofetil 250 MG Oral Capsule (Cellcept)Indication s:Status post liver transplantation (HCC) TAKE TWO CAPSULES BY MOUTH TWICE DAILY 360 Capsule 4 07/06/20 24 Discontinu ed(Refill) documented as of this encounter [...] for Patients with Cardiovascular Disease Project # [id number] PI: Susan Harmon MD Please call [phone] with study related questions GENOMICS CARDIO RESEARCH OTHER*[id number] 04/19/2008 10/29/2016 Overview: Renamed Per Clinical Trials Billing Project. Study Titile: Genomics Markers for Patients with Cardiovascular Disease Project # [id number] PI: Susan Harmon MD Please call [phone] with study related questions Hypocalcemia 12/02/2005 04/17/2018 [...] Sign Reading Time Taken Comments Blood Pressure 122/72 07/06/2024 8:07 AM EDT Pulse 86 07/06/2024 8:07 AM EDT Temperature 36.6 C (97.9 F) 07/06/2024 8 :07 AM EDT Respiratory Rate - - Oxygen Saturation - - Inhaled Oxygen Concentration - - Weight 37.6 kg (83 lb) 07/06/2024 8:07 AM EDT per daughter. pt unable to stand Height 154.9 cm (5' 1") 07/06/2024 8:07 AM EDT Body Mass Index 15.68 07/06/2024 8:07 AM EDT documented in this encounter Progress Notes * Viviana Hill MD - 07/06/2024 8:20 AM EDT Hepatology [place] CC: post oltx fup Last visit in 2022 72 yo fm with a history of diabetes, presumably pino cirrhosis s/p oltx in 2007. She has been on Cellcept and prograf for her IS. She is doing overall well. With her daughter today - she reports it is is hard to get her mom out as the patient mostly is at home and it's hard for her to mobilize. They want shopping for her daughter's birthday but she mostly wanted to go back home. No er visits or hospitalizations since last visit last fall. She is just very weak- her muscles are weak. Does take boost daily. Has declined colonoscopy in the past Is not able to get an abd monisha just due to body habitus and transportation issues. No skin lesions reported. Current Outpatient Medications Medication Sig Dispense Refill Calcium Carbonate Antacid (TUMS) 500 MG chewable tablet Take 1 Tab by mouth 3 times a day as neededfor Heartburn. 90 Tab 0 Tacrolimus 1 MG Oral Capsule (PROGRAF) take 1 capsule 2 times a day 180 Cap 0 Acetaminophen 500 MG Oral Tablet (Tylenol Extra Strength) Take 1 Tablet by mouth every 6 hours as needed. Levemir FlexTouch 100 UNIT/ML Subcutaneous Solution Pen-injector (Insulin Detemir) inject 13 units under the skin 2 times a day 30 mL 0 Cranberry-Vitamin C 250-60 MG Oral Capsule (AZO Cranberry Urinary Tract) Take 2 caps by mouth daily Mycophenolate Mofetil 250 MG Oral Capsule (Cellcept) TAKE TWO CAPSULES BY MOUTH TWICE DAILY 360 Capsule 0 Omeprazole 20 MG Oral Capsule Delayed Release (PriLOSEC) TAKE ONE CAPSULE BY MOUTH IN THE MORNING 1HOUR BEFORE FIRST DAILY MEAL 90 Capsule 1 DULoxetine HCl 60 MG Oral Capsule Delayed Release Particles (Cymbalta) TAKE ONE CAPSULE BY MOUTH EVERY DAY 90 Capsule 1 MEDICAL INSTRUCTIONS Use as directed. VNA for nursing, PT/OT: DX: Fx right femur, liver transplant,CKD, HTN, depression, anemia, hyponatremia 1 Each 1 Misc. Devices (BATH/SHOWER SEAT) MISC With back support 1 Each 0 Ultilet Pen Needle 31G X 8 MM (Insulin Pen Needle) Use 4 times daily with insulin 400 Each 1 OneTouch Ultra In Vitro Strip (Glucose Blood) test 3 times daily 300 Strip 3 Insulin Lispro (1 Unit Dial) 100 UNIT/ML Subcutaneous Solution Pen-injector (HumaLOG KwikPen) inject 8 units 2 times daily (Patient not taking: Reported on 03/23/2024) 15 mL 11 Tacrolimus 1 MG Oral Capsule (Prograf) TAKE ONE CAPSULE BY MOUTH EVERY TWELVE HOURS 180 Capsule 0 No current facility-administered medications for this visit. ROS: Constitutional: No report of fever, chills, night sweats. There have been no non-intentional weightchanges. GI: Per HPI, otherwise negative. Physical Exam Constitutional: BP 122/72 | Pulse 86 | Temp 36.6 C (97.9 F) | Ht 1.549 m (5' 1") | Wt 37.6 kg (83 lb) Comment: per daughter. pt unable to stand | BMI 15.68 kg/m | BSA 1.27 m Gen: thin female in nad HEENT: perrla CV: Heart is regular without murmur, rub or catia. Pulm: Clear to percussion and auscultation. GI: Abdomen is soft, non-tender, with normo-active bowel sounds in all four quadrants. No hepatosplenomegaly is appreciated. No masses are palpated. No guarding or rebound is noted. Latest Reference Range & Units 03/23/24 10:57 WBC 4.00 - 10.80 K/uL 4.93 RBC 3.85 - 5.15 M/uL 3.66 HGB 12.0 - 15.3 g/dL 10.7 (L) HCT 36.0 - 45.2 % 32.9 (L) MCV 81.5 - 97.5 fL 89.9 MCH 27.0 - 34.0 pg 29.2 MCHC 32.0 - 36.0 g/dL 32.5 RDW 11.5 - 15.5 % 14.7 PLT 140 - 400 K/uL 182 MPV 6.6 - 11.1 fL 10.4 ANEMIA CBC Rpt ! Absolute Neutrophils 1.80 - 7.70 K/uL 3.70 Absolute Lymphocytes 1.00 - 4.80 K/ul 0.77 (L) Absolute Monocytes 0.00 - 1.10 K/uL 0.38 Absolute Eosinophils 0.00 - 0.70 K/uL 0.03 Absolute Basophils 0.00 - 0.20 K/uL 0.02 IRON SCREEN, INCLUDING TIBC Rpt ! Iron 33 - 151 ug/dL 75 Iron Binding Capacity 250 - 425 ug/dL 227 (L) Transferrin Saturation Percent 15 - 55 % 33 Ferritin 13 - 150 ng/mL 1,163 (H) Vitamin B12 232 - 1,245 pg/mL 449 Immature Reticuloctye Fraction 2.5 - 20.6 % 13.4 Reticulocyte Hemoglobin 29.7 - 37.4 pg 32.5 Absolute Reticulocyte 31.3 - 100.1 K/uL 145.8 (H) Reticulocyte Percent 0.80 - 1.90 % 3.95 (H) (L): Data is abnormally low !: Data is abnormal (H): Data is abnormally high Rpt: View report in Results Review for more information Latest Reference Range & Units 03/23/24 10:57 Albumin 3.8 - 5.0 g/dL 4.1 AST 10 - 35 U/L 17 ALT 10 - 35 U/L 7 (L) Alkaline Phosphatase 35 - 130 U/L 64 Bilirubin, Total <=1.2 mg/dL 0.8 (L): Data is abnormally low Last abdominal ultrasound report reviewed- done at [facility] - normal appearing liver, normal portal flow A/P: Post oltx in 2007- doing stable Though bedridden Refills given of both meds as per their request Last lft's and cbc wnl Repeat tacrolimus level ordered today to ensure Continue boost. 1 yr video fup given it is hard for them to mobilize her. Viviana Hill MD documented in this encounter Nursing Notes * Lynne Payne CMA - 07/06/2024 8:07 AM EDT Chief Complaint Patient presents with Follow Up Pt here with daughter for f/u s/p liver transplant. Pt needs med refills. documented in this encounter Plan of Treatment Upcoming Encounters Date Type Department Care Team (Late st Contact Info) Description 07/06/2024 9:20 AM EDT [facility] [address] [place] [phone] Osmin [place]mon [place] [address] [facility] [place] [address] Status post liver transplant (HCC) 07/20/2024 9:20 AM EDT Office Visit General Internal Medicine [place] [address] [place] [address] [address] Ivette Ragland MD [address] [place] [address] Pending Results Name Type Priority Associated Diagnoses Date /Time TACROLIMUS LEVEL Lab Routine Status post liver transplant (HCC) 07/06/2024 8:45 AM EDT Scheduled Orders Name Type Priority Associated Diagnoses Orde r Schedule TACROLIMUS LEVEL Lab Routine Status post liver transplant (HCC) Expected: 07/06/2024, Expires: 07/06/2025 Health Maintenance Due Date Last Done Comments [...] Additional history exists CKD PHOS USE SMARTSET 18144 04/22/2024 08/0 09/2022, 11/15/2020, 04/01/2017, Additional history exists GFR 09/23/2024 03/23/2024, 06/23, 04/22/2023, Additional history exists HbA1c 09/23/2024 03/23/2024, 03/22, 11/15/2020, Additional history exists CKD HGB USE SMARTSET 24746 03/23/202503/23, 03/23/2024, 07/15/2023, Additional history exists Lipid Panel 03/23/2029 03/23/2024, 10/24, 09/27/2015, Additional history exists VITAMIN D LEVEL ONCE IN A LIFETIME-USE SMARTSET# 02612 Completed 03/23/2024, 04/09/2023, 08/10/2018, Additional history exists HPV (Gardasil) Vaccine Aged Out No lo nger eligible based on patient's age to complete this topic MENINGOCOCCAL (MENACTRA/MENVEO) Aged Out No longer eligible based on patient's age to complete this topic documented as of this encounter Medical Devices Implanted Type Area Form Layer Device Identifier Shelf Expiration Date Model / Serial / Lot Allomax Implanted:Qty: 1 on 08/05/2008 at OR [facility] 04/22/2013 [id number] / / Description:allomax surgical graft, tissue #[id number] Kyphopak 09/12 [id number] - [id number] Implanted:Qty: 1 on 11/23/2008 at OR [facility] [employer] [id number] / / documented as of this encounter Visit Diagnoses Diagnosis Status post liver transplant (HCC)- Primary Liver replaced by transplant LIVER TRANSPLANT STATUS (HCC) Liver replaced by transplant Status post liver transplant (HCC) Liver replaced [...] 8:28 PM 08/03/2008 1:10 PM Care Teams Surgical Clinical Reviewer Relationship Specialty Start Date End Date Ivette Ragland MD [address] [place] [address] PCP - General 05/17/08 documented as of this encounter
--- OUTSIDE RECORDS SUMMARY | 2024-10-15 20:33 | External Medical Summary | Summary of Care ---
Author Name Unknown Organization [facility] Address [address] [facility] [address] Phone [phone] Care Team Providers Care Internet Developer Name Role Phone Ellen Ragland MD Primary Care Provider + Reason for Visit * Reason Comments eRx-Medication Refill Encounter Details Date Type Department Care Team (Late st Contact Info) Description 10/05/2024 Refill General Internal Medicine [facility] [address] [facility] [address] Ellen Ragland MD 200 [facility] [place] [phone] Type 2 diabetes mellitus with hemoglobin A1c goal of less than 7.0% ([facility]); Status post liver transplantation (HCC) Allergies Active Allergy Reactions Criticality Noted Date Comments Codeine 03/05/2001 Just with plain codeine , not vicodin or percocet Johansen-2 Inhibitors (Sulfonamide) 07/08 Legs numb, knots in legs celebrex Influenza Virus Vaccine 12/18/2018 Allergic reaction Pneumococcal Polysaccharides Conjugated Vaccine 12/18/2018 Allergy Rofecoxib 07/08/2001 Nausea documented as of this encounter (statuses as of 10/06/2024) Medications MEDICAL INSTRUCTIONS Use as directed. VNA [...] mouth every 6 hours as needed. Active Insulin Lispro (1 Unit Dial) 100 [...] 2 caps by mouth daily 024 Active Tacrolimus 1 MG Oral Capsule [...] MOUTH TWICE DAILY 360 Capsule 025 Active OneTouch Ultra In Vitro Strip (Glucose Blood)Indications: Type 2 diabetes mellitus with hemoglobin A1c goal of less than 7.0% (HCC) test 3 times daily 300 Strip 1 025 Active Omeprazole 20 MG Oral Capsule Delayed Release (PriLOSEC)Indicati ons:Status post liver transplantation (HCC) TAKE ONE CAPSULE BY MOUTH IN THE MORNING 1 HOUR BEFORE FIRST DAILY MEAL 90 Capsule 1 025 Active OneTouch Ultra In Vitro Strip (Glucose Blood)Indications: Type 2 diabetes mellitus with hemoglobin A1c goal of less than 7.0% (HCC) test 3 times daily 300 Strip 3 023 2024 Discontinued Omeprazole 20 MG Oral Capsule Delayed Release (PriLOSEC)Indicati ons:Status post liver transplantation (HCC) TAKE ONE CAPSULE BY MOUTH IN THE MORNING 1 HOUR BEFORE FIRST DAILY MEAL 90 Capsule 1 024 2024 Discontinued documented as of this encounter (statuses as of 10/06/2024) Active Problems Problem Noted Date Diagnosed Date [...] as of this encounter (statuses as of 10/06/2024) Resolved Problems Problem Noted Date Diagnosed Date [...] for Patients with Cardiovascular Disease Project # [id number] PI: Susan Harmon MD Please call [phone] with study related questions GENOMICS CARDIO RESEARCH OTHER*[id number] 04/19/2008 10/29/2016 Overview (01/05/2010): Renamed Per Clinical Trials Billing Project. 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 Not on file Not on file documented as of this encounter Miscellaneous Notes * Telephone Encounter - Oliver Mahoney RP - 10/06/2024 9:20 AM EST Signed Prescriptions: Disp Refills OneTouch Ultra In Vitro Strip (Glucose Blo*300 St*1 Sig: test 3times dailyAuthorizing Provider: ELLEN RAGLAND User: OLIVER MAHONEY Omeprazole 20 MG Oral Capsule Delayed Rele*90 Cap*1 Sig: TAKE ONE CAPSULE BY MOUTH IN THE MORNING 1 HOUR BEF ORE FIRST DAILY MEALAuthorizing Provider: ELLEN RAGLAND User: OLIVER MAHONEY documented in this encounter Plan of Treatment [...] 03/21/2015, 04/0 10/2012, 12/21/2010, Additional history exists DTap/Tdap Vaccines [...] Additional history exists CKD PHOS USE SMARTSET 95635 04/22/2024 08/0 09/2022, 11/15/2020, 04/01/2017, Additional history exists GFR 09/23/2024 03/23/2024, 06/23, 04/22/2023, Additional history exists HbA1c 09/23/2024 03/23/2024, 03/22, 11/15/2020, Additional history exists CKD HGB USE SMARTSET 03445 03/23/202503/23, 03/23/2024, 07/15/2023, Additional history exists Lipid Panel 03/23/2029 03/23/2024, 10/24, 09/27/2015, Additional history exists VITAMIN D LEVEL ONCE IN A LIFETIME-USE SMARTSET# 86745 Completed 03/23/2024, 04/09/2023, 08/10/2018, Additional history exists HPV (Gardasil) Vaccine Aged Out No lo nger eligible based on patient's age to complete this topic MENINGOCOCCAL (MENACTRA/MENVEO) Aged Out No longer eligible based on patient's age to complete this topic documented as of this encounter Medical Devices Implanted Type Area Animal Ride Attendant Device Identifier Shelf Expiration Date Model / Serial / Lot Allomax Implanted:Qty: 1 on 08/05/2008 at [place] [facility] 04/22/2013 [id number] / / Description:allomax surgical graft, tissue #[id number] Kyphopak 20/3 [id number] - [id number] Implanted:Qty: 1 on 11/23/2008 at [place] [facility] [employer] [id number] / / documented as of this encounter Visit Diagnoses Diagnosis Type 2 diabetes mellitus with hemoglobin A1c goal of less than 7.0% (HCC) Status post liver transplantation (HCC) Liver replaced by transplant documented in [...] 8:28 PM 08/03/2008 1:10 PM Care Teams Internet Developer Relationship Specialty Start Date End Date Ellen Ragland MD [facility] [place] [address] PCP - General 05/17/08 documented as of this encounter
--- OUTSIDE RECORDS SUMMARY | 2024-10-15 20:33 | External Medical Summary | Summary of Care ---
Author Name Unknown Organization [facility] Address [address] [facility] [address] Phone [phone] Care Team Providers Care Varnish Melter Helper Name Role Phone Ivette Ragland MD Primary Care Provider + Reason for Visit * Reason Comments Follow Up Pt here with annette christian for f/u s/p liver transplant. Pt needs med refills. Encounter Details Date Type Department Care Team (Late st Contact Info) Description 07/06/2024 8:20 AM EDT Office Visit Hepatology, [facility] [address] [facility] [place] [address] Viviana Hill MD [address] [place] [address] [place] [phone] Status post liver transplant (HCC)*; Status post [...] goal of less than 7.0% ([facility]),Type 2 diabetes mellitus with stage 3 chronic kidney disease, with long-term current use of insulin, unspecified whether stage 3a or 3b CKD ([facility]) inject 13 units under the skin [...] for Patients with Cardiovascular Disease Project # [id number] PI: Susan Harmon MD Please call [phone] with study related questions GENOMICS CARDIO RESEARCH OTHER*[id number] 04/19/2008 10/29/2016 Overview: Renamed Per Clinical Trials Billing Project. Study Titile: Genomics Markers for Patients with Cardiovascular Disease Project # [id number] PI: Susan Harmon MD Please call [phone] with study related questions Hypocalcemia 12/02/2005 04/17/2018 [...] MDV , IM, 0.5 mL (Fluzone) 08/12/2013,10/09/2012,09/04/2011,07/24,08/15/2009,07/04/2008,06/26/2007 ,07/15/2005,06/30/2003,08/11/2002 TDAP, Age 7 and older, IM (Adacel) [...] Last abdominal ultrasound report reviewed- done at [facility] - normal appearing liver, normal portal flow A/P: Post oltx in 2007- doing stable Though bedridden Refills given of both meds as per their request Last lft's and cbc wnl Repeat tacrolimus level ordered today to ensure Continue boost. 1 yr video fup given it is hard for them to mobilize her. Viviana Hill MD Post visit labs - tac level wnl (5.6) documented in this encounter Nursing Notes * [...] EDT Office Visit General Internal Medicine [address] [place] [address] [place] [address] Ivette Ragland MD [address] [place] [address] Health Maintenance Due Date Last Done Comments [...] Additional history exists CKD PHOS USE SMARTSET 67005 04/22/2024 08/0 09/2022, 11/15/2020, 04/01/2017, Additional history exists GFR 09/23/2024 03/23/2024, 06/23, 04/22/2023, Additional history exists HbA1c 09/23/2024 03/23/2024, 03/22, 11/15/2020, Additional history exists CKD HGB USE SMARTSET 79622 03/23/202503/23, 03/23/2024, 07/15/2023, Additional history exists Lipid Panel 03/23/2029 03/23/2024, 10/24, 09/27/2015, Additional history exists VITAMIN D LEVEL ONCE IN A LIFETIME-USE SMARTSET# 97834 Completed 03/23/2024, 04/09/2023, 08/10/2018, Additional history exists HPV (Gardasil) Vaccine Aged Out No lo nger eligible based on patient's age to complete this topic MENINGOCOCCAL (MENACTRA/MENVEO) Aged Out No longer eligible based on patient's age to complete this topic documented as of this encounter Medical Devices Implanted Type Area Crystal Evaluator Device Identifier Shelf Expiration Date Model / Serial / Lot Allomax Implanted:Qty: 1 on [place]05/[place] [facility] [place] [id number] / / Description:allomax surgical graft, tissue #[id number] Kyphopak 20/3 [id number] - [id number] Implanted:Qty: 1 on 11/23/2008 [place] [facility] [employer] [id number] / / documented as of this encounter Results * TACROLIMUS LEVEL (07/06/2024 8:45 AM EDT) Tacrolimus 5.6 4.0 - 12.0 ng/mL 07/06/2024 2:33 PM EDT [facility] [place] Venous blood specimen / Unknown Venipuncture / Unknown 07/06/2024 8:45 AM EDT 07/06/2024 8:45 AM EDT Narrative [facility] - 07/06/2024 2:33 PM EDT Test performed by Immunoassay on Abine. Therapeutic ranges vary with type of transplant, time post-transplant, clinical protocols, and testing methodology. Results should be interpreted with clinical presentation and any signs rejection/toxicity. Viviana Hill MD LAB BLOOD ORDERABLES [facility] [address] [place] [address] documented in this encounter Visit Diagnoses Diagnosis Status post [...] 8:28 PM 08/03/2008 1:10 PM Care Teams Varnish Melter Helper Relationship Specialty Start Date End Date Ivette Ragland MD [address] [place] [address], [place] [address] PCP - General 05/17/08 documented as of this encounter
--- OUTSIDE RECORDS SUMMARY | 2024-10-15 20:33 | External Medical Summary | Summary of Care ---
Author Name Unknown Organization [facility] Address [address] [facility] [address] Phone [phone] Care Team Providers Care Basket Filler Name Role Phone Ivette Ragland MD Primary Care Provider + Reason for Visit * Reason Comments Follow Up Pt here with annette christian for f/u s/p liver transplant. Pt needs med refills. Encounter Details Date Type Department Care Team (Late st Contact Info) Description 07/06/2024 8:20 AM EDT Office Visit Hepatology, [facility] [address] [facility] [place] [address] Trista Zhong MD [address] [place] [address] [place] [id number] Status post liver transplant (HCC)*; Status post [...] of less than 7.0% ([facility]),Type 2 diabetes mellitus with stage 3 chronic kidney disease, with long-term current use of insulin, unspecified whether stage 3a or 3b CKD ([facility]) inject 13 units under [...] for Patients with Cardiovascular Disease Project # [id number] PI: Ssuan Harmon MD Please call [phone] with study related questions GENOMICS CARDIO RESEARCH OTHER*[id number] 04/19/2008 10/29/2016 Overview: Renamed Per Clinical Trials Billing Project. Study Titile: Genomics Markers for Patients with Cardiovascular Disease Project # [id number] PI: Susan Harmon MD Please call [phone] with study related questions Hypocalcemia 12/02/2005 04/17/2018 [...] documented in this encounter Progress Notes * Trista Zhong MD - 07/06/2024 8:20 AM EDT Hepatology [...] is hard for them to mobilize her. Trista Zhong MD Post visit labs - tac level wnl (5.6) documented in this encounter Nursing Notes * Lynne Payne CMA - 07/06/2024 8:07 AM EDT Chief Complaint Patient presents with Follow Up Pt here with daughter for f/u s/p liver transplant. Pt needs med refills. documented in this encounter Miscellaneous Notes * Addendum Note - Trista Zhong MD - 07/06/2024 3:36 PM EDTAddended by: TRISTA ZHONG on: 07/06/2024 03:36 PM Modules accepted: Level of Service documented in this encounter Plan of Treatment Upcoming Encounters Date Type Department Care Team (Late st Contact Info) Description 07/20/2024 9:20 AM EDT Office Visit General Internal Medicine [place] [address] [place] [address] Ivette Ragland MD [address] [facility] [place] [address] Health Maintenance Due Date Last Done Comments [...] Additional history exists CKD PHOS USE SMARTSET 23670 04/22/2024 08/0 09/2022, 11/15/2020, 04/01/2017, Additional history exists GFR 09/23/2024 03/23/2024, 06/23, 04/22/2023, Additional history exists HbA1c 09/23/2024 03/23/2024, 03/22, 11/15/2020, Additional history exists CKD HGB USE SMARTSET 73530 03/23/202503/23, 03/23/2024, 07/15/2023, Additional history exists Lipid Panel 03/23/2029 03/23/2024, 10/24, 09/27/2015, Additional history exists VITAMIN D LEVEL ONCE IN A LIFETIME-USE SMARTSET# 34886 Completed 03/23/2024, 04/09/2023, 08/10/2018, Additional history exists HPV (Gardasil) Vaccine Aged Out No lo nger eligible based on patient's age to complete this topic MENINGOCOCCAL (MENACTRA/MENVEO) Aged Out No longer eligible based on patient's age to complete this topic documented as of this encounter Medical Devices Implanted Type Area Business Administration Professor Device Identifier Shelf Expiration Date Model / Serial / Lot Allomax Implanted:Qty: 1 on [place]05/[place] [facility] [place] [id number] / / Description:allomax surgical graft, tissue #[id number] [employer] 20/3 [id number] - [id number] Implanted:Qty: 1 on 11/23/2008 [place] [facility] [employer] [id number] / / documented as of this encounter Results * TACROLIMUS LEVEL (07/06/2024 8:45 AM EDT) Tacrolimus 5.6 4.0 - 12.0 ng/mL 07/06/2024 2:33 PM EDT [facility] Blood Venous blood specimen / Unknown Venipuncture / Unknown 07/06/2024 8:45 AM EDT 07/06/2024 8:45 AM EDT Narrative [facility] - 07/06/2024 2:33 PM EDT Test performed by Immunoassay on [employer]. Therapeutic ranges vary with type of transplant, time post-transplant, clinical protocols, and testing methodology. Results should be interpreted with clinical presentation and any signs rejection/toxicity. Trista Zhong MD LAB BLOOD ORDERABLES [facility] [address] [place] [address] documented in this encounter Visit [...] 8:28 PM 08/03/2008 1:10 PM Care Teams Basket Filler Relationship Specialty Start Date End Date Ivette Ragland MD [address] [place] [address] PCP - General 05/17/08 documented as of this encounter
--- OUTSIDE RECORDS SUMMARY | 2024-10-15 20:33 | External Medical Summary | Summary of Care ---
Author Name Unknown Organization [facility] Address [address] [place] [address] Phone [phone] Care Team Providers Care Highway Painter Helper Name Role Phone Ivette Ragland MD Primary Care Provider + Reason for Visit * Reason Onset Date Comments Precert Approved 07/06/2024 Mycophenolate Encounter Details Date Type Department Care Team (Late st Contact Info) Description 07/06/2024 Telephone Gastroenterology, [address] [address] Viviana Hill MD [address] [place] [address] Precert Approved (Mycophenolate) Allergies Active Allergy Reactions Criticality Noted Date Comments Codeine 03/05/2001 Just with plain codeine , not vicodin or percocet Johansen-2 Inhibitors (Sulfonamide) 07/08 Legs numb, knots in legs celebrex Influenza Virus Vaccine 12/18/2018 Allergic reaction Pneumococcal Polysaccharides Conjugated Vaccine 12/18/2018 Allergy Rofecoxib 07/08/2001 Nausea documented as of this encounter (statuses as of 07/07/2024) Medications Medication Sig Dispensed Refills Start Date [...] A1c goal of less than 7.0% ([facility]) test 3 times daily 300 Strip 3 09/11/2023 Active Insulin Lispro (1 Unit Dial) 100 UNIT/ML Subcutaneous Solution Pen-injector (HumaLOG KwikPen) inject 8 units 2 times daily 15 mL 11 03/04/2024 Active Additional Information Patient not taking.Reported on 03/23/2024 Levemir FlexTouch 100 UNIT/ML Subcutaneous Solution Pen-injector (Insulin Detemir)Indications: Type 2 diabetes mellitus with hemoglobin A1c goal of less than 7.0% ([facility]),Type 2 diabetes mellitus with stage 3 [...] as of this encounter (statuses as of 07/07/2024) Active Problems Problem Noted Date Diagnosed Date [...] as of this encounter (statuses as of 07/07/2024) Resolved Problems Problem Noted Date Diagnosed Date [...] for Patients with Cardiovascular Disease Project # [id number] PI: Susan Harmon MD Please call [phone] with study related questions GENOMICS CARDIO RESEARCH OTHER*[id number] 04/19/2008 10/29/2016 Overview: Renamed Per Clinical Trials Billing Project. Study Titile: Genomics Markers for Patients with Cardiovascular Disease Project # [id number] PI: Susan Harmon MD Please call [phone] with study related questions Hypocalcemia 12/02/2005 04/17/2018 [...] as of this encounter (statuses as of 07/07/2024) Immunizations Name Administration Dates Next Due Hepatitis [...] encounter Miscellaneous Notes * Telephone Encounter - Steph Patrick RN - 07/07/2024 2:38 PM EDT Type Date User Summary Attachment Precert 07/07/2024 2:35 PM Adela Faria OSA Please see scanned fax from insurance under theMedia Tab. - Note: Please see scanned fax from insurance under the Media Tab. Approved/Denied: approved Drug Name and Formulation: Mycophenolate Mofetil 250mg caps Take 2 capsules by mouth twice daily. How Prescribed(directions/sig): Mycophenolate Mofetil 250mg caps Take 2 capsules by mouth twice daily. Qty and Day Supply: 120/30 Did you receive insurance information from outside the chart? No, received insurance information within the chart Valid auth start date: 05/07/2024 Valid auth end date: 07/06/2025 Rx Insurance Info: deondre GREENE Reference #: [id number] Adela Faria Medication Tamale Machine Feeder III [facility] ([facility]) P: [phone] F: [phone] 07/07/24,2:35 PM * Telephone Encounter - Lynne Payne CMA - 07/06/2024 1:38 PM EDT Gastro Pre-Cert Request Specialty Medication: No. Medication/Disease State Information: Medication: Mycophenolate Mofetil 250mg caps Take 2 capsules b ymouth twice daily. Diagnosis (including ICD-10): s/p liver transplant Z94.4 Site of care: Self-administered - route pre-cert request to [id number] Office Information: Prescriber: Viviana Hill MD OV note 07/06/24 documented in this encounter Plan of Treatment Upcoming Encounters Date Type Department Care Team (Late st Contact Info) Description 07/20/2024 9:20 AM EDT Office Visit General Internal Medicine [place] [address] [place] [address] Ivette Ragland MD [address] [place] [address] Health Maintenance Due Date Last Done Comments [...] Additional history exists CKD PHOS USE SMARTSET 42378 04/22/2024 08/0 09/2022, 11/15/2020, 04/01/2017, Additional history exists GFR 09/23/2024 03/23/2024, 06/23, 04/22/2023, Additional history exists HbA1c 09/23/2024 03/23/2024, 03/22, 11/15/2020, Additional history exists CKD HGB USE SMARTSET 44639 03/23/202503/23, 03/23/2024, 07/15/2023, Additional history exists Lipid Panel 03/23/2029 03/23/2024, 10/24, 09/27/2015, Additional history exists VITAMIN D LEVEL ONCE IN A LIFETIME-USE SMARTSET# 05520 Completed 03/23/2024, 04/09/2023, 08/10/2018, Additional history exists HPV (Gardasil) Vaccine Aged Out No lo nger eligible based on patient's age to complete this topic MENINGOCOCCAL (MENACTRA/MENVEO) Aged Out No longer eligible based on patient's age to complete this topic documented as of this encounter Medical Devices Implanted Type Area Financial Services Rep Device Identifier Shelf Expiration Date Model / Serial / Lot Allomax Implanted:Q[place]: 1 [place] [facility] [place] [id number] / / Description:allomax surgical graft, tissue #[id number] [employer] 09/12 [id number] - [id number] Implanted:Qty: 1 on 11/23/2008 [place] [facility] [employer] [id number] / / documented as of this encounter Advance Directives * Full Code [...] 8:28 PM 08/03/2008 1:[address] Painter Helper Relationship Specialty Start Date End Date Ivette Ragland MD [address] [facility] [place] [address] PCP - General 05/17/08 documented as of this encounter
[2024-10-15] MEDS ORDERED: LACTATED RINGER'S 1,000 ML IV SCH (21:12)
[2024-10-15] MEDS ORDERED: GLUCOSE 10 TAB/TUBE PO PRN (21:12)
[2024-10-15] MEDS ORDERED: DEXTROSE 50% 50 ML SYRINGE IV PRN (21:12)
[2024-10-15] MEDS ORDERED: ONDANSETRON INJ 2 MG/ML 2 ML VIAL IV PRN (21:12)
[2024-10-15] MEDS ORDERED: GLUCOSE 40% GEL 15 GM TUBE PO PRN (21:12)
[2024-10-15] MEDS ORDERED: GLUCAGON FOR INJ 1 MG VIAL SQ PRN (21:12)
[2024-10-15] MEDS: SODIUM CHLORIDE 0.9% 1,000 ML IV SCH (21:43)
[2024-10-15] MEDS: HEPARIN SOD 5,000 UNIT/0.5 ML VIAL SQ SCH (22:08)
[2024-10-15] MEDS: INSULIN ASPART PER UNIT CHARGE SC SCH (22:09)
[2024-10-15] MEDS: TACROLIMUS 1 MG CAP PO SCH (22:10)
[2024-10-15] MEDS: MYCOPHENOLATE MOFETIL 250 MG CAP PO SCH (22:10)
[2024-10-15] MEDS: LANTUS PER UNIT CHARGE SQ SCH (22:19)
[2024-10-15] MEDS: LANTUS PER UNIT CHARGE SC SCH (22:20)
[2024-10-15 23:23] LABS: BUN Creatinine Ratio 27.1 (10-20); Calcium 8.5 mg/dl (8.6-10.3); Creatinine Clr Calc Pharmacy 23.4 ml/min; Magnesium 1.8 mg/dl (1.7-2.4); Potassium 4.8 mmol/L (3.5-5.1)
[2024-10-16 05:01] LABS: Hematocrit (blood only) 25.5 % (37.0-47.0); Hemoglobin 8.3 g/dl (12.0-16.0); Mean Corpuscular Hemoglobin 28.5 pg (25.0-34.0); Mean Corpuscular Hgb Conc 32.5 g/dL (32.0-36.0); Mean Corpuscular Volume 87.6 fL (80.0-100.0); Mean Platelet Volume 10.1 fL (9.4-12.4); Platelet Count 170 K/uL (130-400); RDW Coefficient of Variation 14.8 % (11.5-14.5); RDW Standard Deviation 46.8 fL (36.4-46.3); Red Blood Count 2.91 M/uL (4.20-5.40); White Blood Count 5.74 K/ul (4.8-10.8)
[2024-10-16 05:28] LABS: Albumin Globulin Ratio 1.5 (0.9-2); Albumin Level 3.4 gm/dl (3.4-5.0); BUN Creatinine Ratio 26.6 (10-20); Bilirubin,Total 0.3 mg/dl (0.2-1.0); Calcium 8.5 mg/dl (8.6-10.3); Creatinine Clr Calc Pharmacy 22.5 ml/min; Globulin 2.2 gm/dl (2.5-4.0); Magnesium 2.4 mg/dl (1.7-2.4); Phosphorus 4.1 mg/dl (2.5-4.9); Potassium 4.5 mmol/L (3.5-5.1); Total Protein 5.6 gm/dl (6.0-8.3)
[2024-10-16 07:33] LABS: Estimated Average Glucose 103 mg/dl; Hemoglobin A1C 5.2 % (4.5-5.6)
[2024-10-16] MEDS: cefTRIAXone SODIUM 1,000 MG/50 ML BAG IV SCH (09:10)
[2024-10-16] MEDS: PANTOprazole 40 MG TAB PO SCH (09:15)
[2024-10-16] MEDS: DULoxetine HCL 60 MG CAP PO SCH (09:15)
--- NOTE | 2024-10-16 10:58 | Gastrointestinal Consultation ---
Date of Consultation October 16, 2024 Assessment & Plan (1) Colitis: I don't have much to add as I cannot get a helpful picture. However logic would point to her having norovirus as well since she was exposed to it. She is confused but should not have hepatic encephalopathy as her transplanted liver se ems to be functioning well. I would look for another cause for her confusion. I would do routine stool studies and check c. diff and treat as appropriate once we get those back. History of Present Illness Reason for Consultation: colitis Attending Physician: Dionicio Hayes, DO History of Present Illness Asked to see for colitis. Patient told me four times she was not Gloria Rios. I went and rechecked the computer and went back in and talked with her. I could not hear much of what she says as she is very soft spoken and she mumbles as well. All I could get out of her was that they brought her here because "she shit herself". She is unaware and unable to communicate any other information. CT does show evidence of colitis and apparently it was obtained that she has been exposed to norovirus. She is status post liver transplant and follows with Dr. Hill although she tells me she doesn't see her. Allergies Allergy/AdvReac Type Severity Reaction Status Date / Time celecoxib AdvReac Intermediate NAUSEA, Verified 10/15/24 17:21 VOMITING codeine AdvReac Intermediate ANXIETY Verified 10/15/24 17:21 hydromorphone AdvReac Intermediate RESTLESS, Verified 10/15/24 17:21 INSOMNIA rofecoxib AdvReac Intermediate LEGS GO Verified 10/15/24 17:21 NUMB Home Medications Medication Instructions Recorded Confirmed Type duloxetine 60 mg capsule,delayed 60 mg PO DAILY 11/08/23 10/15/24 History release mycophenolate mofetil 250 mg 500 mg PO BID 11/08/23 10/15/24 History capsule omeprazole 20 mg capsule,delayed 20 mg PO DAILY 11/08/23 10/15/24 History release tacrolimus 1 mg capsule, 1 mg PO AMHS 11/08/23 10/15/24 History immediate-release cranberry extract-vitamin C 250 2 cap PO DAILY 10/15/24 10/15/24 History mg-60 mg capsule (Azo Cranberry Plus Vit C) insulin detemir U-100 100 unit/mL 13 unit subcut BID 10/15/24 10/15/24 History (3 mL) subcutaneous pen Patient History Medical History Closed fracture of left proximal humerus Diabetes Left hip pain (10/07/13) Back pain Surgical History History of right hip hemiarthroplasty History of hysterectomy History of cholecystectomy Liver transplanted Family History Other Cancer Diabetes Social History Smoking Status: Former smoker Tobacco Type: Cigarettes Second Hand Exposure: No; Do You Dip or Chew Tobacco: No; Tobacco Cessation Education Requested by Patient: No Hx Alcohol Use: No Hx Substance Use: No Preferred Language: Italian Communication Ability: Effective Sole Painter Required: No Beliefs That Will Affect Care: None marital status: / Current Living Situation: Family Current Living Situation Comment: Pt lives with daughter and family Other Information That Helps Us Care for You: No Feels Safe at Home: Yes Assistive Devices: Denture - Upper and Denture - Lower Assistive Devices Comment: Pt is bedbound at home Review of Systems Review of Systems: Unobtainable due to cognitive status Physical Exam Constitutional: + ill appearing Neck: trachea midline, no thyromegaly Respiratory: normal respiratory effort, lungs clear to auscultation Cardiovascular: RRR, no murmur, no edema Gastrointestinal (Abdomen): normal bowel sounds, soft, nontender, no hepatosplenomegaly Results & Data Vital Signs (Past 12 Hours) Vital Signs Temp Pulse Pulse Resp BP Pulse Ox O2 Del Method 10/16/24 07:30 91 H 10/16/24 07:30 Room Air 10/16/24 07:00 36.5 C 105 H 16 123/67 95 Room Air 10/16/24 03:08 36.2 C L 95 H 17 119/71 100 Room Air 10/15/24 23:51 Room Air 10/15/24 23:51 36.3 C L 98 H 17 119/74 99 Room Air Laboratory Results 10/16/24 10/16/24 10/15/24 Range/Units 08:03 04:05 22:29 WBC 5.74 (4.8-10.8) K/ul RBC 2.91 L (4.20-5.40) M/uL Hgb 8.3 L (12.0-16.0) g/dl Hct 25.5 L (37.0-47.0) % MCV 87.6 (80.0-100.0) fL MCH 28.5 (25.0-34.0) pg MCHC 32.5 (32.0-36.0) g/dL RDW Std Deviation 46.8 H (36.4-46.3) fL RDW Coeff of Francisco 14.8 H (11.5-14.5) % Plt Count 170 (130-400) K/uL MPV 10.1 (9.4-12.4) fL Immature Gran % (Auto) % Neut % (Auto) % Lymph % (Auto) % [place] % (Auto) % Eos % (Auto) % Baso % (Auto) % Neut # (Auto) (1.40-6.50) K/uL Lymph # (Auto) (1.20-3.40) K/uL [place] # (Auto) (0.11-0.59) K/uL Eos # (Auto) (0.00-0.50) K/uL Baso # (Auto) (0.00-0.20) K/uL Immature Gran # (Auto) (0.01-0.20) K/uL Sodium 137 136 (136-145) mmol/L Potassium 4.5 4.8 (3.5-5.1) mmol/L Chloride 111 H 110 H (98-107) mmol/L Carbon Dioxide 15 L 15 L (21-32) mmol/L Anion Gap 11 11 (3-11) BUN 37 H 39 H (6-23) mg/dl Creatinine 1.39 H 1.44 H (0.6-1.2) mg/dl Est Cr Clr Drug Dosing 22.5 23.4 ml/min eGFR 39.82 38.17 BUN/Creatinine Ratio 26.6 H 27.1 H (10-20) Glucose 106 H 156 H (70-99(Fasting)) mg/dl POC Glucose 132 H (70-99) mg/dl Estimat Average Glucose 103 mg/dl Hemoglobin A1c 5.2 (4.5-5.6) % Calcium 8.5 L 8.5 L (8.6-10.3) mg/dl Phosphorus 4.1 (2.5-4.9) mg/dl Magnesium 2.4 1.8 (1.7-2.4) mg/dl Total Bilirubin 0.3 (0.2-1.0) mg/dl AST 13 (13-39) U/L ALT 6 L (7-52) U/L Alkaline Phosphatase 47 (34-104) U/L Total Creatine Kinase (26-192) U/L Troponin I High Sens (0-14) pg/ml Total Protein 5.6 L (6.0-8.3) gm/dl Albumin 3.4 (3.4-5.0) gm/dl Globulin 2.2 L (2.5-4.0) gm/dl Albumin/Globulin Ratio 1.5 (0.9-2) TSH (0.300-4.500) uIu/ml Urine Color Urine Appearance (Clear) Urine pH (4.5-7.5) Ur Specific Emmons (1.000-1.030) Urine Protein (Negative) Urine Glucose (UA) (Negative) Urine Ketones (Negative) Urine Blood (Negative) Urine Nitrite (Negative) Urine Bilirubin (Negative) Urine Urobilinogen (Negative) Ur Leukocyte Esterase (Negative) Urine WBC (Auto) (0-5) /hpf Urine RBC (Auto) (0-2) /hpf U Hyaline Cast (Auto) (0-2) /lpf U Epithel Cells (Auto) (0-2) /hpf Urine Bacteria (Auto) (None Seen) Hyaline Casts (None Presnt) /lpf WBC Casts (None Prsent) /lpf Tacrolimus Pending SARS-CoV-2 (PCR) (Negative) Influenza Type A (PCR) (Neg) Influenza Type B (PCR) (Neg) RSV (RT-PCR) (Neg) 10/15/24 10/15/24 10/15/24 Range/Units 21:30 17:15 15:00 WBC (4.8-10.8) K/ul RBC (4.20-5.40) M/uL Hgb (12.0-16.0) g/dl Hct (37.0-47.0) % MCV (80.0-100.0) fL MCH (25.0-34.0) pg MCHC (32.0-36.0) g/dL RDW Std Deviation (36.4-46.3) fL RDW Coeff of Francisco (11.5-14.5) % Plt Count (130-400) K/uL MPV (9.4-12.4) fL Immature Gran % (Auto) % Neut % (Auto) % Lymph % (Auto) % [place] % (Auto) % Eos % (Auto) % Baso % (Auto) % Neut # (Auto) (1.40-6.50) K/uL Lymph # (Auto) (1.20-3.40) K/uL [place] # (Auto) (0.11-0.59) K/uL Eos # (Auto) (0.00-0.50) K/uL Baso # (Auto) (0.00-0.20) K/uL Immature Gran # (Auto) (0.01-0.20) K/uL Sodium (136-145) mmol/L Potassium (3.5-5.1) mmol/L Chloride (98-107) mmol/L Carbon Dioxide (21-32) mmol/L Anion Gap (3-11) BUN (6-23) mg/dl Creatinine (0.6-1.2) mg/dl Est Cr Clr Drug Dosing ml/min eGFR BUN/Creatinine Ratio (10-20) Glucose (70-99(Fasting)) mg/dl POC Glucose 162 H (70-99) mg/dl Estimat Average Glucose mg/dl Hemoglobin A1c (4.5-5.6) % Calcium (8.6-10.3) mg/dl Phosphorus (2.5-4.9) mg/dl Magnesium (1.7-2.4) mg/dl Total Bilirubin (0.2-1.0) mg/dl AST (13-39) U/L ALT (7-52) U/L Alkaline Phosphatase (34-104) U/L Total Creatine Kinase (26-192) U/L Troponin I High Sens (0-14) pg/ml Total Protein (6.0-8.3) gm/dl Albumin (3.4-5.0) gm/dl Globulin (2.5-4.0) gm/dl Albumin/Globulin Ratio (0.9-2) TSH (0.300-4.500) uIu/ml Urine Color Yellow Urine Appearance Turbid A (Clear) Urine pH 5.5 (4.5-7.5) Ur Specific Emmons 1.015 (1.000-1.030) Urine Protein 2+ H (Negative) Urine Glucose (UA) Negative (Negative) Urine Ketones Trace H (Negative) Urine Blood 1+ H (Negative) Urine Nitrite Negative (Negative) Urine Bilirubin Negative (Negative) Urine Urobilinogen Negative (Negative) Ur Leukocyte Esterase 3+ H (Negative) Urine WBC (Auto) >50 H (0-5) /hpf Urine RBC (Auto) 3-5 H (0-2) /hpf U Hyaline Cast (Auto) 11-20 H (0-2) /lpf U Epithel Cells (Auto) 0-2 (0-2) /hpf Urine Bacteria (Auto) 2+ H (None Seen) Hyaline Casts Present A (None Presnt) /lpf WBC Casts Present A (None Prsent) /lpf Tacrolimus SARS-CoV-2 (PCR) NEGATIVE (Negative) Influenza Type A (PCR) Negative (Neg) Influenza Type B (PCR) Negative (Neg) RSV (RT-PCR) Negative (Neg) 10/15/24 Range/Units 14:00 WBC 5.69 (4.8-10.8) K/ul RBC 3.45 L (4.20-5.40) M/uL Hgb 9.9 L (12.0-16.0) g/dl Hct 29.8 L (37.0-47.0) % MCV 86.4 (80.0-100.0) fL MCH 28.7 (25.0-34.0) pg MCHC 33.2 (32.0-36.0) g/dL RDW Std Deviation 45.5 (36.4-46.3) fL RDW Coeff of Francisco 14.6 H (11.5-14.5) % Plt Count 190 (130-400) K/uL MPV 10.2 (9.4-12.4) fL Immature Gran % (Auto) 0.5 % Neut % (Auto) 78.2 % Lymph % (Auto) 14.4 % [place] % (Auto) 6.0 % Eos % (Auto) 0.7 % Baso % (Auto) 0.2 % Neut # (Auto) 4.45 (1.40-6.50) K/uL Lymph # (Auto) 0.82 L (1.20-3.40) K/uL [place] # (Auto) 0.34 (0.11-0.59) K/uL Eos # (Auto) 0.04 (0.00-0.50) K/uL Baso # (Auto) 0.01 (0.00-0.20) K/uL Immature Gran # (Auto) 0.03 (0.01-0.20) K/uL Sodium 137 (136-145) mmol/L Potassium 5.0 (3.5-5.1) mmol/L Chloride 109 H (98-107) mmol/L Carbon Dioxide 17 L (21-32) mmol/L Anion Gap 11 (3-11) BUN 45 H (6-23) mg/dl Creatinine 1.67 H (0.6-1.2) mg/dl Est Cr Clr Drug Dosing 20.2 ml/min eGFR 31.95 BUN/Creatinine Ratio 26.9 H (10-20) Glucose 153 H (70-99(Fasting)) mg/dl POC Glucose (70-99) mg/dl Estimat Average Glucose mg/dl Hemoglobin A1c (4.5-5.6) % Calcium 9.0 (8.6-10.3) mg/dl Phosphorus (2.5-4.9) mg/dl Magnesium 0.8 L* (1.7-2.4) mg/dl Total Bilirubin 0.5 (0.2-1.0) mg/dl AST 12 L (13-39) U/L ALT 8 (7-52) U/L Alkaline Phosphatase 51 (34-104) U/L Total Creatine Kinase 15 L (26-192) U/L Troponin I High Sens 5.0 (0-14) pg/ml Total Protein 6.3 (6.0-8.3) gm/dl Albumin 3.9 (3.4-5.0) gm/dl Globulin 2.4 L (2.5-4.0) gm/dl Albumin/Globulin Ratio 1.6 (0.9-2) TSH 1.412 (0.300-4.500) uIu/ml Urine Color Urine Appearance (Clear) Urine pH (4.5-7.5) Ur Specific Emmons (1.000-1.030) Urine Protein (Negative) Urine Glucose (UA) (Negative) Urine Ketones (Negative) Urine Blood (Negative) Urine Nitrite (Negative) Urine Bilirubin (Negative) Urine Urobilinogen (Negative) Ur Leukocyte Esterase (Negative) Urine WBC (Auto) (0-5) /hpf Urine RBC (Auto) (0-2) /hpf U Hyaline Cast (Auto) (0-2) /lpf U Epithel Cells (Auto) (0-2) /hpf Urine Bacteria (Auto) (None Seen) Hyaline Casts (None Presnt) /lpf WBC Casts (None Prsent) /lpf Tacrolimus SARS-CoV-2 (PCR) (Negative) Influenza Type A (PCR) (Neg) Influenza Type B (PCR) (Neg) RSV (RT-PCR) (Neg) Diagnostic Findings Abdomen/Pelvis CT 10/15/24 14:[address] WITH IV CONTRAST CT DOSE: 716.39 mGy.cm HISTORY: pain and loose stools TECHNIQUE: Multiaxial CT images of the abdomen and pelvis were performed following the IV administration of 90 cc of Optiray, A dose lowering technique was utilized adhering to the principles of ALARA. COMPARISON STUDY: 11/08/2023 FINDINGS: There is a trace right pleural effusion with mild dependent atele ctasis at the right lung base. ABDOMEN: Gallbladder is surgically absent. Stable operative changes at the right upper quadrant. Liver, spleen, and adrenal glands are unremarkable. Stable pancreatic atrophy. Kidneys show no hydronephrosis or calculi. Stable cyst inferior right kidney. There are scattered atherosclerotic calcifications. No abdominal aortic aneurysm. Pelvis: Low pelvis is obscured by extensive spray artifact from metallic hip prostheses. There is diffuse colonic wall thickening and inflammation consistent with colitis. No other bowel inflammation or obstruction. No free fluid, free air, or abscess. Osseous structures: Stable old pelvic fractures. Stable multilevel lumbar kyphoplasty and stable height loss at multiple thoracic and lumbar vertebral bodies. IMPRESSION: Diffuse colitis without bowel obstruction or perforation. Otherwise as described. ACT 112: Negative or not required by law. The above report was generated using voice recognition software. It may contain grammatical, syntax or spelling errors. Electronically signed by: Tom Carroll M.D. 10/15/2024 3:51 PM Chest X-Ray 10/15/24 14:08 XR chest 1V portable CLINICAL HISTORY: weakness TECHNIQUE: Single frontal radiograph of the chest was obtained. Comparison: Comparison is made to chest radiograph 03/24/2024 FINDINGS: No lines and tubes are seen. Calcified aortic knob is seen. The lungs are clear. No evidence of pleural effusion or pneumothorax. IMPRESSION: No acute chest disease. ACT 112: Negative or not required by law. Electronically signed by: Ike Sheehan M.D. 10/15/2024 2:[address] 10/15/24 14:08 CT head/brain wo con CLINICAL HISTORY: ams Technique: Contiguous axial CT images of the head were acquired from the base of the skull to the vertex without intravenous contrast administration. Images were viewed in brain, subdural and bone windows. Automated dose lowering techniques and/or adjustment according to patient size were utilized for this exam. Comparison: Comparison is made to CT head 04/13/2024 Findings: Areas of decreased attenuation are present in the periventricular and subcortical white matter bilaterally consistent with small vessel ischemic disease. Generalized cerebral atrophy with commensurate enlargement of the ventricles, sulci, and cisterns is also present. There is no acute intracranial hemorrhage or evidence of acute territorial infarction. No shift of the midline structures, mass effect, or extra-axial abnormalities are shown. Atherosclerotic calcifications are present in the intracranial segments of the internal carotid arteries. The orbits appear normal. There are no acute fractures of the calvaria or scalp swelling. Incidental note is made of cerumen in the right ear and asymmetry of the bilateral mastoids, unchanged from prior exam. Chronic ethmoid sinusitis is noted. Impression: No acute intracranial hemorrhage, no evidence of acute territorial infarction or other acute intracranial disease process. ACT 112: Negative or not required by law. Electronically signed by: Ike Sheehan M.D. 10/15/2024 3:50 PM
--- NOTE | 2024-10-16 12:51 | Hospitalist Progress Note ---
Date of Service October 16, 2024 Assessment & Plan (1) Metabolic encephalopathy: (2) Suspected urinary tract infection: (3) Gastroenteritis due to norovirus: (4) Hypomagnesemia: (5) Acute kidney injury superimposed on CKD: (6) History of liver transplant: (7) Immunosuppressed status: (8) Diabetes mellitus, type II: Plan Patient with acute metabolic encephalopathy due to combination of recent norovirus gastroenteritis and subsequent presumed UTI. Continue Rocephin, follow urine culture Continue IV hydration Continue to monitor electrolytes and renal function Patient has not had any stools yet since admitted to the hospital. Patient had significant exposure to norovirus, highly suspect patient had norovirus infection which is now improved but subsequently got UTI Continue other supportive care Phone conversation with patient's son-in-law and daughter separately. They both confirm that patient is DNR/DNI. They report that she normally can carry on a conversation and has clear speech. She does get hospital delirium and does get significant encephalopathy path the when she has an infection and this is occurred previously. Continue to monitor glucose and cover with insulin Therapies Admission and Anticipated Discharge Date Admission Date: October 15, 2024 Subjective Patient still seems to be somewhat confused and encephalopathic. Mumbling words but did seem to try to answer questions Physical Exam Physical Exam: Constitutional: Sleepy, somewhat frail in appearance HEENT: Mucous membranes slightly dry Lungs: Clear to auscultation, decreased, no wheezes rales or rhonchi CV: S1-S2, regular Abdomen: Soft, nontender, nondistended Extremities: No significant edema Neuro: Generalized weakness, mumbled speech Psych: Cooperative, normal mood Results & Data Results & Data Vital Signs (Past 12 Hours) Vital Signs Temp Pulse Pulse Resp BP Pulse Ox O2 Del Method 10/16/24 11:00 36.8 C 89 16 100/57 L 96 Room Air 10/16/24 07:30 91 H 10/16/24 07:30 Room Air 10/16/24 07:00 36.5 C 105 H 16 123/67 95 Room Air 10/16/24 03:08 36.2 C L 95 H 17 119/71 100 Room Air Diagnostic Findings Reviewed imaging, laboratory and diagnostic studies. Pertinent findings as below. WBCs 5.7 Hemoglobin 8.3, in general baseline area Electrolytes reviewed Creatinine 1.39, improved Glucoses reviewed Hemoglobin A1c 5.2% Magnesium 2.4, significantly improved TSH 1.4 Urine culture pending
[2024-10-17 07:13] LABS: Hemoglobin 7.8 g/dl (12.0-16.0); Mean Corpuscular Hemoglobin 29.8 pg (25.0-34.0); Mean Corpuscular Hgb Conc 33.9 g/dL (32.0-36.0); Mean Corpuscular Volume 87.8 fL (80.0-100.0); Mean Platelet Volume 9.6 fL (9.4-12.4); Platelet Count 138 K/uL (130-400); RDW Coefficient of Variation 15.1 % (11.5-14.5); RDW Standard Deviation 48.2 fL (36.4-46.3); Red Blood Count 2.62 M/uL (4.20-5.40); White Blood Count 3.62 K/ul (4.8-10.8)
[2024-10-17 07:36] LABS: BUN Creatinine Ratio 24.3 (10-20); Calcium 8.8 mg/dl (8.6-10.3); Creatinine Clr Calc Pharmacy 22.3 ml/min; Potassium 4.4 mmol/L (3.5-5.1)
[2024-10-17 08:33] LABS: C Reactive Protein 2.44 mg/dl (0-0.5)
[2024-10-17 08:53] LABS: Ferritin 895.5 ng/ml (8-388)
[2024-10-17 08:59] LABS: Folate (Folic Acid),Ser orPlas 7.97 ng/ml (>5.38)
[2024-10-17] MEDS: D5W AND LACTATED RINGERS 1,000 ML IV SCH (10:36)
--- NOTE | 2024-10-17 11:49 | Hospitalist Progress Note ---
Date of Service October 17, 2024 Assessment & Plan (1) Metabolic encephalopathy: (2) Gastroenteritis due to norovirus: (3) Metabolic acidosis: (4) Acute dehydration: (5) Acute on chronic anemia: (6) Hypomagnesemia: (7) Acute kidney injury superimposed on CKD: (8) History of liver transplant: (9) Immunosuppressed status: (10) Diabetes mellitus, type II: Plan Patient still with metabolic encephalopathy although appears to be improving. Patient has been ruled out for urinary tract infection, no growth on culture. Suspect patient's symptoms are related to norovirus gastroenteritis which is subsequently resolved. However, patient still remains significantly dehydrated with evidence of extremely dry mucous membranes and metabolic acidosis. Resume IV fluid resuscitation Encourage oral intake Discontinue antibiotics, no evidence of urinary tract infection Patient's anemia appears to be somewhat chronic. Most likely due to her chronic medical issues. Slight decrease may be somewhat dilutional. Will continue to monitor hemoglobin Therapies Updated patient's son-in-law via phone. Admission and Anticipated Discharge Date Admission Date: October 15, 2024 Subjective Patient appears a bit more interactive today but still mumbling words Physical Exam Physical Exam: Constitutional: Alert, less drowsy and a little bit more interactive HEENT: Mucous membranes still very dry Lungs: Clear to auscultation, decreased, no wheezes rales or rhonchi CV: S1-S2, regular Abdomen: Soft, nontender, nondistended Extremities: No significant edema Neuro: Continues to mumble words, generalized weakness Psych: Cooperative, n Results & Data Results & Data Vital Signs (Past 12 Hours) Vital Signs Temp Pulse Resp BP BP Pulse Ox O2 Del Method 10/17/24 11:21 118/68 10/17/24 10:26 36.4 C L 96 H 14 111/66 100 Room Air 10/17/24 07:32 36.5 C 95 H 19 152/77 H 98 Room Air Diagnostic Findings Reviewed imaging, laboratory and diagnostic studies. Pertinent findings as below. Urine culture no growth Hemoglobin 7.8 Carbon dioxide 15 Creatinine 1.4 Iron 127 Trans ferritin 109 Ferritin 895.5 C-reactive protein 2.4 Vitamin B12 1035 Folate 7.9
[2024-10-17 15:08] LABS: Adenovirus F 40/41 PCR Not Detected (NotDetected); Astrovirus PCR Not Detected (NotDetected); Campylobacter PCR Not Detected (NotDetected); Cryptosporidium PCR Not Detected (NotDetected); Cyclospora cayetanensis PCR Not Detected (NotDetected); Entamoeba histolytica PCR Not Detected (NotDetected); Enteroaggregative E.coli(EAEC) Not Detected (NotDetected); Enteropathogenic E.coli (EPEC) Not Detected (NotDetected); Enterotoxigenic E.coli (ETEC) Not Detected (NotDetected); Giardia lamblia PCR Not Detected (NotDetected); Plesiomonas shigelloides PCR Not Detected (NotDetected); Rotavirus A PCR Not Detected (NotDetected); Salmonella PCR Not Detected (NotDetected); Sapovirus PCR Not Detected (NotDetected); Shiga-like Toxin E.coli (STEC) Not Detected (NotDetected); Shigella/Enteroinvasive E.coli Not Detected (NotDetected); Vibrio cholerae PCR Not Detected (NotDetected); Vibrio species PCR Not Detected (NotDetected); Yersinia enterocolitica PCR Not Detected (NotDetected)
[2024-10-17 15:10] LABS: Norovirus GI/GII PCR DETECTED (NotDetected)
[2024-10-17] MEDS: ACETAMINOPHEN 325 MG TAB PO PRN (17:53)
[2024-10-18 06:46] LABS: Calcium 8.8 mg/dl (8.6-10.3); Creatinine Clr Calc Pharmacy 25.4 ml/min; Magnesium 1.6 mg/dl (1.7-2.4); Potassium 3.8 mmol/L (3.5-5.1)
[2024-10-18 06:53] LABS: Hematocrit (blood only) 20.4 % (37.0-47.0); Hemoglobin 6.7 g/dl (12.0-16.0); Mean Corpuscular Hgb Conc 32.8 g/dL (32.0-36.0); Mean Corpuscular Volume 85.4 fL (80.0-100.0); Mean Platelet Volume 9.8 fL (9.4-12.4); Platelet Count 112 K/uL (130-400); RDW Coefficient of Variation 14.9 % (11.5-14.5); RDW Standard Deviation 45.8 fL (36.4-46.3); Red Blood Count 2.39 M/uL (4.20-5.40); White Blood Count 2.42 K/ul (4.8-10.8)
--- NOTE | 2024-10-18 07:23 | Hospitalist Progress Note ---
Date of Service October 18, 2024 Assessment & Plan (1) Metabolic encephalopathy: (2) Gastroenteritis due to norovirus: (3) Metabolic acidosis: (4) Acute dehydration: (5) Acute on chronic anemia: (6) Hypomagnesemia: (7) Acute kidney injury superimposed on CKD: (8) History of liver transplant: (9) Immunosuppressed status: (10) Diabetes mellitus, type II: Plan Ms Rios is a 73-year-old female with PMH of type 2 diabetes, dyslipidemia, urinary incontinence, history of liver transplant on Prograf and CellCept following with Dr. Hill, mood disorder below who presents with persistent diarrhea for the past few days iso norovirus. #Pancytopenia #Anemia of chronic disease peripheral smear suspicious for chronic eitology LDH WNL, iron studies reflective of AoCD Trend CBC, transfuse < 7 previously refused colonoscopy given colitis and did not pursue s/p transplant CTM #LEONID on CKDIII improving likely iso GI losses, prerenal improving with fluids Cr 1.67--->1.23 continue to trend BMP avoid neprotoxic agents #Norovirus gastroenteritis #diffuse colitis on imaging #Acute metabolic encephalopathy improving. #NAGMA iso diarrheal illness ruled out urinary tract infection, no growth on culture. Suspect patient's symptoms are related to norovirus gastroenteritis which is subsequently resolved. However, patient still remains significantly dehydrated with evidence of extremely dry mucous membranes and metabolic acidosis. Resume IV fluid resuscitation Encourage oral intake Updated patient's son-in-law via phone. GI signed off, symptomatic management #Diabetes Type II Sliding scale insulin while in hospital. A1c of 5.2 this admission. #Liver cirrhosis status post liver transplant in 2007 Continue tacrolimus Reduce MMF by 50% iso recovery from norovirus #Depression, anxiety: Continue with duloxetine #GERD: Continue home omeprazole #Severe protein calorie malnutrition BMI 15.6 nutrition following, appreciate recommendations #Ambulatory dysfunction: Wheelchair-bound as per daughter DVT Heparin PT/OT recommended extended care facility; dispo pending Admission and Anticipated Discharge Date Admission Date: October 15, 2024 Subjective Hgb initially this am 6.7 Bowel movement brown overnight awakens easily to verbal stimuli, states she doesnt need anything and denies any concerns quick to fall back asleep, but no distress noted and answered simple question appropriately, knows she is in hospital and alert to name Physical Exam Constitutional: frail elderly woman Respiratory: normal respiratory effort, lungs clear to auscultation Cardiovascular: RRR, no murmur, no edema Gastrointestinal (Abdomen): normal bowel sounds, soft, nontender, no hepatosplenomegaly Results & Data Results & Data Vital Signs (Past 12 Hours) Vital Signs Pulse Resp BP Pulse Ox O2 Del Method 10/17/24 20:51 Room Air 10/17/24 19:40 104 H 20 151/79 H 100 Room Air Laboratory Results Short CBC 10/17/24 10/18/24 Range/Units 06:47 05:26 WBC 3.62 L 2.42 L (4.8-10.8) K/ul Hgb 7.8 L 6.7 L* (12.0-16.0) g/dl Hct 23.0 L 20.4 L* (37.0-47.0) % Plt Count 138 112 L (130-400) K/uL BMP 10/17/24 10/18/24 06:47 05:26 Sodium 140 140 Potassium 4.4 3.8 Chloride 116 H 117 H Carbon Dioxide 15 L 16 L BUN 34 H 27 H Creatinine 1.40 H 1.23 H Glucose 99 135 H Calcium 8.8 8.8 Medications Administered Home Medications Medication Instructions Recorded Confirmed Last Taken duloxetine 60 mg capsule,delayed 60 mg PO DAILY 11/08/23 10/15/24 03/24/24 release mycophenolate mofetil 250 mg 500 mg PO BID 11/08/23 10/15/24 03/24/24 capsule omeprazole 20 mg capsule,delayed 20 mg PO DAILY 11/08/23 10/15/24 03/24/24 release tacrolimus 1 mg capsule, 1 mg PO AMHS 11/08/23 10/15/24 03/24/24 immediate-release cranberry extract-vitamin C 250 2 cap PO DAILY 10/15/24 10/15/24 Unknown mg-60 mg capsule (Azo Cranberry Plus Vit C) insulin detemir U-100 100 unit/mL 13 unit subcut BID 10/15/24 10/15/24 Unknown (3 mL) subcutaneous pen Active Medications Generic Name Dose Route Start Last Admin Trade Name Freq PRN Reason Stop Dose Admin Acetaminophen 650 mg 10/15/24 21:12 10/17/24 17:53 Acetaminophen 325 Mg Tab PO 11/14/24 21:11 650 mg Q4H PRN Administration pain/fever Duloxetine HCl 60 mg 10/16/24 09:00 10/17/24 09:13 Duloxetine Hcl 60 Mg Cap PO 11/15/24 08:59 60 mg DAILY ALYSSA Administration Heparin Sodium (Porcine) 5,000 units 10/15/24 21:15 10/17/24 20:51 Heparin Sod 5,000 Unit/0.5 Ml Vial SQ 11/14/24 21:14 5,000 units Q12 ALYSSA Administration Dextrose/Lactated Ringer's 1,000 mls @ 80 mls/hr 10/17/24 09:00 10/17/24 22:44 D5w And Lactated Ringers IV 10/18/24 08:59 80 mls/hr .[id number] ALYSSA Administration Insulin Aspart 0 units 10/15/24 21:15 10/17/24 20:51 Insulin Aspart Per Unit Charge SC 11/14/24 21:14 1 units ACHS ALYSSA Administration Insulin Glargine 0 - 6 units 10/15/24 21:15 10/17/24 09:33 Lantus Per Unit Charge SQ 11/14/24 21:14 4 units DAILY ALYSSA Administration Protocol Pantoprazole Sodium 40 mg 10/16/24 09:00 10/17/24 09:12 Pantoprazole 40 Mg Tab PO 11/15/24 08:59 40 mg DAILY ALYSSA Administration Tacrolimus 1 mg 10/15/24 21:00 10/17/24 20:43 Tacrolimus 1 Mg Cap PO 11/14/24 20:59 Not Given AMHS ALYSSA
[2024-10-18] MEDS: MAGNESIUM SULFATE / D5W 1 GM/100 ML BAG IV ONE (07:31)
[2024-10-18 08:30] LABS: Hematocrit (blood only) 21.4 % (37.0-47.0); Hemoglobin 7.2 g/dl (12.0-16.0)
[2024-10-18] MEDS: MYCOPHENOLATE MOFETIL 250 MG CAP PO SCH (08:37)
[2024-10-18 08:43] LABS: Basophils # (auto) 0.01 K/uL (0.00-0.20); Basophils % (auto) 0.4 %; Eosinophils # (auto) 0.06 K/uL (0.00-0.50); Eosinophils % (auto) 2.4 %; Immature Granulocytes # (auto) 0.01 K/uL (0.01-0.20); Immature Granulocytes % (auto) 0.4 %; Lymphocytes # (auto) 0.48 K/uL (1.20-3.40); Lymphocytes % (auto) 19.2 %; Neutrophils # (auto) 1.74 K/uL (1.40-6.50); Neutrophils % (auto) 69.6 %
--- NOTE | 2024-10-18 08:55 | Gastroenterology Progress Note ---
Date of Service October 18, 2024 Assessment & Plan (1) Gastroenteritis due to norovirus: Plan: 73 year old female with history of liver cirrhosis s/p liver transplant in 2007 on cellcept/tacro, T2DM, hyperlipidemia, gastroparesis, urinary incontinence, stool incontinence, renal osteodystrophy, osteoporosis, thoracic lumbosacral neuritis, thrombocytopenia, anxiety, depression admitted with weakness, decreased appetite and loose stools, altered mental status - colitis on CT, screened positive for norovirus. - Conservative management of norovirus - Follow up with your outpatient casino worker - She has previously refused colonoscopy, encouraged to re-discuss with her casino worker care team to rule out any other pathology Recall GI as needed. Thank you for allowing us to participate in the care of this patient. Please call with any acute changes, questions or concerns. Please see addendum below with additional recommendation from my supervising physician. I spent a total of 40 minutes on the date of service in review of patient's record, and previously obtained information in person and appropriate medical visit, discussion and education of plan, with patient and/or caregiver, placing orders for tests/referral/procedures as medically necessary and documentation of pertinent clinical information in patient's medical records for their visit today. Admission and Anticipated Discharge Date Admission Date: October 15, 2024 Supervising Physician Co-Signing Physician Notes I personally saw and examined the patient. I have reviewed the chart and agree with the documentation provided by the OVERHEAD IRRIGATOR including discussion about the assessment, treatment and plan. Briefly, 73 year old female with history of liver cirrhosis s/p liver transplant in 2007 on cellcept/tacro, T2DM, hyperlipidemia, gastroparesis, urinary incontinence, stool incontinence, renal osteodystrophy, osteoporosis, thoracic lumbosacral neuritis, thrombocytopenia, anxiety, depression admitted with weakness, decreased appetite and loose stools, altered mental status - colitis on CT, screened positive for norovirus. Suppor tive care now for this. IV fluids and advance diet as tolerated. No role for an acute colonoscopy or endoluminal evaluation. I did speak to her and she has not had a colonoscopy close transplant, given her abnormal CT she should follow- up with a colonoscopy with her casino worker. GI will sign off please call us with any questions. Subjective Pt was seen and evaluated, chart reviewed. Stool testing revealed positive norovirus. She denies abd pain, nausea/vomiting. Does endorses decreased appetite and loose stools. 3 BMs documented yesterday. 1 BM documented today. No report of black or bloody stools. Review of Systems Review of Systems: All other findings negative except as noted in HPI. Physical Exam Constitutional: WD/WN, vitals as above Respiratory: normal respiratory effort Cardiovascular: Rate/Rhythm: regular rate and regular rhythm Gastrointestinal (Abdomen): normal bowel sounds, soft, nontender, no hepatosplenomegaly Skin: no rashes, warm and dry Results & Data Results & Data Vital Signs (Past 12 Hours) Vital Signs Temp Pulse Resp BP Pulse Ox O2 Del Method 10/18/24 07:18 97.3 F L 91 H 17 163/83 H 95 Room Air 10/17/24 20:51 Room Air Laboratory Results 10/18/24 10/18/24 10/18/24 Range/Units 08:16 08:04 07:25 WBC (4.8-10.8) K/ul RBC (4.20-5.40) M/uL Hgb 7.2 L (12.0-16.0) g/dl Hct 21.4 L (37.0-47.0) % MCV (80.0-100.0) fL MCH (25.0-34.0) pg MCHC (32.0-36.0) g/dL RDW Std Deviation (36.4-46.3) fL RDW Coeff of Francisco (11.5-14.5) % Plt Count (130-400) K/uL MPV (9.4-12.4) fL Immature Gran % (Auto) % Neut % (Auto) % Lymph % (Auto) % Elliott % (Auto) % Eos % (Auto) % Baso % (Auto) % Neut # (Auto) (1.40-6.50) K/uL Lymph # (Auto) (1.20-3.40) K/uL Elliott # (Auto) (0.11-0.59) K/uL Eos # (Auto) (0.00-0.50) K/uL Baso # (Auto) (0.00-0.20) K/uL Immature Gran # (Auto) (0.01-0.20) K/uL Peripher Smr Path Cons Cancelled PT Pending INR Pending Sodium (136-145) mmol/L Potassium (3.5-5.1) mmol/L Chloride (98-107) mmol/L Carbon Dioxide (21-32) mmol/L Anion Gap (3-11) BUN (6-23) mg/dl Creatinine (0.6-1.2) mg/dl Est Cr Clr Drug Dosing ml/min eGFR BUN/Creatinine Ratio (10-20) Glucose (70-99(Fasting)) mg/dl POC Glucose 158 H (70-99) mg/dl Calcium (8.6-10.3) mg/dl Magnesium (1.7-2.4) mg/dl Ferritin (8-388) ng/ml Lactate Dehydrogenase Pending Vitamin B12 (180-914) pg/ml Folate (>5.38) ng/ml Stl C. cayetanensis PCR (NotDetected) Stool Rotavirus A PCR (NotDetected) Stl Adenov F 40/ PCR (NotDetected) Stool Astrovirus (PCR) (NotDetected) Stool Campylobacter PCR (NotDetected) Stl C. diff Tox B Gene (Neg) Stool Cryptosporidium PCR (NotDetected) Stl E.coli Shiga Tox PCR (NotDetected) Stl Enterotoxigenic E PCR (NotDetected) Stool EPEC (PCR) (NotDetected) Stool EAEC (PCR) (NotDetected) Stl E. histolytica PCR (NotDetected) Stool Giardia Lamblia PCR (NotDetected) Stool Salmonella PCR (NotDetected) Stool Sapovirus (PCR) (NotDetected) Stl P. shigelloides PCR (NotDetected) Stl Shigella/EIEC PCR (NotDetected) St Y.enterocolitica PCR (NotDetected) Stool Vibrio (PCR) (NotDetected) Stl Vibrio cholerae PCR (NotDetected) Stl Norovirus GI/GII PCR (NotDetected) 10/18/24 10/17/24 10/17/24 Range/Units 05:26 20:24 16:33 WBC 2.42 L (4.8-10.8) K/ul RBC 2.39 L (4.20-5.40) M/uL Hgb 6.7 L* (12.0-16.0) g/dl Hct 20.4 L* (37.0-47.0) % MCV 85.4 (80.0-100.0) fL MCH 28.0 (25.0-34.0) pg MCHC 32.8 (32.0-36.0) g/dL RDW Std Deviation 45.8 (36.4-46.3) fL RDW Coeff of Francisco 14.9 H (11.5-14.5) % Plt Count 112 L (130-400) K/uL MPV 9.8 (9.4-12.4) fL Immature Gran % (Auto) 0.4 % Neut % (Auto) 69.6 % Lymph % (Auto) 19.2 % Elliott % (Auto) 8.0 % Eos % (Auto) 2.4 % Baso % (Auto) 0.4 % Neut # (Auto) 1.74 (1.40-6.50) K/uL Lymph # (Auto) 0.48 L (1.20-3.40) K/uL Elliott # (Auto) 0.20 (0.11-0.59) K/uL Eos # (Auto) 0.06 (0.00-0.50) K/uL Baso # (Auto) 0.01 (0.00-0.20) K/uL Immature Gran # (Auto) 0.01 (0.01-0.20) K/uL Peripher Smr Path Cons Pending PT INR Sodium 140 (136-145) mmol/L Potassium 3.8 (3.5-5.1) mmol/L Chloride 117 H (98-107) mmol/L Carbon Dioxide 16 L (21-32) mmol/L Anion Gap 7 (3-11) BUN 27 H (6-23) mg/dl Creatinine 1.23 H (0.6-1.2) mg/dl Est Cr Clr Drug Dosing 25.4 ml/min eGFR 46.11 BUN/Creatinine Ratio 22.0 H (10-20) Glucose 135 H (70-99(Fasting)) mg/dl POC Glucose 194 H 159 H (70-99) mg/dl Calcium 8.8 (8.6-10.3) mg/dl Magnesium 1.6 L (1.7-2.4) mg/dl Ferritin (8-388) ng/ml Lactate Dehydrogenase Vitamin B12 (180-914) pg/ml Folate (>5.38) ng/ml Stl C. cayetanensis PCR (NotDetected) Stool Rotavirus A PCR (NotDetected) Stl Adenov F 40/ PCR (NotDetected) Stool Astrovirus (PCR) (NotDetected) Stool Campylobacter PCR (NotDetected) Stl C. diff Tox B Gene (Neg) Stool Cryptosporidium PCR (NotDetected) Stl E.coli Shiga Tox PCR (NotDetected) Stl Enterotoxigenic E PCR (NotDetected) Stool EPEC (PCR) (NotDetected) Stool EAEC (PCR) (NotDetected) Stl E. histolytica PCR (NotDetected) Stool Giardia Lamblia PCR (NotDetected) Stool Salmonella PCR (NotDetected) Stool Sapovirus (PCR) (NotDetected) Stl P. shigelloides PCR (NotDetected) Stl Shigella/EIEC PCR (NotDetected) St Y.enterocolitica PCR (NotDetected) Stool Vibrio (PCR) (NotDetected) Stl Vibrio cholerae PCR (NotDetected) Stl Norovirus GI/GII PCR (NotDetected) 10/17/24 10/17/24 10/17/24 Range/Units 13:36 11:33 07:59 WBC (4.8-10.8) K/ul RBC (4.20-5.40) M/uL Hgb (12.0-16.0) g/dl Hct (37.0-47.0) % MCV (80.0-100.0) fL MCH (25.0-34.0) pg MCHC (32.0-36.0) g/dL RDW Std Deviation (36.4-46.3) fL RDW Coeff of Francisco (11.5-14.5) % Plt Count (130-400) K/uL MPV (9.4-12.4) fL Immature Gran % (Auto) % Neut % (Auto) % Lymph % (Auto) % Elliott % (Auto) % Eos % (Auto) % Baso % (Auto) % Neut # (Auto) (1.40-6.50) K/uL Lymph # (Auto) (1.20-3.40) K/uL Elliott # (Auto) (0.11-0.59) K/uL Eos # (Auto) (0.00-0.50) K/uL Baso # (Auto) (0.00-0.20) K/uL Immature Gran # (Auto) (0.01-0.20) K/uL Peripher Smr Path Cons PT INR Sodium (136-145) mmol/L Potassium (3.5-5.1) mmol/L Chloride (98-107) mmol/L Carbon Dioxide (21-32) mmol/L Anion Gap (3-11) BUN (6-23) mg/dl Creatinine (0.6-1.2) mg/dl Est Cr Clr Drug Dosing ml/min eGFR BUN/Creatinine Ratio (10-20) Glucose (70-99(Fasting)) mg/dl POC Glucose 131 H (70-99) mg/dl Calcium (8.6-10.3) mg/dl Magnesium (1.7-2.4) mg/dl Ferritin 895.5 H (8-388) ng/ml Lactate Dehydrogenase Vitamin B12 1035 H (180-914) pg/ml Folate 7.97 (>5.38) ng/ml Stl C. cayetanensis PCR Not Detected (NotDetected) Stool Rotavirus A PCR Not Detected (NotDetected) Stl Adenov F 40/41 PCR Not Detected (NotDetected) Stool Astrovirus (PCR) Not Detected (NotDetected) Stool Campylobacter PCR Not Detected (NotDetected) Stl C. diff Tox B Gene Negative Cdiff Gene (Neg) Stool Cryptosporidium PCR Not Detected (NotDetected) Stl E.coli Shiga Tox PCR Not Detected (NotDetected) Stl Enterotoxigenic E PCR Not Detected (NotDetected) Stool EPEC (PCR) Not Detected (NotDetected) Stool EAEC (PCR) Not Detected (NotDetected) Stl E. histolytica PCR Not Detected (NotDetected) Stool Giardia Lamblia PCR Not Detected (NotDetected) Stool Salmonella PCR Not Detected (NotDetected) Stool Sapovirus (PCR) Not Detected (NotDetected) Stl P. shigelloides PCR Not Detected (NotDetected) Stl Shigella/EIEC PCR Not Detected (NotDetected) St Y.enterocolitica PCR Not Detected (NotDetected) Stool Vibrio (PCR) Not Detected (NotDetected) Stl Vibrio cholerae PCR Not Detected (NotDetected) Stl Norovirus GI/GII PCR DETECTED A* (NotDetected) PG Care Time/CCT Total # of Minutes Spent Total Time Spent with Patient: Total time spent is greater than 50% in coordination of care (as documented) at patient's floor/unit and/or counseling patient: Coding Level of Care Code 83516 SUB INP/OBS CARE 2/35MIN Diagnoses Gastroenteritis due to norovirus A08.11
[2024-10-18 09:07] LABS: Ovalocytes 1+
[2024-10-18] MEDS: PLASMA-LYTE A 1,000 ML IV SCH (17:12)
[2024-10-19 06:16] LABS: Hematocrit (blood only) 20.2 % (37.0-47.0); Hemoglobin 6.8 g/dl (12.0-16.0); Mean Corpuscular Hemoglobin 28.7 pg (25.0-34.0); Mean Corpuscular Hgb Conc 33.7 g/dL (32.0-36.0); Mean Corpuscular Volume 85.2 fL (80.0-100.0); Mean Platelet Volume 9.8 fL (9.4-12.4); Platelet Count 104 K/uL (130-400); RDW Coefficient of Variation 14.8 % (11.5-14.5); RDW Standard Deviation 45.7 fL (36.4-46.3); Red Blood Count 2.37 M/uL (4.20-5.40)
--- NOTE | 2024-10-19 06:24 | Communication Note ---
Date of Service: October 19, 2024 Notified by RN of hemoglobin of 6.8 from 7.2 yesterday. Platelets 104 from 112 yesterday No overt bleeding as per RN. AP Progressive anemia Thrombocytopenia Recheck H&H with type and screen at 8 AM Defer decision regarding blood transfusion to AM provider. Hold heparin subcu
[2024-10-19 06:25] LABS: Albumin Globulin Ratio 1.5 (0.9-2); BUN Creatinine Ratio 19.4 (10-20); Bilirubin,Total 0.4 mg/dl (0.2-1.0); Calcium 8.3 mg/dl (8.6-10.3); Creatinine Clr Calc Pharmacy 28.9 ml/min; Magnesium 1.6 mg/dl (1.7-2.4); Phosphorus 2.5 mg/dl (2.5-4.9); Potassium 3.8 mmol/L (3.5-5.1)
[2024-10-19] MEDS ORDERED: SODIUM CHLORIDE 0.9% 100 ML IV PRN (07:02)
[2024-10-19] MEDS ORDERED: SODIUM CHLORIDE 0.9% 50 ML IV PRN (07:02)
--- NOTE | 2024-10-19 07:18 | Hospitalist Progress Note ---
Date of Service October 19, 2024 Assessment & Plan (1) Metabolic encephalopathy: (2) Gastroenteritis due to norovirus: (3) Metabolic acidosis: (4) Acute dehydration: (5) Acute on chronic anemia: (6) Hypomagnesemia: (7) Acute kidney injury superimposed on CKD: (8) History of liver transplant: (9) Immunosuppressed status: (10) Diabetes mellitus, type II: Plan Ms Rios is a 73-year-old female with PMH of type 2 diabetes, dyslipidemia, urinary incontinence, history of liver transplant on Prograf and CellCept following with Dr. Hill, mood disorder below who presents with persistent diarrhea for the past few days iso norovirus. Patient with continued encephalopathy and pancytopenia Discussed with Dr. Morales to hold immunosuppressants for now #Acute metabolic encephalopathy persists despite ongoing volume resuscitation, noting increased pancytopenia, question if immunosuppressants given continued illness/severe diarrhea resulting in elevated levels and questionable toxicity MRI to assess for tacrolimus related PRES Discussion with Transplant provider Hold MMF/Tacro for now #Pancytopenia #Anemia of chronic disease peripheral smear suspicious for chronic eitology LDH WNL, iron studies reflective of AoCD Trend CBC, transfuse < 7 previously refused colonoscopy given colitis and did not pursue s/p transplant concern that pancytopenia is sequelae of acute illness and immunosuppressants Plan to discuss with Dr. Lizz Hill Tacro level pending s/p 1 UPRBC #LEONID on CKDIII improving likely iso GI losses, prerenal improving with fluids Cr 1.67--->1.23 continue to trend BMP avoid neprotoxic agents #Norovirus gastroenteritis #diffuse colitis on imagin #NAGMA iso diarrheal illness ruled out urinary tract infection, no growth on culture. Suspect patient's symptoms are related to norovirus gastroenteritis which is subsequently resolved. However, patient still remains significantly dehydrated with evidence of extremely dry mucous membranes and metabolic acidosis. Resume IV fluid resuscitation Encourage oral intake Updated patient's son-in-law via phone. GI signed off, symptomatic management #Diabetes Type II Sliding scale insulin while in hospital. A1c of 5.2 this admission. #Liver cirrhosis status post liver transplant in 2007 hold immunosuppressants #Depression, anxiety: Continue with duloxetine #GERD: Continue home omeprazole #Severe protein calorie malnutrition BMI 15.6 nutrition following, appreciate recommendations #Ambulatory dysfunction: Wheelchair-bound as per daughter DVT Heparin PT/OT recommended extended care facility; dispo pending Admission and Anticipated Discharge Date Admission Date: October 15, 2024 Subjective Patient more alert today but very much so agitated stated she "wishes [I would] shut up" and she "just wants to be home." Encouraged intake, but declined Asked questions about symptoms, declined to answer Physical Exam Constitutional: WD/WN, vitals as above Eyes: PERRL, conjunctivae normal, anicteric sclerae Respiratory: normal respiratory effort, lungs clear to auscultation no distress noted Cardiovascular: RRR, no murmur, no edema Gastrointestinal (Abdomen): normal bowel sounds, soft, nontender, no hepatosplenomegaly Musculoskeletal: moving upper arms, legs curled up to abdomen Results & Data Results & Data Vital Signs (Past 12 Hours) Vital Signs Temp Pulse Resp BP Pulse Ox O2 Del Method 10/18/24 21:15 Room Air 10/18/24 19:42 36.5 C 88 18 138/80 100 Room Air Laboratory Results Short CBC 10/19/24 10/19/24 Range/Units 05:37 08:00 WBC 1.90 L (4.8-10.8) K/ul Hgb 6.8 L* 7.2 L (12.0-16.0) g/dl Hct 20.2 L* 21.5 L (37.0-47.0) % Plt Count 104 L (130-400) K/uL BMP 10/19/24 05:37 Sodium 140 Potassium 3.8 Chloride 116 H Carbon Dioxide 18 L BUN 21 Creatinine 1.08 Glucose 77 Calcium 8.3 L Liver Function 10/19/24 Range/Units 05:37 Total Bilirubin 0.4 (0.2-1.0) mg/dl AST 12 L (13-39) U/L ALT 5 L (7-52) U/L Alkaline Phosphatase 42 (34-104) U/L Albumin 3.0 L (3.4-5.0) gm/dl Medications Administered Home Medications Medication Instructions Recorded Confirmed Last Taken duloxetine 60 mg capsule,delayed 60 mg PO DAILY 11/08/23 10/15/24 03/24/24 release mycophenolate mofetil 250 mg 500 mg PO BID 11/08/23 10/15/24 03/24/24 capsule omeprazole 20 mg capsule,delayed 20 mg PO DAILY 11/08/23 10/15/24 03/24/24 release tacrolimus 1 mg capsule, 1 mg PO AMHS 11/08/23 10/15/24 03/24/24 immediate-release cranberry extract-vitamin C 250 2 cap PO DAILY 10/15/24 10/15/24 Unknown mg-60 mg capsule (Azo Cranberry Plus Vit C) insulin detemir U-100 100 unit/mL 13 unit subcut BID 10/15/24 10/15/24 Unknown (3 mL) subcutaneous pen Active Medications Generic Name Dose Route Start Last Admin Trade Name Freq PRN Reason Stop Dose Admin Acetaminophen 650 mg 10/15/24 21:12 10/19/24 07:34 Acetaminophen 325 Mg Tab PO 11/14/24 21:11 650 mg Q4H PRN Administration pain/fever Duloxetine HCl 60 mg 10/16/24 09:00 10/19/24 07:43 Duloxetine Hcl 60 Mg Cap PO 11/15/24 08:59 60 mg DAILY ALYSSA Administration Heparin Sodium (Porcine) 5,000 units 10/15/24 21:15 10/18/24 21:40 Heparin Sod 5,000 Unit/0.5 Ml Vial SQ 11/14/24 21:14 5,000 units Q12 ALYSSA Administration Dextrose/Lactated Ringer's 1,000 mls @ 80 mls/hr 10/19/24 07:15 10/19/24 07:33 D5w And Lactated Ringers IV 10/20/24 07:14 80 mls/hr .[id number] ALYSSA Administration Insulin Aspart 0 units 10/15/24 21:15 10/19/24 08:54 Insulin Aspart Per Unit Charge SC 11/14/24 21:14 Not Given ACHS ALYSSA Insulin Glargine 0 - 6 units 10/15/24 21:15 10/19/24 07:43 Lantus Per Unit Charge SQ 11/14/24 21:14 Not Given DAILY ALYSSA Protocol Mycophenolate Mofetil 250 mg 10/18/24 09:00 10/18/24 21:40 Mycophenolate Mofetil 250 Mg Cap PO 11/17/24 08:59 250 mg BID ALYSSA Administration Pantoprazole Sodium 40 mg 10/16/24 09:00 10/19/24 07:43 Pantoprazole 40 Mg Tab PO 11/15/24 08:59 40 mg DAILY ALYSSA Administration Tacrolimus 1 mg 10/15/24 21:00 10/18/24 21:40 Tacrolimus 1 Mg Cap PO 11/14/24 20:59 1 mg AMHS ALYSSA Administration
[2024-10-19] MEDS: D5W AND LACTATED RINGERS 1,000 ML IV SCH (07:33)
[2024-10-19] MEDS: MAGNESIUM SULFATE / D5W 1 GM/100 ML BAG IV SCH (07:33)
[2024-10-19 08:23] LABS: Hematocrit (blood only) 21.5 % (37.0-47.0); Hemoglobin 7.2 g/dl (12.0-16.0); Immature Retic Fraction 3.8 % (2.3-15.9); Reticulated Hemoglobin 31.4 pg (28.2-36.6); Reticulocyte % 1.26 % (0.50-2.00); Reticulocytes # 0.03 10^6/uL (0.020-0.100)
[2024-10-19 10:09] LABS: Eosinophils # (auto) 0.04 K/uL (0.00-0.50); Eosinophils % (auto) 2.1 %; Immature Granulocytes # (auto) 0.01 K/uL (0.01-0.20); Immature Granulocytes % (auto) 0.5 %; Lymphocytes # (auto) 0.52 K/uL (1.20-3.40); Lymphocytes % (auto) 27.7 %; Monocytes # (auto) 0.16 K/uL (0.11-0.59); Monocytes % (auto) 8.5 %; Neutrophils # (auto) 1.15 K/uL (1.40-6.50); Neutrophils % (auto) 61.2 %; Ovalocytes 1+
[2024-10-19] MEDS: OLANZapine 10 MG/2.1 ML SDV IM STA (11:04)
[2024-10-19] MEDS: IBUPROFEN 200 MG TAB PO STA (16:48)
--- NOTE | 2024-10-19 19:02 | Magnetic Resonance Report ---
Clinical History: Metabolic encephalopathy Technique: Multiple T1 and T2-weighted magnetic resonance images were obtained of the brain without gadolinium contrast Comparison is made to the CT dated 10/15/2024 Findings: There is no sign of acute or old infarction with normal-appearing diffusion weighted images. There is cerebral atrophy, within expected limits for the patient's age. There are focal and confluent areas of increased T2 signal intensity within the periventricular white matter of the cerebral hemispheres bilaterally. This is most likely due to chronic small vessel ischemic disease. No definite mass lesion is seen on this noncontrast study. There is no intracranial hemorrhage or other fluid collection. No midline shift or other form of herniation is seen. There is no hydrocephalus. Normal flow-voids are seen within the arteries of the [id number]-Dsohit. The orbits and paranasal sinuses appear normal. The mastoid air cells appear clear. Impression: 1. Cerebral atrophy and chronic small vessel ischemic disease 2. Otherwise unremarkable noncontrast MRI of the brain Electronically signed by Chente Patel 10-19-2024 7:01 PM
[2024-10-20 06:37] LABS: Hematocrit (blood only) 27.3 % (37.0-47.0); Hemoglobin 9.3 g/dl (12.0-16.0); Mean Corpuscular Hemoglobin 29.6 pg (25.0-34.0); Mean Corpuscular Hgb Conc 34.1 g/dL (32.0-36.0); Mean Corpuscular Volume 86.9 fL (80.0-100.0); Mean Platelet Volume 10.1 fL (9.4-12.4); Platelet Count 94 K/uL (130-400); RDW Coefficient of Variation 14.5 % (11.5-14.5); RDW Standard Deviation 46.2 fL (36.4-46.3); Red Blood Count 3.14 M/uL (4.20-5.40); White Blood Count 4.41 K/ul (4.8-10.8)
[2024-10-20 06:47] LABS: Magnesium 1.7 mg/dl (1.7-2.4); Potassium 3.8 mmol/L (3.5-5.1)
[2024-10-20 06:53] LABS: BUN Creatinine Ratio 21.4 (10-20); Creatinine Clr Calc Pharmacy 31.8 ml/min
[2024-10-20 07:01] LABS: Basophils # (auto) 0.01 K/uL (0.00-0.20); Basophils % (auto) 0.2 %; Eosinophils # (auto) 0.07 K/uL (0.00-0.50); Eosinophils % (auto) 1.6 %; Immature Granulocytes # (auto) 0.02 K/uL (0.01-0.20); Immature Granulocytes % (auto) 0.5 %; Lymphocytes # (auto) 0.49 K/uL (1.20-3.40); Lymphocytes % (auto) 11.1 %; Monocytes # (auto) 0.27 K/uL (0.11-0.59); Monocytes % (auto) 6.1 %; Neutrophils # (auto) 3.55 K/uL (1.40-6.50); Neutrophils % (auto) 80.5 %; Platelet Estimate Decreased (Normal); Polychromasia 1+
[2024-10-20] MEDS: D5W AND LACTATED RINGERS 1,000 ML IV SCH (09:54)
--- NOTE | 2024-10-20 11:29 | Hospitalist Progress Note ---
Date of Service October 20, 2024 Assessment & Plan (1) Metabolic encephalopathy: (2) Gastroenteritis due to norovirus: (3) Metabolic acidosis: (4) Acute dehydration: (5) Acute on chronic anemia: (6) Hypomagnesemia: (7) Acute kidney injury superimposed on CKD: (8) History of liver transplant: (9) Immunosuppressed status: (10) Diabetes mellitus, type II: Plan Ms Rios is a 73-year-old female with PMH of type 2 diabetes, dyslipidemia, urinary incontinence, history of liver transplant on Prograf and CellCept following with Dr. Hill, mood disorder below who presents with persistent diarrhea for the past few days iso norovirus. Patient with continued encephalopathy and pancytopenia Discussed with Dr. Morales to hold immunosuppressants for now #Acute metabolic encephalopathy persists despite ongoing volume resuscitation, noting increased pancytopenia, question if immunosuppressants given continued illness/severe diarrhea resulting in elevated levels and questionable toxicity MRI to assess for tacrolimus related PRES Discussion with Transplant provider Hold MMF/Tacro for now anticipate continued uptrend with cessation of immunosuppressants family to contact Hepatology upon discharge for discussion of resuming #Pancytopenia #Anemia of chronic disease peripheral smear suspicious for chronic eitology LDH WNL, iron studies reflective of AoCD Trend CBC, transfuse < 7 previously refused colonoscopy given colitis and did not pursue s/p transplant concern that pancytopenia is sequelae of acute illness and immunosuppressants Plan to discuss with Dr. Lizz Hill Tacro level 18.2 s/p 1 UPRBC with appropriate response #LEONID on CKDIII improving likely iso GI losses, prerenal improving with fluids Cr 1.67--->1.23 continue to trend BMP avoid neprotoxic agents #Norovirus gastroenteritis #diffuse colitis on imaging #NAGMA iso diarrheal illness ruled out urinary tract infection, no growth on culture. Suspect patient's symptoms are related to norovirus gastroenteritis which is subsequently resolved. However, patient still remains significantly dehydrated with evidence of extremely dry mucous membranes and metabolic acidosis. Resume IV fluid resuscitation Encourage oral intake Updated patient's son-in-law via phone. GI signed off, symptomatic management #Diabetes Type II Sliding scale insulin while in hospital. A1c of 5.2 this admission. relative hypoglycemia continue gentle d5LR #Liver cirrhosis status post liver transplant in 2007 hold immunosuppressants #Depression, anxiety: Continue with duloxetine #GERD: Continue home omeprazole #Severe protein calorie malnutrition BMI 15.6 nutrition following, appreciate recommendations #Ambulatory dysfunction: Wheelchair-bound as per daughter DVT Heparin PT/OT recommended extended care facility; dispo pending Family concerned to bring patient home as she was previously able to feed self Admission and Anticipated Discharge Date Admission Date: October 15, 2024 Subjective Reported better afternoon yesterday Woke to name this morning denies any acute concerns, though lethargic this am nursing reported patient ate some breakfast this am Physical Exam Constitutional: thing lethargic chronically ill woman Respiratory: normal respiratory effort, lungs clear to auscultation Cardiovascular: RRR, no murmur, no edema Gastrointestinal (Abdomen): normal bowel sounds, soft, nontender, no hepatosplenomegaly Results & Data Results & Data Vital Signs (Past 12 Hours) Vital Signs Temp Pulse Resp BP Pulse Ox O2 Del Method 10/20/24 08:57 Room Air 10/20/24 07:45 37.2 C 99 H 16 158/82 H 100 Room Air Laboratory Results Short CBC 10/20/24 Range/Units 05:55 WBC 4.41 L (4.8-10.8) K/ul Hgb 9.3 L (12.0-16.0) g/dl Hct 27.3 L (37.0-47.0) % Plt Count 94 L (130-400) K/uL BMP 10/20/24 05:55 Sodium 138 Potassium 3.8 Chloride 114 H Carbon Dioxide 20 L BUN 21 Creatinine 0.98 Glucose 121 H Calcium 8.0 L Medications Administered Home Medications Medication Instructions Recorded Confirmed Last Taken duloxetine 60 mg capsule,delayed 60 mg PO DAILY 11/08/23 10/15/24 03/24/24 release mycophenolate mofetil 250 mg 500 mg PO BID 11/08/23 10/15/24 03/24/24 capsule omeprazole 20 mg capsule,delayed 20 mg PO DAILY 11/08/23 10/15/24 03/24/24 release tacrolimus 1 mg capsule, 1 mg PO AMHS 11/08/23 10/15/24 03/24/24 immediate-release cranberry extract-vitamin C 250 2 cap PO DAILY 10/15/24 10/15/24 Unknown mg-60 mg capsule (Azo Cranberry Plus Vit C) insulin detemir U-100 100 unit/mL 13 unit subcut BID 10/15/24 10/15/24 Unknown (3 mL) subcutaneous pen Active Medications Generic Name Dose Route Start Last Admin Trade Name Matty PRN Reason Stop Dose Admin Acetaminophen 650 mg 10/15/24 21:12 10/19/24 07:34 Acetaminophen 325 Mg Tab PO 11/14/24 21:11 650 mg Q4H PRN Administration pain/fever Duloxetine HCl 60 mg 10/16/24 09:00 10/20/24 08:18 Duloxetine Hcl 60 Mg Cap PO 11/15/24 08:59 60 mg DAILY ALYSSA Administration Heparin Sodium (Porcine) 5,000 units 10/15/24 21:15 10/18/24 21:40 Heparin Sod 5,000 Unit/0.5 Ml Vial SQ 11/14/24 21:14 5,000 units Q12 ALYSSA Administration Dextrose/Lactated Ringer's 1,000 mls @ 80 mls/hr 10/20/24 09:30 10/20/24 09:54 D5w And Lactated Ringers IV 10/21/24 09:29 80 mls/hr .[id number] ALYSSA Administration Insulin Aspart 0 units 10/15/24 21:15 10/20/24 08:19 Insulin Aspart Per Unit Charge SC 11/14/24 21:14 Not Given ACHS ALYSSA Insulin Glargine 0 - 6 units 10/15/24 21:15 10/20/24 08:18 Lantus Per Unit Charge SQ 11/14/24 21:14 Not Given DAILY ALYSSA Protocol Mycophenolate Mofetil 250 mg 10/18/24 09:00 10/18/24 21:40 Mycophenolate Mofetil 250 Mg Cap PO 11/17/24 08:59 250 mg BID ALYSSA Administration Pantoprazole Sodium 40 mg 10/16/24 09:00 10/20/24 08:18 Pantoprazole 40 Mg Tab PO 11/15/24 08:59 40 mg DAILY ALYSSA Administration Tacrolimus 1 mg 10/15/24 21:00 10/18/24 21:40 Tacrolimus 1 Mg Cap PO 11/14/24 20:59 1 mg AMHS ALYSSA Administration
[2024-10-20] MEDS: POT PHOSPHATE MONOBASIC W/ SOD TAB PO SCH (12:48)
--- NOTE | 2024-10-21 12:38 | Hospitalist Progress Note ---
Date of Service October 21, 2024 Assessment & Plan (1) Metabolic encephalopathy: (2) Gastroenteritis due to norovirus: (3) Metabolic acidosis: (4) Acute dehydration: (5) Acute on chronic anemia: (6) Hypomagnesemia: (7) Acute kidney injury superimposed on CKD: (8) History of liver transplant: (9) Immunosuppressed status: (10) Diabetes mellitus, type II: (11) Thrombocytopenia: Plan: Suspect may be multifactorial including acute illness, medications Plan Patient presented with severe dehydration and metabolic encephalopathy due to norovirus and a chronically immunosuppressed state. Slow to improve. Still with ongoing loose/diarrheal stools. Encephalopathy has significantly improved compared to earlier in the week Continue to encourage oral intake, patient apparently can feed herself but needs encouragement Anticipate diarrhea stools improving as patient increases her diet. Add FiberCon to help with bulking of the stool Imodium x 1 dose. Patient is 10 days at least from her norovirus infection suspect no longer infectious etiology for diarrhea other than just prolonged recuperation can use a trial of Imodium. Phone conversation with the patient's daughter, Pauline. She really did not have any further conversation with her sister. She is concerned about taking the patient home with the loose stools and somewhat increased level of care that she will require. Discussed with her that the other option would be skilled facility. Her concern is that she would end up being there forever. Explained to her that she could take her out of a skilled facility anytime they felt that they could continue with her care at home. Explained to the daughter that we need to work on disposition planning. She was agreeable to least sending some applications to skilled facilities will notify case management. Surveillance labs in a.m. Admission and Anticipated Discharge Date Admission Date: October 15, 2024 Subjective Patient seems a little bit more alert today. Able to tell me that she did not like eggs for breakfast and wanted some cereal. Nursing reports that patient did then feed herself some cereal this morning. Physical Exam Physical Exam: Constitutional: Alert, frail, weak HEENT: Mucous membranes moist. Lungs: Decreased breath sounds CV: S1-S2, regular Abdomen: Soft, nontender, nondistended Extremities: No significant edema Neuro: Generalized weakness, speech is clearer and less mumbled Psych: Cooperative, normal mood Results & Data Results & Data Vital Signs (Past 12 Hours) Vital Signs Temp Pulse Resp BP Pulse Ox O2 Del Method 10/21/24 07:13 36.6 C 80 16 159/78 H 100 Room Air Diagnostic Findings Reviewed imaging, laboratory and diagnostic studies. Pertinent findings as below. Glucose was reviewed Reported 3 loose stools yesterday, 2 loose stools already this morning.
[2024-10-21] MEDS: LOPERAMIDE HCL 2 MG CAP PO STA (13:29)
[2024-10-21] MEDS: CALCIUM POLYCARBOPHIL 625MG TAB PO SCH (13:29)
[2024-10-21] MEDS: CARBOHYDRATES FOR HYPOGLYCEMIA PO PRN (16:56)
[2024-10-21] MEDS: D5W AND 1/2NSS 1,000 ML IV SCH (18:00)
[2024-10-22 07:34] LABS: Hematocrit (blood only) 26.9 % (37.0-47.0); Hemoglobin 9.1 g/dl (12.0-16.0); Mean Corpuscular Hgb Conc 33.8 g/dL (32.0-36.0); Mean Corpuscular Volume 85.7 fL (80.0-100.0); Mean Platelet Volume 10.8 fL (9.4-12.4); Platelet Count 94 K/uL (130-400); RDW Coefficient of Variation 14.3 % (11.5-14.5); RDW Standard Deviation 44.3 fL (36.4-46.3); Red Blood Count 3.14 M/uL (4.20-5.40); White Blood Count 4.22 K/ul (4.8-10.8)
[2024-10-22 07:35] LABS: Calcium 7.8 mg/dl (8.6-10.3); Creatinine Clr Calc Pharmacy 41.6 ml/min; Phosphorus 2.7 mg/dl (2.5-4.9); Potassium 2.8 mmol/L (3.5-5.1)
[2024-10-22] MEDS: MAGNESIUM SULFATE / D5W 1 GM/100 ML BAG IV SCH (10:37)
[2024-10-22] MEDS: POTASSIUM CHLORIDE / WTR 10 MEQ/100 ML PLCT IV SCH (10:37)
--- NOTE | 2024-10-22 11:39 | Hospitalist Progress Note ---
Date of Service October 22, 2024 Assessment & Plan (1) Metabolic encephalopathy: (2) Gastroenteritis due to norovirus: (3) Metabolic acidosis: (4) Acute dehydration: (5) Acute on chronic anemia: (6) Hypomagnesemia: (7) Acute kidney injury superimposed on CKD: (8) History of liver transplant: (9) Immunosuppressed status: (10) Diabetes mellitus, type II: (11) Thrombocytopenia: Plan: Suspect may be multifactorial including acute illness, medications (12) Hypokalemia: Plan Patient continues to recover from his severe norovirus infection. Encephalopathy seems to have significantly improved, however patient significantly weakened and deconditioned. Patient chronically immunosuppressed in the setting of liver transplant. Blood counts slow to rebound from infection. New complication with hypoglycemia last evening, this is due to poor oral intake and weakness and causing her ability to feed herself to be poor. Required D5 IV fluids overnight to maintain adequate glucose levels. Per nursing report patient ate a good breakfast this morning with some assistance with feeding, discontinue dextrose IV fluids and continue to monitor glucose. Discontinue all insulin coverage Aggressively replace electrolytes both IV and orally Continue therapies Number of stools seems significantly decreased over the last 24 hours Patient and family agreeable to considering [facility]hab, case manag ement pursuing options Continue to hold CellCept and tacrolimus Updated patient's daughter Pauline via phone. Update from case management: [facility] would not have a bed available till least next week. Will continue to have ongoing evaluations patient's and family's ability to care for her at home versus [facility] facility. 52 min spent on communication with medical staff, family, review of records, diagnostic interpretation of data and care at the bedside. Admission and Anticipated Discharge Date Admission Date: October 15, 2024 Subjective Patient a bit more interactive today. Reports that she had a better breakfast. Nurse reports that patient ate a good portion of her breakfast. Patient fed herself for some of it but also and required nursing to help with feeding. Last night issue with hypoglycemia most likely due to patient's poor oral intake t hroughout the day and required D5 Physical Exam Physical Exam: Constitutional: Alert, frail, weak HEENT: Mucous membranes moist. Lungs: Clear to auscultation, decreased, no wheezes rales or rhonchi CV: S1-S2, regular Abdomen: Soft, nontender, nondistended Extremities: No significant edema Neuro: generalized weakness, speech much clearer and improved mentation Psych: Cooperative, normal mood Results & Data Results & Data Vital Signs (Past 12 Hours) Vital Signs Temp Pulse Resp BP Pulse Ox O2 Del Method 10/22/24 07:49 36.9 C 93 H 16 123/75 99 Room Air Laboratory Results Reviewed imaging, laboratory and diagnostic studies. Pertinent findings as below. WBCs 4.22 Hemoglobin 9.1 Platelets 94, stable Potassium 2.8 Phosphorus 2.7 Magnesium 1.0
[2024-10-23 06:34] LABS: BUN Creatinine Ratio 21.4 (10-20); Calcium 7.7 mg/dl (8.6-10.3); Creatinine Clr Calc Pharmacy 44.6 ml/min; Magnesium 2.1 mg/dl (1.7-2.4); Phosphorus 2.8 mg/dl (2.5-4.9); Potassium 2.6 mmol/L (3.5-5.1)
[2024-10-23] MEDS: POTASSIUM CHLORIDE / WTR 10 MEQ/100 ML PLCT IV SCH (08:45)
--- NOTE | 2024-10-23 11:31 | Hospitalist Progress Note ---
Date of Service October 23, 2024 Assessment & Plan (1) Metabolic encephalopathy: (2) Gastroenteritis due to norovirus: (3) Metabolic acidosis: (4) Acute dehydration: (5) Acute on chronic anemia: (6) Hypomagnesemia: (7) Acute kidney injury superimposed on CKD: (8) History of liver transplant: (9) Immunosuppressed status: (10) Diabetes mellitus, type II: (11) Thrombocytopenia: Plan: Suspect may be multifactorial including acute illness, medications (12) Hypokalemia: Plan Patient continuing to improve from severe norovirus infection. Continue to replace potassium, unfortunately no IV access and will attempt to replace orally Continue to encourage oral intake Monitor laboratory studies Continue therapies as able Continue to encourage oral intake of food and liquid Admission and Anticipated Discharge Date Admission Date: October 15, 2024 Subjective Patient awake and able to answer some questions this morning. Unfortunately, again got eggs for breakfast. Nursing reports she did eat her yogurt this morning. Physical Exam Physical Exam: Constitutional: Alert, frail, weak HEENT: Mucous membranes moist. Lungs: Clear to auscultation, decreased, no wheezes rales or rhonchi CV: S1-S2, regular Abdomen: Soft, nontender, nondistended Extremities: No significant edema Neuro: generalized weakness, contracted legs Psych: Cooperative, normal mood Results & Data Results & Data Vital Signs (Past 12 Hours) Vital Signs Temp Pulse Resp BP Pulse Ox O2 Del Method 10/23/24 07:57 36.8 C 76 16 129/81 97 Room Air Diagnostic Findings Reviewed imaging, laboratory and diagnostic studies. Pertinent findings as below. Potassium 2.6 Stools have started to form and are minimal
[2024-10-23] MEDS: POTASSIUM CHLORIDE CRTAB 20 MEQ TABCR PO SCH (11:46)
[2024-10-24 06:27] LABS: Hematocrit (blood only) 23.9 % (37.0-47.0); Mean Corpuscular Hgb Conc 33.5 g/dL (32.0-36.0); Mean Corpuscular Volume 86.6 fL (80.0-100.0); Mean Platelet Volume 10.4 fL (9.4-12.4); Platelet Count 126 K/uL (130-400); RDW Coefficient of Variation 14.6 % (11.5-14.5); RDW Standard Deviation 45.2 fL (36.4-46.3); Red Blood Count 2.76 M/uL (4.20-5.40); White Blood Count 3.72 K/ul (4.8-10.8)
[2024-10-24 06:43] LABS: BUN Creatinine Ratio 30.4 (10-20); Calcium 7.8 mg/dl (8.6-10.3); Creatinine Clr Calc Pharmacy 45.2 ml/min; Potassium 4.4 mmol/L (3.5-5.1)
--- NOTE | 2024-10-24 11:07 | Hospitalist Progress Note ---
Date of Service October 24, 2024 Assessment & Plan (1) Metabolic encephalopathy: (2) Gastroenteritis due to norovirus: (3) Metabolic acidosis: (4) Acute dehydration: (5) Acute on chronic anemia: (6) Hypomagnesemia: (7) Acute kidney injury superimposed on CKD: (8) History of liver transplant: (9) Immunosuppressed status: (10) Diabetes mellitus, type II: (11) Thrombocytopenia: Plan: Suspect may be multifactorial including acute illness, medications (12) Hypokalemia: Plan Patient is slowly improving from severe norovirus infection. Increase fiber, Hold oral electrolyte supplementation, follow labs Continue to encourage oral intake and self-feeding Phone conversation with patient's daughter, updated to patient's progress and informed to anticipate and plan for probable discharge home with home health tomorrow Admission and Anticipated Discharge Date Admission Date: October 15, 2024 Subjective Patient looks's good as I have seen her since admission. A little brighter in her face. She denies any complaints Physical Exam Physical Exam: Constitutional: Alert, frail, weak HEENT: Mucous membranes moist. Lungs: Clear to auscultation, decreased, no wheezes rales or rhonchi CV: S1-S2, regular Abdomen: Soft, nontender, nondistended Extremities: No significant edema Neuro: Bedbound Psych: Cooperative, normal mood Results & Data Results & Data Vital Signs (Past 12 Hours) Vital Signs Temp Pulse Resp BP Pulse Ox O2 Del Method 10/24/24 07:32 37.2 C 89 16 129/75 100 Room Air 10/24/24 04:05 97 Room Air Diagnostic Findings Reviewed imaging, laboratory and diagnostic studies. Pertinent findings as below. Continued pancytopenia, platelets improved Potassium 4.4, improved Creatinine 0.69 Per documentation continues with some loose stool but frequency significantly decreased to 1 or 2 at most per day
[2024-10-24] MEDS: CALCIUM POLYCARBOPHIL 625MG TAB PO SCH (15:27)
[2024-10-25 06:08] LABS: Hematocrit (blood only) 23.7 % (37.0-47.0); Hemoglobin 7.8 g/dl (12.0-16.0); Mean Corpuscular Hemoglobin 29.1 pg (25.0-34.0); Mean Corpuscular Hgb Conc 32.9 g/dL (32.0-36.0); Mean Corpuscular Volume 88.4 fL (80.0-100.0); Mean Platelet Volume 10.7 fL (9.4-12.4); Platelet Count 133 K/uL (130-400); RDW Coefficient of Variation 14.9 % (11.5-14.5); RDW Standard Deviation 46.6 fL (36.4-46.3); Red Blood Count 2.68 M/uL (4.20-5.40); White Blood Count 3.09 K/ul (4.8-10.8)
[2024-10-25 06:35] LABS: BUN Creatinine Ratio 29.2 (10-20); Magnesium 1.5 mg/dl (1.7-2.4); Phosphorus 2.5 mg/dl (2.5-4.9); Potassium 4.9 mmol/L (3.5-5.1)
[2024-10-25 07:30] VITALS: O2SAT 98
--- NOTE | 2024-10-25 10:39 | Discharge Summary ---
Discharge Summary Date of Service October 25, 2024 Principal Dx & Hospital Course #1 = Principal Diagnosis (1) Metabolic encephalopathy: (2) Gastroenteritis due to norovirus: (3) Metabolic acidosis: (4) Acute dehydration: (5) Acute on chronic anemia: (6) Hypomagnesemia: (7) Acute kidney injury superimposed on CKD: (8) History of liver transplant: (9) Immunosuppressed status: (10) Diabetes mellitus, type II: (11) Thrombocytopenia: Suspect may be multifactorial including acute illness, medications (12) Hypokalemia: Plan Patient is 73-year-old female chronically immunosuppressed and status post liver transplant presented to the emergency room with multiple days of diarrhea and encephalopathy. Family who she lives with has known cases of norovirus. Patient's baseline is essentially bed and wheelchair bound but is being cared for at home by family and caretakers. Patient was admitted to the hospital. She was noted to have significant metabolic alkalosis due to dehydration. She was given fluid resuscitation. With fluid resuscitation her mentation started to improve somewhat. Initially seen as though her stools had stopped. Blood and urine cultures were sterile. GI consultation was obtained. She did eventually had bowel movement to did test positive for norovirus. As we attempted trying to feed her more started having more diarrheal stools. Patient was very slow to improve us with her overall weak in a debilitated state and chronic immunosuppressed state. Did hold her immunosuppressants while here in the hospital. Case management was involved for consider possible rehab placement. Finally the patient's diarrheal stools started to slow, down to 1 or 2 a day. Her mentation started to clear. With some therapies her strength started to return. She was starting to feed herself better. Her electrolytes were replaced and stabilized. On the day of discharge vital signs are stable. She was awake and alert. She was actually stating she was feeling much better and asking to go home which is a significant improvement. Ultimately I the best option for the patient was to go home with the family and continue home health services and caregivers assisting the family. Can restart her Prograf and CellCept. Will monitor her electrolytes and CBC as outpatient follow-up with her outpatient providers. Notified patient's son-in-law. He knows they are planning to bring her home today when his , Pauline, patient's daughter is done work today. Notes For Next Care Provider Recommend CBC, BMP, magnesium in 7 to 10 days Medication Changes From Visit FiberCon 2 times daily Magnesium oxide 2 times daily Imodium as needed Admission HPI Per Admitting Provider This is a 73-year-old female with PMH of type 2 diabetes, dyslipidemia, urinary incontinence, history of liver transplant on Prograf and CellCept following with Dr. Hill, mood disorder and other medical problems listed below who presents with persistent diarrhea for the past few days. Patient has not been eating or drinking. Per history from caregivers, family with norovirus last week. Patient was symptoms the past few days. Patient is soft-spoken and difficult to elicit history from. Has been incontinent of stool and was brought in due to concern for dehydration and inability to care for her in the state at home. Endorses abdominal discomfort yesterday but not today. No current nausea or episodes of vomiting since arrival. Unable to elicit remainder of ROS as patient is slow to respond (baseline) and no family present. Admission Exam Per Admitting Provider See H&P Discharge Exam Constitutional: Alert, nontoxic, frail, weak HEENT: Mucous membranes moist. Lungs: Decreased breath sounds CV: S1-S2, regular Abdomen: Soft, nontender, nondistended Extremities: No significant edema Neuro: Global weakness, bedbound Psych: Cooperative, interactive, talkative, significantly improved Updated Medication List Medication Instructions Recorded Confirmed Type duloxetine 60 mg capsule,delayed 60 mg PO DAILY 11/08/23 10/15/24 History release mycophenolate mofetil 250 mg 500 mg PO BID 11/08/23 10/15/24 History capsule omeprazole 20 mg capsule,delayed 20 mg PO DAILY 11/08/23 10/15/24 History release tacrolimus 1 mg capsule, 1 mg PO [facility] 11/08/23 10/15/24 History immediate-release cranberry extract-vitamin C 250 2 cap PO DAILY 10/15/24 10/15/24 History mg-60 mg capsule (Azo Cranberry Plus Vit C) insulin detemir U-100 100 unit/mL 13 unit subcut BID 10/15/24 10/15/24 History (3 mL) subcutaneous pen calcium polycarbophil 625 mg 625 mg PO BID #60 tabs 10/25/24 Rx tablet (Fiber (calcium polycarbophil)) loperamide 2 mg capsule (Imodium 2 mg PO DAILY PRN loose stool #10 10/25/24 Rx A-D) caps magnesium oxide 400 mg PO BID #60 tabs 10/25/24 Rx Hospital Stay Data Consultations 10/15/24 17:14 ED Decision to Admit Stat 10/15/24 21:12 Consult Gastroenterology Routine Diagnostic Imagining Performed 10/15/24 14:08 CT abd pelvis IV con only Stat CT head/brain wo con Stat 10/19/24 07:11 MRI Brain [MR brain wo con] Routine Reviewed imaging, laboratory and diagnostic studies. Pertinent findings as below. Blood and urine cultures negative WBCs 3.09 Hemoglobin 7.8 Platelets 133, improved Potassium 4.9 Creatinine 0.65 Magnesium 1.5, repleted prior to discharge Phosphorus 2.5 Stool negative for C. difficile Stool positive for norovirus Tacrolimus level 18.2 on 10/15/2024 Brain MRI no acute infarct. Significant cerebral atrophy and small vessel ischemic disease. Pending Results Patient Have Any Pending Studies at Discharge: No Discharge Instructions Given to Patient (Per Discharging Provider) Follow-up with your transplant team as scheduled Continue to work with home health care Discussed with PCP checking blood tests and 7 to 10 days Home Health Attestation I certify that this patient is under my care and that I, or a physicians medical office assistant instructor working with me, had a face to-face encounter that meets the home health [id number] encounter requirements with this patient. The encounter with the patient was in whole, or in part, for the following medical condition, which is the primary reason for home health care (list medical condition): I certify that, based on my findings, the following services are medically necessary home health services: My clinical findings support the need for the above services because: Further, I certify that my clinical findings support that this patient is homebound (i.e. absences from home require considerable and taxing effort and are for medical reasons or [employer] services or infrequently or of short duration when for other reasons) because: Certification for Home Health Services: Based on the above findings, I certify that this patient is confined to the home and needs intermittent detention care, physical therapy and/or speech therapy or continues to need occupational therapy. The patient is under my care, and I have initiated the establishment of the plan of care. This patient will be followed by a physician who will periodically review the plan of care. Total Time Total Time Spent Total Time Spent (In Minutes): 44
[2024-10-25] MEDS: MAGNESIUM OXIDE 400 MG TAB PO SCH (11:21)
[2024-10-25 14:44] VITALS: BP 106/66; PULSE 83; RESP 16; TEMP 98.2
== END 2024-10-25 17:42 | disposition home health service (06) | DRG 391 ==
LOC: ED 13:45 → 2W 17:25 → SUATTDRO 17:25 → 2W 20:26 → 3E 10-17 10:21